=== PATIENT | female | born 1940 | race Caucasian/White ===

== ENCOUNTER 2017-10-10 09:20 | Day surgery (SDC) | payer OTHER ==
[2017-10-06 14:02] VITALS: BMI 28.0
[2017-10-10] MEDS ORDERED: ceFAZolin SODIUM 1 GM VIAL ONE (09:57)
--- NOTE | 2017-10-10 12:54 | HP ---
History & Physical Update - History History: No Change - Physical Physical: No Change - Assessment Assessment: No Change - Plan Plan: No Change
[2017-10-10] MEDS ORDERED: LIDOCAINE 1%/EPI 1:100000 (20 ML MULTI DOSE VIAL) ONE (13:12)
[2017-10-10] MEDS ORDERED: PROPOFOL 20 ML ONE (13:28)
[2017-10-10] MEDS ORDERED: DEXAMETHASONE SOD PHOSPHATE 4 MG/1 ML VIAL ONE (13:28)
[2017-10-10] MEDS ORDERED: LIDOCAINE HCL/PF 2% SDV 5ML VIAL ONE (13:28)
[2017-10-10] MEDS ORDERED: KETOROLAC TROMETHAMINE 30 MG/1 ML VIAL ONE (13:28)
[2017-10-10] MEDS ORDERED: MIDAZOLAM HCL 2 MG/2 ML SINGLE DOSE VIAL ONE ×2 (13:30→13:31)
[2017-10-10] MEDS ORDERED: ceFAZolin SODIUM 1 GM VIAL IVPB ONE (13:35)
[2017-10-10] MEDS ORDERED: LIDOCAINE 1%/EPI 1:100000 (50 ML MULTI DOSE VIAL) INF ONE (13:49)
[2017-10-10] MEDS ORDERED: PROMETHAZINE HCL 25 MG/1 ML VIAL IVPUSH PRN (14:10)
[2017-10-10] MEDS ORDERED: oxyCODONE HCL 5 MG TABLET PO PRN (14:10)
[2017-10-10] MEDS ORDERED: ONDANSETRON 4 MG/2 ML VIAL IVPUSH PRN (14:10)
[2017-10-10] MEDS ORDERED: LACTATED RINGERS SOLUTION 1,000 ML IV SCH (14:15)
[2017-10-10 14:46] VITALS: TEMP 97.9
[2017-10-10 15:55] VITALS: BP 104/67; PULSE 84
--- NOTE | 2017-10-10 17:23 | OP ---
DATE OF OPERATION: 10/10/2017 PREOPERATIVE DIAGNOSIS: Squamous cell carcinoma of the cervix. 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 SURGEON: Jyoti Maldonado MD ANESTHESIA: Moderate sedation and local. ESTIMATED BLOOD LOSS: 5 mL COMPLICATIONS: None. INDICATIONS: This is a 77-year-old with history of postmenopausal vaginal bleeding. She had a Pap smear on August 24, 2017, that showed HSIL, high-risk HPV positive. On September 07, 2017, a cervical biopsy at 6 o'clock showed squamous cell carcinoma, cannot determine invasion due to superficial nature of biopsy. ECC and cervix biopsy showed squamous cell carcinoma, cannot determine invasion. Patient was counseled regarding surgical management to define the extent of disease. Risks, benefits, indications, and alternatives were discussed with the patient. All questions were answered. Informed consent was signed. FINDINGS: On exam under anesthesia, the cervix was hard and firm and fixed to the right pelvic sidewall. The left parametria felt free. The vagina felt free. Rectovaginal septum was free of any nodularity. Uterus was approximately 6 weeks' size. On cystoscopy, there were no lesions in the mucosa, and the entire mucosa was able to be visualized. There was a bulge from the cervix between the trigone. There was approximately a 3 x 1 cm ridge. This area was biopsied. It was right between the bilateral ureteral orifices. Upon proctoscopy to 15 cm, no mucosal lesions were seen. Excellent bowel prep. DESCRIPTION OF PROCEDURE: The patient was taken to the operating room, placed in dorsal supine position. Moderate sedation was achieved. She was placed in the dorsal lithotomy position in Rudi stirrups and prepped and draped in the normal sterile fashion. A 30-degree cystoscope was advanced through the urethra, and a thorough exam of the bladder was performed with the above-noted findings. A bladder mucosal biopsy was performed in the trigone overlying the ridge. Excellent hemostasis was seen. The cystoscope was then removed, and the bladder was drained. Speculum was then placed in the vagina, and 10 mL of 1% lidocaine with epinephrine were injected into the cervix at 3, 6, 9, and 12 o'clock. Using the 1.0 x 1.0 loop electrode, a pass along the central cervix and endocervix was performed for diagnostic purposes. Hemostasis was achieved using rollerball electrocautery. The speculum was then removed. Attention was turned to proctoscopy. Using the rigid proctoscope, it was inserted to 15 degrees, and a thorough exam of the mucosa was performed. No lesions were seen. The proctoscope was removed, and sponge and instrument counts were correct x2. The patient was awakened, transferred in stable condition to the PACU. Kali De La [id number]
--- NOTE | 2017-10-12 13:49 | PATH ---
Surgical Pathology Report Patient Name: RAYMUNDO PENA [facility]. Rec. #: [id number] /Age/Gender: 1940 (Age: 77) / F Account: [id number] Location: [facility] SURGICAL Taken: 10/10/2017 Received: 10/11/2017 Reported: 10/12/2017 Physicians: Jyoti Maldonado MD Specimen(s) Received A: BLADDER TRIGONE BIOPSY B: CERVIX BIOPSY - CENTRAL LEEP Clinical History Preoperative diagnosis: Cervix cancer Final Diagnosis A. Bladder, trigone, biopsy: benign urothelial mucosa. No carcinoma identified. B. Cervix, CENTRAL, LOOP ELECTROSURGICAL EXCISION PROCEDURE (LEEP): Invasive squamous cell CARCINOMA, moderately differentiated. TUMOR MEASURES ATLEAST 7 x 4 MM in GREATEST MICROSCOPIC DIMENSION AND INVOLVES ALL QUADRANTS. HIGH GRADE SQUAMOUS INTRAEPITHELIAL LESION (HSIL) PRESENT. LYMPHOVascular INVASION identified. Carcinoma extends to INKED surgical margins. Comment: Findings discussed with Dr. Maldonado. Electronically Signed Jennifer Vanegas M.D. Gross Description A. Received in formalin, labeled "bladder trigone biopsy" is a hernández, irregular portion of soft tissue measuring 0.2 cm. in greatest dimension. The specimen is submitted in toto in one cassette. B. Received in formalin labeled "cervix biopsy central LEEP," is a 1.2 cm in diameter annular, unoriented portion of soft tissue, consistent with a cervical LEEP biopsy. There is a arnulfo in the specimen which is arbitrarily designated the 12:00 aspect. The specimen is inked blue and serially sectioned. The specimen is entirely and sequentially submitted in 4 cassettes as follows: 1-12:00 to 3:00; 2-3:00 to 6:00; 3-6:00 to 9:00; 4-9:00 to 12:00. DL/10/11/2017 saudi/10/11/2017
== END 2017-10-10 15:55 | disposition home or self-care (01) ==
LOC: JASU-SURG 09:20
PROVIDERS: ATTEND Obstetrics & Gynecology Gynecologic Oncology
PROC: 0DJD8ZZ Inspection of Lower Intestinal Tract, Via Natural or Artificial Opening Endoscopic (ICD-10-PCS; 2017-10-10)
PROC: 0UBC7ZX Excision of Cervix, Via Natural or Artificial Opening, Diagnostic (ICD-10-PCS; 2017-10-10)
PROC: 0TBB8ZX Excision of Bladder, Via Natural or Artificial Opening Endoscopic, Diagnostic (ICD-10-PCS; principal; 2017-10-10 11:00)
DX: C53.9 Malignant neoplasm of cervix uteri, unspecified (principal)
CPT/HCPCS: 88305-TC; 88307-TC; 94760

== ENCOUNTER 2017-11-15 07:43 | Day surgery (SDC) | payer OTHER ==
[2017-11-15] MEDS ORDERED: DEXAMETHASONE SOD PHOSPHATE 10 MG/1 ML VIAL IVPUSH ONE (10:00)
[2017-11-15] MEDS ORDERED: FOSAPREPITANT DIMEGLUMINE 150 MG in SODIUM CHLORIDE 150 ML IVPB ONE (10:00)
[2017-11-15] MEDS ORDERED: SODIUM CHLORIDE IVPB ONE (10:00)
[2017-11-15] MEDS ORDERED: MAGNESIUM SULFATE IVPB ONE ×2 (10:00→12:00)
[2017-11-15] MEDS ORDERED: PALONOSETRON HCL 0.25 MG/5 ML VIAL IVPUSH ONE (10:00)
[2017-11-15] MEDS ORDERED: POTASSIUM CHLORIDE IVPB ONE (10:00)
[2017-11-15] MEDS ORDERED: SODIUM CHLORIDE IV ONE (10:30)
[2017-11-15] MEDS ORDERED: CISPLATIN IV ONE (10:30)
[2017-11-15 10:45] VITALS: BP 139/94; PULSE 87; TEMP 98
[2017-11-15 11:09] LABS: BASO % 0.8 % (0-2.0); EOS % 5.6 % (0-4.5); HEMATOCRIT 36.3 % (32.4-45.2); HEMOGLOBIN 11.7 GM/dL (10.7-15.3); LYMPH % 28.4 % (8-40); MCH 28.3 pg (25.7-33.7); MCHC 32.2 g/dl (32.0-36.0); MEAN PLT VOLUME 6.6 fl (7.5-11.1); MONO % 7.3 % (3.8-10.2); NEUT % 57.9 % (42.8-82.8); PLATELET COUNT 252 K/MM3 (134-434); RBC 4.12 M/mm3 (3.60-5.2); RDW 14.5 % (11.6-15.6); WHITE BLOOD COUNT 6.2 K/mm3 (4.0-10.0)
[2017-11-15 11:41] LABS: ALBUMIN 3.6 g/dl (3.4-5.0); ALK PHOS 54 U/L (45-117); ANION GAP 6 (8-16); BILIRUBIN,DIRECT < 0.2 mg/dL (0.0-0.2); BILIRUBIN,TOTAL 0.5 mg/dL (0.2-1.0); BLOOD UREA NITROGEN 12 mg/dL (7-18); CALCIUM 8.3 mg/dL (8.5-10.1); CHLORIDE 105 mmol/L (98-107); CO2 27 mmol/L (21-32); CREATININE 0.6 mg/dL (0.55-1.02); GLUCOSE,RANDOM 92 mg/dL (74-106); MAGNESIUM 2.1 mg/dL (1.8-2.4); POTASSIUM 4.3 mmol/L (3.5-5.1); SGOT/AST 16 U/L (15-37); SGPT/ALT 22 U/L (12-78); SODIUM 138 mmol/L (136-145); TOT PROT 6.9 g/dl (6.4-8.2)
[2017-11-15] MEDS ORDERED: SODIUM CHLORIDE 0.45% IVPB ONE (12:00)
[2017-11-15] MEDS ORDERED: PORTA CATH FLUSH 10 ML IVPUSH ONE (19:43)
== END 2017-11-15 19:25 | disposition home or self-care (01) ==
LOC: JONCCHEMO 07:43 → J7W 11:59 → JONCCHEMO 19:25
PROVIDERS: ATTEND Internal Medicine Hematology & Oncology
DX: Z51.11 Encounter for antineoplastic chemotherapy (principal); C53.9 Malignant neoplasm of cervix uteri, unspecified
CPT/HCPCS: 36415; 80053; 80076; 83735; 85025; 96361; 96375; 96413; J1453; J2469

== ENCOUNTER → 2017-11-17 | Day surgery (SDC) | payer OTHER ==
[2017-11-17 11:00] LABS: ALBUMIN 3.6 g/dl (3.4-5.0); ALK PHOS 50 U/L (45-117); ANION GAP 7 (8-16); BILIRUBIN,TOTAL 0.5 mg/dL (0.2-1.0); BLOOD UREA NITROGEN 23 mg/dL (7-18); CALCIUM 8.5 mg/dL (8.5-10.1); CHLORIDE 105 mmol/L (98-107); CO2 26 mmol/L (21-32); CREATININE 0.8 mg/dL (0.55-1.02); GLUCOSE,RANDOM 90 mg/dL (74-106); MAGNESIUM 2.3 mg/dL (1.8-2.4); POTASSIUM 4.1 mmol/L (3.5-5.1); SGOT/AST 12 U/L (15-37); SGPT/ALT 20 U/L (12-78); SODIUM 138 mmol/L (136-145); TOT PROT 6.7 g/dl (6.4-8.2)
== END | disposition home or self-care (01) ==
LOC: JONCNONCHE 07:43
PROVIDERS: ATTEND Internal Medicine Hematology & Oncology
PROC: 0JPVXVZ Removal of Infusion Pump from Upper Extremity Subcutaneous Tissue and Fascia, External Approach (ICD-10-PCS; principal; 2017-11-17)
DX: Z53.8 Procedure and treatment not carried out for other reasons (principal)
CPT/HCPCS: 36415; 80053; 83735

== ENCOUNTER 2017-11-20 07:28 | Day surgery (SDC) | payer OTHER ==
[2017-11-20] MEDS ORDERED: SODIUM CHLORIDE 1,000 ML IV SCH (10:45)
[2017-11-20 10:56] LABS: BASO % 0.2 % (0-2.0); EOS % 4.1 % (0-4.5); HEMATOCRIT 38.3 % (32.4-45.2); HEMOGLOBIN 12.2 GM/dL (10.7-15.3); LYMPH % 28.5 % (8-40); MCHC 31.9 g/dl (32.0-36.0); MEAN CELL VOLUME 87.7 fl (80-96); MEAN PLT VOLUME 6.9 fl (7.5-11.1); MONO % 7.7 % (3.8-10.2); NEUT % 59.5 % (42.8-82.8); PLATELET COUNT 271 K/MM3 (134-434); RBC 4.36 M/mm3 (3.60-5.2); RDW 13.9 % (11.6-15.6); WHITE BLOOD COUNT 6.7 K/mm3 (4.0-10.0)
[2017-11-20 11:16] LABS: ALBUMIN 3.6 g/dl (3.4-5.0); ALK PHOS 55 U/L (45-117); ANION GAP 5 (8-16); BILIRUBIN,TOTAL 0.6 mg/dL (0.2-1.0); BLOOD UREA NITROGEN 22 mg/dL (7-18); CHLORIDE 101 mmol/L (98-107); CO2 30 mmol/L (21-32); CREATININE 0.9 mg/dL (0.55-1.02); GLUCOSE,RANDOM 97 mg/dL (74-106); MAGNESIUM 2.1 mg/dL (1.8-2.4); POTASSIUM 4.1 mmol/L (3.5-5.1); SGOT/AST 13 U/L (15-37); SGPT/ALT 21 U/L (12-78); SODIUM 136 mmol/L (136-145)
[2017-11-20] MEDS ORDERED: SODIUM CHLORIDE 1,000 ML IV ONE (12:00)
[2017-11-20 13:41] VITALS: TEMP 98.4
[2017-11-20 13:48] VITALS: BP 120/73; PULSE 86
[2017-11-20] MEDS ORDERED: PORTA CATH FLUSH 10 ML IVPUSH ONE (13:48)
== END 2017-11-20 12:55 | disposition home or self-care (01) ==
LOC: JONCNONCHE 07:28 → J7W 10:24 → JONCNONCHE 12:55
PROVIDERS: ATTEND Internal Medicine Hematology & Oncology
PROC: 3E0337Z Introduction of Electrolytic and Water Balance Substance into Peripheral Vein, Percutaneous Approach (ICD-10-PCS; principal; 2017-11-20)
DX: C53.9 Malignant neoplasm of cervix uteri, unspecified (principal)
CPT/HCPCS: 36415; 80053; 83735; 85025; 96360; 96361

== ENCOUNTER 2017-11-23 07:45 | Day surgery (SDC) | payer OTHER ==
[2017-11-23 13:54] LABS: HEMATOCRIT 34.2 % (32.4-45.2); HEMOGLOBIN 11.2 GM/dL (10.7-15.3); MCH 28.5 pg (25.7-33.7); MCHC 32.7 g/dl (32.0-36.0); MEAN CELL VOLUME 87.3 fl (80-96); MEAN PLT VOLUME 6.7 fl (7.5-11.1); PLATELET COUNT 250 K/MM3 (134-434); RBC 3.92 M/mm3 (3.60-5.2); RDW 13.6 % (11.6-15.6); WHITE BLOOD COUNT 5.6 K/mm3 (4.0-10.0)
[2017-11-23] MEDS ORDERED: PALONOSETRON HCL 0.25 MG/5 ML VIAL IVPUSH ONE (14:00)
[2017-11-23] MEDS ORDERED: DEXAMETHASONE SOD PHOSPHATE 10 MG/1 ML VIAL IVPUSH ONE (14:00)
[2017-11-23 14:20] LABS: ALBUMIN 3.5 g/dl (3.4-5.0); ANION GAP 8 (8-16); BLOOD UREA NITROGEN 18 mg/dL (7-18); CHLORIDE 100 mmol/L (98-107); CO2 30 mmol/L (21-32); CREATININE 0.9 mg/dL (0.55-1.02); GLUCOSE,RANDOM 111 mg/dL (74-106); POTASSIUM 3.5 mmol/L (3.5-5.1); SGOT/AST 17 U/L (15-37); SGPT/ALT 21 U/L (12-78); SODIUM 138 mmol/L (136-145)
[2017-11-23 14:23] LABS: ALK PHOS 52 U/L (45-117); BILIRUBIN,TOTAL 0.3 mg/dL (0.2-1.0); TOT PROT 6.8 g/dl (6.4-8.2)
[2017-11-23] MEDS ORDERED: SODIUM CHLORIDE IV ONE ×3 (14:30→15:30)
[2017-11-23] MEDS ORDERED: CISPLATIN IV ONE ×3 (14:30→15:30)
[2017-11-23] MEDS: POTASSIUM CHLORIDE 10 MEQ, MAGNESIUM SULFATE 1 GM in SODIUM CHLORIDE 1,000 ML IVPB ONE ×2 (15:13→16:55)
[2017-11-23 17:34] VITALS: TEMP 97.7
[2017-11-23 21:01] VITALS: BP 121/67; PULSE 89
[2017-11-24 11:52] LABS: MAGNESIUM 2.1 mg/dL (1.8-2.4)
== END 2017-11-23 21:46 | disposition home or self-care (01) ==
LOC: JONCCHEMO 07:45 → J7W 13:08 → JONCCHEMO 21:46
PROVIDERS: ATTEND Internal Medicine Hematology & Oncology
DX: Z51.11 Encounter for antineoplastic chemotherapy (principal); C53.9 Malignant neoplasm of cervix uteri, unspecified
CPT/HCPCS: 36415; 80053; 83735; 85027; 96361; 96367; 96375; 96413; J1100; J2469

== ENCOUNTER 2017-11-30 07:28 | Day surgery (SDC) | payer OTHER ==
[2017-11-30] MEDS ORDERED: POTASSIUM CHLORIDE 10 MEQ, MAGNESIUM SULFATE 1 GM in SODIUM CHLORIDE 1,000 ML IVPB ONE (08:00)
[2017-11-30 10:23] LABS: BASO % 0.4 % (0-2.0); EOS % 14.1 % (0-4.5); HEMATOCRIT 34.7 % (32.4-45.2); HEMOGLOBIN 11.4 GM/dL (10.7-15.3); LYMPH % 17.2 % (8-40); MCH 28.8 pg (25.7-33.7); MCHC 32.8 g/dl (32.0-36.0); MEAN CELL VOLUME 87.7 fl (80-96); MEAN PLT VOLUME 6.7 fl (7.5-11.1); MONO % 10.5 % (3.8-10.2); NEUT % 57.8 % (42.8-82.8); PLATELET COUNT 189 K/MM3 (134-434); RBC 3.95 M/mm3 (3.60-5.2); RDW 14.1 % (11.6-15.6); WHITE BLOOD COUNT 4.7 K/mm3 (4.0-10.0)
[2017-11-30 11:34] LABS: ALBUMIN 3.6 g/dl (3.4-5.0); ANION GAP 8 (8-16); BILIRUBIN,TOTAL 0.5 mg/dL (0.2-1.0); BLOOD UREA NITROGEN 21 mg/dL (7-18); CALCIUM 8.6 mg/dL (8.5-10.1); CHLORIDE 100 mmol/L (98-107); CO2 28 mmol/L (21-32); CREATININE 0.8 mg/dL (0.55-1.02); GLUCOSE,RANDOM 89 mg/dL (74-106); MAGNESIUM 1.7 mg/dL (1.8-2.4); SGOT/AST 15 U/L (15-37); SGPT/ALT 27 U/L (12-78); SODIUM 136 mmol/L (136-145); TOT PROT 6.7 g/dl (6.4-8.2)
[2017-11-30 11:35] LABS: ALK PHOS 65 U/L (45-117)
[2017-11-30] MEDS ORDERED: PALONOSETRON HCL 0.25 MG/5 ML VIAL IVPUSH ONE (12:00)
[2017-11-30] MEDS ORDERED: DEXAMETHASONE SOD PHOSPHATE 10 MG/1 ML VIAL IVPUSH ONE (12:00)
[2017-11-30] MEDS ORDERED: CISPLATIN IV ONE ×2 (12:30→12:52)
[2017-11-30] MEDS ORDERED: SODIUM CHLORIDE IV ONE ×2 (12:30→12:52)
[2017-11-30] MEDS ORDERED: MAGNESIUM SULFATE IN WATER 2 GM/50 ML IVPB IVPB ONE (13:00)
[2017-11-30] MEDS ORDERED: MAGNESIUM SULF 50% (8.12 MEQ/2 ML-1 GM VIAL) ONE (13:43)
[2017-11-30] MEDS ORDERED: PORTA CATH FLUSH 10 ML IVPUSH ONE (16:34)
[2017-11-30 18:37] VITALS: BP 96/63; PULSE 84
[2017-11-30 18:49] VITALS: TEMP 98.6
== END 2017-11-30 19:31 | disposition home or self-care (01) ==
LOC: JONCCHEMO 07:28 → J7W 12:02 → JONCCHEMO 19:31
PROVIDERS: ATTEND Internal Medicine Hematology & Oncology
DX: Z51.11 Encounter for antineoplastic chemotherapy (principal); C53.9 Malignant neoplasm of cervix uteri, unspecified
CPT/HCPCS: 36415; 80053; 83735; 85025; 96361; 96366; 96367; 96375; 96413; 96417; J1100; J2469

== ENCOUNTER 2017-12-01 03:59 | Emergency (ER) | payer OTHER ==
[2017-12-01 04:34] VITALS: BMI 26.4
--- NOTE | 2017-12-01 04:53 | PDOC ---
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 She denies cough, congestion, and sore throat. Denies vomiting and diarrhea. Allergies: NKA PCP: Dr. Simental <Kristofer Samuel - Last Filed: 12/01/17 05:03> - Resident Resident Name: Lauren Sutherland - ED Attending Attestation I have performed the following: I have examined & evaluated the patient, The case was reviewed & discussed with the resident, I agree w/resident's findings & plan, Exceptions are as noted - Physicial Exam PE: 12/01/17 05:55 *Physical Exam General Appearance: Yes: Appropriately Dressed. No: Apparent Distress, Intoxicated HEENT: positive: EOMI, SUE, Normal ENT Inspection, Normal Voice, TMs Normal, Pharynx Normal. negative: Pale Conjunctivae, Photophobia, Scleral Icterus (R), Scleral Icterus (L) Neck: positive: Trachea midline, Normal Thyroid, Supple. negative: Tender, Rigid, Carotid bruit, Stridor, Lymphadenopathy (R), Lymphadenopathy (L), Thyromegaly Respiratory/Chest: positive: Lungs Clear, Normal Breath Sounds. negative: Chest Tender, Respiratory Distress, Accessory Muscle Use, Labored Respiration, RES, Crackles, Rales, Rhonchi, Stridor, Wheezing, Dullness Cardiovascular: positive: Regular Rhythm, Regular Rate, S1, S2. negative: Edema , JVD, Murmur, Bradycardia, Tachycardia Vascular Pulses: Dorsalis-Pedis (R): 2+, Doralis-Pedis (L): 2+ Gastrointestinal/Abdominal: positive: Normal Bowel Sounds, Flat, Soft. negative : Tender, Organomegaly, Pulsatile Mass, Increased Bowel Sounds, Decreased BS, Distended, Guarding, Rebound, Hernia, Hepatomegaly, Spleenomegaly Lymphatic: negative: Adenopathy, Tenderness Musculoskeletal: positive: Normal Inspection. negative: CVA Tenderness, Decreased Range of Motion Extremity: positive: Normal Capillary Refill, Normal Inspection, Normal Range of Motion, Pelvis Stable. negative: Tender, Pedal Edema, Swelling, Erythema Integumentary: positive: Normal Color, Dry, Warm. negative: Cyanotic, Erythema , Jaundice, Rash Neurologic: positive: alligator trapper II-XII NML intact, Fully Oriented, Alert, Normal Mood/ Affect, Motor Strength 5/5. negative: EOM Palsy, Facial Droop, Sensory Deficit <Jesús Quijano - Last Filed: 12/01/17 05:55>
--- NOTE | 2017-12-01 04:59 | PDOC ---
History of Present Illness - General Chief Complaint: Cold Symptoms Stated Complaint: FEVER Time Seen by Provider: 12/01/17 04:33 History Source: Patient Exam Limitations: No Limitations - History of Present Illness Initial Comments: This is a 77 YOF with h/o with h/o recently diagnosed cervical cancer with D&C about 6 weeks ago and current radiation (M-F for the past 5 weeks) and chemo ( Th for the past 5 weeks including yesterday) who presents c/o about 5 hours of fever (up to 100.9 at home), headache, myalgias, lower abdominal pain, and dry mouth. The headache is a mild 2/10 but persistent and located at the front and top of the head. She denies any recent cough, chest pain, SOB, palpitations, dysuria, rash, or recent sick contacts. She did not take any medications for her symptoms this morning. Past History - Past Medical History Allergies/Adverse Reactions: Allergies Allergy/AdvReac Type Severity Reaction Status Date / Time No Known Allergies Allergy Verified 12/01/17 04:31 Home Medications: Ambulatory Orders Esomeprazole Mag Trihydrate [Nexium] 40 mg PO DAILY 05/24/13 Ezetimibe [Zetia] 10 mg PO DAILY 05/24/13 Levothyroxine [Synthroid] 25 mcg PO DAILY 05/24/13 Alendronate Na [Fosamax] 70 mg PO Q7D 10/06/17 Aspirin [Aspirin EC] 81 mg PO DAILY 10/06/17 Calcium Carbonate/Vitamin D3 [Calcium 600 + Vit D 200 Tablet] 1 each PO DAILY Diclofenac Sodium [Voltaren] 100 gm TP PRN PRN 10/06/17 Ibuprofen [Advil -] 200 mg PO PRN PRN 10/06/17 Anemia: No Asthma: Yes Cancer: Yes (CERVICAL) Cardiac Disorders: No CVA: No COPD: No CHF: No Dementia: No Diabetes: No GI Disorders: Yes (ULCERS) Disorders: Yes (KIDNEY STONES - STENT AND REMOVAL) HTN: No Hypercholesterolemia: Yes Liver Disease: No Seizures: No Thyroid Disease: Yes - Surgical History Abdominal Surgery: No Appendectomy: No Cardiac Surgery: No Cholecystectomy: No Lung Surgery: No Neurologic Surgery: No Orthopedic Surgery: No - Suicide/Smoking/Psychosocial Hx Smoking Status: No Smoking History: Never smoked Number of Cigarettes Smoked Daily: 0 Hx Alcohol Use: No Drug/Substance Use Hx: No Substance Use Type: None Hx Substance Use Treatment: No Review of Systems - Review of Systems Able to Perform ROS?: Yes Constitutional: Yes: Chills, Fever, Malaise, Weakness. No: Unexplained wgt Loss HEENTM: No: Nose Congestion, Throat Pain Respiratory: No: Cough, Shortness of Breath Cardiac (ROS): No: Chest Pain, Palpitations ABD/GI: Yes: Nausea. No: Constipated, Diarrhea, Vomiting : Yes: Frequency. No: Burning, Dysuria, Hematuria Musculoskeletal: No: Back Pain, Neck Pain Integumentary: No: Bruising, Rash Neurological: Yes: Headache. No: Numbness, Tingling, Weakness, Dizziness Endocrine: No: Unexplained Weight Gain, Unexplained Weight Loss *Physical Exam - Vital Signs Last Vital Signs Temp Pulse Resp BP Pulse Ox 100.5 F H 99 H 14 104/70 100 12/01/17 04:31 12/01/17 04:31 12/01/17 04:31 12/01/17 04:31 12/01/17 04:31 - Physical Exam General Appearance: Yes: Nourished, Appropriately Dressed, Other (very pleasant older adult female who is answering appropriately, in no distress, accompanied by her at bedside who is supportive). No: Apparent Distress HEENT: positive: EOMI, SUE, Normal Voice, Hearing Grossly Normal. negative: Scleral Icterus (R), Scleral Icterus (L), Nasal Congestion Neck: positive: Trachea midline, Supple. negative: Tender, Rigid Respiratory/Chest: positive: Lungs Clear, Normal Breath Sounds. negative: Respiratory Distress, Crackles, Rhonchi, Stridor, Wheezing Cardiovascular: positive: Regular Rhythm, S1, S2, Tachycardia. negative: Edema , JVD, Murmur Gastrointestinal/Abdominal: positive: Normal Bowel Sounds, Flat, Soft. negative : Tender, Organomegaly, Pulsatile Mass, Guarding Musculoskeletal: positive: Normal Inspection. negative: Decreased Range of Motion, Vertebral Tenderness Extremity: positive: Normal Capillary Refill, Normal Inspection, Normal Range of Motion. negative: Tender, Cyanosis Integumentary: positive: Normal Color, Dry, Warm. negative: Erythema, Rash, Bruising Neurologic: positive: head bookkeeper II-XII NML intact (grossly), Fully Oriented, Alert, Normal Mood/Affect, Normal Response, Motor Strength 5/5. 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 On exam VS notable for T 100.5 and tachycardia to about 100 on my exam, triage BP noted as 104/70. She is in no distress and otherwise exam essentially normal. DDX IBNLT neutropenic fever, influenza, PNA/bronchitis, UTI, port-a-cath infection, etc. Ordered is septic workup CBCD CMP Mg Phos coags TS cardiac panel TSH VBG EKG CXR UA Cx IVF bolus. *DC/Admit/Observation/Transfer - Referrals Referrals: Eloy Simental MD [Primary Care Provider] - - Patient Instructions - Post Discharge Activity
[2017-12-01 05:48] LABS: BASO % 0.2 % (0-2.0); EOS % 6.1 % (0-4.5); HEMATOCRIT 31.9 % (32.4-45.2); HEMOGLOBIN 10.5 GM/dL (10.7-15.3); LYMPH % 1.7 % (8-40); MEAN CELL VOLUME 87.8 fl (80-96); MONO % 6.5 % (3.8-10.2); NEUT % 85.5 % (42.8-82.8); PLATELET COUNT 169 K/MM3 (134-434); RBC 3.64 M/mm3 (3.60-5.2); RDW 13.8 % (11.6-15.6); VENOUS PH 7.44 (7.32-7.42); VENOUS PO2 24.1 mmHg (28-48); WHITE BLOOD COUNT 4.4 K/mm3 (4.0-10.0)
[2017-12-01] MEDS ORDERED: SODIUM CHLORIDE 1,000 ML IV STA (05:54)
[2017-12-01 06:16] LABS: ALBUMIN 3.3 g/dl (3.4-5.0); ANION GAP 7 (8-16); BILIRUBIN,TOTAL 0.3 mg/dL (0.2-1.0); BLOOD UREA NITROGEN 17 mg/dL (7-18); CALCIUM 8.2 mg/dL (8.5-10.1); CHLORIDE 102 mmol/L (98-107); CO2 26 mmol/L (21-32); CREATININE 0.7 mg/dL (0.55-1.02); GLUCOSE,RANDOM 94 mg/dL (74-106); POTASSIUM 4.1 mmol/L (3.5-5.1); SGOT/AST 13 U/L (15-37); SGPT/ALT 24 U/L (12-78); SODIUM 135 mmol/L (136-145); TOT PROT 6.5 g/dl (6.4-8.2)
[2017-12-01 06:19] LABS: ALK PHOS 59 U/L (45-117)
[2017-12-01 06:22] LABS: PROTHROMBIN TIME (PATIENT) 11.3 SEC (9.98-11.88)
--- NOTE | 2017-12-01 08:39 | PDOC ---
*Physical Exam - Vital Signs Last Vital Signs Temp Pulse Resp BP Pulse Ox 99.0 F 89 18 110/63 98 12/01/17 07:13 12/01/17 07:13 12/01/17 07:13 12/01/17 07:13 12/01/17 07:13 ED Treatment Course - LABORATORY CBC & Chemistry Diagram: 12/01/17 05:30 12/01/17 05:30 - ADDITIONAL ORDERS Additional order review: Laboratory Results 12/01/17 12/01/17 12/01/17 05:30 05:30 05:30 PT with INR INR VBG pH POC VBG pCO2 POC VBG pO2 Mixed VBG HCO3 Sodium Potassium Chloride Carbon Dioxide Anion Gap BUN Creatinine Creat Clearance w eGFR Random Glucose Lactic Acid 1.7 Calcium Total Bilirubin AST ALT Alkaline Phosphatase Creatine Kinase Troponin I Total Protein Albumin TSH 0.82 Blood Type O POSITIVE 12/01/17 12/01/17 12/01/17 05:30 05:30 05:30 PT with INR 11.30 INR 1.00 VBG pH 7.44 H POC VBG pCO2 37.0 L POC VBG pO2 24.1 L Mixed VBG HCO3 24.7 Sodium 135 L Potassium 4.1 Chloride 102 Carbon Dioxide 26 Anion Gap 7 L BUN 17 Creatinine 0.7 Creat Clearance w eGFR > 60 Random Glucose 94 Lactic Acid Calcium 8.2 L Total Bilirubin 0.3 D AST 13 L ALT 24 Alkaline Phosphatase 59 Creatine Kinase 48 Troponin I < 0.02 Total Protein 6.5 Albumin 3.3 L TSH Blood Type 12/01/17 05:30 Influenza Types A,B Antigen (LISA) - Final Nasopharyngeal Swab - Final 12/01/17 05:30 RBC 3.64 MCV 87.8 MCHC 33.0 RDW 13.8 MPV 7.0 L Neutrophils % 85.5 H D Lymphocytes % 1.7 L D Monocytes % 6.5 Eosinophils % 6.1 H Basophils % 0.2 - Medications Given in the ED: ED Medications Discontinued Medications Generic Name Dose Route Start Last Admin Trade Name Freq PRN Reason Stop Dose Admin Sodium Chloride 1,000 mls @ 1,000 mls/hr 12/01/17 05:54 12/01/17 06:25 Normal Saline - IV 12/01/17 06:53 1,000 mls/hr ASDIR STA Administration Progress Note - Progress Note Progress Note: Signout received from Dr. Zuleta Pt is a 77yo F with hx of cervical cancer undergoing active chemo/radiation treatments who presented with low grade fever, headache, myalgia. Recently had chemo yesterday. She was febrile, tachy. Septic workup initiated, workup is negative. CBC and CMP wnl, CXR no pathology, Flu negative, UA negative. On re- examination patient feels much improved, myalgias and headaches have dissipated. Patient anxious to be discharged home. Has appointment with Dr Sandhu this Monday. Will page Dr. Sandhu office to update her. Dispo home. Medical Decision Making - Medical Decision Making 12/01/17 09:00 Dr. Sandhu returned the page. Explained to her that the patient feels much improved. She agrees with discharge with outpatient f/u on Monday. If patient has fever >100.4 or belly pain, she should return to the ER to check for possibility of tumor necrosis. *DC/Admit/Observation/Transfer Diagnosis at time of Disposition: Fever Qualifiers: Fever type: due to other condition Qualified Code(s): R50.81 - Fever presenting with conditions classified elsewhere - Discharge Dispostion Disposition: HOME Condition at time of disposition: Improved - Referrals Referrals: Eloy Simental MD [Primary Care Provider] - - Patient Instructions Additional Instructions: You were seen in the emergency room due to a low grade fever, muscle aches and headaches. We completed a full workup and you unlikely have an infection. Since you have improved, and have an appointment with Dr. Sandhu this Monday, we are comfortable sending you home with outpatient followup. We called Dr. Sandhu to update her. She explained that if you have a fever more than 100.4 or abdominal pain, you should return to the Emergency Room to ensure you do not have any infection If you experience any new fevers (>100.4), chills, abdominal pain, chest pain, shortness of breath, please return to the Emergency Room - Post Discharge Activity
[2017-12-01 08:51] LABS: URINE APPEARANCE CLEAR; URINE BILIRUBIN NEGATIVE (NEGATIVE); URINE BLOOD 2+ (NEGATIVE); URINE COLOR STRAW; URINE GLUCOSE (UA) NEGATIVE (NEGATIVE); URINE KETONE NEGATIVE (NEGATIVE); URINE LEUK ESTERASE TRACE (NEGATIVE); URINE NITRITE NEGATIVE (NEGATIVE); URINE PROTEIN NEGATIVE (NEGATIVE); URINE UROBILINOGEN NEGATIVE mg/dL (0.2-1.0)
[2017-12-01 09:15] LABS: EPI CELLS RARE /HPF (FEW); URINE HYALINE CAST 1 /lpf; URINE MUCUS RARE
[2017-12-01 09:26] VITALS: BP 112/84; PULSE 79; TEMP 98.8
--- NOTE | 2017-12-01 13:26 | EKG ---
Test Reason : Blood Pressure : / mmHG Vent. Rate : 095 BPM Atrial Rate : 095 BPM P-R Int : 122 ms QRS Dur : 064 ms QT Int : 350 ms P-R-T Axes : 014 006 026 degrees QTc Int : 439 ms POOR DATA QUALITY, INTERPRETATION MAY BE ADVERSELY AFFECTED NORMAL SINUS RHYTHM NORMAL ECG Confirmed by MD DOMINICK, CINTHIA ([id number]) on 12/01/2017 1:25:56 PM Referred By: Confirmed By:CINTHIA TAN MD
== END 2017-12-01 09:25 | disposition home or self-care (01) ==
LOC: JER 03:59
PROC: 3E0337Z Introduction of Electrolytic and Water Balance Substance into Peripheral Vein, Percutaneous Approach (ICD-10-PCS; principal; 2017-12-01)
DX: R50.9 Fever, unspecified (principal); C53.9 Malignant neoplasm of cervix uteri, unspecified
CPT/HCPCS: 36415; 71045-TC; 80053; 81003; 81015; 82550; 82803; 83605; 84443; 84484; 85025; 85610; 86850; 86870; 86900; 86901; 86902; 87040; 87086; 87804; 93005; 93010; 96360; 99285-25

== ENCOUNTER 2017-12-07 07:35 | Day surgery (SDC) | payer OTHER ==
[2017-12-07] MEDS ORDERED: POTASSIUM CHLORIDE 10 MEQ, MAGNESIUM SULFATE 1 GM in SODIUM CHLORIDE 1,000 ML IVPB ONE (08:00)
[2017-12-07] MEDS ORDERED: PALONOSETRON HCL 0.25 MG/5 ML VIAL IVPUSH ONE (08:30)
[2017-12-07] MEDS ORDERED: FOSAPREPITANT DIMEGLUMINE 150 MG in SODIUM CHLORIDE 145 ML IVPB ONE (08:30)
[2017-12-07] MEDS ORDERED: DEXAMETHASONE SOD PHOSPHATE 10 MG/1 ML VIAL IVPUSH ONE (08:30)
[2017-12-07 10:35] LABS: HEMATOCRIT 31.7 % (32.4-45.2); HEMOGLOBIN 10.3 GM/dL (10.7-15.3); MCH 28.3 pg (25.7-33.7); MCHC 32.6 g/dl (32.0-36.0); MEAN CELL VOLUME 87.1 fl (80-96); MEAN PLT VOLUME 6.5 fl (7.5-11.1); PLATELET COUNT 187 K/MM3 (134-434); RBC 3.64 M/mm3 (3.60-5.2); WHITE BLOOD COUNT 4.2 K/mm3 (4.0-10.0)
[2017-12-07 10:56] LABS: ALBUMIN 3.3 g/dl (3.4-5.0); ALK PHOS 52 U/L (45-117); ANION GAP 10 (8-16); BILIRUBIN,DIRECT < 0.2 mg/dL (0.0-0.2); BILIRUBIN,TOTAL 0.3 mg/dL (0.2-1.0); BLOOD UREA NITROGEN 19 mg/dL (7-18); CALCIUM 7.8 mg/dL (8.5-10.1); CHLORIDE 109 mmol/L (98-107); CO2 23 mmol/L (21-32); CREATININE 0.7 mg/dL (0.55-1.02); GLUCOSE,RANDOM 92 mg/dL (74-106); MAGNESIUM 1.6 mg/dL (1.8-2.4); POTASSIUM 3.4 mmol/L (3.5-5.1); SGOT/AST 11 U/L (15-37); SGPT/ALT 22 U/L (12-78); SODIUM 142 mmol/L (136-145); TOT PROT 6.3 g/dl (6.4-8.2)
[2017-12-07 12:19] VITALS: TEMP 97.2
[2017-12-07] MEDS ORDERED: PORTA CATH FLUSH 10 ML IVPUSH ONE (12:19)
[2017-12-07] MEDS ORDERED: POTASSIUM CHLORIDE TABS 20 MEQ TABLET.ER (FP) PO ONE (13:00)
[2017-12-07] MEDS ORDERED: MAGNESIUM OXIDE 400 MG TABLET (FP) PO ONE (13:00)
[2017-12-07] MEDS ORDERED: POTASSIUM CHLORIDE ORAL LIQUID 20 MEQ/15 ML PO ONE (13:30)
[2017-12-07 15:31] LABS: ANISOCYTOSIS 0; MACROCYTOSIS 0; PLATELET ESTIMATE NORMAL
[2017-12-07 16:21] VITALS: BP 110/60; PULSE 81
== END 2017-12-07 16:21 | disposition home or self-care (01) ==
LOC: JONCCHEMO 07:35 → J7W 10:31 → JONCCHEMO 16:21
PROVIDERS: ATTEND Internal Medicine Hematology & Oncology
DX: Z51.11 Encounter for antineoplastic chemotherapy (principal); C53.9 Malignant neoplasm of cervix uteri, unspecified
CPT/HCPCS: 36415; 80053; 80076; 83735; 85025; 96361; 96367; 96375; 96413; J1100; J1453; J2469

== ENCOUNTER 2017-12-14 07:37 | Day surgery (SDC) | payer OTHER ==
[2017-12-14] MEDS ORDERED: SODIUM CHLORIDE IVPB ONE ×2 (08:00→12:00)
[2017-12-14] MEDS ORDERED: POTASSIUM CHLORIDE IVPB ONE (08:00)
[2017-12-14] MEDS ORDERED: MAGNESIUM SULFATE IVPB ONE (08:00)
[2017-12-14 10:31] LABS: BASO % 0.6 % (0-2.0); EOS % 12.7 % (0-4.5); HEMATOCRIT 32.8 % (32.4-45.2); HEMOGLOBIN 10.9 GM/dL (10.7-15.3); LYMPH % 13.1 % (8-40); MEAN CELL VOLUME 87.7 fl (80-96); MEAN PLT VOLUME 6.5 fl (7.5-11.1); MONO % 11.1 % (3.8-10.2); NEUT % 62.5 % (42.8-82.8); PLATELET COUNT 220 K/MM3 (134-434); RBC 3.74 M/mm3 (3.60-5.2); WHITE BLOOD COUNT 3.1 K/mm3 (4.0-10.0)
[2017-12-14 11:16] VITALS: TEMP 97.5
[2017-12-14 11:24] LABS: ALBUMIN 3.5 g/dl (3.4-5.0); ALK PHOS 53 U/L (45-117); ANION GAP 10 (8-16); BILIRUBIN,DIRECT < 0.2 mg/dL (0.0-0.2); BILIRUBIN,TOTAL 0.4 mg/dL (0.2-1.0); BLOOD UREA NITROGEN 18 mg/dL (7-18); CALCIUM 8.8 mg/dL (8.5-10.1); CHLORIDE 105 mmol/L (98-107); CO2 25 mmol/L (21-32); CREATININE 0.9 mg/dL (0.55-1.02); GLUCOSE,RANDOM 96 mg/dL (74-106); MAGNESIUM 1.4 mg/dL (1.8-2.4); POTASSIUM 3.6 mmol/L (3.5-5.1); SGOT/AST 14 U/L (15-37); SGPT/ALT 25 U/L (12-78); SODIUM 140 mmol/L (136-145); TOT PROT 6.7 g/dl (6.4-8.2)
[2017-12-14] MEDS ORDERED: FOSAPREPITANT DIMEGLUMINE 150 MG in SODIUM CHLORIDE 145 ML IVPB ONE (11:30)
[2017-12-14] MEDS ORDERED: PALONOSETRON HCL 0.25 MG/5 ML VIAL IVPUSH ONE (11:30)
[2017-12-14] MEDS ORDERED: DEXAMETHASONE SOD PHOSPHATE 10 MG/1 ML VIAL IVPUSH ONE (11:30)
[2017-12-14] MEDS ORDERED: MAGNESIUM SULF 50% (8.12 MEQ/2 ML-1 GM VIAL) IVPB ONE (11:42)
[2017-12-14] MEDS ORDERED: CISPLATIN IVPB ONE (12:00)
[2017-12-14] MEDS ORDERED: PORTA CATH FLUSH 10 ML IVPUSH ONE (12:15)
[2017-12-14] MEDS ORDERED: MAGNESIUM SULFATE IN WATER 2 GM/50 ML IVPB IVPB ONE (12:40)
[2017-12-14 18:29] VITALS: BP 126/69; PULSE 96
== END 2017-12-14 17:45 | disposition home or self-care (01) ==
LOC: JONCCHEMO 07:37 → J7W 10:32 → JONCCHEMO 17:45
PROVIDERS: ATTEND Internal Medicine Hematology & Oncology
DX: Z51.11 Encounter for antineoplastic chemotherapy (principal); C53.9 Malignant neoplasm of cervix uteri, unspecified
CPT/HCPCS: 36415; 80053; 80076; 83735; 85025; 87324; 87449; 96361; 96366; 96367; 96375; 96413; 96415; 96417; J1100; J1453; J2469

== ENCOUNTER 2017-12-15 10:40 | Day surgery (SDC) | payer OTHER ==
[2017-12-15] MEDS ORDERED: TBO-FILGRASTIM 300 MCG/0.5 ML DISP.SYRINGE SQ ONE (11:45)
[2017-12-15 12:51] VITALS: BP 116/78; PULSE 83; TEMP 97.5
== END 2017-12-15 12:00 | disposition home or self-care (01) ==
LOC: JONCNONCHE 10:40 → J7W 10:42 → JONCNONCHE 12:00
PROVIDERS: ATTEND Internal Medicine Hematology & Oncology
PROC: 3E013GC Introduction of Other Therapeutic Substance into Subcutaneous Tissue, Percutaneous Approach (ICD-10-PCS; principal; 2017-12-15)
DX: C53.9 Malignant neoplasm of cervix uteri, unspecified (principal); Z76.89 Persons encountering health services in other specified circumstances
CPT/HCPCS: 96372; 96401; J1447

== ENCOUNTER 2017-12-21 07:24 | Day surgery (SDC) | payer OTHER ==
[2017-12-21] MEDS ORDERED: POTASSIUM CHLORIDE 10 MEQ, MAGNESIUM SULFATE 1 GM in SODIUM CHLORIDE 1,000 ML IVPB ONE (08:00)
[2017-12-21 11:15] LABS: PLATELET COUNT 172 K/MM3 (134-434)
[2017-12-21 11:20] LABS: HEMATOCRIT 31.3 % (32.4-45.2); MCH 28.4 pg (25.7-33.7); MEAN CELL VOLUME 88.9 fl (80-96); MEAN PLT VOLUME 7.5 fl (7.5-11.1); RBC 3.52 M/mm3 (3.60-5.2); RDW 14.8 % (11.6-15.6)
[2017-12-21] MEDS ORDERED: FOSAPREPITANT DIMEGLUMINE 150 MG in SODIUM CHLORIDE 145 ML IVPB ONE (11:30)
[2017-12-21] MEDS ORDERED: PALONOSETRON HCL 0.25 MG/5 ML VIAL IVPUSH ONE (11:30)
[2017-12-21] MEDS ORDERED: DEXAMETHASONE SOD PHOSPHATE 10 MG/1 ML VIAL IVPUSH ONE (11:30)
[2017-12-21] MEDS ORDERED: DEXAMETHASONE INJECTION 10 MG, ONDANSETRON INJECTION 8 MG in SODIUM CHLORIDE 100 ML IVPB ONE (11:30)
[2017-12-21 11:43] LABS: ALBUMIN 3.4 g/dl (3.4-5.0); ALK PHOS 50 U/L (45-117); ANION GAP 8 (8-16); BILIRUBIN,TOTAL 0.5 mg/dL (0.2-1.0); BLOOD UREA NITROGEN 16 mg/dL (7-18); CHLORIDE 106 mmol/L (98-107); CO2 25 mmol/L (21-32); CREATININE 0.8 mg/dL (0.55-1.02); GLUCOSE,RANDOM 90 mg/dL (74-106); SGPT/ALT 21 U/L (12-78); SODIUM 139 mmol/L (136-145); TOT PROT 6.4 g/dl (6.4-8.2)
[2017-12-21 11:45] LABS: BILIRUBIN,DIRECT < 0.2 mg/dL (0.0-0.2); MAGNESIUM 1.2 mg/dL (1.8-2.4); POTASSIUM 3.8 mmol/L (3.5-5.1)
[2017-12-21 11:46] LABS: SGOT/AST 18 U/L (15-37)
[2017-12-21 12:10] LABS: WHITE BLOOD COUNT 3.4 K/mm3 (4.0-10.0)
[2017-12-21] MEDS ORDERED: MAGNESIUM SULFATE IN WATER 2 GM/50 ML IVPB IVPB ONE (13:00)
[2017-12-21 16:20] VITALS: TEMP 97.6
[2017-12-21] MEDS ORDERED: PORTA CATH FLUSH 10 ML IVPUSH ONE (16:20)
[2017-12-21 16:36] VITALS: BP 110/59; PULSE 81
== END 2017-12-21 16:20 | disposition home or self-care (01) ==
LOC: JONCCHEMO 07:24 → J7W 11:23 → JONCCHEMO 16:20
PROVIDERS: ATTEND Internal Medicine Hematology & Oncology
PROC: 3E043GC Introduction of Other Therapeutic Substance into Central Vein, Percutaneous Approach (ICD-10-PCS; principal; 2017-12-21)
DX: C53.9 Malignant neoplasm of cervix uteri, unspecified (principal); Z76.89 Persons encountering health services in other specified circumstances
CPT/HCPCS: 36415; 80053; 80076; 83735; 85025; 96361; 96365; 96366; 96415; 96417

== ENCOUNTER 2017-12-22 07:26 | Day surgery (SDC) | payer OTHER ==
[2017-12-22] MEDS ORDERED: POTASSIUM CHLORIDE 10 MEQ, MAGNESIUM SULFATE 1 GM in SODIUM CHLORIDE 1,000 ML IVPB ONE (08:00)
[2017-12-22] MEDS ORDERED: DEXAMETHASONE INJECTION 10 MG, ONDANSETRON INJECTION 8 MG in SODIUM CHLORIDE 100 ML IVPB ONE (11:30)
[2017-12-22] MEDS ORDERED: CISPLATIN IV ONE ×2 (12:00)
[2017-12-22] MEDS ORDERED: SODIUM CHLORIDE IV ONE ×2 (12:00)
--- NOTE | 2017-12-22 12:03 | PN ---
Progress Note (short form) - Note Progress Note: Patient seen and examined Feels much better No nausea/vomitingdiarrhea resolved with immodium No abdominal pain No cough/SOB/abdominal pain AFVSS Cor: RSR, No murmurs, No gallops Lungs: Clear to P&A Abd: Soft, Normal bowel sounds, No organomegaly Ext:No significant edema Labs/MEds reviewed A/P 77 y/o patient with locally advanced cervical cancer --getting cisplatin/RT For last dose no. 6 today For neupogen support on Monday check Mg and replete as necessary RT colitis--c.diff negative. Immodium prn RT dermatitis --silvadene prn To f/u with rad-onc
[2017-12-22 13:48] LABS: ALBUMIN 3.3 g/dl (3.4-5.0); ANION GAP 7 (8-16); BILIRUBIN,TOTAL 0.3 mg/dL (0.2-1.0); BLOOD UREA NITROGEN 11 mg/dL (7-18); CHLORIDE 109 mmol/L (98-107); CO2 26 mmol/L (21-32); CREATININE 0.5 mg/dL (0.55-1.02); GLUCOSE,RANDOM 114 mg/dL (74-106); MAGNESIUM 1.8 mg/dL (1.8-2.4); POTASSIUM 3.4 mmol/L (3.5-5.1); SGOT/AST 14 U/L (15-37); SGPT/ALT 19 U/L (12-78); SODIUM 142 mmol/L (136-145)
[2017-12-22 13:49] LABS: ALK PHOS 47 U/L (45-117)
[2017-12-22] MEDS ORDERED: POTASSIUM CHLORIDE TABS 20 MEQ TABLET.ER (FP) PO ONE ×2 (14:30→14:31)
[2017-12-22 17:21] VITALS: PULSE 89; TEMP 98.2
[2017-12-22 17:26] VITALS: BP 118/66
[2017-12-22] MEDS ORDERED: PORTA CATH FLUSH 10 ML IVPUSH ONE (17:26)
[2017-12-25] MEDS ORDERED: TBO-FILGRASTIM 300 MCG/0.5 ML DISP.SYRINGE SQ ONE (13:45)
== END 2017-12-22 16:35 | disposition home or self-care (01) ==
LOC: JONCCHEMO 07:26 → J7W 11:21 → JONCCHEMO 16:35
PROVIDERS: ATTEND Internal Medicine Hematology & Oncology
DX: Z51.11 Encounter for antineoplastic chemotherapy (principal); C53.9 Malignant neoplasm of cervix uteri, unspecified
CPT/HCPCS: 36415; 80053; 83735; 96361; 96367; 96375; 96413; J1100

== ENCOUNTER 2017-12-25 13:05 | Day surgery (SDC) | payer OTHER ==
[2017-12-25] MEDS ORDERED: TBO-FILGRASTIM 300 MCG/0.5 ML DISP.SYRINGE SQ ONE (14:00)
[2017-12-25 14:56] VITALS: BP 118/69; PULSE 104; TEMP 98.1
== END 2017-12-25 14:25 | disposition home or self-care (01) ==
LOC: JONCCHEMO 13:05 → J7W 13:06 → JONCCHEMO 14:25
PROVIDERS: ATTEND Internal Medicine Hematology & Oncology
PROC: 3E013GC Introduction of Other Therapeutic Substance into Subcutaneous Tissue, Percutaneous Approach (ICD-10-PCS; principal; 2017-12-25)
DX: C53.9 Malignant neoplasm of cervix uteri, unspecified (principal); Z76.89 Persons encountering health services in other specified circumstances
CPT/HCPCS: 96372; J1447

== ENCOUNTER 2018-02-22 10:07 | Observation (INO) | payer OTHER ==
[2018-02-22 10:20] VITALS: BMI 26.5
--- NOTE | 2018-02-22 10:45 | PDOC ---
History of Present Illness - General Chief Complaint: Loss of Appetite Stated Complaint: LOSS OF APPETITE, WEAKNESS Time Seen by Provider: 02/22/18 10:45 History Source: Patient Past History - Past Medical History Allergies/Adverse Reactions: Allergies Allergy/AdvReac Type Severity Reaction Status Date / Time No Known Allergies Allergy Verified 02/22/18 10:20 Home Medications: Ambulatory Orders Esomeprazole Mag Trihydrate [Nexium] 40 mg PO DAILY 05/24/13 Ezetimibe [Zetia] 10 mg PO DAILY 05/24/13 Levothyroxine [Synthroid] 25 mcg PO DAILY 05/24/13 Alendronate Na [Fosamax] 70 mg PO Q7D 10/06/17 Diclofenac Sodium [Voltaren] 100 gm TP PRN PRN 10/06/17 Ibuprofen [Advil -] 200 mg PO PRN PRN 10/06/17 Acetaminophen W/ Codeine #3 [Tylenol # 3 -] 1 tab PO Q4H PRN 12/01/17 Anemia: No Asthma: Yes Cancer: Yes (CERVICAL) Cardiac Disorders: No CVA: No COPD: No CHF: No Dementia: No Diabetes: No GI Disorders: Yes (ULCERS) Disorders: Yes (KIDNEY STONES - STENT AND REMOVAL) HTN: No Hypercholesterolemia: Yes Liver Disease: No Seizures: No Thyroid Disease: Yes - Surgical History Abdominal Surgery: No Appendectomy: No Cardiac Surgery: No Cholecystectomy: No Lung Surgery: No Neurologic Surgery: No Orthopedic Surgery: No - Immunization History Immunization Up to Date: Yes - Suicide/Smoking/Psychosocial Hx Smoking Status: No Smoking History: Never smoked Have you smoked in the past 12 months: No Number of Cigarettes Smoked Daily: 0 Information on smoking cessation initiated: No Hx Alcohol Use: No Drug/Substance Use Hx: No Substance Use Type: None Hx Substance Use Treatment: No *Physical Exam - Vital Signs Last Vital Signs Temp Pulse Resp BP Pulse Ox 98.1 F 119 H 18 113/69 98 02/22/18 10:16 02/22/18 10:16 02/22/18 10:16 02/22/18 10:16 02/22/18 10:16 *DC/Admit/Observation/Transfer - Referrals Referrals: Elisha Rivera MD [Primary Care Provider] - - Patient Instructions - Post Discharge Activity
[2018-02-22] MEDS ORDERED: SODIUM CHLORIDE 0.9% 1000 ML INFUS.BAG IV STA (10:55)
[2018-02-22] MEDS ORDERED: ONDANSETRON 4 MG/2 ML VIAL IVPUSH ONE (11:14)
--- NOTE | 2018-02-22 11:14 | PDOC ---
History of Present Illness - General History Source: Patient Exam Limitations: No Limitations - History of Present Illness Initial Comments: 02/22/18 11:51 The patient is a 77 year old female, with a significant PMH of cervical cancer ( off chemotherapy 1 month, last radiation one month ago), who presents to the emergency department with decrease in appetite, generalized weakness, left lower quadrant pain, subjective fever, chills, nausea, vomiting, dysuria and diarrhea. The patient states she has been having around 20 loose stools per day (denies any hematochezia or melena). The patient reports she has had the exact same symptoms in the past which she reports are side effects of the chemotherapy. However, she reports her last radiation was one month ago. The patient reports taking Immodium for the diarrhea with mild relief. She denies any sick contacts. She denies recent antibiotics use. The patient denies chest pain, shortness of breath, headache and dizziness. Denies, frequency, urgency and hematuria. Allergies: NKA <Vance Bingham - Last Filed: 02/22/18 15:23> <Wesley Chatman - Last Filed: 02/22/18 16:27> - General Chief Complaint: Loss of Appetite Stated Complaint: LOSS OF APPETITE, WEAKNESS Time Seen by Provider: 02/22/18 10:45 Past History <Vance Bingham - Last Filed: 02/22/18 15:23> - Past Medical History Anemia: No Asthma: Yes Cancer: Yes (CERVICAL) Cardiac Disorders: No CVA: No COPD: No CHF: No Dementia: No Diabetes: No GI Disorders: Yes (ULCERS) Disorders: Yes (KIDNEY STONES - STENT AND REMOVAL) HTN: No Hypercholesterolemia: Yes Liver Disease: No Seizures: No Thyroid Disease: Yes - Surgical History Abdominal Surgery: No Appendectomy: No Cardiac Surgery: No Cholecystectomy: No Lung Surgery: No Neurologic Surgery: No Orthopedic Surgery: No - Immunization History Immunization Up to Date: Yes - Suicide/Smoking/Psychosocial Hx Smoking Status: No Smoking History: Never smoked Have you smoked in the past 12 months: No Number of Cigarettes Smoked Daily: 0 Information on smoking cessation initiated: No Hx Alcohol Use: No Drug/Substance Use Hx: No Substance Use Type: None Hx Substance Use Treatment: No <Wesley Chatman - Last Filed: 02/22/18 16:27> - Past Medical History Allergies/Adverse Reactions: Allergies Allergy/AdvReac Type Severity Reaction Status Date / Time No Known Allergies Allergy Verified 02/22/18 10:20 Home Medications: Ambulatory Orders Esomeprazole Mag Trihydrate [Nexium] 40 mg PO DAILY 05/24/13 Ezetimibe [Zetia] 10 mg PO DAILY 05/24/13 Levothyroxine [Synthroid] 25 mcg PO DAILY 05/24/13 Alendronate Na [Fosamax] 70 mg PO Q7D 10/06/17 Diclofenac Sodium [Voltaren] 100 gm TP PRN PRN 10/06/17 Ibuprofen [Advil -] 200 mg PO PRN PRN 10/06/17 Acetaminophen W/ Codeine #3 [Tylenol # 3 -] 1 tab PO Q4H PRN 12/01/17 Review of Systems - Review of Systems Comments:: 02/22/18 11:53 A complete review of 10 out of 10 review of systems is taken and is negative apart from what is previously mentioned below and in the HPI. <Vance Bingham - Last Filed: 02/22/18 15:23> *Physical Exam - Vital Signs Last Vital Signs Temp Pulse Resp BP Pulse Ox 98.1 F 119 H 18 113/69 98 02/22/18 10:16 02/22/18 10:16 02/22/18 10:16 02/22/18 10:16 02/22/18 10:16 - Physical Exam Comments: 02/22/18 11:53 Vitals: Triage vital signs reviewed General Appearance: No acute distress, well nourished, well developed Head: Atraumatic Eyes: Pupils equal reactive round, extraocular movement intact Ears: TM's normal bilaterally Nose: Nares patent bilaterally; no nasal congestion Throat: Posterior oropharynx without erythema, mucous membranes moist Neck: Supple; No nuchal rigidity Chest Wall: Nontender Cardiac: Regular rate and rhythm, no murmurs, no rubs, no gallops Lungs: Clear to auscultation bilateral, good air movement bilaterally Abdomen: +Left lower quadrant tenderness. Soft, nondistended. Rectal: Exam deferred Extremities: Full range of motion to all extremities, no cyanosis, clubbing, or edema Skin: Warm and dry, no rashes or lesions, no rash, no petechiae Neuro: AOX3; Cranial Nerves 2-12 grossly intact, Strength intact to all extremities, Sensation intact to all extremities, gait normal Psych: Normal mood, normal affect <Vance Bingham - Last Filed: 02/22/18 15:23> - Vital Signs Last Vital Signs Temp Pulse Resp BP Pulse Ox 98.1 F 119 H 18 113/69 98 02/22/18 10:16 02/22/18 10:16 02/22/18 10:16 02/22/18 10:16 02/22/18 10:16 <CompaWesley - Last Filed: 02/22/18 16:27> Heart Score/ECG Review - ECG Impressions Comment:: 02/22/18 13:08 \ Sinus tachycardia at 103 EKG performed at 12:[address] elevations or T-wave inversions Interpreted by me. <Wesley Chatman - Last Filed: 02/22/18 16:27> ED Treatment Course - LABORATORY CBC & Chemistry Diagram: 02/22/18 10:55 02/22/18 12:20 - RADIOLOGY Radiograph Interpretation: 02/22/18 14:24 EXAM#: TYPE/EXAM: RESULT: [id number] RAD/CHEST X-RAY PORTABLE* Rule out sepsis Chest x-ray, PA view Since 12/01/2017, a right internal jugular central venous catheter is again seen with its tip at the junction of the right subclavian vein and superior vena cava. The heart remains within normal limits in size. No focal infiltrates, pneumothorax or pleural effusion identified. Mediastinum is osseous structures appear intact. Degenerative changes in the lower thoracic spine and mild levoscoliosis of the thoracolumbar junction again seen. Moderate degenerative changes in the right shoulder joint. IMPRESSION: No significant interval change or acute lung disease is present. Reported By: Malou Braun MD 02/22/18 15:23 EXAM#: TYPE/EXAM: RESULT: [id number] CT/ABDOMEN PELVIS CT W/O CONTR INDICATION: Left lower quadrant pain. TECHNIQUE: CT scan of the abdomen and pelvis without oral contrast and without intravenous contrast. COMPARISON: 09/15/2017 CT abdomen and pelvis. FINDINGS: Evaluation of the solid viscera, bowel and vessels is limited without contrast. The heart is not enlarged. There is mild reticulation and scarring in the periphery of the right lung base. The visualized lung bases are otherwise clear. Normal liver size and contour. There are multiple gallstones. There is no CT evidence of acute cholecystitis. The common bile duct is not dilated. The unenhanced pancreas is unremarkable. Normal size spleen. There is no adrenal gland mass or nodule. There are three large calculi within the mid to lower poles of the right kidney, the largest measures 1.3 x 1.1 cm unchanged. There is a peripherally calcified lesion along the wall of the right renal pelvis measuring at least 0.7 x 0.3 cm, unchanged. There is also a punctate 2 mm nonobstructing calculus in the upper pole of the left kidney. There is no hydronephrosis. There are no ureteral calculi. There is a small hiatal hernia. The stomach, sigmoid colon and rectum are underdistended limiting evaluation. No dilated loops of large or small bowel to suggest obstruction. There is sigmoid diverticulosis. Circumferentially prominent wall in the rectum and sigmoid colon may be secondary to underdistention and/or proctocolitis. Tubular hypodensity inseparable from the right lateral wall of the sigmoid colon extending towards the right lateral wall of the uterus may be a dilated fallopian tube. This appears similar to the prior CT. A normal-appearing retrocecal appendix is identified. There is no free intraperitoneal air. No ascites. There is marked thickening of the endometrium, measuring up to 17 mm, similar to the prior CT. There are multiple calcified uterine leiomyomas. There is osseous demineralization with no definite acute fracture. There is thoracolumbar spondylosis. Nodular calcifications in the right gluteal subcutaneous fat are unchanged, possibly calcified injection granulomas. IMPRESSION: 1. Nonobstructing bilateral nephrolithiasis as described above. No hydronephrosis. 2. Sigmoid diverticulosis with pericolonic fat stranding suggesting uncomplicated acute diverticulitis in the appropriate clinical setting. Please correlate clinically. 3. Circumferentially prominent rectosigmoid wall may be secondary to underdistention and/or proctocolitis. To be correlated clinically. 4. Unchanged tubular hyperdensity inseparable from the sigmoid colon and right lateral wall of the uterus, which may be attributed to hydrosalpinx. This appears similar to 2016 CT. Please correlate with pelvic sonogram, which could be performed nonemergently. 5. Marked thickening of the endometrium is similar to the prior CT, which may be attributed to endometrial hyperplasia and/or carcinoma. Please correlate for postmenopausal bleeding. 6. Cholelithiasis. No CT evidence of acute cholecystitis. Reported By: Mikayla Desai DO <Vance Bingham - Last Filed: 02/22/18 15:23> - LABORATORY CBC & Chemistry Diagram: 02/22/18 10:55 02/22/18 12:20 - RADIOLOGY Radiology Studies Ordered: Category Date Time Status CHEST X-RAY PORTABLE* [RAD] Stat Radiology 02/22/18 10:55 Ordered <Wesley Chatman - Last Filed: 02/22/18 16:27> Medical Decision Making - Medical Decision Making 77 years old past medical history significant for cervical cancer last chemotherapy 1 month ago last radiation 1 months ago presents to the ED with nausea vomiting diarrhea unable to tolerate fluids greater than 20 episodes of loose stool per day Left lower quadrant tenderness on examination Differential diagnosis includes diverticulitis colitis radiation colitis or viral gastroenteritis We'll obtain labs cultures lactic stool studies CT abdomen and pelvis IV contrast and reassess. Reevaluation: Diverticulitis on CAT scan. Given age tachycardia and symptomatology of profuse watery diarrhea with vomiting we will treat with Cipro Flagyl hydrate observe overnight We'll transfer care to medicine team for further management. <Wesley Chatman - Last Filed: 02/22/18 16:27> *DC/Admit/Observation/Transfer - Attestations Scribe Attestion: 02/22/18 11:54 Documentation prepared by Vance Bingham, acting as medical office supervisor for Wesley Chatman MD. <Vance Bingham - Last Filed: 02/22/18 15:23> - Discharge Dispostion Admit: Yes <Wesley Chatman - Last Filed: 02/22/18 16:27> Diagnosis at time of Disposition: Diverticulitis - Referrals Referrals: Elisha Rivera MD [Primary Care Provider] - - Patient Instructions - Post Discharge Activity
[2018-02-22] MEDS ORDERED: ONDANSETRON 4 MG/2 ML VIAL ONE (12:27)
[2018-02-22 12:36] LABS: BASO % 0.4 % (0-2.0); EOS % 0.9 % (0-4.5); HEMATOCRIT 30.7 % (32.4-45.2); HEMOGLOBIN 10.3 GM/dL (10.7-15.3); LYMPH % 7.1 % (8-40); MCH 30.4 pg (25.7-33.7); MCHC 33.5 g/dl (32.0-36.0); MEAN PLT VOLUME 6.8 fl (7.5-11.1); MONO % 12.5 % (3.8-10.2); NEUT % 79.1 % (42.8-82.8); PLATELET COUNT 231 K/MM3 (134-434); RBC 3.37 M/mm3 (3.60-5.2); RDW 14.9 % (11.6-15.6); WHITE BLOOD COUNT 7.8 K/mm3 (4.0-10.0)
[2018-02-22 12:52] LABS: INR 1.17 (0.82-1.09); PROTHROMBIN TIME (PATIENT) 13.2 SEC (9.98-11.88)
[2018-02-22 12:53] LABS: ALBUMIN 3.4 g/dl (3.4-5.0); ANION GAP 14 (8-16); BILIRUBIN,TOTAL 0.7 mg/dL (0.2-1.0); BLOOD UREA NITROGEN 20 mg/dL (7-18); CALCIUM 8.2 mg/dL (8.5-10.1); CHLORIDE 99 mmol/L (98-107); CO2 19 mmol/L (21-32); CREATININE 1.1 mg/dL (0.55-1.02); GLUCOSE,RANDOM 90 mg/dL (74-106); SGPT/ALT 17 U/L (12-78); SODIUM 132 mmol/L (136-145); TOT PROT 6.8 g/dl (6.4-8.2)
[2018-02-22 12:55] LABS: ALK PHOS 49 U/L (45-117)
[2018-02-22 12:55] LABS: ACTIVATED PTT 26.1 SECONDS (26.9-34.4)
[2018-02-22 12:56] LABS: POTASSIUM 3.7 mmol/L (3.5-5.1); SGOT/AST 22 U/L (15-37)
--- NOTE | 2018-02-22 13:28 | EKG ---
Test Reason : Blood Pressure : / mmHG Vent. Rate : 103 BPM Atrial Rate : 103 BPM P-R Int : 130 ms QRS Dur : 082 ms QT Int : 364 ms P-R-T Axes : 067 005 088 degrees QTc Int : 476 ms POOR DATA QUALITY, INTERPRETATION MAY BE ADVERSELY AFFECTED SINUS TACHYCARDIA NONSPECIFIC ST AND T WAVE ABNORMALITY ABNORMAL ECG WHEN COMPARED WITH ECG OF 01-DEC-2017 06:36, NO SIGNIFICANT CHANGE WAS FOUND Confirmed by GIACOMO CHONG, LUCIO ([id number]) on 02/22/2018 1:27:58 PM Referred By: Confirmed By:LUCIO GOODEN MD
[2018-02-22] MEDS ORDERED: CIPROFLOXACIN 400 MG/D5W 400 MG/200 ML IVPB IVPB ONE (15:22)
[2018-02-22] MEDS ORDERED: ACETAMINOPHEN 1000 MG/100 ML VIAL (NON FORMULARY) IVPB ONE (15:22)
[2018-02-22] MEDS ORDERED: ACETAMINOPHEN INJECTION 100 ML IVPB ONE (15:28)
--- NOTE | 2018-02-22 16:49 | HP ---
Admitting History and Physical - Admission Chief Complaint: abdominal pain, diarrhea History of Present Illness: HPI This is a 77 year old female, with a significant PMH of cervical cancer (off chemotherapy 1 month, last radiation one month ago), presented to the ED with 3 days of LLQ pain and diarrhea. Per ED report pt reported 20 stools per day. She dose endorse decreased appetite, took immodium with mild relief. Since her last chemo one month ago she has pain with urination but, today when she used the facilities burning had gone. She denies fever, chills, hematochezia, melena. History Source: Patient, Family Member Limitations to Obtaining History: No Limitations - Past Medical History Cardiovascular: Yes: HTN Heme/Onc: Yes: Cancer (cervical cancer) - Smoking History Smoking history: Never smoked Have you smoked in the past 12 months: No Aproximately how many cigarettes per day: 0 - Alcohol/Substance Use Hx Alcohol Use: No - Social History Usual Living Arrangement: Yes: Alone ADL: Independent Home Medications - Allergies Allergies/Adverse Reactions: Allergies Allergy/AdvReac Type Severity Reaction Status Date / Time No Known Allergies Allergy Verified 02/22/18 10:20 - Home Medications Home Medications: Ambulatory Orders Esomeprazole Mag Trihydrate [Nexium] 40 mg PO DAILY 05/24/13 Ezetimibe [Zetia] 10 mg PO DAILY 05/24/13 Levothyroxine [Synthroid] 25 mcg PO DAILY 05/24/13 Alendronate Na [Fosamax] 70 mg PO Q7D 10/06/17 Diclofenac Sodium [Voltaren] 100 gm TP PRN PRN 10/06/17 Ibuprofen [Advil -] 200 mg PO PRN PRN 10/06/17 Acetaminophen W/ Codeine #3 [Tylenol # 3 -] 1 tab PO Q4H PRN 12/01/17 Review of Systems - Review of Systems Constitutional: reports: Loss of Appetite Eyes: reports: No Symptoms HENT: reports: No Symptoms Neck: reports: No Symptoms Cardiovascular: reports: No Symptoms Respiratory: reports: No Symptoms Gastrointestinal: reports: Abdominal Pain, Diarrhea Genitourinary: reports: No Symptoms Musculoskeletal: reports: No Symptoms Integumentary: reports: No Symptoms Neurological: reports: No Symptoms Endocrine: reports: No Symptoms Hematology/Lymphatic: reports: No Symptoms Psychiatric: reports: No Symptoms Physical Examination Vital Signs: Vital Signs Temperature 98.1 F 02/22/18 10:16 Pulse Rate 119 H 02/22/18 10:16 Respiratory Rate 18 02/22/18 10:16 Blood Pressure 113/69 02/22/18 10:16 O2 Sat by Pulse Oximetry (%) 98 02/22/18 10:16 Constitutional: Yes: Calm Eyes: Yes: Conjunctiva Clear Neck: Yes: Supple Cardiovascular: Yes: Regular Rate and Rhythm, S1, S2 Respiratory: Yes: CTA Bilaterally Gastrointestinal: Yes: Normal Bowel Sounds, Soft ...Rectal Exam: Yes: WNL Renal/: Yes: WNL Musculoskeletal: Yes: WNL Extremities: Yes: WNL Edema: No Neurological: Yes: Alert, Oriented, Cran Nerves II-XII Intact ...Motor Strength: WNL Labs: CBC, BMP 02/22/18 10:55 02/22/18 12:20 Imaging - Results Cat Scan: Report Reviewed (sigmoid diverticulosis, uncomplicated acute diverticulitis) Problem List - Problems (1) Diverticulitis Code(s): K57.92 - DVTRCLI OF INTEST, PART UNSP, W/O PERF OR ABSCESS W/O BLEED Assessment/Plan Assessment: 77 year old female admitted with acute diverticulitis Plan: 1. Acute diverticulitis - Continue ceftriaxone, flagyl - Received cipro in ED, hold quinoloes for cr cl 30's - NS 60cc/hr - NPO - Consider GI consult if pain persists 2. Cervical ca - Defer to oncology Visit type - Emergency Visit Emergency Visit: Yes ED Registration Date: 02/22/18 Care time: The patient presented to the Emergency Department on the above date and was hospitalized for further evaluation of their emergent condition. - New Patient This patient is new to me today: Yes Date on this admission: 02/22/18 - Critical Care Critical Care patient: No Hospitalist Screening - Colonoscopy Questionnaire Colonoscopy Questionnaire: Colonoscopy Questionnaire - Patient: 50 - 75 years old and never had a screening colonoscopy: Unknown History of colon or rectal polyps, or CA: Unknown History of IBD, Crohn's disease or UC: Unknown History of abdominal radiation therapy as a child: Unknown - Relative: 1 with colon or rectal CA, or polyps at age 60 or younger: Unknown Colon or rectal CA diagnosed at age 45 or younger: Unknown Multiple relatives with colon or rectal CA: Unknown - Outcome: Screening Result: Negative Screen
[2018-02-22] MEDS ORDERED: SODIUM CHLORIDE 1,000 ML IV SCH (17:15)
[2018-02-22] MEDS ORDERED: AMPICILLIN NA/SULBACTAM NA 3 GM in SODIUM CHLORIDE 100 ML IVPB SCH (18:00)
--- NOTE | 2018-02-22 20:42 | PN ---
Progress Note (short form) - Note Progress Note: 77 y/o patient with locally advanced cervical cancer --s/p cisplatin/RT , completed in 12/2017. Is here with abd pain, nausea, vomiting, poor PO intake Pt seen and examined in the ER. continues to complain of abd pain. No PO intake as per her +nausea from the past 3-4d Chart/labs/imaging reviewed O/E: General: IN pain HEENT: NCAT Cor: RRR Lungs: CTA b/l Abd: LLQ tenderness Extremities: NO CCE Last Vital Signs Temp Pulse Resp BP Pulse Ox 98.2 F 89 16 100/52 100 02/22/18 17:12 02/22/18 17:12 02/22/18 17:12 02/22/18 17:12 02/22/18 17:12 CBC, BMP 02/22/18 10:55 02/22/18 12:20 Current Medications Generic Name Dose Route Start Last Admin Trade Name Freq PRN Reason Stop Dose Admin Metronidazole 500 mg in 100 mls @ 100 mls/hr 02/22/18 18:00 02/22/18 20:21 Flagyl 500mg Premixed Ivpb - IVPB Not Given Q8H-IV JETHRO Sodium Chloride 1,000 mls @ 75 mls/hr 02/22/18 17:15 02/22/18 17:35 Normal Saline - IV 75 mls/hr ASDIR JETHRO Administration Ceftriaxone Sodium 1 gm/ 50 mls @ 100 mls/hr 02/23/18 10:00 Dextrose IVPB DAILY JETHRO Levothyroxine Sodium 25 mcg 02/23/18 07:00 Synthroid - PO DAILY@0700 JETHRO Diverticulitis sp chemo rt for Locally advanced cervical Ca. Poor PO intake/nausea/vomiting IVF pain control Blood cx Stool for Cdiff anti-emetics GI consult
[2018-02-23] MEDS: SODIUM CHLORIDE 1,000 ML IV SCH ×2 (01:06→17:27)
[2018-02-23 02:50] LABS: URINE APPEARANCE CLEAR; URINE BILIRUBIN NEGATIVE (<2.0 mg/dL); URINE BLOOD 2+ (NEGATIVE); URINE COLOR YELLOW; URINE GLUCOSE (UA) NEGATIVE (NEGATIVE); URINE KETONE 1+ (NEGATIVE); URINE NITRITE NEGATIVE (NEGATIVE); URINE PROTEIN NEGATIVE (NEGATIVE); URINE UROBILINOGEN NEGATIVE mg/dL (0.2-1.0)
[2018-02-23 03:10] LABS: URINE LEUK ESTERASE 3+ (NEGATIVE)
[2018-02-23 03:15] LABS: URINE BACTERIA RARE /hpf (NONE SEEN); URINE HYALINE CAST 1 /lpf; URINE MUCUS RARE
[2018-02-23] MEDS: LEVOTHYROXINE NA 25 MCG TABLET (FP) PO SCH (06:31)
[2018-02-23 07:04] LABS: BASO % 0.1 % (0-2.0); EOS % 4.4 % (0-4.5); HEMATOCRIT 24.7 % (32.4-45.2); HEMOGLOBIN 8.3 GM/dL (10.7-15.3); MCH 30.4 pg (25.7-33.7); MCHC 33.5 g/dl (32.0-36.0); MEAN CELL VOLUME 90.7 fl (80-96); MEAN PLT VOLUME 6.6 fl (7.5-11.1); MONO % 11.6 % (3.8-10.2); NEUT % 76.9 % (42.8-82.8); PLATELET COUNT 185 K/MM3 (134-434); RBC 2.72 M/mm3 (3.60-5.2); RDW 14.9 % (11.6-15.6); WHITE BLOOD COUNT 7.1 K/mm3 (4.0-10.0)
--- NOTE | 2018-02-23 09:10 | CON.GI ---
Consult Consult Specialty:: GI Reason for Consultation:: diarrhea - History of Present Illness History of Present Illness: Chart reviewed. per initial intake: This is a 77 year old female, with a significant PMH of cervical cancer (off chemotherapy 1 month, last radiation one month ago), presented to the ED with 3 days of LLQ pain and diarrhea. Per ED report pt reported 20 stools per day. She dose endorse decreased appetite, took immodium with mild relief. Since her last chemo one month ago she has pain with urination but, today when she used the facilities burning had gone. She denies fever, chills, hematochezia, melena. CT A/P w/o - distal colon diverticulitis/colitis At the time of this encounter, NAD, AAOx2, comfortable. Had one, formed BM this am. No disurea reported. Denies fever, chills, nausea, vomiting, hematemesis, dysphagia, odynophagia, jaundice, abdominal pain, pencil-thin, or ribbon-like stools. Denies melena, hematochezia, weight loss. - History Source History Provided By: Patient, Medical Record - Past Medical History Cardio/Vascular: Yes: HTN - Alcohol/Substance Use Hx Alcohol Use: No - Smoking History Smoking history: Never smoked Have you smoked in the past 12 months: No Aproximately how many cigarettes per day: 0 - Social History ADL: Independent Home Medications - Allergies Allergies/Adverse Reactions: Allergies Allergy/AdvReac Type Severity Reaction Status Date / Time No Known Allergies Allergy Verified 02/22/18 10:20 - Home Medications Home Medications: Ambulatory Orders Esomeprazole Mag Trihydrate [Nexium] 40 mg PO DAILY 05/24/13 Ezetimibe [Zetia] 10 mg PO DAILY 05/24/13 Levothyroxine [Synthroid] 25 mcg PO DAILY 05/24/13 Alendronate Na [Fosamax] 70 mg PO Q7D 10/06/17 Diclofenac Sodium [Voltaren] 100 gm TP PRN PRN 10/06/17 Ibuprofen [Advil -] 200 mg PO PRN PRN 10/06/17 Acetaminophen W/ Codeine #3 [Tylenol # 3 -] 1 tab PO Q4H PRN 12/01/17 Family Disease History - Family Disease History Family History: Unremarkable Review of Systems Findings/Remarks: as per HPI, H&P Physical Exam-GI Vital Signs: Vital Signs Temperature 98.1 F 02/23/18 07:06 Pulse Rate 94 H 02/23/18 07:06 Respiratory Rate 16 02/23/18 07:06 Blood Pressure 119/43 02/23/18 07:06 O2 Sat by Pulse Oximetry (%) 98 02/23/18 04:00 Constitutional: Yes: No Distress, Calm Eyes: Yes: Conjunctiva Clear HENT: Yes: Atraumatic Neck: Yes: Supple Cardiovascular: Yes: Regular Rate and Rhythm Respiratory: Yes: Regular Gastrointestinal Inspection: No: Ascites, Distention ...Auscultate: Yes: Normoactive Bowel Sounds ...Palpate: Yes: Soft. No: Firm/Rigid, Guarding, Tenderness Neurological: Yes: Alert Labs: CBC, BMP 02/23/18 06:50 INR, PTT INR 1.17 (0.82-1.09) H 02/22/18 10:55 Laboratory Last Values WBC 7.1 K/mm3 (4.0-10.0) 02/23/18 06:50 RBC 2.72 M/mm3 (3.60-5.2) L 02/23/18 06:50 Hgb 8.3 GM/dL (10.7-15.3) L D 02/23/18 06:50 Hct 24.7 % (32.4-45.2) L D 02/23/18 06:50 MCV 90.7 fl (80-96) 02/23/18 06:50 MCH 30.4 pg (25.7-33.7) 02/23/18 06:50 MCHC 33.5 g/dl (32.0-36.0) 02/23/18 06:50 RDW 14.9 % (11.6-15.6) 02/23/18 06:50 Plt Count 185 K/MM3 (134-434) 02/23/18 06:50 MPV 6.6 fl (7.5-11.1) L 02/23/18 06:50 Neutrophils % 76.9 % (42.8-82.8) 02/23/18 06:50 Lymphocytes % 7.0 % (8-40) L 02/23/18 06:50 Monocytes % 11.6 % (3.8-10.2) H 02/23/18 06:50 Eosinophils % 4.4 % (0-4.5) D 02/23/18 06:50 Basophils % 0.1 % (0-2.0) 02/23/18 06:50 PT with INR 13.20 SEC (9.98-11.88) H 02/22/18 10:55 INR 1.17 (0.82-1.09) H 02/22/18 10:55 PTT (Actin FS) 26.1 SECONDS (26.9-34.4) L 02/22/18 10:55 Sodium 132 mmol/L (136-145) L 02/22/18 12:20 Potassium 3.7 mmol/L (3.5-5.1) 02/22/18 12:20 Chloride 99 mmol/L (98-107) 02/22/18 12:20 Carbon Dioxide 19 mmol/L (21-32) L 02/22/18 12:20 Anion Gap 14 (8-16) 02/22/18 12:20 BUN 20 mg/dL (7-18) H 02/22/18 12:20 Creatinine 1.1 mg/dL (0.55-1.02) H 02/22/18 12:20 Creat Clearance w eGFR 48.42 (>60) 02/22/18 12:20 Random Glucose 90 mg/dL (74-106) 02/22/18 12:20 Lactic Acid 1.9 mmol/L (0.0-2.0) 02/22/18 10:55 Calcium 8.2 mg/dL (8.5-10.1) L 02/22/18 12:20 Total Bilirubin 0.7 mg/dL (0.2-1.0) 02/22/18 12:20 AST 22 U/L (15-37) 02/22/18 12:20 ALT 17 U/L (12-78) 02/22/18 12:20 Alkaline Phosphatase 49 U/L (45-117) 02/22/18 12:20 Troponin I < 0.02 ng/ml (0.00-0.05) 02/22/18 12:20 Total Protein 6.8 g/dl (6.4-8.2) 02/22/18 12:20 Albumin 3.4 g/dl (3.4-5.0) 02/22/18 12:20 Urine Color Yellow 02/23/18 02:00 Urine Appearance Clear 02/23/18 02:00 Urine pH 5.0 (5.0-8.0) D 02/23/18 02:00 Ur Specific [place] 1.009 (1.001-1.035) 02/23/18 02:00 Urine Protein Negative (NEGATIVE) 02/23/18 02:00 Urine Glucose (UA) Negative (NEGATIVE) 02/23/18 02:00 Urine Ketones 1+ (NEGATIVE) H 02/23/18 02:00 Urine Blood 2+ (NEGATIVE) H 02/23/18 02:00 Urine Nitrite Negative (NEGATIVE) 02/23/18 02:00 Urine Bilirubin Negative (<2.0 mg/dL) 02/23/18 02:00 Urine Urobilinogen Negative mg/dL (0.2-1.0) 02/23/18 02:00 Ur Leukocyte Esterase 3+ (NEGATIVE) H 02/23/18 02:00 Urine WBC (Auto) 7 /hpf (3-5) 02/23/18 02:00 Urine RBC (Auto) 2 /hpf (0-3) 02/23/18 02:00 Urine Bacteria Rare /hpf (NONE SEEN) 02/23/18 02:00 Hyaline Casts 1 /lpf 02/23/18 02:00 Urine Mucus Rare 02/23/18 02:00 Imaging - Results Cat Scan: Report Reviewed Problem List - Problems (1) Colitis Code(s): K52.9 - NONINFECTIVE GASTROENTERITIS AND COLITIS, UNSPECIFIED (2) 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 ?radiation colopathy w/o bleeding ?diverticulitis ?colitis IVF/PO hydration Stool for infectious etiologies abx as ordered Low residual diet Colonoscopy in 4-6 weeks
[2018-02-23] MEDS ORDERED: cefTRIAXone SODIUM 1 GM VIAL ONE (09:40)
[2018-02-23] MEDS ORDERED: DEXTROSE 5%-WATER - 50 ML IVPB ONE (09:40)
[2018-02-23] MEDS: CEFTRIAXONE 1 GM in DEXTROSE 5%-WATER - 50 ML IVPB SCH (11:00)
[2018-02-23] MEDS: ACETAMINOPHEN 325 MG TABLET (FP) PO PRN ×2 (12:55→20:20)
[2018-02-23 13:14] LABS: ALK PHOS 46 U/L (45-117); ANION GAP 13 (8-16); BILIRUBIN,TOTAL 0.4 mg/dL (0.2-1.0); BLOOD UREA NITROGEN 14 mg/dL (7-18); CALCIUM 7.8 mg/dL (8.5-10.1); CHLORIDE 105 mmol/L (98-107); CO2 20 mmol/L (21-32); CREATININE 0.8 mg/dL (0.55-1.02); GLUCOSE,RANDOM 108 mg/dL (74-106); SGOT/AST 12 U/L (15-37); SGPT/ALT 10 U/L (12-78); SODIUM 138 mmol/L (136-145); TOT PROT 6.2 g/dl (6.4-8.2)
[2018-02-23 13:23] LABS: POTASSIUM 2.9 mmol/L (3.5-5.1)
[2018-02-23] MEDS: POTASSIUM CHLORIDE TABS 20 MEQ TABLET.ER (FP) PO SCH ×2 (14:32→20:21)
--- NOTE | 2018-02-23 16:37 | PN ---
Progress Note (short form) - Note Progress Note: Patient seen and examined Last Vital Signs Temp Pulse Resp BP Pulse Ox 97.9 F 84 18 108/42 98 02/23/18 15:30 02/23/18 15:30 02/23/18 15:30 02/23/18 15:30 02/23/18 04:00 Cor: RSR, No murmurs, No gallops Lungs: Clear to P&A Abd: Soft, Normal bowel sounds, No organomegaly Ext:No significant edema Abnormal Lab Results 02/23/18 02/23/18 02/23/18 02:00 06:50 12:47 RBC 2.72 L Hgb 8.3 L D Hct 24.7 L D MPV 6.6 L Lymphocytes % 7.0 L Monocytes % 11.6 H Potassium 2.9 L* Carbon Dioxide 20 L Random Glucose 108 H Calcium 7.8 L AST 12 L ALT 10 L Total Protein 6.2 L Albumin 3.0 L Urine Ketones 1+ H Urine Blood 2+ H Ur Leukocyte Esterase 3+ H Active Medications Generic Name Dose Route Start Last Admin Trade Name Freq PRN Reason Stop Dose Admin Acetaminophen 650 mg 02/23/18 12:35 02/23/18 12:55 Tylenol - PO 650 mg Q6H PRN Administration PAIN LEVEL 1-5 Metronidazole 500 mg in 100 mls @ 100 mls/hr 02/22/18 18:00 02/23/18 09:44 Flagyl 500mg Premixed Ivpb - IVPB 100 mls/hr Q8H-IV JETHRO Administration Ceftriaxone Sodium 1 gm/ 50 mls @ 100 mls/hr 02/23/18 10:00 02/23/18 11:00 Dextrose IVPB 100 mls/hr DAILY JETHRO Administration Sodium Chloride 1,000 mls @ 60 mls/hr 02/22/18 22:39 02/23/18 01:06 Normal Saline - IV 60 mls/hr ASDIR JETHRO Administration Levothyroxine Sodium 25 mcg 02/23/18 07:00 02/23/18 06:31 Synthroid - PO Not Given DAILY@0700 JETHRO Potassium Chloride 40 meq 02/23/18 14:15 02/23/18 14:32 K-Dur - PO 02/24/18 02:16 40 meq Q6H JETHRO Administration A/P 77 y/o patient with cervical cancer, Diverticulitis sp chemo rt for Locally advanced cervical Ca. Poor PO intake/nausea/vomiting IVF antibiotics Stool for Cdiff is negative
--- NOTE | 2018-02-23 19:59 | PN ---
Physical Exam: SUBJECTIVE: Patient seen and examined OBJECTIVE: Vital Signs Period Temp Pulse Resp BP Sys/Rankin Pulse Ox Last 24 Hr 97.4 F-98.2 F 84-94 16-18 93-124/42-58 98-98 GENERAL: The patient is awake, alert, and fully oriented, in no acute distress. HEAD: Normal with no signs of trauma. EYES: PERRL, extraocular movements intact, sclera anicteric, conjunctiva clear. No ptosis. ENT: Ears normal, nares patent, oropharynx clear without exudates, moist mucous membranes. NECK: Trachea midline, full range of motion, supple. LUNGS: Breath sounds equal, clear to auscultation bilaterally, no wheezes, no crackles, no accessory muscle use. HEART: Regular rate and rhythm, S1, S2 without murmur, rub or gallop. ABDOMEN: Soft, nontender, nondistended, normoactive bowel sounds, no guarding, no rebound, no hepatosplenomegaly, no masses. EXTREMITIES: 2+ pulses, warm, well-perfused, no edema. NEUROLOGICAL: Cranial nerves II through XII grossly intact. Normal speech, gait not observed. PSYCH: Normal mood, normal affect. SKIN: Warm, dry, normal turgor, no rashes or lesions noted Laboratory Results - last 24 hr 02/22/18 02/22/18 02/23/18 10:55 13:03 02:00 WBC RBC Hgb Hct MCV MCH MCHC RDW Plt Count MPV Neutrophils % Lymphocytes % Monocytes % Eosinophils % Basophils % Sodium Potassium Chloride Carbon Dioxide Anion Gap BUN Creatinine Creat Clearance w eGFR Random Glucose Lactic Acid 1.9 1.6 Calcium Total Bilirubin AST ALT Alkaline Phosphatase Total Protein Albumin Urine Color Yellow Urine Appearance Clear Urine pH 5.0 D Ur Specific [place] 1.009 Urine Protein Negative Urine Glucose (UA) Negative Urine Ketones 1+ H Urine Blood 2+ H Urine Nitrite Negative Urine Bilirubin Negative Urine Urobilinogen Negative Ur Leukocyte Esterase 3+ H Urine WBC (Auto) 7 Urine RBC (Auto) 2 Urine Bacteria Rare Hyaline Casts 1 Urine Mucus Rare 02/23/18 02/23/18 06:50 12:47 WBC 7.1 RBC 2.72 L Hgb 8.3 L D Hct 24.7 L D MCV 90.7 MCH 30.4 MCHC 33.5 RDW 14.9 Plt Count 185 MPV 6.6 L Neutrophils % 76.9 Lymphocytes % 7.0 L Monocytes % 11.6 H Eosinophils % 4.4 D Basophils % 0.1 Sodium 138 Potassium 2.9 L* Chloride 105 Carbon Dioxide 20 L Anion Gap 13 BUN 14 Creatinine 0.8 Creat Clearance w eGFR > 60 Random Glucose 108 H Lactic Acid Calcium 7.8 L Total Bilirubin 0.4 D AST 12 L ALT 10 L Alkaline Phosphatase 46 Total Protein 6.2 L Albumin 3.0 L Urine Color Urine Appearance Urine pH Ur Specific [place] Urine Protein Urine Glucose (UA) Urine Ketones Urine Blood Urine Nitrite Urine Bilirubin Urine Urobilinogen Ur Leukocyte Esterase Urine WBC (Auto) Urine RBC (Auto) Urine Bacteria Hyaline Casts Urine Mucus Active Medications Generic Name Dose Route Start Last Admin Trade Name Galindo PRN Reason Stop Dose Admin Acetaminophen 650 mg 02/23/18 12:35 02/23/18 12:55 Tylenol - PO 650 mg Q6H PRN Administration PAIN LEVEL 1-5 Metronidazole 500 mg in 100 mls @ 100 mls/hr 02/22/18 18:00 02/23/18 17:26 Flagyl 500mg Premixed Ivpb - IVPB 100 mls/hr Q8H-IV JETHRO Administration Ceftriaxone Sodium 1 gm/ 50 mls @ 100 mls/hr 02/23/18 10:00 02/23/18 11:00 Dextrose IVPB 100 mls/hr DAILY JETHRO Administration Sodium Chloride 1,000 mls @ 60 mls/hr 02/22/18 22:39 02/23/18 17:27 Normal Saline - IV 60 mls/hr ASDIR JETHRO Administration Levothyroxine Sodium 25 mcg 02/23/18 07:00 02/23/18 06:31 Synthroid - PO Not Given DAILY@0700 JETHRO Potassium Chloride 40 meq 02/23/18 14:15 02/23/18 14:32 K-Dur - PO 02/24/18 02:16 40 meq Q6H JETHRO Administration ASSESSMENT/PLAN:
[2018-02-24] MEDS: POTASSIUM CHLORIDE TABS 20 MEQ TABLET.ER (FP) PO SCH (01:46)
[2018-02-24] MEDS: LEVOTHYROXINE NA 25 MCG TABLET (FP) PO SCH (06:08)
[2018-02-24 08:07] LABS: BASO % 0.2 % (0-2.0); EOS % 6.5 % (0-4.5); HEMATOCRIT 25.3 % (32.4-45.2); HEMOGLOBIN 8.5 GM/dL (10.7-15.3); LYMPH % 8.8 % (8-40); MCH 30.7 pg (25.7-33.7); MCHC 33.6 g/dl (32.0-36.0); MEAN CELL VOLUME 91.4 fl (80-96); MEAN PLT VOLUME 6.7 fl (7.5-11.1); MONO % 10.6 % (3.8-10.2); NEUT % 73.9 % (42.8-82.8); PLATELET COUNT 218 K/MM3 (134-434); RBC 2.77 M/mm3 (3.60-5.2); RDW 15.3 % (11.6-15.6); WHITE BLOOD COUNT 5.7 K/mm3 (4.0-10.0)
[2018-02-24 08:38] LABS: ANION GAP 10 (8-16); BLOOD UREA NITROGEN 10 mg/dL (7-18); CALCIUM 8.2 mg/dL (8.5-10.1); CHLORIDE 114 mmol/L (98-107); CO2 18 mmol/L (21-32); GLUCOSE,RANDOM 91 mg/dL (74-106); MAGNESIUM 1.6 mg/dL (1.8-2.4); SODIUM 142 mmol/L (136-145)
[2018-02-24 08:47] LABS: ALK PHOS 40 U/L (45-117); BILIRUBIN,TOTAL 0.4 mg/dL (0.2-1.0); CREATININE 0.6 mg/dL (0.55-1.02); SGOT/AST 14 U/L (15-37); SGPT/ALT 9 U/L (12-78); TOT PROT 5.8 g/dl (6.4-8.2)
[2018-02-24] MEDS ORDERED: DEXTROSE 5%-WATER - 50 ML IVPB ONE (10:16)
[2018-02-24] MEDS ORDERED: cefTRIAXone SODIUM 1 GM VIAL ONE (10:16)
--- NOTE | 2018-02-24 10:26 | DS ---
Physical Exam: SUBJECTIVE: Patient seen and examined OBJECTIVE: Vital Signs Period Temp Pulse Resp BP Sys/Rankin Pulse Ox Last 24 Hr 97.3 F-97.9 F 83-94 17-18 93-134/42-71 98-98 PHYSICAL EXAM GENERAL: The patient is awake, alert, and fully oriented, in no acute distress. HEAD: Normal with no signs of trauma. EYES: PERRL, extraocular movements intact, sclera anicteric, conjunctiva clear. ENT: Ears normal, nares patent, oropharynx clear without exudates, moist mucous membranes. NECK: Trachea midline, full range of motion, supple. LUNGS: Breath sounds equal, clear to auscultation bilaterally, no wheezes, no crackles, no accessory muscle use. HEART: Regular rate and rhythm, S1, S2 without murmur, rub or gallop. ABDOMEN: Soft, nontender, nondistended, normoactive bowel sounds, no guarding, no rebound, no hepatosplenomegaly, no masses. EXTREMITIES: 2+ pulses, warm, well-perfused, no edema. NEUROLOGICAL: Cranial nerves II through XII grossly intact. Normal speech, gait not observed. PSYCH: Normal mood, normal affect. SKIN: Warm, dry, normal turgor, no rashes or lesions noted. LABS Laboratory Results - last 24 hr 02/22/18 02/23/18 02/24/18 13:03 12:47 07:00 WBC 5.7 RBC 2.77 L Hgb 8.5 L Hct 25.3 L MCV 91.4 MCH 30.7 MCHC 33.6 RDW 15.3 Plt Count 218 MPV 6.7 L Neutrophils % 73.9 Lymphocytes % 8.8 D Monocytes % 10.6 H Eosinophils % 6.5 H Basophils % 0.2 Sodium 138 Potassium 2.9 L* Chloride 105 Carbon Dioxide 20 L Anion Gap 13 BUN 14 Creatinine 0.8 Creat Clearance w eGFR > 60 Random Glucose 108 H Lactic Acid 1.6 Calcium 7.8 L Phosphorus Magnesium Total Bilirubin 0.4 D AST 12 L ALT 10 L Alkaline Phosphatase 46 Total Protein 6.2 L Albumin 3.0 L 02/24/18 07:00 WBC RBC Hgb Hct MCV MCH MCHC RDW Plt Count MPV Neutrophils % Lymphocytes % Monocytes % Eosinophils % Basophils % Sodium 142 Potassium 4.0 Chloride 114 H Carbon Dioxide 18 L Anion Gap 10 BUN 10 Creatinine 0.6 Creat Clearance w eGFR > 60 Random Glucose 91 Lactic Acid Calcium 8.2 L Phosphorus 1.0 L* Magnesium 1.6 L Total Bilirubin 0.4 AST 14 L ALT 9 L Alkaline Phosphatase 40 L Total Protein 5.8 L Albumin 3.0 L HOSPITAL COURSE: Date of Admission:02/22/18 Date of Discharge: 02/24/18 Minutes to complete discharge: 35 Discharge Summary Reason For Visit: DIVERTICULITIS Current Active Problems Colitis (Acute) 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 Take this medication as directed and e sure to finish all the medication. Return to the emergency department for any new or worsening symptoms. Referrals: Elisha Rivera MD [Primary Care Provider] - Disposition: HOME - Home Medications Comprehensive Discharge Medication List: Ambulatory Orders Esomeprazole Mag Trihydrate [Nexium] 40 mg PO DAILY 05/24/13 Ezetimibe [Zetia] 10 mg PO DAILY 05/24/13 Levothyroxine [Synthroid -] 25 mcg PO DAILY 05/24/13 Alendronate Na [Fosamax (Weekly)] 70 mg PO Q7D 10/06/17 Diclofenac Sodium [Voltaren] 100 gm TP PRN PRN 10/06/17 Amox-Tr/K Cl [Augmentin - 875Mg Tablet] 1 tab PO BID #10 tablet 02/24/18 This patient is new to me today: No Emergency Visit: Yes ED Registration Date: 02/22/18 Care time: The patient presented to the Emergency Department on the above date and was hospitalized for further evaluation of their emergent condition. Critical Care patient: No - Discharge Referral Referred to [facility] No
[2018-02-24] MEDS ORDERED: AMOX TR/POT CLAV 875MG/125MG TABLETS (FP) PO ONE (10:45)
[2018-02-24] MEDS ORDERED: NAPH,MB-DB/K PH,MBDB POWDER PACKET PO ONE (10:45)
[2018-02-24] MEDS ORDERED: MAGNESIUM OXIDE 400 MG TABLET (FP) PO ONE (11:00)
[2018-02-24] MEDS: CEFTRIAXONE 1 GM in DEXTROSE 5%-WATER - 50 ML IVPB SCH (11:52)
[2018-02-24 12:55] VITALS: BP 122/64; PULSE 92; TEMP 97.6
== END 2018-02-24 12:27 | disposition home or self-care (01) ==
LOC: JER 10:07 → JERBED 16:20 → J5S 21:37
PROVIDERS: ADMIT Hospitalist; ATTEND Nurse Practitioner Acute Care
PROC: 3E03329 Introduction of Other Anti-infective into Peripheral Vein, Percutaneous Approach (ICD-10-PCS; principal; 2018-02-22)
PROC: 3E0337Z Introduction of Electrolytic and Water Balance Substance into Peripheral Vein, Percutaneous Approach (ICD-10-PCS; 2018-02-22)
PROC: 3E033GC Introduction of Other Therapeutic Substance into Peripheral Vein, Percutaneous Approach (ICD-10-PCS; 2018-02-22)
DX: K57.92 Diverticulitis of intestine, part unspecified, without perforation or abscess without bleeding (principal); C53.9 Malignant neoplasm of cervix uteri, unspecified; J45.909 Unspecified asthma, uncomplicated; E78.5 Hyperlipidemia, unspecified; Z92.21 Personal history of antineoplastic chemotherapy; Z87.442 Personal history of urinary calculi; K52.9 Noninfective gastroenteritis and colitis, unspecified; K52.0 Gastroenteritis and colitis due to radiation
CPT/HCPCS: 36415; 71045-TC-FY; 74176-TC; 80053; 81003; 81015; 83605; 83735; 84100; 84484; 85025; 85610; 85730; 87040; 87045; 87046; 87086; 87186; 87324; 87449; 93005; 93010; 99284-25; G0378; J0131; J7030

== ENCOUNTER 2018-03-12 16:36 | Inpatient (IN) | payer OTHER ==
--- NOTE | 2018-03-12 16:42 | PDOC ---
Rapid Medical Evaluation Time Seen by Provider: 03/12/18 16:37 Medical Evaluation: Allergies Allergy/AdvReac Type Severity Reaction Status Date / Time No Known Allergies Allergy Verified 03/12/18 16:37 I have performed a brief in-person evaluation of this patient. The patient presents with a chief complaint of: abdominal pain, nausea and decreased appetite x 4-5 days. Patient is 3 months post chemo/radiation for cervical cancer. The patient had a CT of abd/pelvis on 02/22/18 with stable uterine wall/rectosigmoid mass; also showed diverticulitis. Pertinent physical exam findings: tachycardic, weak appearing. soft abdomen without TTP, dry mucous membranes I have ordered the following: labs, UA/culture, ekg The patient will proceed to the ED for further evaluation.
[2018-03-12 17:26] LABS: HEMATOCRIT 28.9 % (32.4-45.2); HEMOGLOBIN 10.2 GM/dL (10.7-15.3); MCH 31.5 pg (25.7-33.7); MCHC 35.1 g/dl (32.0-36.0); MEAN CELL VOLUME 89.7 fl (80-96); MEAN PLT VOLUME 6.9 fl (7.5-11.1); PLATELET COUNT 312 K/MM3 (134-434); RBC 3.22 M/mm3 (3.60-5.2); WHITE BLOOD COUNT 10.2 K/mm3 (4.0-10.0)
[2018-03-12 17:56] LABS: ANION GAP 11 (8-16); BLOOD UREA NITROGEN 13 mg/dL (7-18); CALCIUM 8.3 mg/dL (8.5-10.1); CHLORIDE 100 mmol/L (98-107); CO2 24 mmol/L (21-32); GLUCOSE,RANDOM 92 mg/dL (74-106); SGOT/AST 11 U/L (15-37); SGPT/ALT 8 U/L (12-78); SODIUM 135 mmol/L (136-145)
[2018-03-12 18:00] LABS: ALK PHOS 51 U/L (45-117); BILIRUBIN,TOTAL 0.6 mg/dL (0.2-1.0); TOT PROT 6.5 g/dl (6.4-8.2)
[2018-03-12 18:05] LABS: POTASSIUM 2.9 mmol/L (3.5-5.1)
[2018-03-12] MEDS ORDERED: POTASSIUM CHLORIDE TABS 20 MEQ TABLET.ER (FP) PO ONE ×4 (18:08→23:33)
--- NOTE | 2018-03-12 18:08 | PDOC ---
History of Present Illness - General History Source: Patient Exam Limitations: No Limitations - History of Present Illness Initial Comments: 03/12/18 18:33 The patient is a 77 year old female with a significant past medical history of cervical cancer (recently off chemotherapy), HLD, thyroid disease, ulcers, and kidney stones who presents to the emergency department complaining of persistent nausea for one week. The patient reports persistent nausea and decreased PO intake for 1 week. The patient was recently admitted for diverticulitis. The patient has associated symptoms of decrease in appetite secondary to nausea, generalized weakness, constipation secondary to lack of appetite, and fever. She reports the urge to vomit with PO intake as well as LLQ discomfort. She states the pain she had earlier in the month has resolved. Of note, the patient has not taken her medication for nausea. The patient denies chest pain, shortness of breath, headache, and dizziness. Denies vomiting, diarrhea, dysuria, frequency, urgency, and hematuria. Allergies: NKDA Past surgical history: STENT AND REMOVAL Social history: Former smoker. No reported alcohol or drug use. PCP: Dr. Rivera <Marilia Vela - Last Filed: 03/12/18 19:19> <Rebecca Gruber - Last Filed: 03/12/18 23:11> - General Chief Complaint: Pain Stated Complaint: FATIGUE Time Seen by Provider: 03/12/18 16:37 Past History <Marilia Vela - Last Filed: 03/12/18 19:19> - Past Medical History Anemia: No Asthma: Yes Cancer: Yes (CERVICAL) Cardiac Disorders: No CVA: No COPD: No CHF: No DVT: No Dementia: No Diabetes: No GI Disorders: Yes (ULCERS) Disorders: Yes (KIDNEY STONES - STENT AND REMOVAL) HTN: No Hypercholesterolemia: Yes Liver Disease: No Seizures: No Thyroid Disease: Yes - Surgical History Abdominal Surgery: No Appendectomy: No Cardiac Surgery: No Cholecystectomy: No Lung Surgery: No Neurologic Surgery: No Orthopedic Surgery: No - Immunization History Immunization Up to Date: Yes - Suicide/Smoking/Psychosocial Hx Smoking Status: No Smoking History: Former smoker Have you smoked in the past 12 months: No Number of Cigarettes Smoked Daily: 0 Information on smoking cessation initiated: No Hx Alcohol Use: No Drug/Substance Use Hx: No Substance Use Type: None Hx Substance Use Treatment: No <Rebecca Gruber - Last Filed: 03/12/18 23:11> - Past Medical History Allergies/Adverse Reactions: Allergies Allergy/AdvReac Type Severity Reaction Status Date / Time No Known Allergies Allergy Verified 03/12/18 16:37 Home Medications: Ambulatory Orders Ezetimibe [Zetia] 10 mg PO DAILY 05/24/13 Levothyroxine [Synthroid -] 25 mcg PO DAILY 05/24/13 Omeprazole Magnesium [Prilosec Otc] 20 mg PO DAILY #30 tablet. 02/24/18 Phenazopyridine HCl [Pyridium -] 100 mg PO TID 03/12/18 Prochlorperazine Maleate [Compazine] 10 mg PO Q8H PRN 03/12/18 Review of Systems - Review of Systems Able to Perform ROS?: Yes Comments:: 03/12/18 18:34 CONSTITUTIONAL: (+)Fever. (+)Generalized weakness. (+)Loss of appetite. Absent: chills, diaphoresis, malaise. HEENT: Absent: rhinorrhea, nasal congestion, throat pain, throat swelling, difficulty swallowing, mouth swelling, ear pain, eye pain, visual Changes CARDIOVASCULAR: Absent: chest pain, syncope, palpitations, irregular heart rate, lightheadedness , peripheral edema RESPIRATORY: Absent: cough, shortness of breath, dyspnea with exertion, orthopnea, wheezing, stridor, hemoptysis GASTROINTESTINAL: (+)LLQ discomfort. (+)Nausea. (+)Constipation. Absent: abdominal distension, vomiting, diarrhea, melena, hematochezia GENITOURINARY: Absent: dysuria, frequency, urgency, hesitancy, hematuria, flank pain, genital pain MUSCULOSKELETAL: Absent: myalgia, arthralgia, joint swelling SKIN: Absent: rash, itching, pallor HEMATOLOGIC/IMMUNOLOGIC: Absent: easy bleeding, easy bruising, lymphadenopathy, frequent infections ENDOCRINE: Absent: unexplained weight gain, unexplained weight loss, heat intolerance, cold intolerance NEUROLOGIC: Absent: headache, focal weakness or paresthesias, dizziness, unsteady gait, seizure, mental status changes, bladder or bowel incontinence PSYCHIATRIC: Absent: anxiety, depression, suicidal or homicidal ideation, hallucinations. <Marilia Vela - Last Filed: 03/12/18 19:19> *Physical Exam - Vital Signs Last Vital Signs Temp Pulse Resp BP Pulse Ox 98.2 F 127 H 18 100/70 100 03/12/18 16:39 03/12/18 16:39 03/12/18 16:39 03/12/18 16:39 03/12/18 16:39 - Physical Exam Comments: GENERAL: Well developed, well nourished. Awake and alert. No acute distress. HEENT: (+)Dry mucous membranes. Normocephalic, atraumatic. PERRLA, EOMI. No conjunctival pallor. Sclera are non-icteric. NECK: Supple. Full ROM. No JVD. Carotid pulses 2+ and symmetric, without bruits. No thyromegaly. No lymphadenopathy. CARDIOVASCULAR: Regular rate and rhythm. No murmurs, rubs, or gallops. Distal pulses are 2+ and symmetric. PULMONARY: No evidence of respiratory distress. Lungs clear to auscultation bilaterally. No wheezing, rales or rhonchi. ABDOMINAL: Soft. Non-tender. Non-distended. No rebound or guarding. No organomegaly. Normoactive bowel sounds. MUSCULOSKELETAL Normal range of motion at all joints. No bony deformities or tenderness. No CVA tenderness. EXTREMITIES: No cyanosis. No clubbing. No edema. No calf tenderness. SKIN: Warm and dry. Normal capillary refill. No rashes. No jaundice. NEUROLOGICAL: Alert, awake, appropriate. Cranial nerves 2-12 intact. No deficits to light touch and temperature in face, upper extremities and lower extremities. No motor deficits in the in face, upper extremities and lower extremities. Normoreflexic in the upper and lower extremities. Normal speech. PSYCHIATRIC: Cooperative. Good eye contact. Appropriate mood and affect. <Marilia Vela - Last Filed: 03/12/18 19:19> - Vital Signs Last Vital Signs Temp Pulse Resp BP Pulse Ox 98.2 F 127 H 18 100/70 100 03/12/18 16:39 03/12/18 16:39 03/12/18 16:39 03/12/18 16:39 03/12/18 16:39 <Rebecca Gruber - Last Filed: 03/12/18 23:11> ED Treatment Course - LABORATORY CBC & Chemistry Diagram: 03/12/18 17:11 03/12/18 17:11 - ADDITIONAL ORDERS Additional order review: Laboratory Results 03/12/18 17:11 Sodium 135 L Potassium 2.9 L* Chloride 100 Carbon Dioxide 24 Anion Gap 11 BUN 13 Creatinine 1.0 Creat Clearance w eGFR 54.05 Random Glucose 92 Calcium 8.3 L Total Bilirubin 0.6 D AST 11 L ALT 8 L Alkaline Phosphatase 51 Creatine Kinase 32 Troponin I < 0.02 Total Protein 6.5 Albumin 3.0 L 03/12/18 17:11 RBC 3.22 L MCV 89.7 MCHC 35.1 RDW 14.0 MPV 6.9 L Neutrophils % No Result Required. Lymphocytes % No Result Required. - Medications Given in the ED: ED Medications Discontinued Medications Generic Name Dose Route Start Last Admin Trade Name Freq PRN Reason Stop Dose Admin Ondansetron HCl 4 mg 03/12/18 18:10 03/12/18 18:29 Zofran Injection IVPUSH 03/12/18 18:11 4 mg ONCE ONE Administration Potassium Chloride 40 meq 03/12/18 18:08 03/12/18 18:29 K-Dur - PO 03/12/18 18:09 40 meq ONCE ONE Administration <Marilia Vela - Last Filed: 03/12/18 19:19> - LABORATORY CBC & Chemistry Diagram: 03/12/18 17:11 03/12/18 22:30 - ADDITIONAL ORDERS Additional order review: Laboratory Results 03/12/18 17:11 Sodium 135 L Potassium 2.9 L* Chloride 100 Carbon Dioxide 24 Anion Gap 11 BUN 13 Creatinine 1.0 Creat Clearance w eGFR 54.05 Random Glucose 92 Calcium 8.3 L Total Bilirubin 0.6 D AST 11 L ALT 8 L Alkaline Phosphatase 51 Creatine Kinase 32 Troponin I < 0.02 Total Protein 6.5 Albumin 3.0 L 03/12/18 17:11 RBC 3.22 L MCV 89.7 MCHC 35.1 RDW 14.0 MPV 6.9 L Neutrophils % No Result Required. Lymphocytes % No Result Required. <Rebecca Gruber - Last Filed: 03/12/18 23:11> Medical Decision Making - Medical Decision Making Consulted with Dr. Phoebe Toribio at 19:19. <Marilia Vela - Last Filed: 03/12/18 19:19> - Medical Decision Making 03/12/18 23:07 77-year-old female presents with persistent nausea and vomiting, dry mucous membranes Patient has a past medical history of stage III cervical cancer with local pelvic invasion. She received chemotherapy and radiation treatment I spoke to the oncologist, Dr. Stephens who requested a GI consult with Dr. Mcgovern. 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 Reviewing the patient's labs. She does have hypokalemia, supplemented with potassium. CAT scan shows that there maybe 2 processes going on 1) radiation colitis. 2) infectious diverticulitis. Spoke to the radiologist and her entire colon is significantly abnormal. We will start antibiotics to cover an infectious diverticulitis. 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 <Marilia Vela - Last Filed: 03/12/18 19:19>
[2018-03-12] MEDS ORDERED: ONDANSETRON 4 MG/2 ML VIAL IVPUSH ONE ×2 (18:10→19:51)
[2018-03-12] MEDS ORDERED: ONDANSETRON 4 MG/2 ML VIAL ONE ×2 (18:31→20:02)
[2018-03-12 18:36] LABS: PLATELET ESTIMATE ADEQUATE
[2018-03-12] MEDS ORDERED: SODIUM CHLORIDE 500 ML IV STA (20:11)
--- NOTE | 2018-03-12 22:00 | PN ---
Teaching Attending Note Name of Resident: Quentin Kent ATTENDING PHYSICIAN STATEMENT I saw and evaluated the patient. I reviewed the resident's note and discussed the case with the resident. I agree with the resident's findings and plan as documented. SUBJECTIVE: 77 yo F with hx. of cervical cancer (recently off chemotherapy/ Sp/RT), HLD, thyroid disease, ulcers, and kidney stones who presents to ED with left lower quadrant abdominal pain and nausea. States nausea has now resolved. Denies any current abominal pain, nause, vomiting or diarrhea. No fevers or chills, but did notice subjective fevers at home. No chest pain or pressure. Does note heart beating "out.". OBJECTIVE: Physical: VS: Vital Signs Period Temp Pulse Resp BP Sys/Rankin Pulse Ox Last 24 Hr 98.2 F 127 18 100/70 100 GEN: NAD, Resting in bed, AA0X3 HEENT: NCAT, PERRL, throat without erythema or exudates CARD: RRR S1, S2 RESP: CTAB ABD: BSx4, NTD to palpation EXT: - C/C/E CBCD WBC 10.2 K/mm3 (4.0-10.0) H D 03/12/18 17:11 RBC 3.22 M/mm3 (3.60-5.2) L 03/12/18 17:11 Hgb 10.2 GM/dL (10.7-15.3) L D 03/12/18 17:11 Hct 28.9 % (32.4-45.2) L 03/12/18 17:11 MCV 89.7 fl (80-96) 03/12/18 17:11 MCHC 35.1 g/dl (32.0-36.0) 03/12/18 17:11 RDW 14.0 % (11.6-15.6) 03/12/18 17:11 Plt Count 312 K/MM3 (134-434) D 03/12/18 17:11 MPV 6.9 fl (7.5-11.1) L 03/12/18 17:11 CMP Sodium 135 mmol/L (136-145) L 03/12/18 17:11 Potassium 2.9 mmol/L (3.5-5.1) L* 03/12/18 17:11 Chloride 100 mmol/L (98-107) 03/12/18 17:11 Carbon Dioxide 24 mmol/L (21-32) 03/12/18 17:11 Anion Gap 11 (8-16) 03/12/18 17:11 BUN 13 mg/dL (7-18) 03/12/18 17:11 Creatinine 1.0 mg/dL (0.55-1.02) 03/12/18 17:11 Creat Clearance w eGFR 54.05 (>60) 03/12/18 17:11 Random Glucose 92 mg/dL (74-106) 03/12/18 17:11 Calcium 8.3 mg/dL (8.5-10.1) L 03/12/18 17:11 Total Bilirubin 0.6 mg/dL (0.2-1.0) D 03/12/18 17:11 AST 11 U/L (15-37) L 03/12/18 17:11 ALT 8 U/L (12-78) L 03/12/18 17:11 Alkaline Phosphatase 51 U/L (45-117) 03/12/18 17:11 Total Protein 6.5 g/dl (6.4-8.2) 03/12/18 17:11 Albumin 3.0 g/dl (3.4-5.0) L 03/12/18 17:11 CARDIAC ENZYMES Creatine Kinase 32 IU/L (26-192) 03/12/18 17:11 Troponin I < 0.02 ng/ml (0.00-0.05) 03/12/18 17:11 CT ABD/PELVIS: No bowel Obstruction, radiation protcolitis, diverticulitis EKG:NSR Home Medications Medication Instructions Recorded Ezetimibe [Zetia] 10 mg PO DAILY 05/24/13 Levothyroxine [Synthroid -] 25 mcg PO DAILY 05/24/13 Omeprazole Magnesium [Prilosec Otc] 20 mg PO DAILY #30 tablet. 02/24/18 Phenazopyridine HCl [Pyridium -] 100 mg PO TID 03/12/18 Prochlorperazine Maleate 10 mg PO Q8H PRN 03/12/18 [Compazine] ASSESSMENT AND PLAN: 77 F with Pmhx. of Cervical Ca s/p Chemo/RT, HLD, Thyriod dz, and nephrolithiasis who presents with left lower quadrant abdominal pain and vomiting 1.) Radiation ProctoColitis, Diverticulitis - Encarnacion Cx - IVF - Repeat LA - Levaquin/Flagyl - GI - Onco on board - Zofran/Compazine prn nausea 2.) Hypokalemia - Check. Mg2+ - Replete K 3.) Hypothyriodism - Check. TSH - C/W Synthriod 4.) Hx. of Cervical Ca - Care as per Oncology 5.) HLD - C/W Zetia 6.) DVT Ppx - Heparin [address] in Med-Sx
[2018-03-12] MEDS ORDERED: SODIUM CHLORIDE 1,000 ML IV SCH (22:15)
--- NOTE | 2018-03-12 22:46 | MSN ---
Admitting History and Physical - Primary Care Physician PCP: Dr. Rivera - Admission Chief Complaint: Decreased appetite History of Present Illness: Patient is a 77 year old female with a past medhx of cervical cancer, GERD, asthma, hypothyroidism, diverticulitis, and HLD complaining of 5 days of decreased appetite and oral intake. The patient states that she does not have nausea unless she is taking pills and only admits to one bought of vomiting that happened today while in the ER. The patient states that she does not have any pain in abdomen, but has had persistent constipation with minimal passage of stool over the last five days. The patient states that her most recent bowel movement was 20 minutes prior with no constipation. Patient has hx of cervical cancer and recently finished treatment one month prior. The patient was treated inpatient for diverticulitis recently but her current symptoms are not congruent. Patient is also complaining of painful urination that has been continued for one month. She was treated with antibiotics two weeks prior without resolution of symptoms. Patient is complaining of fevers at home but is not having any chest pain, SOB, dysphasia, or blood in stool. History Source: Patient Limitations to Obtaining History: No Limitations - Past Medical History Cardiovascular: Yes: HTN, Other (tachycardia and feelings of pounding heart beat were decribed) Pulmonary: Yes: Asthma, Other (non productive cough) Gastrointestinal: Yes: Constipation, Diverticulitis, Diverticulosis, GERD Renal/: Yes: Renal Calculi Reproductive: Yes: Postmenopausal Heme/Onc: Yes: Cancer (cervical cancer) ENT: No: Allergic Rhinitis, Sinusitis, Other Endocrine: Yes: Hypothyroidism Dermatology: Yes: Other (cervical cancer) - Past Surgical History Additional Past Surgical History: ureteral stent placed and removed - Advance Directives Advance Directives: No: Living Will, Health Care Proxy, DNR, Organ Donor, Tissue Donor, MOLST - Smoking History Smoking history: Former smoker Have you smoked in the past 12 months: No Aproximately how many cigarettes per day: 0 - Alcohol/Substance Use Hx Alcohol Use: No - Social History ADL: Independent History of Recent Travel: No Home Medications - Allergies Allergies/Adverse Reactions: Allergies Allergy/AdvReac Type Severity Reaction Status Date / Time No Known Allergies Allergy Verified 03/12/18 16:37 - Home Medications Home Medications: Ambulatory Orders Ezetimibe [Zetia] 10 mg PO DAILY 05/24/13 Levothyroxine [Synthroid -] 25 mcg PO DAILY 05/24/13 Omeprazole Magnesium [Prilosec Otc] 20 mg PO DAILY #30 tablet. 02/24/18 Phenazopyridine HCl [Pyridium -] 100 mg PO TID 03/12/18 Prochlorperazine Maleate [Compazine] 10 mg PO Q8H PRN 03/12/18 Review of Systems - Review of Systems Constitutional: reports: Fever, Loss of Appetite Eyes: reports: No Symptoms HENT: reports: Other (complaining of dry mouth) Neck: denies: Swollen Glands, Tenderness Cardiovascular: reports: Palpitations. denies: Chest Pain, Shortness of Breath Respiratory: reports: Cough. denies: SOB Gastrointestinal: reports: Abdominal Pain (abdomenal pain noted today before coming to hospital but has resolved), Constipation, Vomiting (one bought of vomiting noted in the ER today) Genitourinary: reports: Burning (buring noted for one month) Endocrine: denies: Increased Hunger, Increased Thirst Hematology/Lymphatic: denies: Swollen Glands Psychiatric: reports: Altered Sleep Pattern Physical Examination Vital Signs: Vital Signs Temperature 98.2 F 03/12/18 16:39 Pulse Rate 127 H 03/12/18 16:39 Respiratory Rate 18 03/12/18 16:39 Blood Pressure 100/70 03/12/18 16:39 O2 Sat by Pulse Oximetry (%) 100 03/12/18 16:39 Constitutional: Yes: Well Nourished, No Distress, Calm Eyes: Yes: Conjunctiva Clear, PERRL HENT: Yes: Atraumatic, Normocephalic. No: Pharyngeal Erythema, Thrush, Tonsillar Exudate Neck: Yes: Trachea Midline. No: Lymphadenopathy Cardiovascular: Yes: Regular Rate and Rhythm, Tachycardia Respiratory: Yes: Regular, CTA Bilaterally Gastrointestinal: Yes: Normal Bowel Sounds, Soft. No: Abdomen, Obese, Distention, Hernia, Hyperactive Bowel Sounds, Pulsatile Mass, Tenderness, Tenderness, Epigastrium, Tenderness, Rebound, Vomiting Renal/: Yes: Other (complaining of dysuria). No: Bladder Distention Extremities: Yes: WNL Edema: No Peripheral Pulses: Left Radial: 2+, Right Radial: 2+, Left Doralis Pedis: 2+, Right Dorsalis Pedis: 2+ Neurological: Yes: Alert, Oriented. 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 Problem list: 1) Divertiulitis vs Radiation colitis -NPO -D5 .5 N/S -start levoquin and flagyl -GI consult placed -Infectious disease consult placed -monitor bowel movements -Start IV protonix -Monitor Lactic acid and WBC 2) Hypokalemia - likely secondary to poor oral intake - received 80 meq of potassium, continue with additional IV potassium - Magnesium sulfate 2gm ordered - will continue to monitor potassium and magnesium 3) Decreased appetite with nausea - start zofran 4mg IV 4) Hypothyriodism - Check TSH - continue with levothyroxine 5) Dysuria - obtain U/A - r/o UTI 6) HLD -continue zetia 7) cervical cancer - continue with oncology treatment 8) DVT prophylaxis - heparin subq
[2018-03-12] MEDS ORDERED: MAGNESIUM SULF 50% (8.12 MEQ/2 ML-1 GM VIAL) IVPB ONE (23:03)
[2018-03-12] MEDS ORDERED: PROCHLORPERAZINE MALEATE 10 MG PO PRN (23:19)
--- NOTE | 2018-03-12 23:28 | HP ---
CHIEF COMPLAINT: poor oral intake PCP: Dr. Rivera HISTORY OF PRESENT ILLNESS: Patient is a 77 yo F with a PMhx of Cervical Ca ( recently off chemo), Asthma, thryoid disease, HLD, presented to the ED because of poor oral intake and decreased appetite over the last 5 days. Patient denies nausea but said she had 1 episode of vomiting when trying to swallow a pill. She denies abdominal pain and diarrhea. She reports having a BM daily but with minimal passage. She was recently admitted for diverticulitis and says she is not experiencing the same symptoms as her last admission. She said she felt warm at home but did not record her temperature. Patient also says she feels really dry and dehydrated. Patient reports being treated for UTI 2 weeks ago and says she still has burning while urinating. She says she is concerned because of her loss of appetite. She denies dysphagia, odynophagia, abdominal pain, melena, hematochezia, dizziness, lightheadedness. ER course was notable for: (1) CT ABD/PELVIS: No bowel Obstruction, radiation protcolitis, diverticulitis (2) Hypokalemia 2.9, repleted with K 40meq (3) Flagyl/Levaquin Recent Travel: n/a PAST MEDICAL HISTORY: per HPI PAST SURGICAL HISTORY: n/a Social History: Smoking: denies Alcohol:denies Drugs: denies Family History: Allergies No Known Allergies Allergy (Verified 03/12/18 16:37) HOME MEDICATIONS: Home Medications Medication Instructions Recorded Ezetimibe [Zetia] 10 mg PO DAILY 05/24/13 Levothyroxine [Synthroid -] 25 mcg PO DAILY 05/24/13 Omeprazole Magnesium [Prilosec Otc] 20 mg PO DAILY #30 tablet. 02/24/18 Phenazopyridine HCl [Pyridium -] 100 mg PO TID 03/12/18 Prochlorperazine Maleate 10 mg PO Q8H PRN 03/12/18 [Compazine] REVIEW OF SYSTEMS CONSTITUTIONAL: fever, generalized weakness, loss of appetite Absent: chills, diaphoresis, malaise, weight change HEENT: Absent: rhinorrhea, nasal congestion, throat pain, throat swelling, difficulty swallowing, mouth swelling, ear pain, eye pain, visual changes CARDIOVASCULAR: Absent: chest pain, syncope, palpitations, irregular heart rate, lightheadedness , peripheral edema RESPIRATORY: Absent: cough, shortness of breath, dyspnea with exertion, orthopnea, wheezing, stridor, hemoptysis GASTROINTESTINAL: 1x vomiting, constipation Absent: abdominal pain, abdominal distension, nausea, diarrhea, melena, hematochezia GENITOURINARY: Absent: dysuria, frequency, urgency, hesitancy, hematuria, flank pain, genital pain MUSCULOSKELETAL: Absent: myalgia, arthralgia, joint swelling, back pain, neck pain SKIN: Absent: rash, itching, pallor NEUROLOGIC: Absent: headache, focal weakness or paresthesias, dizziness, unsteady gait, seizure, mental status changes, bladder or bowel incontinence PSYCHIATRIC: Absent: anxiety, depression, suicidal or homicidal ideation, hallucinations. PHYSICAL EXAMINATION Vital Signs - 24 hr 03/12/18 16:39 Temperature 98.2 F Pulse Rate 127 H Respiratory 18 Rate Blood Pressure 100/70 O2 Sat by Pulse 100 Oximetry (%) GENERAL: Awake, alert, and fully oriented, in no acute distress. HEAD: Normal with no signs of trauma. EYES: extraocular movements intact, sclera anicteric, conjunctiva clear. No lid lag. EARS, NOSE, THROAT: oropharynx clear without exudates. dry mucous membrane NECK: supple without lymphadenopathy, JVD, or masses. LUNGS: Breath sounds equal, clear to auscultation bilaterally. No wheezes, and no crackles. HEART: tachy, normal S1 and S2 without murmur, rub or gallop. ABDOMEN: Soft, nontender, not distended, normoactive bowel sounds, no guarding, no rebound, no masses. LOWER EXTREMITIES: 2+ pulses, warm, well-perfused. No calf tenderness. No peripheral edema. NEUROLOGICAL: Cranial nerves II-XII intact. Normal speech. PSYCHIATRIC: Cooperative. Good eye contact. Appropriate mood and affect. SKIN: Warm, dry, normal turgor, no rashes or lesions noted, normal capillary refill. Laboratory Results - last 24 hr 03/12/18 03/12/18 17:11 17:11 WBC 10.2 H D RBC 3.22 L Hgb 10.2 L D Hct 28.9 L MCV 89.7 MCH 31.5 MCHC 35.1 RDW 14.0 Plt Count 312 D MPV 6.9 L Neutrophils % No Result Required. Neutrophils % (Manual) 54.0 D Band Neutrophils % 30.0 Lymphocytes % No Result Required. Lymphocytes % (Manual) 3.0 L D Monocytes % (Manual) 9 Eosinophils % (Manual) 4.0 Basophils % (Manual) 0.0 Platelet Estimate Adequate Sodium 135 L Potassium 2.9 L* Chloride 100 Carbon Dioxide 24 Anion Gap 11 BUN 13 Creatinine 1.0 Creat Clearance w eGFR 54.05 Random Glucose 92 Calcium 8.3 L Total Bilirubin 0.6 D AST 11 L ALT 8 L Alkaline Phosphatase 51 Creatine Kinase 32 Troponin I < 0.02 Total Protein 6.5 Albumin 3.0 L ASSESSMENT/PLAN: 77 yo F with a PMhx of Cervical Ca (recently off chemo), Asthma, thryoid disease , HLD, presented to the ED because of poor oral intake and decreased appetite and is admitted for colitis/diverticulitis. #Radiation Proctocolitis, Diverticulitis -CT ABD/PELVIS: No bowel Obstruction, radiation protcolitis, diverticulitis -Start Levaquin/Flagyl -GI consulted: Dr. Mcgovern -Mendy PRN for nausea -Oncology consulted -IVF Fluids D5 1/2 NS @125ml/hour -NPO #Hypokalemia -40meq PO x 2 -Magnesium 1.2, repleted -Follow up BMP -replete as needed #Hypothyroidism -TSH -Cont. Home synthroid 25 #Dysuria -U/a -urine cultures #Hx of Cervical Cancer -oncology consulted #HLD -cont Ezetimibe #FEN -IV fluids D5 1/2 NS @125 -Repleted K and Mg -NPO #Ppx -Heparin SQ TID -protonix iv Med-surge Visit type - Emergency Visit Emergency Visit: Yes ED Registration Date: 03/12/18 Care time: The patient presented to the Emergency Department on the above date and was hospitalized for further evaluation of their emergent condition. - New Patient This patient is new to me today: Yes Date on this admission: 03/13/18 - Critical Care Critical Care patient: No Hospitalist Screening - Colonoscopy Questionnaire Colonoscopy Questionnaire: Colonoscopy Questionnaire - Patient: 50 - 75 years old and never had a screening colonoscopy: Unknown History of colon or rectal polyps, or CA: Unknown History of IBD, Crohn's disease or UC: Unknown History of abdominal radiation therapy as a child: Unknown - Relative: 1 with colon or rectal CA, or polyps at age 60 or younger: Unknown Colon or rectal CA diagnosed at age 45 or younger: Unknown Multiple relatives with colon or rectal CA: Unknown - Outcome: Screening Result: Negative Screen
[2018-03-12] MEDS ORDERED: PROCHLORPERAZINE INJECTION 10 MG/2 ML VIAL IVPB PRN ×2 (23:29→23:53)
[2018-03-12] MEDS ORDERED: DEXTROSE 5%-0.45% SALINE 980 ML with POTASSIUM CHLORIDE 40 MEQ IVPB SCH (23:30)
[2018-03-12] MEDS ORDERED: PROCHLORPERAZINE MALEATE 5 MG TABLET PO PRN (23:31)
[2018-03-12] MEDS ORDERED: MAGNESIUM SULF 50% (8.12 MEQ/2 ML-1 GM VIAL) ONE (23:34)
--- NOTE | 2018-03-12 23:37 | CONSULT ---
Consult - text type - Consultation Consultation Note: The patient is a 77 year old female with a significant past medical history of cervical cancer , locally advanced, s/p Cis/RT and brachytherapy, HLD, thyroid disease, ulcers, and kidney stones who presents to the emergency department complaining of persistent nausea for one week. The patient reports persistent nausea and decreased PO intake for 1 week . The patient has associated symptoms of decrease in appetite secondary to nausea, generalized weakness, constipation secondary to lack of appetite, and fever. She reports the urge to vomit with PO intake as well as LLQ discomfort. She states the pain she had earlier in the month has resolved. she also attributes her lack of appetite to recent course of antibiotics for diverticulitis when admitted on 02/24/18 The patient denies chest pain, shortness of breath, headache, and dizziness. Denies vomiting, diarrhea, dysuria, frequency, urgency, and hematuria. Allergies: NKDA Past surgical history: STENT AND REMOVAL Social history: Former smoker. No reported alcohol or drug use. - Past Medical History Asthma: Yes Cancer: Yes (CERVICAL) GI Disorders: Yes (ULCERS) Disorders: Yes (KIDNEY STONES - STENT AND REMOVAL) Hypercholesterolemia: Yes Thyroid Disease: Yes - Suicide/Smoking/Psychosocial Hx Smoking History: Former smoker Allergies/Adverse Reactions: Allergies Allergy/AdvReac Type Severity Reaction Status Date / Time No Known Allergies Allergy Verified 03/12/18 16:37 Home Medications: Ambulatory Orders Ezetimibe [Zetia] 10 mg PO DAILY 05/24/13 Levothyroxine [Synthroid -] 25 mcg PO DAILY 05/24/13 Omeprazole Magnesium [Prilosec Otc] 20 mg PO DAILY #30 tablet. 02/24/18 Phenazopyridine HCl [Pyridium -] 100 mg PO TID 03/12/18 Prochlorperazine Maleate [Compazine] 10 mg PO Q8H PRN 03/12/18 *Physical Exam - Vital Signs Last Vital Signs Temp Pulse Resp BP Pulse Ox 98.2 F 127 H 18 100/70 100 03/12/18 16:39 03/12/18 16:39 03/12/18 16:39 03/12/18 16:39 03/12/18 16:39 Cor: RSR, No murmurs, No gallops Lungs: Clear to P&A Abd: Soft, Normal bowel sounds, No organomegaly Ext:No significant edema Laboratory Results 03/12/18 17:11 Sodium 135 L Potassium 2.9 L* Chloride 100 Carbon Dioxide 24 Anion Gap 11 BUN 13 Creatinine 1.0 Creat Clearance w eGFR 54.05 Random Glucose 92 Calcium 8.3 L Total Bilirubin 0.6 D AST 11 L ALT 8 L Alkaline Phosphatase 51 Creatine Kinase 32 Troponin I < 0.02 Total Protein 6.5 Albumin 3.0 L 03/12/18 17:11 RBC 3.22 L MCV 89.7 MCHC 35.1 RDW 14.0 MPV 6.9 L Neutrophils % No Result Required. Lymphocytes % No Result Required. A/P 77-year-old female with past medical history of stage III cervical cancer -- locally advanced, s/p cis/RT and brachytherapy --completed mid January Recent admission 02/24 for RT colitis vs diverticultiis Just completed a course of antibiotics 1 wek ago Comes in with poor appetitie, nausea, vomiting, constipation. No abdominal pain and benign exam CT scan--RT vs inflammatory vs infectious proctocolitis+/- sigmoid diverticulitis. nephrolithiasis will check cultures check stool for c.diff GI/ID consults protonix IV fluids Replete lytes
[2018-03-13] MEDS ORDERED: DEXTROSE 5%-0.45% SALINE 980 ML with POTASSIUM CHLORIDE 40 MEQ IVPB SCH
[2018-03-13 01:01] VITALS: BMI 27.6
[2018-03-13] MEDS: KCL 10 MEQ IVPB 10 MEQ/100 ML INFUS.BAG IVPB SCH ×2 (03:00→04:20)
[2018-03-13] MEDS ORDERED: PT OWN MED DRAWER 7, Y5N ONE ×2 (03:13→04:01)
[2018-03-13] MEDS: HEPARIN NA (PORCINE) 5,000 UNITS/ML 1ML VIAL SQ SCH ×3 (05:42→22:10)
[2018-03-13] MEDS ORDERED: PHENAZOPYRIDINE HCL 100 MG TABLET (FP) PO SCH (06:00)
[2018-03-13] MEDS: LEVOTHYROXINE NA 25 MCG TABLET (FP) PO SCH (06:12)
[2018-03-13] MEDS ORDERED: INSULIN SLIDING SCALE (NOVOLOG) 1 VIAL SQ SCH (07:00)
[2018-03-13 08:40] LABS: HEMATOCRIT 21.9 % (32.4-45.2); HEMOGLOBIN 7.6 GM/dL (10.7-15.3); MCHC 34.7 g/dl (32.0-36.0); MEAN CELL VOLUME 89.4 fl (80-96); MEAN PLT VOLUME 6.5 fl (7.5-11.1); PLATELET COUNT 243 K/MM3 (134-434); RBC 2.45 M/mm3 (3.60-5.2); RDW 13.7 % (11.6-15.6)
--- NOTE | 2018-03-13 09:19 | PN ---
Physical Exam: SUBJECTIVE: Patient seen and examined - Pt endorses new diarrhea since admission to hospital; endorses multiple days of constipation, poor PO intake due to decreased appetite; pt also endorses mild , chronic dysuria; denies f/c/n/v, MERCHANT, CP, sob, back pain, LE edema; pt states she received radiation tx for cervical Ca one month ago and experienced decreased PO intake for one week after, however returned to baseline after this time period OBJECTIVE: Vital Signs Intake & Output 03/10/18 03/11/18 03/12/18 03/13/18 23:59 23:59 23:59 23:59 Intake Total 600 Balance 600 Weight 46.72 kg 48.223 kg Period Temp Pulse Resp BP Sys/Rankin Pulse Ox Last 24 Hr 97.9 F-98.5 F 86-127 18-20 100-109/58-75 100 GENERAL: Elderly woman, NAD HEAD: NCAT EYES: PERRL, extraocular movements intact, sclera anicteric, conjunctiva clear. No ptosis. ENT: Ears normal, nares patent, oropharynx clear without exudates, moist mucous membranes. NECK: Trachea midline, full range of motion, supple. LUNGS: Breath sounds equal, clear to auscultation bilaterally, no wheezes, no crackles, no accessory muscle use. HEART: Tachy, S1, S2 without murmur, rub or gallop. ABDOMEN: Slightly distended. Soft, nontender, normoactive bowel sounds, no guarding, no rebound, no hepatosplenomegaly, no masses. EXTREMITIES: 2+ PT/DP pulses, warm, well-perfused, no edema. NEUROLOGICAL: Cranial nerves II through XII grossly intact. Normal speech, gait not observed. PSYCH: Normal mood, normal affect. Interactive, pleasant Laboratory Results - last 24 hr CBC, BMP 03/13/18 08:00 03/13/18 08:00 03/12/18 03/12/18 03/12/18 17:11 17:11 22:30 WBC 10.2 H D RBC 3.22 L Hgb 10.2 L D Hct 28.9 L MCV 89.7 MCH 31.5 MCHC 35.1 RDW 14.0 Plt Count 312 D MPV 6.9 L Neutrophils % No Result Required. Neutrophils % (Manual) 54.0 D Band Neutrophils % 30.0 Lymphocytes % No Result Required. Lymphocytes % (Manual) 3.0 L D Monocytes % (Manual) 9 Eosinophils % (Manual) 4.0 Basophils % (Manual) 0.0 Platelet Estimate Adequate Sodium 135 L Potassium 2.9 L* Chloride 100 Carbon Dioxide 24 Anion Gap 11 BUN 13 Creatinine 1.0 Creat Clearance w eGFR 54.05 POC Glucometer Random Glucose 92 Lactic Acid Calcium 8.3 L Magnesium 1.2 L Total Bilirubin 0.6 D AST 11 L ALT 8 L Alkaline Phosphatase 51 Creatine Kinase 32 Troponin I < 0.02 Total Protein 6.5 Albumin 3.0 L 03/12/18 03/12/18 03/12/18 22:30 22:37 23:17 WBC RBC Hgb Hct MCV MCH MCHC RDW Plt Count MPV Neutrophils % Neutrophils % (Manual) Band Neutrophils % Lymphocytes % Lymphocytes % (Manual) Monocytes % (Manual) Eosinophils % (Manual) Basophils % (Manual) Platelet Estimate Sodium Potassium 3.2 L Chloride Carbon Dioxide Anion Gap BUN Creatinine Creat Clearance w eGFR POC Glucometer [id number] Random Glucose Lactic Acid 1.1 Calcium Magnesium Total Bilirubin AST ALT Alkaline Phosphatase Creatine Kinase Troponin I Total Protein Albumin 03/13/18 08:00 WBC 9.0 RBC 2.45 L D Hgb 7.6 L D Hct 21.9 L D MCV 89.4 MCH 31.0 MCHC 34.7 RDW 13.7 Plt Count 243 D MPV 6.5 L Neutrophils % Neutrophils % (Manual) Band Neutrophils % Lymphocytes % Lymphocytes % (Manual) Monocytes % (Manual) Eosinophils % (Manual) Basophils % (Manual) Platelet Estimate Sodium Potassium Chloride Carbon Dioxide Anion Gap BUN Creatinine Creat Clearance w eGFR POC Glucometer Random Glucose Lactic Acid Calcium Magnesium Total Bilirubin AST ALT Alkaline Phosphatase Creatine Kinase Troponin I Total Protein Albumin Active Medications Generic Name Dose Route Start Last Admin Trade Name Freq PRN Reason Stop Dose Admin Ezetimibe 10 mg 03/13/18 10:00 Zetia - PO DAILY JETHRO Heparin Sodium (Porcine) 5,000 unit 03/13/18 06:00 03/13/18 05:42 Heparin - SQ 5,000 unit TID JETHRO Administration Metronidazole 500 mg in 100 mls @ 100 mls/hr 03/13/18 05:00 03/13/18 05:38 Flagyl 500mg Premixed Ivpb - IVPB 100 mls/hr Q6H-IV JETHRO Administration Levofloxacin 250 mg in 50 mls @ 50 mls/hr 03/13/18 10:00 Levaquin 250 Mg Premixed Ivpb - IVPB DAILY JETHRO Protocol Potassium Chloride 40 meq/ 1,000 mls @ 100 mls/hr 03/13/18 00:00 03/13/18 00: 08 Dextrose/Sodium Chloride IVPB 03/13/18 09:29 100 mls/hr ASDIR JETHRO Administration Levothyroxine Sodium 25 mcg 03/13/18 07:00 03/13/18 06:12 Synthroid - PO 25 mcg ACBK JETHRO Administration Pantoprazole Sodium 40 mg 03/13/18 10:00 Protonix Iv IVPUSH DAILY JETHRO Prochlorperazine Edisylate 10 mg 03/12/18 23:53 Compazine Injection - IVPB Q8H PRN NAUSEA AND/OR VOMITING No micro CXR 03/12 - Impression : No acute pathology. Weak inspiratory effort. Right port removed. Ab XR 03/12 - Imaging reveals scoliosis with degenerative changes, clear lung bases, normal heart and no sign of free air. There are 3 right renal calcifications well demonstrated on CT from 02/22/2018. There are pelvic phleboliths and fibroid calcifications. There is calcification by the right hip. There is retained stool. There is no sign of a gross obstruction. Correlation recommended. Ab/pelvis CT 03/12 - No bowel obstruction is identified. As on a previous CT study of 02/22/2018 concentric wall edema is noted involving the rectum, sigmoid and descending colon with associated mild pericolonic/perirectal soft tissue stranding consistent with edema or hyperemia - ? radiation proctocolitis and/or inflammatory/infectious proctocolitis. There is possible mild concentric wall thickening involving the remainder of the colon and terminal ileum - ? inflammatory/infectious colitis. This appearance is better appreciated on the current study performed with intravenous contrast. Sigmoid diverticulosis is seen. As noted in the previous CT report the described findings could be on the basis of superimposed acute diverticulitis. Fluid accumulation is again noted within the uterine canal possibly secondary to known cervical neoplastic disease. Bilateral nonobstructing renal calculi. Cholelithiasis. Small stable left adrenal adenoma. Small stable tubular density adjacent to the right lateral border of the uterus possibly representing a mildly dilated fallopian tube ASSESSMENT/PLAN: 77 yo F with a PMhx of Cervical Ca (recently off chemo), Asthma, thryoid disease , HLD, presented to the ED because of poor oral intake and decreased appetite and is admitted for colitis/diverticulitis. #Radiation Proctocolitis, Diverticulitis - Ct confirmed, pt endorses 5 days of intermittent constipation/diarrhea -Day 2 Levaquin/Flagyl -GI consulted: Dr. Mcgovern; plan for possible flex sig tomorrow with bx's; however high risk of perf given hx of RT and proctocolitis -Compazine PRN for nausea -Heme/onc following -IVF Fluids -NPO - Heme/onc following - nutrition consult - c diff +; defer to ID recs; consider PO vancomycin #Hypokalemia - 3.8 this AM ;Magnesium 1.2, repleted - trend -replete as needed #Anemia - 10.2 -> 7.6 today - transfuse at <7 - f/u FOBT - no evidence of active bleeds - unlikely to be dilutional #Hypothyroidism -TSH 2.45 -c/w home synthroid #Dysuria - U/A 1+ leuk esterase -f/u urine cultures - trend fever, wbc curve - IVFs - monitor for symptoms of dysuria #Hx of Cervical Cancer -Heme/onc following - outpt f/u for further management #HLD -cont Ezetimibe #FEN -IV fluids D5 1/2 NS @75 -Daily lytes -NPO for now per GI #ppx -Heparin SQ TID -protonix iv Med-surg Plan discussed with Dr. Anthony Hull, PGY1 Visit type - Emergency Visit Emergency Visit: Yes ED Registration Date: 03/12/18 Care time: The patient presented to the Emergency Department on the above date and was hospitalized for further evaluation of their emergent condition. - New Patient This patient is new to me today: Yes Date on this admission: 03/13/18 - Critical Care Critical Care patient: No - Discharge Referral Referred to [facility] Med P.C.: No
[2018-03-13 09:24] LABS: ALBUMIN 2.4 g/dl (3.4-5.0); ANION GAP 9 (8-16); BILIRUBIN,TOTAL 0.3 mg/dL (0.2-1.0); BLOOD UREA NITROGEN 9 mg/dL (7-18); CALCIUM 7.7 mg/dL (8.5-10.1); CHLORIDE 107 mmol/L (98-107); CO2 23 mmol/L (21-32); CREATININE 0.7 mg/dL (0.55-1.02); GLUCOSE,RANDOM 108 mg/dL (74-106); MAGNESIUM 1.9 mg/dL (1.8-2.4); PHOSPHOROUS 1.2 mg/dL (2.5-4.9); POTASSIUM 3.8 mmol/L (3.5-5.1); SGOT/AST 9 U/L (15-37); SGPT/ALT 7 U/L (12-78); SODIUM 139 mmol/L (136-145); TOT PROT 5.2 g/dl (6.4-8.2)
[2018-03-13 09:25] LABS: ALK PHOS 40 U/L (45-117)
[2018-03-13] MEDS ORDERED: PANTOPRAZOLE 20 MG TABLET (FP) PO SCH (10:00)
[2018-03-13] MEDS ORDERED: PATIENT'S OWN MEDICATION (NON-FORMULARY) (Omeprazole Magnesium [Prilosec Otc] 20 MG) PO SCH (10:00)
[2018-03-13] MEDS ORDERED: EZETIMIBE 10 MG TABLET (FP) PO SCH (10:00)
[2018-03-13] MEDS: PANTOPRAZOLE SODIUM 40 MG VIAL IVPUSH SCH (10:19)
--- NOTE | 2018-03-13 10:21 | CONSULT ---
Consult Consult Specialty:: general surgery Reason for Consultation:: souza colitis/ diverticulitis - History of Present Illness Chief Complaint: abdominal pain History of Present Illness: 77 yo female PMH Cervical Ca (recently off chemo), Asthma, thryoid disease, HLD , diverticulitis, chronic constipation presented to the ED because of poor oral intake and decreased appetite over the last 5 days. Patient denies nausea but said she had 1 episode of vomiting when trying to swallow a pill. She denies abdominal pain and diarrhea. She reports having a BM daily but with minimal passage. She was recently admitted for diverticulitis and says she is not experiencing the same symptoms as her last admission. She said she felt warm at home but did not record her temperature. Patient also says she feels really dry and dehydrated. Patient reports being treated for UTI 2 weeks ago and says she still has burning while urinating. She says she is concerned because of her loss of appetite. no witnessed rectal bleeding. She has never had a colonoscopy. no history of colon cancer. We were asked to assess - History Source History Provided By: Patient, Medical Record Limitations to Obtaining History: No Limitations - Past Medical History SOFTWARE SPECIALIST: No: Alzheimer's, CVA, Dementia, Migraine, Multiple Sclerosis, Peripheral Neuropathy, Parkinson's, Seizure, Syncope, TIA, Vertigo, Other Cardio/Vascular: Yes: HTN, Other (tachycardia and feelings of pounding heart beat were decribed) Pulmonary: Yes: Asthma, Other (non productive cough) Gastrointestinal: Yes: Constipation, Diverticulitis, Diverticulosis, GERD Hepatobiliary: No: Cirrhosis, Cholelithiasis, Cholecystitis, Choledocholithiasis , Hepatitis A, Hepatitis B, Hepatitis C, Other Renal/: Yes: Renal Calculi Infectious Disease: No: AIDS, C-Diff, Herpes Zoster, HIV, MRSA, STD's, Tuberculosis, VREF, Other Psych: No: Addictions, Anxiety, Bipolar, Depression, Panic, Psychosis, Schizophrenia, Other Musculoskeletal: No: Bursitis, Chronic low back pain, Hemiparesis, Hemiplegia, Osteoarthritis, Paraplegia, Other Rheumatology: No: Fibromyalgia, Gout, Lupus, Rheumatoid Arthritis, Sarcoidosis, Vasculitis, Other ENT: No: Allergic Rhinitis, Sinusitis, Other Endocrine: Yes: Hypothyroidism Dermatology: Yes: Other (cervical cancer) - Alcohol/Substance Use Hx Alcohol Use: No - Smoking History Smoking history: Former smoker Have you smoked in the past 12 months: No Aproximately how many cigarettes per day: 0 - Social History ADL: Independent History of Recent Travel: No Home Medications - Allergies Allergies/Adverse Reactions: Allergies Allergy/AdvReac Type Severity Reaction Status Date / Time No Known Allergies Allergy Verified 03/12/18 16:37 - Home Medications Home Medications: Ambulatory Orders Ezetimibe [Zetia] 10 mg PO DAILY 05/24/13 Levothyroxine [Synthroid -] 25 mcg PO DAILY 05/24/13 Omeprazole Magnesium [Prilosec Otc] 20 mg PO DAILY #30 tablet. 02/24/18 Phenazopyridine HCl [Pyridium -] 100 mg PO TID 03/12/18 Prochlorperazine Maleate [Compazine] 10 mg PO Q8H PRN 03/12/18 Review of Systems - Review of Systems Constitutional: denies: Chills, Fever Eyes: denies: Blurred Vision, Recent Change in Vision HENT: denies: Difficult Swallowing, Throat Pain Neck: denies: Decreased ROM, Tenderness Cardiovascular: denies: Chest Pain, Palpitations Respiratory: denies: Cough, SOB Gastrointestinal: reports: Abdominal Pain. denies: Rectal Bleeding Genitourinary: denies: Burning, Discharge, Dysuria Breasts: reports: No Symptoms Reported. denies: Pain Musculoskeletal: denies: Muscle Pain, Muscle Cramps, Muscle Weakness Integumentary: denies: Lesions, Lump, Rash Neurological: denies: Syncope, Tremors Endocrine: denies: Unexplained Weight Gain, Unexplained Weight Loss Hematology/Lymphatic: denies: Easily Bruised, Excessive Bleeding Psychiatric: denies: Anxiety, Depression Physical Exam Vital Signs: Vital Signs Temperature 97.9 F 03/13/18 06:00 Pulse Rate 86 03/13/18 06:00 Respiratory Rate 20 03/13/18 06:00 Blood Pressure 109/58 03/13/18 06:00 O2 Sat by Pulse Oximetry (%) 100 03/12/18 16:39 Vital Signs Period Temp Pulse Resp BP Sys/Rankin Pulse Ox Last 24 Hr 97.9 F-98.5 F 86-127 18-20 100-109/58-75 100 Constitutional: Yes: No Distress, Calm, Thin Eyes: Yes: Conjunctiva Clear, EOM Intact HENT: Yes: Atraumatic, Normocephalic Neck: Yes: Supple, Trachea Midline Cardiovascular: Yes: Regular Rate and Rhythm, S1, S2 Respiratory: Yes: Regular, CTA Bilaterally Gastrointestinal: Yes: Normal Bowel Sounds, Soft ...Rectal Exam: Yes: Sphincter Tone Normal. No: Hemorrhoids/External, Mass Renal/: No: CVA Tenderness - Left, CVA Tenderness - Right Musculoskeletal: No: Muscle Pain, Muscle Weakness Extremities: No: Cool, Cyanosis Edema: No Peripheral Pulses WNL: Yes Integumentary: No: Jaundice, Rash Neurological: Yes: Alert, Oriented Psychiatric: Yes: Alert, Oriented Labs: CBC, BMP 03/13/18 08:00 03/13/18 08:00 Imaging - Results Cat Scan: Report Reviewed, Image Reviewed (souza colitis and diffuse sigmoid diverticulitis) Problem List - Problems (1) Diverticulitis Assessment/Plan: 77 yo Female MMP and cervical cancer s/p radiation, +Cdiff, no reports of BPR, with infectious pancolitis and diverticulitis, no peritoinitis, no acute surgical intervention at this time. 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
[2018-03-13 10:40] LABS: URINE APPEARANCE CLEAR; URINE BILIRUBIN NEGATIVE (<2.0 mg/dL); URINE BLOOD 2+ (NEGATIVE); URINE COLOR STRAW; URINE GLUCOSE (UA) NEGATIVE (NEGATIVE); URINE KETONE TRACE (NEGATIVE); URINE NITRITE NEGATIVE (NEGATIVE); URINE PROTEIN NEGATIVE (NEGATIVE); URINE UROBILINOGEN NEGATIVE mg/dL (0.2-1.0)
[2018-03-13 10:41] LABS: URINE LEUK ESTERASE 1+ (NEGATIVE)
[2018-03-13 10:44] LABS: EPI CELLS RARE /HPF (FEW); URINE HYALINE CAST 3 /lpf; URINE MUCUS RARE
[2018-03-13] MEDS: EZETIMIBE 10 MG TABLET (FP) PO SCH (11:35)
--- NOTE | 2018-03-13 13:55 | CON.GI ---
Consult - History of Present Illness History of Present Illness: chart reviewed. Events noted. the patient is known to GI service from recent admission for sigmoid colitis ( colitis versus diverticulosis versus radiation colopathy. As per initial intake: Patient is a 77 yo F with a PMhx of Cervical Ca ( recently off chemo), Asthma, thryoid disease, HLD, presented to the ED because of poor oral intake and decreased appetite over the last 5 days. Patient denies nausea but said she had 1 episode of vomiting when trying to swallow a pill. She denies abdominal pain and diarrhea. She reports having a BM daily but with minimal passage. She was recently admitted for diverticulitis and says she is not experiencing the same symptoms as her last admission. She said she felt warm at home but did not record her temperature. Patient also says she feels really dry and dehydrated. Patient reports being treated for UTI 2 weeks ago and says she still has burning while urinating. She says she is concerned because of her loss of appetite. She denies dysphagia, odynophagia, abdominal pain, melena, hematochezia, dizziness, lightheadedness. At the time of this encounter, the patient reports similar left lower quadrant abdominal discomfort and lack of appetite for the last 5 days. intermittent nausea and one episode of of nonbloody emesis. Denies diarrhea, melena, hematochezia. Reports subjective fevers. a CAT scan on this admission showed distal colonic thickening. Blood work revealed minimal leukocytosis, normal BUN, creatinine, low liver enzymes and alk phos. 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 CARE NURSE: No: Alzheimer's, CVA, Dementia, Migraine, Multiple Sclerosis, Peripheral Neuropathy, Parkinson's, Seizure, Syncope, TIA, Vertigo, Other Cardio/Vascular: Yes: HTN, Other (tachycardia and feelings of pounding heart beat were decribed) Pulmonary: Yes: Asthma, Other (non productive cough) Gastrointestinal: Yes: Constipation, Diverticulitis, Diverticulosis, GERD Hepatobiliary: No: Cirrhosis, Cholelithiasis, Cholecystitis, Choledocholithiasis , Hepatitis A, Hepatitis B, Hepatitis C, Other Renal/: Yes: Renal Calculi Infectious Disease: No: AIDS, C-Diff, Herpes Zoster, HIV, MRSA, STD's, Tuberculosis, VREF, Other Psych: No: Addictions, Anxiety, Bipolar, Depression, Panic, Psychosis, Schizophrenia, Other Musculoskeletal: No: Bursitis, Chronic low back pain, Hemiparesis, Hemiplegia, Osteoarthritis, Paraplegia, Other Rheumatology: No: Fibromyalgia, Gout, Lupus, Rheumatoid Arthritis, Sarcoidosis, Vasculitis, Other ENT: No: Allergic Rhinitis, Sinusitis, Other Endocrine: Yes: Hypothyroidism Dermatology: Yes: Other (cervical cancer) - Alcohol/Substance Use Hx Alcohol Use: No - Smoking History Smoking history: Former smoker Have you smoked in the past 12 months: No Aproximately how many cigarettes per day: 0 - Social History ADL: Independent History of Recent Travel: No Home Medications - Allergies Allergies/Adverse Reactions: Allergies Allergy/AdvReac Type Severity Reaction Status Date / Time No Known Allergies Allergy Verified 03/12/18 16:37 - Home Medications Home Medications: Ambulatory Orders Ezetimibe [Zetia] 10 mg PO DAILY 05/24/13 Levothyroxine [Synthroid -] 25 mcg PO DAILY 05/24/13 Omeprazole Magnesium [Prilosec Otc] 20 mg PO DAILY #30 tablet. 02/24/18 Phenazopyridine HCl [Pyridium -] 100 mg PO TID 03/12/18 Prochlorperazine Maleate [Compazine] 10 mg PO Q8H PRN 03/12/18 Family Disease History - Family Disease History Family History: Unremarkable (Noncontributory) Review of Systems Findings/Remarks: as per H&P and HPI Physical Exam-GI Vital Signs: Vital Signs Temperature 98.5 F 03/13/18 08:00 Pulse Rate 95 H 03/13/18 08:00 Respiratory Rate 20 03/13/18 08:00 Blood Pressure 106/55 03/13/18 08:00 O2 Sat by Pulse Oximetry (%) 97 03/13/18 08:00 Constitutional: Yes: No Distress, Calm, Cachectic, Pallor, Thin Eyes: Yes: Conjunctiva Clear HENT: Yes: Atraumatic Neck: Yes: Supple Cardiovascular: Yes: Regular Rate and Rhythm Respiratory: Yes: Regular Gastrointestinal Inspection: No: Distention ...Auscultate: Yes: Normoactive Bowel Sounds ...Palpate: Yes: Tenderness ( suprapubic area). No: Firm/Rigid, Guarding, Tenderness, Epigastium, Tenderness, Rebound Neurological: Yes: Alert, Oriented Labs: CBC, BMP 03/13/18 08:00 03/13/18 08:00 Laboratory Last Values WBC 9.0 K/mm3 (4.0-10.0) 03/13/18 08:00 RBC 2.45 M/mm3 (3.60-5.2) L D 03/13/18 08:00 Hgb 7.6 GM/dL (10.7-15.3) L D 03/13/18 08:00 Hct 21.9 % (32.4-45.2) L D 03/13/18 08:00 MCV 89.4 fl (80-96) 03/13/18 08:00 MCH 31.0 pg (25.7-33.7) 03/13/18 08:00 MCHC 34.7 g/dl (32.0-36.0) 03/13/18 08:00 RDW 13.7 % (11.6-15.6) 03/13/18 08:00 Plt Count 243 K/MM3 (134-434) D 03/13/18 08:00 MPV 6.5 fl (7.5-11.1) L 03/13/18 08:00 Neutrophils % No Result Required. 03/12/18 17:11 Neutrophils % (Manual) 54.0 % (42.8-82.8) D 03/12/18 17:11 Band Neutrophils % 30.0 % 03/12/18 17:11 Lymphocytes % No Result Required. 03/12/18 17:11 Lymphocytes % (Manual) 3.0 % (8-40) L D 03/12/18 17:11 Monocytes % (Manual) 9 % (3.8-10.2) 03/12/18 17:11 Eosinophils % (Manual) 4.0 % (0-4.5) 03/12/18 17:11 Basophils % (Manual) 0.0 % (0-2.0) 03/12/18 17:11 Platelet Estimate Adequate 03/12/18 17:11 Sodium 139 mmol/L (136-145) 03/13/18 08:00 Potassium 3.8 mmol/L (3.5-5.1) 03/13/18 08:00 Chloride 107 mmol/L (98-107) 03/13/18 08:00 Carbon Dioxide 23 mmol/L (21-32) 03/13/18 08:00 Anion Gap 9 (8-16) 03/13/18 08:00 BUN 9 mg/dL (7-18) 03/13/18 08:00 Creatinine 0.7 mg/dL (0.55-1.02) 03/13/18 08:00 Creat Clearance w eGFR > 60 (>60) 03/13/18 08:00 POC Glucometer 138.08479 UNITS (80-120) 03/12/18 23:17 Random Glucose 108 mg/dL (74-106) H 03/13/18 08:00 Lactic Acid 1.1 mmol/L (0.0-2.0) 03/12/18 22:37 Calcium 7.7 mg/dL (8.5-10.1) L 03/13/18 08:00 Phosphorus 1.2 mg/dL (2.5-4.9) L 03/13/18 08:00 Magnesium 1.9 mg/dL (1.8-2.4) 03/13/18 08:00 Total Bilirubin 0.3 mg/dL (0.2-1.0) D 03/13/18 08:00 AST 9 U/L (15-37) L 03/13/18 08:00 ALT 7 U/L (12-78) L 03/13/18 08:00 Alkaline Phosphatase 40 U/L (45-117) L 03/13/18 08:00 Creatine Kinase 32 IU/L (26-192) 03/12/18 17:11 Troponin I < 0.02 ng/ml (0.00-0.05) 03/12/18 17:11 Total Protein 5.2 g/dl (6.4-8.2) L 03/13/18 08:00 Albumin 2.4 g/dl (3.4-5.0) L 03/13/18 08:00 TSH 2.45 uIU/ml (0.358-3.74) 03/13/18 08:00 Urine Color Straw 03/12/18 17:38 Urine Appearance Clear 03/12/18 17:38 Urine pH 5.0 (5.0-8.0) 03/12/18 17:38 Ur Specific [place] 1.029 (1.001-1.035) 03/12/18 17:38 Urine Protein Negative (NEGATIVE) 03/12/18 17:38 Urine Glucose (UA) Negative (NEGATIVE) 03/12/18 17:38 Urine Ketones Trace (NEGATIVE) H 03/12/18 17:38 Urine Blood 2+ (NEGATIVE) H 03/12/18 17:38 Urine Nitrite Negative (NEGATIVE) 03/12/18 17:38 Urine Bilirubin Negative (<2.0 mg/dL) 03/12/18 17:38 Urine Urobilinogen Negative mg/dL (0.2-1.0) 03/12/18 17:38 Ur Leukocyte Esterase 1+ (NEGATIVE) H D 03/12/18 17:38 Urine WBC (Auto) 9 /hpf (3-5) 03/12/18 17:38 Urine RBC (Auto) 1 /hpf (0-3) 03/12/18 17:38 Ur Epithelial Cells Rare /HPF (FEW) 03/12/18 17:38 Hyaline Casts 3 /lpf 03/12/18 17:38 Urine Mucus Rare 03/12/18 17:38 Imaging - Results Cat Scan: Report Reviewed Problem List - Problems (1) Cervical cancer Code(s): C53.9 - MALIGNANT NEOPLASM OF CERVIX UTERI, UNSPECIFIED (2) 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 Agree with current management. Will plan flex sig/colonoscopy tomorrow with biopsies. Follow stool test results for C. difficile, other, infectious pathogens.
[2018-03-13] MEDS ORDERED: PEG 3350/NA SULF BICARB CL/KCL 4000 ML SOLN.RECON PO ONE (14:01)
--- NOTE | 2018-03-13 14:48 | PN ---
Progress Note (short form) - Note Progress Note: pt seen and examined. chart/labs/imaging/micro reviewed. Pt says she did not eat anything yet. But had a BM earlier which is formed. has mild abd pain. O/E: Cor: RSR, No murmurs, No gallops Lungs: Clear to P&A Abd: Soft, Normal bowel sounds, No organomegaly Ext:No significant edema Last Vital Signs Temp Pulse Resp BP Pulse Ox 98.5 F 95 H 20 106/55 97 03/13/18 08:00 03/13/18 08:00 03/13/18 08:00 03/13/18 08:00 03/13/18 08:00 CBC, BMP 03/13/18 08:00 03/13/18 08:00 Current Medications Generic Name Dose Route Start Last Admin Trade Name Freq PRN Reason Stop Dose Admin Ezetimibe 10 mg 03/13/18 10:00 03/13/18 11:35 Zetia - PO 10 mg DAILY JETHRO Administration Heparin Sodium (Porcine) 5,000 unit 03/13/18 06:00 03/13/18 05:42 Heparin - SQ 5,000 unit TID JETHRO Administration Metronidazole 500 mg in 100 mls @ 100 mls/hr 03/13/18 05:00 03/13/18 10:19 Flagyl 500mg Premixed Ivpb - IVPB 100 mls/hr Q6H-IV JETHRO Administration Levofloxacin 250 mg in 50 mls @ 50 mls/hr 03/13/18 10:00 03/13/18 11:35 Levaquin 250 Mg Premixed Ivpb - IVPB 50 mls/hr DAILY JETHRO Administration Protocol Levothyroxine Sodium 25 mcg 03/13/18 07:00 03/13/18 06:12 Synthroid - PO 25 mcg ACBK JETHRO Administration Pantoprazole Sodium 40 mg 03/13/18 10:00 03/13/18 10:19 Protonix Iv IVPUSH 40 mg DAILY JETHRO Administration Prochlorperazine Edisylate 10 mg 03/12/18 23:53 Compazine Injection - IVPB Q8H PRN NAUSEA AND/OR VOMITING Hgb slowly drifting down for anemia w.u repeat CBC type and screen. if Hgb <7, will need to give one unit PRBCs for prbcs C diff Ag +, pt with diarrhea: Flagyl to be continued . ?Role of levaquin, ID c/ s pending GI note reviewed, will d/w GI, to consider for deferring procedures for now. HypoMg: replete lytes nutrition consult. d/w primary team
[2018-03-13] MEDS: BISACODYL 5 MG TABLET.DR (FP) PO ONE ×2 (15:08→15:14)
--- NOTE | 2018-03-13 15:26 | PN ---
Progress Note (short form) - Note Progress Note: ID Consult dictated 77 y/o female with PMH locally advanced cervical cancer admitted with aorexia/ nausea/ abdominal pain CT c/w radiation proctocolitis v. sigmoid diverticulitis. C. diff Ag + Recent (02/22-03/04) antibiotic course for diverticulitis Await stool studies Continue empiric levaquin/ flagyl
--- NOTE | 2018-03-13 16:00 | CONS ---
INFECTIOUS DISEASE CONSULTATION DATE OF CONSULTATION: DATE OF DICTATION: 03/13/2018 HISTORY OF PRESENT ILLNESS: The patient is a 77-year-old female with a history of locally advanced uterine and cervix carcinoma evaluated for abdominal pain and colitis. The patient has a known history of locally-advanced cervical cancer. CAT scan earlier this month showed uterine-cervical mass with involvement of the abdominal wall and sigmoid diverticulitis. She received a 5-day course of IV antibiotics therapy followed by an outpatient course of oral antibiotics therapy. She now returns with complaints of abdominal pain, nausea and anorexia. A followup CAT scan was performed and was negative for bowel obstruction. It did, however, show stranding and edema of the sigmoid colon consistent with radiation-induced proctocolitis versus sigmoid diverticulitis. She was empirically treated with Levaquin and Flagyl. When questioned she does not give a reliable history. She thinks she may have had a loose bowel movement earlier today. Denied profuse watery diarrhea. A C difficile antigen was performed and is positive. She denies any blood in diarrhea. She is hungry at the present time. She denies any associated fever or chills. PAST MEDICAL HISTORY: Positive for locally-advanced cervical cancer with history of chemotherapy and radiation, hypertension, thyroid disease, nephrolithiasis. ALLERGIES: No known allergies. MEDICATIONS: Include Zetia, Synthroid, Prilosec, Pyridium, Compazine. SOCIAL HISTORY: She is a former smoker. Lives at home. SYSTEMS REVIEW: Neurologic: No loss of consciousness, seizure activity or focal weakness. Cardiac: Negative chest pain or palpitations. Respiratory: Negative cough or sputum production. Gastrointestinal : As per HPI. Genitourinary: Negative for urinary tract infection. LABORATORY DATA: White count 9.0, 54 neutrophils, 30 bands, 3 lymphocytes, 9 monocytes, 4 eosinophils. Hematocrit 21.9. Platelet count 243. Creatinine 0.7. Lactic acid 1.1. Cultures are pending. PHYSICAL EXAMINATION:General: She is awake. She is chronically ill-appearing. Vital Signs: Temperature 98.2, blood pressure 114/55, pulse 109 and regular. Respirations 18 per minute. HEENT: Sclerae are anicteric. Dry mucous membranes. Heart Sounds: S1, S2. Lungs: Clear. Abdomen: Soft. No tenderness elicited. No masses, rebound, rigidity. Extremities: Negative for edema. IMPRESSION: A 77-year-old female with past medical history of locally-advanced uterine/cervix cancer with recent history of acute sigmoid diverticulitis now readmitted with abdominal pain, nausea, and anorexia, CAT scan consistent with radiation proctocolitis versus sigmoid diverticulitis. Clostridium difficile antigen positive. Await stool studies. Obtain ova and parasite, stool for enteric pathogens. Continue empiric coverage for enteric pathogens with Levaquin and Flagyl. GI and surgical evaluations. Followup CBC. Transfuse packed cells as needed. Will follow. Thank you for your kind referral. AUGUSTINE FLEMING M.D. [id number]
--- NOTE | 2018-03-13 16:13 | PN ---
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
--- NOTE | 2018-03-13 16:45 | PN ---
Teaching Attending Note Name of Resident: Jeyson Hull ATTENDING PHYSICIAN STATEMENT I saw and evaluated the patient. I reviewed the resident's note and discussed the case with the resident. I agree with the resident's findings and plan as documented. SUBJECTIVE: Patient has no complaints and wants to go home. OBJECTIVE: Vital Signs Period Temp Pulse Resp BP Sys/Rankin Pulse Ox Last 24 Hr 97.9 F-98.5 F 86-127 18-20 100-114/55-75 97-100 HEART: S1S2, RRR LUNGS: Clear ABDOMEN: Soft, non-tender, non-distended, normal BS EXTREMITIES: No edema Laboratory Results - last 24 hr 03/12/18 03/12/18 03/12/18 17:11 17:11 17:38 WBC 10.2 H D RBC 3.22 L Hgb 10.2 L D Hct 28.9 L MCV 89.7 MCH 31.5 MCHC 35.1 RDW 14.0 Plt Count 312 D MPV 6.9 L Neutrophils % No Result Required. Neutrophils % (Manual) 54.0 D Band Neutrophils % 30.0 Lymphocytes % No Result Required. Lymphocytes % (Manual) 3.0 L D Monocytes % (Manual) 9 Eosinophils % (Manual) 4.0 Basophils % (Manual) 0.0 Platelet Estimate Adequate Sodium 135 L Potassium 2.9 L* Chloride 100 Carbon Dioxide 24 Anion Gap 11 BUN 13 Creatinine 1.0 Creat Clearance w eGFR 54.05 POC Glucometer Random Glucose 92 Lactic Acid Calcium 8.3 L Phosphorus Magnesium Total Bilirubin 0.6 D AST 11 L ALT 8 L Alkaline Phosphatase 51 Creatine Kinase 32 Troponin I < 0.02 Total Protein 6.5 Albumin 3.0 L TSH Urine Color Straw Urine Appearance Clear Urine pH 5.0 Ur Specific [place] 1.029 Urine Protein Negative Urine Glucose (UA) Negative Urine Ketones Trace H Urine Blood 2+ H Urine Nitrite Negative Urine Bilirubin Negative Urine Urobilinogen Negative Ur Leukocyte Esterase 1+ H D Urine WBC (Auto) 9 Urine RBC (Auto) 1 Ur Epithelial Cells Rare Hyaline Casts 3 Urine Mucus Rare 03/12/18 03/12/18 03/12/18 22:30 22:30 22:37 WBC RBC Hgb Hct MCV MCH MCHC RDW Plt Count MPV Neutrophils % Neutrophils % (Manual) Band Neutrophils % Lymphocytes % Lymphocytes % (Manual) Monocytes % (Manual) Eosinophils % (Manual) Basophils % (Manual) Platelet Estimate Sodium Potassium 3.2 L Chloride Carbon Dioxide Anion Gap BUN Creatinine Creat Clearance w eGFR POC Glucometer Random Glucose Lactic Acid 1.1 Calcium Phosphorus Magnesium 1.2 L Total Bilirubin AST ALT Alkaline Phosphatase Creatine Kinase Troponin I Total Protein Albumin TSH Urine Color Urine Appearance Urine pH Ur Specific [place] Urine Protein Urine Glucose (UA) Urine Ketones Urine Blood Urine Nitrite Urine Bilirubin Urine Urobilinogen Ur Leukocyte Esterase Urine WBC (Auto) Urine RBC (Auto) Ur Epithelial Cells Hyaline Casts Urine Mucus 03/12/18 03/13/18 03/13/18 23:17 08:00 08:00 WBC 9.0 RBC 2.45 L D Hgb 7.6 L D Hct 21.9 L D MCV 89.4 MCH 31.0 MCHC 34.7 RDW 13.7 Plt Count 243 D MPV 6.5 L Neutrophils % Neutrophils % (Manual) Band Neutrophils % Lymphocytes % Lymphocytes % (Manual) Monocytes % (Manual) Eosinophils % (Manual) Basophils % (Manual) Platelet Estimate Sodium 139 Potassium 3.8 Chloride 107 Carbon Dioxide 23 Anion Gap 9 BUN 9 Creatinine 0.7 Creat Clearance w eGFR > 60 POC Glucometer [id number] Random Glucose 108 H Lactic Acid Calcium 7.7 L Phosphorus 1.2 L Magnesium 1.9 Total Bilirubin 0.3 D AST 9 L ALT 7 L Alkaline Phosphatase 40 L Creatine Kinase Troponin I Total Protein 5.2 L Albumin 2.4 L TSH Urine Color Urine Appearance Urine pH Ur Specific [place] Urine Protein Urine Glucose (UA) Urine Ketones Urine Blood Urine Nitrite Urine Bilirubin Urine Urobilinogen Ur Leukocyte Esterase Urine WBC (Auto) Urine RBC (Auto) Ur Epithelial Cells Hyaline Casts Urine Mucus 03/13/18 08:00 WBC RBC Hgb Hct MCV MCH MCHC RDW Plt Count MPV Neutrophils % Neutrophils % (Manual) Band Neutrophils % Lymphocytes % Lymphocytes % (Manual) Monocytes % (Manual) Eosinophils % (Manual) Basophils % (Manual) Platelet Estimate Sodium Potassium Chloride Carbon Dioxide Anion Gap BUN Creatinine Creat Clearance w eGFR POC Glucometer Random Glucose Lactic Acid Calcium Phosphorus Magnesium Total Bilirubin AST ALT Alkaline Phosphatase Creatine Kinase Troponin I Total Protein Albumin TSH 2.45 Urine Color Urine Appearance Urine pH Ur Specific [place] Urine Protein Urine Glucose (UA) Urine Ketones Urine Blood Urine Nitrite Urine Bilirubin Urine Urobilinogen Ur Leukocyte Esterase Urine WBC (Auto) Urine RBC (Auto) Ur Epithelial Cells Hyaline Casts Urine Mucus Current Medications Generic Name Dose Route Start Last Admin Trade Name Galindo PRN Reason Stop Dose Admin Ezetimibe 10 mg 03/13/18 10:00 03/13/18 11:35 Zetia - PO 10 mg DAILY JETHRO Administration Heparin Sodium (Porcine) 5,000 unit 03/13/18 06:00 03/13/18 15:08 Heparin - SQ 5,000 unit TID JETHRO Administration Metronidazole 500 mg in 100 mls @ 100 mls/hr 03/13/18 05:00 03/13/18 15:08 Flagyl 500mg Premixed Ivpb - IVPB 100 mls/hr Q6H-IV JETHRO Administration Levofloxacin 250 mg in 50 mls @ 50 mls/hr 03/13/18 10:00 03/13/18 11:35 Levaquin 250 Mg Premixed Ivpb - IVPB 50 mls/hr DAILY JETHRO Administration Protocol Levothyroxine Sodium 25 mcg 03/13/18 07:00 03/13/18 06:12 Synthroid - PO 25 mcg ACBK JETHRO Administration Pantoprazole Sodium 40 mg 03/13/18 10:00 03/13/18 10:19 Protonix Iv IVPUSH 40 mg DAILY [facility] Administration Prochlorperazine Edisylate 10 mg 03/12/18 23:53 Compazine Injection - IVPB Q8H PRN NAUSEA AND/OR VOMITING ASSESSMENT AND PLAN: This is a 77 year old woman with a history of cervical cancer, asthma, hypothyroidism, hyperlipidemia who presented to the ED with loss of appetite. 1. 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 difficile Ag, negative for toxin - Will get ID evaluation - GI input appreciated - possible flex sig or colonoscopy tomorrow 2. Hypokalemia - Improved 3. Hypomagnesemia - Improved 4. Anemia - Likely secondary to chronic illness, chemo 5. Hypothyroidism - Continue Synthroid 6. Cervical cancer 7. Hyperlipidemia - Continue Zetia
[2018-03-13 17:28] LABS: HEMATOCRIT 22.2 % (32.4-45.2); HEMOGLOBIN 7.6 GM/dL (10.7-15.3); MCH 30.7 pg (25.7-33.7); MCHC 34.2 g/dl (32.0-36.0); MEAN CELL VOLUME 89.8 fl (80-96); MEAN PLT VOLUME 6.9 fl (7.5-11.1); PLATELET COUNT 257 K/MM3 (134-434); RBC 2.47 M/mm3 (3.60-5.2); RDW 14.4 % (11.6-15.6)
[2018-03-13 17:44] LABS: LDH 117 U/L (84-246)
[2018-03-13] MEDS ORDERED: DEXTROSE 5%-0.45% SALINE 1,000 ML IV SCH (21:15)
--- NOTE | 2018-03-14 05:41 | PN ---
Physical Exam: SUBJECTIVE: Patient seen and examined - no overnight events; afebrile, VSS; no pain or complaints, no further episodes of diarrhea overnight; 2 BMs yesterday, normal appearance. Very hungry. urinating normally with no dysuria, hematuria or pyuria. Denies f/c/n/v/ d, MERCHANT, cough, cp, ab pain, back pain, dysuria, melena, LE edema OBJECTIVE: Vital Signs Intake & Output 03/11/18 03/12/18 03/13/18 03/14/18 23:59 23:59 23:59 23:59 Intake Total 2300 Output Total 600 Balance 1700 Weight 46.72 kg 48.223 kg Period Temp Pulse Resp BP Sys/Rankin Pulse Ox Last 24 Hr 97.9 F-99 F 86-109 18-20 98-114/55-61 97-97 GENERAL: Elderly woman, NAD, A&Ox3 HEAD: NCAT EYES: PERRL, extraocular movements intact, sclera anicteric, conjunctiva clear. No ptosis. ENT: Ears normal, nares patent, oropharynx clear without exudates, moist mucous membranes. NECK: Trachea midline, full range of motion, supple. LUNGS: Breath sounds equal, clear to auscultation bilaterally, no wheezes, no crackles, no accessory muscle use. HEART: RRR, S1, S2 without murmur, rub or gallop. ABDOMEN: Soft, nontender, normoactive bowel sounds, no guarding, no rebound, no hepatosplenomegaly, no masses. EXTREMITIES: 2+ PT/DP pulses, warm, well-perfused, no edema. NEUROLOGICAL: Cranial nerves II through XII grossly intact. Normal speech, gait not observed. PSYCH: Normal mood, normal affect. Interactive, pleasant Laboratory Results - last 24 hr CBC, BMP 03/14/18 07:59 03/13/18 16:15 03/13/18 08:00 03/12/18 03/13/18 03/13/18 17:38 08:00 08:00 WBC 9.0 RBC 2.45 L D Hgb 7.6 L D Hct 21.9 L D MCV 89.4 MCH 31.0 MCHC 34.7 RDW 13.7 Plt Count 243 D MPV 6.5 L Retic Count Sodium 139 Potassium 3.8 Chloride 107 Carbon Dioxide 23 Anion Gap 9 BUN 9 Creatinine 0.7 Creat Clearance w eGFR > 60 Random Glucose 108 H Calcium 7.7 L Phosphorus 1.2 L Magnesium 1.9 Ferritin Total Bilirubin 0.3 D AST 9 L ALT 7 L Alkaline Phosphatase 40 L LD Total Total Protein 5.2 L Albumin 2.4 L Vitamin B12 Serum Folate TSH Urine Color Straw Urine Appearance Clear Urine pH 5.0 Ur Specific [place] 1.029 Urine Protein Negative Urine Glucose (UA) Negative Urine Ketones Trace H Urine Blood 2+ H Urine Nitrite Negative Urine Bilirubin Negative Urine Urobilinogen Negative Ur Leukocyte Esterase 1+ H D Urine WBC (Auto) 9 Urine RBC (Auto) 1 Ur Epithelial Cells Rare Hyaline Casts 3 Urine Mucus Rare Blood Type Antibody Screen Antibody Identification Antigen Identification 03/13/18 03/13/18 03/13/18 08:00 16:15 16:15 WBC 7.0 RBC 2.47 L Hgb 7.6 L Hct 22.2 L MCV 89.8 MCH 30.7 MCHC 34.2 RDW 14.4 Plt Count 257 MPV 6.9 L Retic Count Sodium Potassium Chloride Carbon Dioxide Anion Gap BUN Creatinine Creat Clearance w eGFR Random Glucose Calcium Phosphorus Magnesium Ferritin Total Bilirubin AST ALT Alkaline Phosphatase LD Total Total Protein Albumin Vitamin B12 Serum Folate TSH 2.45 Urine Color Urine Appearance Urine pH Ur Specific [place] Urine Protein Urine Glucose (UA) Urine Ketones Urine Blood Urine Nitrite Urine Bilirubin Urine Urobilinogen Ur Leukocyte Esterase Urine WBC (Auto) Urine RBC (Auto) Ur Epithelial Cells Hyaline Casts Urine Mucus Blood Type O POSITIVE Antibody Screen Positive H Antibody Identification Anti k Antigen Identification No Result Required. 03/13/18 03/13/18 03/13/18 16:15 16:15 16:15 WBC RBC Hgb Hct MCV MCH MCHC RDW Plt Count MPV Retic Count 1.00 Sodium Potassium Chloride Carbon Dioxide Anion Gap BUN Creatinine Creat Clearance w eGFR Random Glucose Calcium Phosphorus Magnesium Ferritin 1010.594 H Total Bilirubin AST ALT Alkaline Phosphatase LD Total 117 Total Protein Albumin Vitamin B12 1980 H Serum Folate 8 TSH Urine Color Urine Appearance Urine pH Ur Specific [place] Urine Protein Urine Glucose (UA) Urine Ketones Urine Blood Urine Nitrite Urine Bilirubin Urine Urobilinogen Ur Leukocyte Esterase Urine WBC (Auto) Urine RBC (Auto) Ur Epithelial Cells Hyaline Casts Urine Mucus Blood Type Antibody Screen Antibody Identification Antigen Identification Active Medications Generic Name Dose Route Start Last Admin Trade Name Freq PRN Reason Stop Dose Admin Ezetimibe 10 mg 03/13/18 10:00 03/13/18 11:35 Zetia - PO 10 mg DAILY JETHRO Administration Heparin Sodium (Porcine) 5,000 unit 03/13/18 06:00 03/13/18 22:10 Heparin - SQ 5,000 unit TID JETHRO Administration Metronidazole 500 mg in 100 mls @ 100 mls/hr 03/13/18 05:00 03/14/18 03:50 Flagyl 500mg Premixed Ivpb - IVPB 100 mls/hr Q6H-IV JETHRO Administration Levofloxacin 250 mg in 50 mls @ 50 mls/hr 03/13/18 10:00 03/13/18 11:35 Levaquin 250 Mg Premixed Ivpb - IVPB 50 mls/hr DAILY JETHRO Administration Protocol Dextrose/Sodium Chloride 1,000 mls @ 42 mls/hr 03/13/18 21:15 03/13/18 22:10 D5-1/2ns - IV 42 mls/hr ASDIR JETHRO Administration Levothyroxine Sodium 25 mcg 03/13/18 07:00 03/13/18 06:12 Synthroid - PO 25 mcg ACBK JETHRO Administration Pantoprazole Sodium 40 mg 03/13/18 10:00 03/13/18 10:19 Protonix Iv IVPUSH 40 mg DAILY JETHRO Administration Prochlorperazine Edisylate 10 mg 03/12/18 23:53 Compazine Injection - IVPB Q8H PRN NAUSEA AND/OR VOMITING Microbiology 03/12/18 22:37 Blood - Peripheral Venous Blood Culture - Preliminary NO GROWTH OBTAINED AFTER 24 HOURS, INCUBATION TO CONTINUE FOR 4 DAYS. 03/12/18 22:37 Blood - Peripheral Venous Blood Culture - Preliminary NO GROWTH OBTAINED AFTER 24 HOURS, INCUBATION TO CONTINUE FOR 4 DAYS. 03/13/18 09:00 Stool Clostridium difficile Antigen (LISA) - Final 03/13/18 09:00 Stool Clostridium difficile Toxin Assay - Final CXR 03/12 - Impression : No acute pathology. Weak inspiratory effort. Right port removed. Ab XR 03/12 - Imaging reveals scoliosis with degenerative changes, clear lung bases, normal heart and no sign of free air. There are 3 right renal calcifications well demonstrated on CT from 02/22/2018. There are pelvic phleboliths and fibroid calcifications. There is calcification by the right hip. There is retained stool. There is no sign of a gross obstruction. Correlation recommended. Ab/pelvis CT 03/12 - No bowel obstruction is identified. As on a previous CT study of 02/22/2018 concentric wall edema is noted involving the rectum, sigmoid and descending colon with associated mild pericolonic/perirectal soft tissue stranding consistent with edema or hyperemia - ? radiation proctocolitis and/or inflammatory/infectious proctocolitis. There is possible mild concentric wall thickening involving the remainder of the colon and terminal ileum - ? inflammatory/infectious colitis. This appearance is better appreciated on the current study performed with intravenous contrast. Sigmoid diverticulosis is seen. As noted in the previous CT report the described findings could be on the basis of superimposed acute diverticulitis. Fluid accumulation is again noted within the uterine canal possibly secondary to known cervical neoplastic disease. Bilateral nonobstructing renal calculi. Cholelithiasis. Small stable left adrenal adenoma. Small stable tubular density adjacent to the right lateral border of the uterus possibly representing a mildly dilated fallopian tube ASSESSMENT/PLAN: 77 yo F with a PMhx of Cervical Ca (recently off chemo), Asthma, thryoid disease , HLD, presented to the ED because of poor oral intake and decreased appetite and is admitted for colitis/diverticulitis. #Radiation Proctocolitis, Diverticulitis - Ct confirmed, pt endorses 5 days of intermittent constipation/diarrhea -Day 2 Levaquin/Flagyl -GI consulted: Dr. Mcgovern; plan for possible flex sig tomorrow with bx's; however high risk of perf given hx of RT and proctocolitis -Compazine PRN for nausea -Heme/onc following -IVF Fluids -NPO - Heme/onc following - nutrition consult - c diff +; defer to ID recs; consider PO vancomycin #Hypokalemia - 3.8 this AM ;Magnesium 1.2, repleted - trend -replete as needed #Anemia - 10.2 -> 7.6 today - transfuse at <7 - f/u FOBT - no evidence of active bleeds - unlikely to be dilutional #Hypothyroidism -TSH 2.45 -c/w home synthroid #Dysuria - U/A 1+ leuk esterase -f/u urine cultures - trend fever, wbc curve - IVFs - monitor for symptoms of dysuria #Hx of Cervical Cancer -Heme/onc following - outpt f/u for further management #HLD -cont Ezetimibe #FEN -IV fluids D5 1/2 NS @75 -Daily lytes -NPO for now per GI #ppx -Heparin SQ TID -protonix iv Med-surg Plan discussed with Dr. Anthony Hull, PGY1
[2018-03-14] MEDS: HEPARIN NA (PORCINE) 5,000 UNITS/ML 1ML VIAL SQ SCH ×2 (06:04→14:46)
[2018-03-14] MEDS: LEVOTHYROXINE NA 25 MCG TABLET (FP) PO SCH (06:04)
[2018-03-14 08:13] LABS: HEMOGLOBIN 7.5 GM/dL (10.7-15.3); MCH 30.9 pg (25.7-33.7); MCHC 34.1 g/dl (32.0-36.0); MEAN CELL VOLUME 90.6 fl (80-96); MEAN PLT VOLUME 6.8 fl (7.5-11.1); PLATELET COUNT 257 K/MM3 (134-434); RBC 2.43 M/mm3 (3.60-5.2); RDW 14.2 % (11.6-15.6); WHITE BLOOD COUNT 4.8 K/mm3 (4.0-10.0)
[2018-03-14 08:47] LABS: ALBUMIN 2.4 g/dl (3.4-5.0); ANION GAP 7 (8-16); BILIRUBIN,TOTAL 0.3 mg/dL (0.2-1.0); BLOOD UREA NITROGEN 4 mg/dL (7-18); CALCIUM 7.5 mg/dL (8.5-10.1); CHLORIDE 109 mmol/L (98-107); CO2 24 mmol/L (21-32); CREATININE 0.6 mg/dL (0.55-1.02); GLUCOSE,RANDOM 102 mg/dL (74-106); MAGNESIUM 1.5 mg/dL (1.8-2.4); PHOSPHOROUS 1.7 mg/dL (2.5-4.9); POTASSIUM 3.6 mmol/L (3.5-5.1); SGOT/AST 9 U/L (15-37); SGPT/ALT < 6 U/L (12-78); SODIUM 140 mmol/L (136-145)
[2018-03-14 08:49] LABS: ALK PHOS 36 U/L (45-117); TOT PROT 5.1 g/dl (6.4-8.2)
[2018-03-14] MEDS ORDERED: NAPH,MB-DB/K PH,MBDB POWDER PACKET PO ONE (10:15)
--- NOTE | 2018-03-14 10:37 | EKG ---
Test Reason : Blood Pressure : / mmHG Vent. Rate : 100 BPM Atrial Rate : 100 BPM P-R Int : 122 ms QRS Dur : 078 ms QT Int : 354 ms P-R-T Axes : 065 020 048 degrees QTc Int : 456 ms NORMAL SINUS RHYTHM NORMAL ECG WHEN COMPARED WITH ECG OF 22-FEB-2018 12:45, NO SIGNIFICANT CHANGE WAS FOUND Confirmed by GARRETT GARCIA MD ([id number]) on 03/14/2018 10:36:58 AM Referred By: Confirmed By:GARRETT GARCIA MD
[2018-03-14] MEDS ORDERED: PT OWN MED DRAWER 7, Y5N ONE (10:43)
--- NOTE | 2018-03-14 10:49 | PN ---
Progress Note, Physician Chief Complaint: colitis History of Present Illness: 77 yo female PMH Cervical Ca (recently off chemo), Asthma, thryoid disease, HLD , diverticulitis, chronic constipation presented to the ED because of poor oral intake and decreased appetite over the last 5 days. NO significant abdominal pain, no bloody BM reported. Having formed BM. No complaints. - Current Medication List Current Medications: Active Medications Ezetimibe (Zetia -) 10 mg PO DAILY [facility] Last Admin: 03/13/18 11:35 Dose: 10 mg Heparin Sodium (Porcine) (Heparin -) 5,000 unit SQ TID [facility] Last Admin: 03/14/18 06:04 Dose: 5,000 unit Metronidazole (Flagyl 500mg Premixed Ivpb -) 500 mg in 100 mls @ 100 mls/hr IVPB Q6H-IV [facility] Last Admin: 03/14/18 09:56 Dose: 100 mls/hr Levofloxacin (Levaquin 250 Mg Premixed Ivpb -) 250 mg in 50 mls @ 50 mls/hr IVPB DAILY [facility] PRN Reason: Protocol Last Admin: 03/13/18 11:35 Dose: 50 mls/hr Dextrose/Sodium Chloride (D5-1/2ns -) 1,000 mls @ 42 mls/hr IV ASDIR [facility] Last Admin: 03/13/18 22:10 Dose: 42 mls/hr Levothyroxine Sodium (Synthroid -) 25 mcg PO ACBK [facility] Last Admin: 03/14/18 06:04 Dose: 25 mcg Magnesium Sulfate/Dextrose (Magnesium 1gm/D5w -) 1 gm IVPB Q1H [facility] Stop: 03/14/18 11:16 Pantoprazole Sodium (Protonix Iv) 40 mg IVPUSH DAILY [facility] Last Admin: 03/13/18 10:19 Dose: 40 mg Prochlorperazine Edisylate (Compazine Injection -) 10 mg IVPB Q8H PRN PRN Reason: NAUSEA AND/OR VOMITING - Objective Vital Signs: Vital Signs Temperature 98.8 F 03/14/18 06:00 Pulse Rate 81 03/14/18 06:00 Respiratory Rate 20 03/14/18 06:00 Blood Pressure 109/59 03/14/18 06:00 O2 Sat by Pulse Oximetry (%) 97 03/13/18 22:00 Vital Signs Period Temp Pulse Resp BP Sys/Rankin Pulse Ox Last 24 Hr 98.2 F-99 F 81-109 18-20 98-114/55-61 97 Intake & Output 03/13/18 03/14/18 03/14/18 23:59 07:59 15:59 Intake Total 1700 378 Output Total 400 Balance 1300 378 Weight 105 lb 9 oz Intake: IV 950 278 D5-1/2Ns - 1,000 ml @ 42 278 mls/hr IV ASDIR JETHRO Rx#: [id number] D5-1/2Ns - 980 ml @ 100 950 mls/hr IVPB ASDIR JETHRO with KCl - 40 Meq Rx#: [id number] IVPB 250 100 Oral 500 Output: Urine 400 Void 400 Other: Voiding Method Toilet Bowel Movement Yes # Bowel Movements 3 Weight Measurement Method [facility] Constitutional: Yes: No Distress, Calm Eyes: Yes: Conjunctiva Clear, EOM Intact HENT: Yes: Atraumatic, Normocephalic Neck: Yes: Supple, Trachea Midline Cardiovascular: Yes: Regular Rate and Rhythm, S1, S2 Respiratory: Yes: Regular, CTA Bilaterally Gastrointestinal: Yes: Normal Bowel Sounds, Soft Genitourinary: No: CVA Tenderness - Left, CVA Tenderness - Right Extremities: No: Cool, Cyanosis Edema: No Peripheral Pulses WNL: Yes Peripheral Pulses: Left Doralis Pedis: 2+, Right Dorsalis Pedis: 2+ Neurological: Yes: Alert, Oriented Psychiatric: Yes: Alert, Oriented Labs: CBC, BMP 03/14/18 07:59 03/14/18 07:59 Problem List - Problems (1) Diverticulitis Assessment/Plan: 77 yo Female MMP and cervical cancer s/p radiation, +Cdiff, no reports of BPR, with infectious pancolitis and diverticulitis, no peritoinitis, no acute surgical intervention at this time. NPO and IVF hydration IV anatibiotics ID consult GI evaluation for coloncoscopy - no previous colonoscopy She may ultimatly be a candidate for elective coletomy Code(s): K57.92 - DVTRCLI OF INTEST, PART UNSP, W/O PERF OR ABSCESS W/O BLEED (2) Constipation Code(s): K59.00 - CONSTIPATION, UNSPECIFIED Qualifiers: Constipation type: slow transit constipation Qualified Code(s): K59.01 - Slow transit constipation (3) Cervical cancer Code(s): C53.9 - MALIGNANT NEOPLASM OF CERVIX UTERI, UNSPECIFIED (4) 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 (5) Fever Code(s): R50.9 - FEVER, UNSPECIFIED Qualifiers: Fever type: due to other condition Qualified Code(s): R50.81 - Fever presenting with conditions classified elsewhere
[2018-03-14] MEDS: PANTOPRAZOLE SODIUM 40 MG VIAL IVPUSH SCH (10:54)
[2018-03-14] MEDS: EZETIMIBE 10 MG TABLET (FP) PO SCH (10:55)
[2018-03-14 11:17] VITALS: TEMP 98.2
--- NOTE | 2018-03-14 11:43 | PN ---
Progress Note, Physician History of Present Illness: Awake, alert No c/o abdominal pain Reports normal BM earlier today No N/V Tolerating liquid diet Stool studies pending - Current Medication List Current Medications: Active Medications Ezetimibe (Zetia -) 10 mg PO DAILY [facility] Last Admin: 03/14/18 10:55 Dose: 10 mg Heparin Sodium (Porcine) (Heparin -) 5,000 unit SQ TID [facility] Last Admin: 03/14/18 06:04 Dose: 5,000 unit Metronidazole (Flagyl 500mg Premixed Ivpb -) 500 mg in 100 mls @ 100 mls/hr IVPB Q6H-IV [facility] Last Admin: 03/14/18 09:56 Dose: 100 mls/hr Levofloxacin (Levaquin 250 Mg Premixed Ivpb -) 250 mg in 50 mls @ 50 mls/hr IVPB DAILY [facility] PRN Reason: Protocol Last Admin: 03/14/18 11:26 Dose: 50 mls/hr Dextrose/Sodium Chloride (D5-1/2ns -) 1,000 mls @ 42 mls/hr IV ASDIR [facility] Last Admin: 03/13/18 22:10 Dose: 42 mls/hr Levothyroxine Sodium (Synthroid -) 25 mcg PO ACBK [facility] Last Admin: 03/14/18 06:04 Dose: 25 mcg Pantoprazole Sodium (Protonix Iv) 40 mg IVPUSH DAILY [facility] Last Admin: 03/14/18 10:54 Dose: 40 mg Prochlorperazine Edisylate (Compazine Injection -) 10 mg IVPB Q8H PRN PRN Reason: NAUSEA AND/OR VOMITING - Objective Vital Signs: Vital Signs Temperature 98.2 F 03/14/18 10:00 Pulse Rate 87 03/14/18 10:00 Respiratory Rate 20 03/14/18 10:00 Blood Pressure 90/55 03/14/18 10:00 O2 Sat by Pulse Oximetry (%) 97 03/13/18 22:00 Constitutional: Yes: No Distress Eyes: Yes: Conjunctiva Clear Cardiovascular: Yes: Regular Rate and Rhythm, S1, S2 Respiratory: Yes: CTA Bilaterally Gastrointestinal: Yes: Normal Bowel Sounds, Soft. No: Tenderness Edema: No Labs: CBC, BMP 03/14/18 07:59 03/14/18 07:59 Assessment/Plan Diverticulitis v. radiation colitis v. C difficile Await stool studies Continue levaquin/ flagyl
--- NOTE | 2018-03-14 11:46 | PN ---
Progress Note, Physician History of Present Illness: Clinically better. No acute events overnight. C. difficile antigen positive. No diarrheal symptoms. CAT scan shows pancolitis with more pronounced findings and sigmoid colon. Colonoscopy was discussed with the patient. She agrees to it, which wants to have it done on outpatient basis. - Current Medication List Current Medications: Active Medications Ezetimibe (Zetia -) 10 mg PO DAILY [facility] Last Admin: 03/14/18 10:55 Dose: 10 mg Heparin Sodium (Porcine) (Heparin -) 5,000 unit SQ TID [facility] Last Admin: 03/14/18 06:04 Dose: 5,000 unit Metronidazole (Flagyl 500mg Premixed Ivpb -) 500 mg in 100 mls @ 100 mls/hr IVPB Q6H-IV [facility] Last Admin: 03/14/18 09:56 Dose: 100 mls/hr Levofloxacin (Levaquin 250 Mg Premixed Ivpb -) 250 mg in 50 mls @ 50 mls/hr IVPB DAILY [facility] PRN Reason: Protocol Last Admin: 03/14/18 11:26 Dose: 50 mls/hr Dextrose/Sodium Chloride (D5-1/2ns -) 1,000 mls @ 42 mls/hr IV ASDIR [facility] Last Admin: 03/13/18 22:10 Dose: 42 mls/hr Levothyroxine Sodium (Synthroid -) 25 mcg PO ACBK [facility] Last Admin: 03/14/18 06:04 Dose: 25 mcg Pantoprazole Sodium (Protonix Iv) 40 mg IVPUSH DAILY [facility] Last Admin: 03/14/18 10:54 Dose: 40 mg Prochlorperazine Edisylate (Compazine Injection -) 10 mg IVPB Q8H PRN PRN Reason: NAUSEA AND/OR VOMITING - Objective Vital Signs: Vital Signs Temperature 98.2 F 03/14/18 10:00 Pulse Rate 87 03/14/18 10:00 Respiratory Rate 20 03/14/18 10:00 Blood Pressure 90/55 03/14/18 10:00 O2 Sat by Pulse Oximetry (%) 97 03/13/18 22:00 Constitutional: Yes: Well Nourished, No Distress, Calm Eyes: Yes: Conjunctiva Clear HENT: Yes: Atraumatic Neck: Yes: Supple Cardiovascular: Yes: Regular Rate and Rhythm Respiratory: Yes: Regular Gastrointestinal: Yes: Normal Bowel Sounds, Soft. No: Ascites, Distention Neurological: Yes: Alert, Oriented Labs: CBC, BMP 03/14/18 07:59 03/14/18 07:59 Laboratory Last Values WBC 4.8 K/mm3 (4.0-10.0) D 03/14/18 07:59 RBC 2.43 M/mm3 (3.60-5.2) L 03/14/18 07:59 Hgb 7.5 GM/dL (10.7-15.3) L 03/14/18 07:59 Hct 22.0 % (32.4-45.2) L 03/14/18 07:59 MCV 90.6 fl (80-96) 03/14/18 07:59 MCH 30.9 pg (25.7-33.7) 03/14/18 07:59 MCHC 34.1 g/dl (32.0-36.0) 03/14/18 07:59 RDW 14.2 % (11.6-15.6) 03/14/18 07:59 Plt Count 257 K/MM3 (134-434) 03/14/18 07:59 MPV 6.8 fl (7.5-11.1) L 03/14/18 07:59 Total Counted 100 03/14/18 07:59 Neutrophils % No Result Required. 03/14/18 07:59 Neutrophils % (Manual) 47.0 % (42.8-82.8) 03/14/18 07:59 Band Neutrophils % 9.0 % 03/14/18 07:59 Lymphocytes % No Result Required. 03/14/18 07:59 Lymphocytes % (Manual) 17.0 % (8-40) D 03/14/18 07:59 Monocytes % (Manual) 11 % (3.8-10.2) H 03/14/18 07:59 Eosinophils % (Manual) 11.0 % (0-4.5) H D 03/14/18 07:59 Basophils % (Manual) 0.0 % (0-2.0) 03/12/18 17:11 Myelocytes % (Man) 1 % (0-2) 03/14/18 07:59 Metamyelocytes 4 % (0-2) H D 03/14/18 07:59 Platelet Estimate Adequate 03/12/18 17:11 Retic Count 1.00 % (0.5-1.5) 03/13/18 16:15 Sodium 140 mmol/L (136-145) 03/14/18 07:59 Potassium 3.6 mmol/L (3.5-5.1) 03/14/18 07:59 Chloride 109 mmol/L (98-107) H 03/14/18 07:59 Carbon Dioxide 24 mmol/L (21-32) 03/14/18 07:59 Anion Gap 7 (8-16) L 03/14/18 07:59 BUN 4 mg/dL (7-18) L 03/14/18 07:59 Creatinine 0.6 mg/dL (0.55-1.02) 03/14/18 07:59 Creat Clearance w eGFR > 60 (>60) 03/14/18 07:59 POC Glucometer 138.15116 UNITS (80-120) 03/12/18 23:17 Random Glucose 102 mg/dL (74-106) 03/14/18 07:59 Lactic Acid 1.1 mmol/L (0.0-2.0) 03/12/18 22:37 Calcium 7.5 mg/dL (8.5-10.1) L 03/14/18 07:59 Phosphorus 1.7 mg/dL (2.5-4.9) L 03/14/18 07:59 Magnesium 1.5 mg/dL (1.8-2.4) L 03/14/18 07:59 Ferritin 1010.594 ng/ml (6.9-282.5) H 03/13/18 16:15 Total Bilirubin 0.3 mg/dL (0.2-1.0) 03/14/18 07:59 AST 9 U/L (15-37) L 03/14/18 07:59 ALT < 6 U/L (12-78) L 03/14/18 07:59 Alkaline Phosphatase 36 U/L (45-117) L 03/14/18 07:59 LD Total 117 U/L (84-246) 03/13/18 16:15 Creatine Kinase 32 IU/L (26-192) 03/12/18 17:11 Troponin I < 0.02 ng/ml (0.00-0.05) 03/12/18 17:11 Total Protein 5.1 g/dl (6.4-8.2) L 03/14/18 07:59 Albumin 2.4 g/dl (3.4-5.0) L 03/14/18 07:59 Vitamin B12 1980 pg/ml (180-914) H 03/13/18 16:15 Serum Folate 8 ng/ml (3.1-17.5) 03/13/18 16:15 TSH 2.45 uIU/ml (0.358-3.74) 03/13/18 08:00 Urine Color Straw 03/12/18 17:38 Urine Appearance Clear 03/12/18 17:38 Urine pH 5.0 (5.0-8.0) 03/12/18 17:38 Ur Specific [place] 1.029 (1.001-1.035) 03/12/18 17:38 Urine Protein Negative (NEGATIVE) 03/12/18 17:38 Urine Glucose (UA) Negative (NEGATIVE) 03/12/18 17:38 Urine Ketones Trace (NEGATIVE) H 03/12/18 17:38 Urine Blood 2+ (NEGATIVE) H 03/12/18 17:38 Urine Nitrite Negative (NEGATIVE) 03/12/18 17:38 Urine Bilirubin Negative (<2.0 mg/dL) 03/12/18 17:38 Urine Urobilinogen Negative mg/dL (0.2-1.0) 03/12/18 17:38 Ur Leukocyte Esterase 1+ (NEGATIVE) H D 03/12/18 17:38 Urine WBC (Auto) 9 /hpf (3-5) 03/12/18 17:38 Urine RBC (Auto) 1 /hpf (0-3) 03/12/18 17:38 Ur Epithelial Cells Rare /HPF (FEW) 03/12/18 17:38 Hyaline Casts 3 /lpf 03/12/18 17:38 Urine Mucus Rare 03/12/18 17:38 Blood Type O POSITIVE 03/13/18 16:15 Antibody Screen Positive H 03/13/18 16:15 Antibody Identification Anti k 03/13/18 16:15 Antigen Identification No Result Required. 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 C. difficile toxin negative. No diarrheal symptoms. Clinically improved. Follow-up as an outpatient for a colonoscopy is an option. Rule out chronic inflammatory states vs radiation colopathy,
[2018-03-14] MEDS: MAGNESIUM 1GM/D5W 100ML - 100 ML IVPB IVPB SCH ×2 (11:58→12:59)
--- NOTE | 2018-03-14 12:04 | PN ---
Teaching Attending Note Name of Resident: Jeyson Hull ATTENDING PHYSICIAN STATEMENT I saw and evaluated the patient. I reviewed the resident's note and discussed the case with the resident. I agree with the resident's findings and plan as documented. SUBJECTIVE: No complaints. OBJECTIVE: Vital Signs Period Temp Pulse Resp BP Sys/Rankin Pulse Ox Last 24 Hr 98.2 F-99 F 81-109 18-20 90-114/55-61 97 HEART: S1S2, RRR LUNGS: Clear ABDOMEN: Soft, non-tender, non-distended, normal BS EXTREMITIES: No edema Laboratory Results - last 24 hr 03/13/18 03/13/18 03/13/18 16:15 16:15 16:15 WBC 7.0 RBC 2.47 L Hgb 7.6 L Hct 22.2 L MCV 89.8 MCH 30.7 MCHC 34.2 RDW 14.4 Plt Count 257 MPV 6.9 L Total Counted Neutrophils % Neutrophils % (Manual) Band Neutrophils % Lymphocytes % Lymphocytes % (Manual) Monocytes % (Manual) Eosinophils % (Manual) Myelocytes % (Man) Metamyelocytes Retic Count Sodium Potassium Chloride Carbon Dioxide Anion Gap BUN Creatinine Creat Clearance w eGFR Random Glucose Calcium Phosphorus Magnesium Ferritin 1010.594 H Total Bilirubin AST ALT Alkaline Phosphatase LD Total Total Protein Albumin Vitamin B12 Serum Folate 8 Blood Type O POSITIVE Antibody Screen Positive H Antibody Identification Anti k Antigen Identification No Result Required. 03/13/18 03/13/18 03/14/18 16:15 16:15 07:59 WBC 4.8 D RBC 2.43 L Hgb 7.5 L Hct 22.0 L MCV 90.6 MCH 30.9 MCHC 34.1 RDW 14.2 Plt Count 257 MPV 6.8 L Total Counted 100 Neutrophils % No Result Required. Neutrophils % (Manual) 47.0 Band Neutrophils % 9.0 Lymphocytes % No Result Required. Lymphocytes % (Manual) 17.0 D Monocytes % (Manual) 11 H Eosinophils % (Manual) 11.0 H D Myelocytes % (Man) 1 Metamyelocytes 4 H D Retic Count 1.00 Sodium Potassium Chloride Carbon Dioxide Anion Gap BUN Creatinine Creat Clearance w eGFR Random Glucose Calcium Phosphorus Magnesium Ferritin Total Bilirubin AST ALT Alkaline Phosphatase LD Total 117 Total Protein Albumin Vitamin B12 1980 H Serum Folate Blood Type Antibody Screen Antibody Identification Antigen Identification 03/14/18 07:59 WBC RBC Hgb Hct MCV MCH MCHC RDW Plt Count MPV Total Counted Neutrophils % Neutrophils % (Manual) Band Neutrophils % Lymphocytes % Lymphocytes % (Manual) Monocytes % (Manual) Eosinophils % (Manual) Myelocytes % (Man) Metamyelocytes Retic Count Sodium 140 Potassium 3.6 Chloride 109 H Carbon Dioxide 24 Anion Gap 7 L BUN 4 L Creatinine 0.6 Creat Clearance w eGFR > 60 Random Glucose 102 Calcium 7.5 L Phosphorus 1.7 L Magnesium 1.5 L Ferritin Total Bilirubin 0.3 AST 9 L ALT < 6 L Alkaline Phosphatase 36 L LD Total Total Protein 5.1 L Albumin 2.4 L Vitamin B12 Serum Folate Blood Type Antibody Screen Antibody Identification Antigen Identification Current Medications Generic Name Dose Route Start Last Admin Trade Name Freq PRN Reason Stop Dose Admin Ezetimibe 10 mg 03/13/18 10:00 03/14/18 10:55 Zetia - PO 10 mg DAILY JETHRO Administration Heparin Sodium (Porcine) 5,000 unit 03/13/18 06:00 03/14/18 06:04 Heparin - SQ 5,000 unit TID JETHRO Administration Metronidazole 500 mg in 100 mls @ 100 mls/hr 03/13/18 05:00 03/14/18 09:56 Flagyl 500mg Premixed Ivpb - IVPB 100 mls/hr Q6H-IV [facility]ETHRO Administration Levofloxacin 250 mg in 50 mls @ 50 mls/hr 03/13/18 10:00 03/14/18 11:26 Levaquin 250 Mg Premixed Ivpb - IVPB 50 mls/hr DAILY JETHRO Administration Protocol Dextrose/Sodium Chloride 1,000 mls @ 42 mls/hr 03/13/18 21:15 03/13/18 22:10 D5-1/2ns - IV 42 mls/hr ASDIR JETHRO Administration Levothyroxine Sodium 25 mcg 03/13/18 07:00 03/14/18 06:04 Synthroid - PO 25 mcg ACBK JETHRO Administration Pantoprazole Sodium 40 mg 03/13/18 10:00 03/14/18 10:54 Protonix Iv IVPUSH 40 mg DAILY [facility]ETHRO Administration Prochlorperazine Edisylate 10 mg 03/12/18 23:53 Compazine Injection - IVPB Q8H PRN NAUSEA AND/OR VOMITING ASSESSMENT AND PLAN: This is a 77 year old woman with a history of cervical cancer, asthma, hypothyroidism, hyperlipidemia who presented to the ED with loss of appetite. 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 difficile Ag, negative for toxin - doubt C. difficile colitis - Plan for outpatient colonoscopy 2. Hypokalemia - Improved 3. Hypomagnesemia - Supplement magnesium 4. Hypophosphatemia - Supplement phosphorus 5. Anemia - Likely secondary to chronic illness, chemo - Ferritin is high 1010.594). Iron, TIBC, ferritin pending 6. Hypothyroidism - Continue Synthroid 7. Cervical cancer 8. Hyperlipidemia - Continue Zetia
--- NOTE | 2018-03-14 12:58 | DS ---
Physical Exam: SUBJECTIVE: Patient seen and examined - no overnight events; afebrile, VSS; no pain or complaints, no further episodes of diarrhea overnight; 2 BMs yesterday, normal appearance. Very hungry. urinating normally with no dysuria, hematuria or pyuria. Denies f/c/n/v/ d, MERCHANT, cough, cp, ab pain, back pain, dysuria, melena, LE edema OBJECTIVE: Vital Signs Intake & Output 03/11/18 03/12/18 03/13/18 03/14/18 23:59 23:59 23:59 23:59 Intake Total 2300 378 Output Total 600 Balance 1700 378 Weight 46.72 kg 48.223 kg 47.882 kg Period Temp Pulse Resp BP Sys/Rankin Pulse Ox Last 24 Hr 98.2 F-99 F 81-109 18-20 90-114/55-61 97 PHYSICAL EXAM GENERAL: Elderly woman, NAD, A&Ox3 HEAD: NCAT EYES: PERRL, extraocular movements intact, sclera anicteric, conjunctiva clear. No ptosis. ENT: Ears normal, nares patent, oropharynx clear without exudates, moist mucous membranes. NECK: Trachea midline, full range of motion, supple. LUNGS: Breath sounds equal, clear to auscultation bilaterally, no wheezes, no crackles, no accessory muscle use. HEART: RRR, S1, S2 without murmur, rub or gallop. ABDOMEN: Soft, nontender, normoactive bowel sounds, no guarding, no rebound, no hepatosplenomegaly, no masses. EXTREMITIES: 2+ PT/DP pulses, warm, well-perfused, no edema. NEUROLOGICAL: Cranial nerves II through XII grossly intact. Normal speech, gait not observed. PSYCH: Normal mood, normal affect. Interactive, pleasant Laboratory Results - last 24 hr CBC, BMP 03/14/18 07:59 03/14/18 07:59 03/13/18 03/13/18 03/13/18 16:15 16:15 16:15 WBC 7.0 RBC 2.47 L Hgb 7.6 L Hct 22.2 L MCV 89.8 MCH 30.7 MCHC 34.2 RDW 14.4 Plt Count 257 MPV 6.9 L Total Counted Neutrophils % Neutrophils % (Manual) Band Neutrophils % Lymphocytes % Lymphocytes % (Manual) Monocytes % (Manual) Eosinophils % (Manual) Myelocytes % (Man) Metamyelocytes Retic Count Sodium Potassium Chloride Carbon Dioxide Anion Gap BUN Creatinine Creat Clearance w eGFR Random Glucose Calcium Phosphorus Magnesium Ferritin 1010.594 H Total Bilirubin AST ALT Alkaline Phosphatase LD Total Total Protein Albumin Vitamin B12 Serum Folate 8 Blood Type O POSITIVE Antibody Screen Positive H Antibody Identification Anti k Antigen Identification No Result Required. 03/13/18 03/13/18 03/14/18 16:15 16:15 07:59 WBC 4.8 D RBC 2.43 L Hgb 7.5 L Hct 22.0 L MCV 90.6 MCH 30.9 MCHC 34.1 RDW 14.2 Plt Count 257 MPV 6.8 L Total Counted 100 Neutrophils % No Result Required. Neutrophils % (Manual) 47.0 Band Neutrophils % 9.0 Lymphocytes % No Result Required. Lymphocytes % (Manual) 17.0 D Monocytes % (Manual) 11 H Eosinophils % (Manual) 11.0 H D Myelocytes % (Man) 1 Metamyelocytes 4 H D Retic Count 1.00 Sodium Potassium Chloride Carbon Dioxide Anion Gap BUN Creatinine Creat Clearance w eGFR Random Glucose Calcium Phosphorus Magnesium Ferritin Total Bilirubin AST ALT Alkaline Phosphatase LD Total 117 Total Protein Albumin Vitamin B12 1980 H Serum Folate Blood Type Antibody Screen Antibody Identification Antigen Identification 03/14/18 07:59 WBC RBC Hgb Hct MCV MCH MCHC RDW Plt Count MPV Total Counted Neutrophils % Neutrophils % (Manual) Band Neutrophils % Lymphocytes % Lymphocytes % (Manual) Monocytes % (Manual) Eosinophils % (Manual) Myelocytes % (Man) Metamyelocytes Retic Count Sodium 140 Potassium 3.6 Chloride 109 H Carbon Dioxide 24 Anion Gap 7 L BUN 4 L Creatinine 0.6 Creat Clearance w eGFR > 60 Random Glucose 102 Calcium 7.5 L Phosphorus 1.7 L Magnesium 1.5 L Ferritin Total Bilirubin 0.3 AST 9 L ALT < 6 L Alkaline Phosphatase 36 L LD Total Total Protein 5.1 L Albumin 2.4 L Vitamin B12 Serum Folate Blood Type Antibody Screen Antibody Identification Antigen Identification Microbiology 03/12/18 09:00 Urine - Urine Clean Catch Urine Culture - Preliminary Group D Strep Or Entero Coccus 03/12/18 22:37 Blood - Peripheral Venous Blood Culture - Preliminary NO GROWTH OBTAINED AFTER 24 HOURS, INCUBATION TO CONTINUE FOR 4 DAYS. 03/12/18 22:37 Blood - Peripheral Venous Blood Culture - Preliminary NO GROWTH OBTAINED AFTER 24 HOURS, INCUBATION TO CONTINUE FOR 4 DAYS. 03/13/18 09:00 Stool Clostridium difficile Antigen (LISA) - Final 03/13/18 09:00 Stool Clostridium difficile Toxin Assay - Final CXR 03/12 - Impression : No acute pathology. Weak inspiratory effort. Right port removed. Ab XR 03/12 - Imaging reveals scoliosis with degenerative changes, clear lung bases, normal heart and no sign of free air. There are 3 right renal calcifications well demonstrated on CT from 02/22/2018. There are pelvic phleboliths and fibroid calcifications. There is calcification by the right hip. There is retained stool. There is no sign of a gross obstruction. Correlation recommended. Ab/pelvis CT 03/12 - No bowel obstruction is identified. As on a previous CT study of 02/22/2018 concentric wall edema is noted involving the rectum, sigmoid and descending colon with associated mild pericolonic/perirectal soft tissue stranding consistent with edema or hyperemia - ? radiation proctocolitis and/or inflammatory/infectious proctocolitis. There is possible mild concentric wall thickening involving the remainder of the colon and terminal ileum - ? inflammatory/infectious colitis. This appearance is better appreciated on the current study performed with intravenous contrast. Sigmoid diverticulosis is seen. As noted in the previous CT report the described findings could be on the basis of superimposed acute diverticulitis. Fluid accumulation is again noted within the uterine canal possibly secondary to known cervical neoplastic disease. Bilateral nonobstructing renal calculi. Cholelithiasis. Small stable left adrenal adenoma. Small stable tubular density adjacent to the right lateral border of the uterus possibly representing a mildly dilated fallopian tube Consults: Heme/Onc - Dr. Rodriguez GI - Dr. Mcgovern ID - Dr. Contreras [facility] COURSE: prehospital: Patient is a 77 yo F with a PMhx of Cervical Ca (recently off chemo ), Asthma, thryoid disease, HLD, presented to the ED because of poor oral intake and decreased appetite over the last 5 days. Patient denies nausea but said she had 1 episode of vomiting when trying to swallow a pill. She denies abdominal pain and diarrhea. She reports having a BM daily but with minimal passage. She was recently admitted for diverticulitis and says she is not experiencing the same symptoms as her last admission. She said she felt warm at home but did not record her temperature. Patient also says she feels really dry and dehydrated. Patient reports being treated for UTI 2 weeks ago and says she still has burning while urinating. She says she is concerned because of her loss of appetite. She denies dysphagia, odynophagia, abdominal pain, melena, hematochezia, dizziness, lightheadedness. ER course was notable for: (1) CT ABD/PELVIS: No bowel Obstruction, radiation protcolitis, diverticulitis (2) Hypokalemia 2.9, repleted with K 40meq (3) Flagyl/Levaquin Hospital: Vitals notable for tachy to 127 on admission. labs notable for Hgb 10.2, K 2.9 - > repleted with correction to 3.2. Ua 1+ leuk esterase, minimal WBC. pt complaining of chronic dysuria for past two months. CT A/P notable for radiation proctocolitis, diverticulitis. Started on levaquin/flagyl. GI consulted, Onc consulted, ID consulted. NPO, started on IVFs. Mg 1.2 on admission as well, repleted. Initial plan for flex sigmoidoscopy, however given recent RT-induced protocolitis, plan to forego due to risk of perf/bleed. Hgb with drop from 10.2 to 7.6 after IVFs overnight. repeat Hgb stable, no bleeding source identified. C diff Ag +, toxin neg. Per ID, continued on levaquin/ flagyl. Pt with two non-bloody BMs on Day 2, no further diarrhea, tolerating PO feeds, much improved symptomatically. Discharged on PO levaquin/flagyl for 7 day course with outpt f/u with Dr. Mcgovern in two weeks for colonoscopy. Pt also discharged with Mag Oxide due to low Mg levels during admission. Date of Admission:03/12/18 Date of Discharge: 03/14/18 Pt is medically stable and cleared for discharge home with outpt f/u with Dr. Mcgovern in two weeks for possible colonoscopy. 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 You were seen by our GI and Infectious disease doctors and received imaging of your abdomen with showed inflammation of your rectum and colon. We determine the source to likely be a combination of the radiation therapy you received for your cervical cancer and a possible bacterial infection. You have since improved with no further symptoms and are being discharged home with outpatient colonoscopy with Dr. Mcgovern in two weeks. Medications: The following medications were added to your home regimen. Please take them as specified below: Levaquin 250mg, take one pill by mouth once a day, for the next five days (03/15-). Then stop taking this medication as you will have finished your antibiotic course. Flagyl 500mg, take two pills by mouth, three times a day for the next five days (03/15-03/19). Then stop taking this medication as you will have finished your antibiotic course. Magnesium oxalate 400mg, take one pill once a day Please take colace three times a day by mouth if you experience constipation. This medication is available over the counter Please continue to take all other home medications as previously directed. Follow-ups: Please follow-up with your primary care physician in one week for further management of your medications. Please call their office to schedule an appointment. Please call within one week to schedule an appointment. If you require a new primary care provider, a referral has been included to the resident clinic. Please call within one week to schedule an appointment. The contact information has been provided in this packet. Please follow-up with our category development manager, Dr. Mcgovern, in two week for your outpatient colonoscopy. It is highly important that you received this test, as it will give a definitive assessment of your colon. His contact number has been provided in this packet. Please call his office to make the appointment Please follow-up with our lean consultant/oncologist, Dr. Rodriguez, in two week for continuation of your outpatient heme/onc care. Her contact number has been provided in this packet. Please call her office to make the appointment Diet/Exercise: Please abide by a low residue diet provided in your packet for the next week and then transition to the high fiber diet included. You have no restrictions on exercise. Please return to the hospital if you experience any of the following symptoms: - Persistent nausea, vomiting, inability to eat or drink - Any bloody or dark stools - Worsening diarrhea and/or constipation for >4 days - Persistent fever/chills >3 days - Any new or concerning symptoms Referrals: Reji Jacobson MD [Staff Physician] - 1 Week Marin Mcgovern MD [Staff Physician] - 2 Weeks Renetta Soto MD [Staff Physician] - 2 Weeks Disposition: HOME - Home Medications Comprehensive Discharge Medication List: Ambulatory Orders Ezetimibe [Zetia] 10 mg PO DAILY 05/24/13 Levothyroxine [Synthroid -] 25 mcg PO DAILY 05/24/13 Omeprazole Magnesium [Prilosec Otc] 20 mg PO DAILY #30 tablet. 02/24/18 Phenazopyridine HCl [Pyridium -] 100 mg PO TID 03/12/18 Prochlorperazine Maleate [Compazine] 10 mg PO Q8H PRN 03/12/18 Magnesium Oxide [Mag-Ox -] 400 mg PO DAILY #30 tablet 03/14/18 levoFLOXacin [Levaquin -] 250 mg PO DAILY #5 tablet 03/14/18 metroNIDAZOLE [Flagyl -] 500 mg PO TID #32 tablet 03/14/18 This patient is new to me today: No Emergency Visit: Yes ED Registration Date: 03/12/18 Care time: The patient presented to the Emergency Department on the above date and was hospitalized for further evaluation of their emergent condition. Critical Care patient: No - Discharge Referral Referred to [facility] No
[2018-03-14] MEDS ORDERED: metroNIDAZOLE 250 MG TABLET PO SCH (14:00)
[2018-03-14 14:32] VITALS: BP 122/61; PULSE 96
[2018-03-15 08:06] LABS: SERUM IRON SATURATION 24 % (15-55); TOTAL IRON BINDING CAPACITY 139 ug/dL (250-450); UIBC 105 ug/dL (118-369)
== END 2018-03-14 16:39 | disposition home or self-care (01) | DRG 372 ==
LOC: JER 16:36 → JERBED 22:00 → J6S 03-13 00:43
PROVIDERS: ADMIT Internal Medicine; ATTEND Internal Medicine
DX: A04.9 Bacterial intestinal infection, unspecified (principal); K57.92 Diverticulitis of intestine, part unspecified, without perforation or abscess without bleeding; K52.0 Gastroenteritis and colitis due to radiation; E87.6 Hypokalemia; E03.9 Hypothyroidism, unspecified; E78.5 Hyperlipidemia, unspecified; R10.32 Left lower quadrant pain; C53.9 Malignant neoplasm of cervix uteri, unspecified; K59.00 Constipation, unspecified; E83.42 Hypomagnesemia; E83.39 Other disorders of phosphorus metabolism; R50.9 Fever, unspecified; D64.81 Anemia due to antineoplastic chemotherapy; R30.0 Dysuria; K21.9 Gastro-esophageal reflux disease without esophagitis
CPT/HCPCS: 36415; 71045-TC-FY; 74019-TC-FY; 74177-TC; 80053; 81003; 81015; 82550; 82607; 82728; 82746; 82962; 83540; 83550; 83605; 83615; 83735; 84100; 84132; 84443; 84484; 85025; 85027; 85044; 86850; 86870; 86900; 86901; 86902; 87040; 87086; 87186; 87324; 87449; 93005; 93010; 99283-25; J1644; J7030

== ENCOUNTER 2018-03-22 07:52 | Day surgery (SDC) | payer OTHER ==
[2018-03-22 09:22] LABS: HEMOGLOBIN 9.5 GM/dL (10.7-15.3); MCH 30.9 pg (25.7-33.7); MCHC 33.8 g/dl (32.0-36.0); MEAN CELL VOLUME 91.3 fl (80-96); MEAN PLT VOLUME 6.8 fl (7.5-11.1); PLATELET COUNT 391 K/MM3 (134-434); RBC 3.07 M/mm3 (3.60-5.2); RDW 14.4 % (11.6-15.6); WHITE BLOOD COUNT 3.6 K/mm3 (4.0-10.0)
--- NOTE | 2018-03-22 16:48 | HP ---
Satellite PMH - Chief Complaint History of Present Illness: h/o locally advanced cervical ca, s/p chemo/RT , completed. now here for elective PRBCs. Pt seen and examined. c/o fatigue and weakness History Source: Patient, Medical Record - Past Medical History Allergies/Adverse Reactions: Allergies Allergy/AdvReac Type Severity Reaction Status Date / Time No Known Allergies Allergy Verified 03/12/18 16:37 Cardiovascular: Yes: HTN, Other (tachycardia and feelings of pounding heart beat were decribed) Pulmonary: Yes: Asthma, Other (non productive cough) Gastrointestinal: Yes: Constipation, Diverticulitis, Diverticulosis, GERD Renal/: Yes: Renal Calculi Heme/Onc: Yes: Cancer (cervical cancer) Endocrine: Yes: Hypothyroidism Dermatology: Yes: Other (cervical cancer) - Current Medications Current Medications: Home Medications Medication Instructions Recorded Ezetimibe [Zetia] 10 mg PO DAILY 05/24/13 Levothyroxine [Synthroid -] 25 mcg PO DAILY 05/24/13 Omeprazole Magnesium [Prilosec Otc] 20 mg PO DAILY #30 tablet. 02/24/18 Phenazopyridine HCl [Pyridium -] 100 mg PO TID 03/12/18 Prochlorperazine Maleate 10 mg PO Q8H PRN 03/12/18 [Compazine] Magnesium Oxide [Mag-Ox -] 400 mg PO DAILY #30 tablet 03/14/18 levoFLOXacin [Levaquin -] 250 mg PO DAILY #5 tablet 03/14/18 metroNIDAZOLE [Flagyl -] 500 mg PO TID #32 tablet 03/14/18 Satellite Physical Exam - Physical Examination Vital Signs: Vital Signs Period Temp Pulse Resp BP Sys/Rankin Pulse Ox Last 24 Hr 98.0 F-98.2 F 80-87 16-20 90-103/58-59 General Appearance: Well Nourished, Alert & Oriented x3 Lung: Clear to auscultation Heart: Regular rate & rhythm Abdomen: Soft, No tenderness Neurological: Alert Satellite Impression/Plan - Impression/Plan Impression: for PRBCs. always have anti-K +. tolerated well. post transfusion CBC to be checked.
[2018-03-22 16:55] LABS: HEMATOCRIT 28.7 % (32.4-45.2); HEMOGLOBIN 9.8 GM/dL (10.7-15.3); MCHC 34.1 g/dl (32.0-36.0); MEAN CELL VOLUME 90.9 fl (80-96); MEAN PLT VOLUME 6.5 fl (7.5-11.1); PLATELET COUNT 310 K/MM3 (134-434); RBC 3.15 M/mm3 (3.60-5.2); RDW 14.1 % (11.6-15.6); WHITE BLOOD COUNT 2.9 K/mm3 (4.0-10.0)
[2018-03-22 17:29] VITALS: BP 114/64; PULSE 83
[2018-03-22 17:47] VITALS: TEMP 98.5
== END 2018-03-22 17:45 | disposition home or self-care (01) ==
LOC: JONCBLOOD 07:52 → J7W 07:52 → JONCBLOOD 17:45
PROVIDERS: ATTEND Internal Medicine Hematology & Oncology
PROC: 30233N1 Transfusion of Nonautologous Red Blood Cells into Peripheral Vein, Percutaneous Approach (ICD-10-PCS; principal; 2018-03-22)
DX: C53.9 Malignant neoplasm of cervix uteri, unspecified (principal); I10 Essential (primary) hypertension; J45.909 Unspecified asthma, uncomplicated; K21.9 Gastro-esophageal reflux disease without esophagitis; E03.9 Hypothyroidism, unspecified; Z92.21 Personal history of antineoplastic chemotherapy; E78.5 Hyperlipidemia, unspecified; E87.6 Hypokalemia
CPT/HCPCS: 36415; 36430; 85027; 86850; 86870; 86900; 86901; 86902; 86922; P9038; P9058

== ENCOUNTER 2018-04-01 17:20 | Inpatient (IN) | payer OTHER ==
--- NOTE | 2018-04-01 18:11 | PDOC ---
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 Patient reports 3-4 days of abdominal discomfort, nausea with non bilious,non bloody emesis, and decreased PO intake. Multiple episodes of loose watery stools. Sx. aggravated with PO intake. Has not been able to tolerate medication intake x 2 days. Last BM 2-3 days ago, with absent BPR. Denies F/C, CP, SOB, abdominal pain, constipation, urinary complaints, weakness , lightheadedness, sensory changes. Recent [facility] inpt. for abdominal pain (03/12-03/13) with with + C.dif antigen but negative toxin identified ( C.Dif colitis unlikely). CT SCAN AP (03/12) uterine cervcal mass with involvement of abdominal wall and radiation proctocolitis vs.infectious/inflammatory proctocoilits treated with 5 day course of rocephin, flagyl, augmentin, and then treated with flagyl and levaquin (03/13). PMHx: as noted above. GI physician Dr. Marin Mcgovern ([phone]) ROS: as noted above SHx: Denies recent travel, hiking, camping, or sick contacts. Denies Etoh, tobacco, or IVDA. Past History - Past Medical History Allergies/Adverse Reactions: Allergies Allergy/AdvReac Type Severity Reaction Status Date / Time No Known Allergies Allergy Verified 04/01/18 17:25 Home Medications: Ambulatory Orders Ezetimibe [Zetia] 10 mg PO DAILY 05/24/13 Levothyroxine [Synthroid -] 25 mcg PO DAILY 05/24/13 Prochlorperazine Maleate [Compazine] 10 mg PO Q8H PRN 03/12/18 Magnesium Oxide [Mag-Ox -] 400 mg PO DAILY #30 tablet 03/14/18 Alendronate Na [Fosamax (Weekly)] 70 mg PO Q7D 04/01/18 Calcium Carbonate/Vitamin D3 [Calcium 600 + Vit D 400 Softgl] 1 each PO DAILY Multivitamins [Multivit ([facility] Formulary)] 1 tab PO DAILY tab 04/05/18 Nut.tx.impaired Digest Fxn [Ensure Clear] 200 ml PO BID #60 liquid 04/05/18 Phenazopyridine HCl [Pyridium -] 100 mg PO TID tablet 04/05/18 Cholestyramine/Aspartame [Questran Light Packet -] 4 gm PO DAILY #14 packet Vancomycin Oral Solution See Taper PO ASDIR #630 capsule 04/07/18 Anemia: No Asthma: Yes Cancer: Yes (CERVICAL) Cardiac Disorders: No CVA: No COPD: No CHF: No DVT: No Dementia: No Diabetes: No GI Disorders: Yes (ULCERS) Disorders: Yes (KIDNEY STONES - STENT AND REMOVAL) HTN: No Hypercholesterolemia: Yes Liver Disease: No Seizures: No Thyroid Disease: Yes - Surgical History Abdominal Surgery: No Appendectomy: No Cardiac Surgery: No Cholecystectomy: No Lung Surgery: No Neurologic Surgery: No Orthopedic Surgery: No - Immunization History Immunization Up to Date: Yes - Suicide/Smoking/Psychosocial Hx Smoking Status: No Smoking History: Never smoked Have you smoked in the past 12 months: No Number of Cigarettes Smoked Daily: 0 Information on smoking cessation initiated: No Hx Alcohol Use: No Drug/Substance Use Hx: No Substance Use Type: None Hx Substance Use Treatment: No Review of Systems - Review of Systems Comments:: 04/01/18 18:06 GENERAL/CONSTITUTIONAL: No fever or chills. No weakness. HEAD, EYES, EARS, NOSE AND THROAT: No change in vision. No ear pain or discharge. No sore throat. CARDIOVASCULAR: No chest pain or shortness of breath RESPIRATORY: No cough, wheezing, or hemoptysis. GASTROINTESTINAL: + Abdominal discomfort, nausea, vomiting,and diarrhea.No constipation. GENITOURINARY: No dysuria, frequency, or change in urination. MUSCULOSKELETAL: No joint or muscle swelling or pain. No neck or back pain. SKIN: No rash NEUROLOGIC: No headache, vertigo, loss of consciousness, or change in strength/ sensation. ENDOCRINE: No increased thirst. No abnormal weight change HEMATOLOGIC/LYMPHATIC: No anemia, easy bleeding, or history of blood clots. ALLERGIC/IMMUNOLOGIC: No hives or skin allergy. *Physical Exam - Vital Signs Last Vital Signs Temp Pulse Resp BP Pulse Ox 98.6 F 118 H 20 120/68 99 04/01/18 17:22 04/01/18 17:22 04/01/18 17:22 04/01/18 17:22 04/01/18 17:22 - Physical Exam Comments: 04/01/18 18:06 GENERAL: Awake, alert, and fully oriented, in no acute distress HEAD: No signs of trauma, normocephalic, atraumatic EYES: PERRLA, EOMI, sclera anicteric, conjunctiva clear ENT: Dry mucous membranes. Hearing grossly normal, nares patent, oropharynx clear without exudates. NECK: Normal ROM, supple, no lymphadenopathy, JVD, or masses LUNGS: No distress, speaks full sentences, clear to auscultation bilaterally HEART: Regular rate and rhythm, normal S1 and S2, no murmurs, rubs or gallops, peripheral pulses normal and equal bilaterally. ABDOMEN: Soft, nontender, normoactive bowel sounds. No guarding, no rebound. No masses. Neg CVA ttp. EXTREMITIES : Normal inspection, Normal range of motion, no edema. No clubbing or cyanosis. 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 HR~118, AF, A&OX3. Unremarkable abdominal exam. R/o SBO. Possible colitis, vs. gastroenteritis, constipation. Will consider cystitis. Low suspicion of AAA, Ao dissection, or other concerning abdominal pathology. Will assess for electrolyte abnml, toxic or metabolic derangements,acid-base disturbances, or underlying infection. ED Course: NS 1 L 04/01/18 19:18 Trop: Neg CK: 51 K+ 3.1 04/01/18 19:18 WBC: 4.5 04/01/18 21:30 ABDOMINAL RADL: Preilminary ED read is unremarkable with no evidence of SBO, or perforation. Per Dr. Marin Mcgovern patient should be observed, and does not warrant CT AP at this time. Martin evaluate in AM. Consult placed. *DC/Admit/Observation/Transfer Diagnosis at time of Disposition: Intractable vomiting with nausea Qualifiers: Vomiting type: unspecified Qualified Code(s): R11.2 - Nausea with vomiting, unspecified - Discharge Dispostion Disposition: HOME Condition at time of disposition: Improved - Prescriptions - Referrals - Patient Instructions - Post Discharge Activity - Attestations Physician Attestion: 04/01/18 18:06 I attest to the information provided in this note.
[2018-04-01 18:44] LABS: BASO % 0.3 % (0-2.0); EOS % 6.9 % (0-4.5); HEMATOCRIT 33.1 % (32.4-45.2); HEMOGLOBIN 10.9 GM/dL (10.7-15.3); LYMPH % 10.5 % (8-40); MCH 29.8 pg (25.7-33.7); MEAN CELL VOLUME 90.4 fl (80-96); MEAN PLT VOLUME 6.4 fl (7.5-11.1); MONO % 17.6 % (3.8-10.2); NEUT % 64.7 % (42.8-82.8); PLATELET COUNT 253 K/MM3 (134-434); RBC 3.66 M/mm3 (3.60-5.2); RDW 13.9 % (11.6-15.6); WHITE BLOOD COUNT 4.5 K/mm3 (4.0-10.0)
[2018-04-01 18:57] LABS: INR 1.12 (0.82-1.09); PROTHROMBIN TIME (PATIENT) 12.7 SEC (9.7-13.0)
[2018-04-01] MEDS ORDERED: SODIUM CHLORIDE 1,000 ML IV STA (18:59)
--- NOTE | 2018-04-01 19:02 | PDOC ---
Attending Attestation - Resident Resident Name: Indio Koehler - ED Attending Attestation I have performed the following: I have examined & evaluated the patient, The case was reviewed & discussed with the resident, I agree w/resident's findings & plan, Exceptions are as noted - HPI HPI: 04/01/18 18:59 77-year-old female has a complex history of radiation therapy for locally advanced uterine and cervical cancer -patient has a history of raidation protocolitis and is followed Dr Mcgovern gastrologist - Physicial Exam PE: 04/01/18 22:50 PE abd no rebound,no guarding - Medical Decision Making 04/01/18 22:50 spoke with GI, Dr Mcgovern will see pt in am pt admitted to med/surg 04/01/18 22:51 labs reviewed, K=3.1 and will be supplemented cbc wnl
[2018-04-01 19:08] LABS: ALBUMIN 3.1 g/dl (3.4-5.0); ALK PHOS 36 U/L (45-117); ANION GAP 9 (8-16); BILIRUBIN,TOTAL 0.6 mg/dL (0.2-1.0); BLOOD UREA NITROGEN 15 mg/dL (7-18); CALCIUM 8.3 mg/dL (8.5-10.1); CHLORIDE 103 mmol/L (98-107); CO2 24 mmol/L (21-32); CREATININE 0.9 mg/dL (0.55-1.02); GLUCOSE,RANDOM 99 mg/dL (74-106); SGPT/ALT 15 U/L (12-78); SODIUM 136 mmol/L (136-145); TOT PROT 6.4 g/dl (6.4-8.2)
[2018-04-01 19:09] LABS: POTASSIUM 3.1 mmol/L (3.5-5.1); SGOT/AST 19 U/L (15-37)
[2018-04-01 20:04] LABS: URINE APPEARANCE CLEAR; URINE BILIRUBIN NEGATIVE (<2.0 mg/dL); URINE COLOR COLORLESS; URINE GLUCOSE (UA) NEGATIVE (NEGATIVE); URINE KETONE TRACE (NEGATIVE); URINE LEUK ESTERASE NEGATIVE (NEGATIVE); URINE NITRITE NEGATIVE (NEGATIVE); URINE PROTEIN NEGATIVE (NEGATIVE); URINE UROBILINOGEN NEGATIVE mg/dL (0.2-1.0)
[2018-04-01 20:07] LABS: URINE HYALINE CAST 1 /lpf
[2018-04-01] MEDS ORDERED: POTASSIUM CHLORIDE TABS 20 MEQ TABLET.ER (FP) PO ONE ×2 (20:11→20:25)
--- NOTE | 2018-04-01 22:41 | HP ---
CHIEF COMPLAINT: weakness, diarrhea, LLQ pain PCP: Dr. Rivera Onc: Dr. Sandhu HISTORY OF PRESENT ILLNESS: 77 yo F with a PMhx of Cervical Ca (s/p chemo in Dec 2017 and radiation January 2018 ), Asthma, hypothyroidism, HLD, presented to the ED because of poor oral intake, decreased appetite and loose bowel movements. Has been occurring since the end of her radiation, recent ED visits for similar complaint. Feels the urgency for BM frequently, often unable to make it to the bathroom. Anything she eats she has to use the bathroom right away. When she has a BM it is loose, watery/mucus-like and brown, only a little comes out each time. as per family, pt had declined colonoscopy during last visit. Last episode of vomiting is 2 weeks ago. denies hematochezia, melena, abdominal cramping, nausea, fevers, chest pain, sob. ER course was notable for: (1)abd xray (2) ED discussed with Dr. mcgovern to keep in the hospital for further monitoring/ eval (3) Recent Travel: none PAST MEDICAL HISTORY: Cervical ca Asthma hypothyroidism HLD Gastric ulcer nephrolithiasis PAST SURGICAL HISTORY: hx of renal stones s/p stent placement and removal Social History: Smoking: denies Alcohol:denies Drugs: denies Family History:[place] Allergies No Known Allergies Allergy (Verified 04/01/18 17:25) HOME MEDICATIONS: Home Medications Medication Instructions Recorded Ezetimibe [Zetia] 10 mg PO DAILY 05/24/13 Levothyroxine [Synthroid -] 25 mcg PO DAILY 05/24/13 Omeprazole Magnesium [Prilosec Otc] 20 mg PO DAILY #30 tablet. 02/24/18 Phenazopyridine HCl [Pyridium -] 100 mg PO TID 03/12/18 Prochlorperazine Maleate 10 mg PO Q8H PRN 03/12/18 [Compazine] Magnesium Oxide [Mag-Ox -] 400 mg PO DAILY #30 tablet 03/14/18 Alendronate Na [Fosamax] 70 mg PO Q7D 04/01/18 Calcium Carbonate/Vitamin D3 1 each PO DAILY 04/01/18 [Calcium 600 + D3 Softgel] REVIEW OF SYSTEMS CONSTITUTIONAL: Present:weight change, loss of appetite, generalized weakness, Absent: fever, chills, diaphoresis, malaise, HEENT: Absent: rhinorrhea, nasal congestion, throat pain, throat swelling, difficulty swallowing, mouth swelling, visual changes CARDIOVASCULAR: Absent: chest pain, syncope, palpitations, irregular heart rate, lightheadedness , peripheral edema RESPIRATORY: Absent: cough, shortness of breath, dyspnea with exertion, orthopnea, wheezing, stridor, hemoptysis GASTROINTESTINAL: Absent: abdominal pain, abdominal distension, nausea, vomiting, diarrhea, constipation, melena, hematochezia GENITOURINARY: Absent: dysuria, frequency, urgency, hesitancy, hematuria, flank pain, genital pain MUSCULOSKELETAL: Absent: myalgia, arthralgia, joint swelling, back pain, neck pain SKIN: Absent: rash, itching, pallor HEMATOLOGIC/IMMUNOLOGIC: Absent: easy bleeding, easy bruising, lymphadenopathy, frequent infections ENDOCRINE: Absent: unexplained weight gain, unexplained weight loss, heat intolerance, cold intolerance NEUROLOGIC: Absent: headache, focal weakness or paresthesias, dizziness, unsteady gait, seizure, mental status changes, bladder or bowel incontinence PHYSICAL EXAMINATION Vital Signs - 24 hr 04/01/18 04/01/18 17:22 18:51 Temperature 98.6 F Pulse Rate 118 H Respiratory 20 Rate Blood Pressure 120/68 O2 Sat by Pulse 99 98 Oximetry (%) GENERAL: Awake, alert, and fully oriented, in no acute distress. HEAD: Normal with no signs of trauma. EYES: Pupils equal, round and reactive to light, extraocular movements intact, sclera anicteric, conjunctiva clear. No lid lag. EARS, NOSE, THROAT: oropharynx clear without exudates. Moist mucous membranes. dentures in place NECK: Normal range of motion, supple without lymphadenopathy, JVD, or masses. LUNGS: Breath sounds equal, clear to auscultation bilaterally. No wheezes, and no crackles. No accessory muscle use. HEART: Regular rate and rhythm, normal S1 and S2 without murmur, rub or gallop. ABDOMEN: Soft, not distended, normoactive bowel sounds in all four quadrants, no guarding, no rebound, no masses. No hepatomegaly or splenomegaly. mild tenderness with deep palpation in LLQ. MUSCULOSKELETAL: Normal range of motion at all joints. No bony deformities or tenderness. No CVA tenderness. UPPER EXTREMITIES: 2+ radial pulses, warm, well-perfused. No cyanosis. No clubbing. No peripheral edema. LOWER EXTREMITIES: 2+ dp pulses, warm, well-perfused. No calf tenderness. No peripheral edema. NEUROLOGICAL: Cranial nerves II-XII intact. Normal speech. 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 PSYCHIATRIC: Cooperative. Good eye contact. Appropriate mood and affect. SKIN: Warm, dry, normal turgor, no rashes or lesions noted, normal capillary refill. Laboratory Results - last 24 hr 04/01/18 04/01/18 04/01/18 18:26 18:30 18:30 WBC 4.5 D RBC 3.66 Hgb 10.9 Hct 33.1 MCV 90.4 MCH 29.8 MCHC 33.0 RDW 13.9 Plt Count 253 MPV 6.4 L Neutrophils % 64.7 Lymphocytes % 10.5 D Monocytes % 17.6 H Eosinophils % 6.9 H Basophils % 0.3 PT with INR 12.70 INR 1.12 Sodium Potassium Chloride Carbon Dioxide Anion Gap BUN Creatinine Creat Clearance w eGFR Random Glucose Calcium Total Bilirubin AST ALT Alkaline Phosphatase Creatine Kinase 51 Troponin I < 0.02 Total Protein Albumin Urine Color Urine Appearance Urine pH Ur Specific [place] Urine Protein Urine Glucose (UA) Urine Ketones Urine Blood Urine Nitrite Urine Bilirubin Urine Urobilinogen Ur Leukocyte Esterase Urine WBC (Auto) Urine RBC (Auto) Hyaline Casts 04/01/18 04/01/18 18:30 19:53 WBC RBC Hgb Hct MCV MCH MCHC RDW Plt Count MPV Neutrophils % Lymphocytes % Monocytes % Eosinophils % Basophils % PT with INR INR Sodium 136 Potassium 3.1 L Chloride 103 Carbon Dioxide 24 Anion Gap 9 BUN 15 Creatinine 0.9 Creat Clearance w eGFR > 60 Random Glucose 99 Calcium 8.3 L Total Bilirubin 0.6 AST 19 ALT 15 Alkaline Phosphatase 36 L Creatine Kinase Troponin I Total Protein 6.4 Albumin 3.1 L Urine Color Colorless Urine Appearance Clear Urine pH 6.0 Ur Specific [place] 1.003 Urine Protein Negative Urine Glucose (UA) Negative Urine Ketones Trace H Urine Blood 2+ H Urine Nitrite Negative Urine Bilirubin Negative Urine Urobilinogen Negative Ur Leukocyte Esterase Negative Urine WBC (Auto) 2 Urine RBC (Auto) 2 Hyaline Casts 1 Active Medications Ezetimibe (Zetia -) 10 mg PO DAILY [facility] Heparin Sodium (Porcine) (Heparin -) 5,000 unit SQ TID [facility] Levothyroxine Sodium (Synthroid -) 25 mcg PO DAILY [facility] Magnesium Oxide (Mag-Ox -) 400 mg PO DAILY [facility] Non-Formulary Medication (Calcium Carbonate/Vitamin D3 [Calcium 600 + Vit D 400 Softgl]) 1 each PO DAILY [facility] Non-Formulary Medication (Omeprazole Magnesium [Prilosec Otc]) 20 mg PO DAILY [facility] Non-Formulary Medication (Prochlorperazine Maleate [Compazine]) 10 mg PO Q8H PRN PRN Reason: NAUSEA Phenazopyridine HCl (Pyridium -) 100 mg PO TID [facility] ASSESSMENT/PLAN: 77 yr old woman with lose BM's, abdominal pain admitted for further evaluation. #Abdominal pain ddx include colitis, diverticulitis, proctocolitis from radiation. without fever/wbc count low suspicion for infectious cause, last admission, pt was negative for c.dif - keep npo incase of GI intervention in the morning - consult dr. Mcgovern - hypokalemia likely due to GI loss, repleted in ED, repeat in the AM for further need for repletion - check Mg/phos for any other electrolyte abnormalities and replete #HLD - zetia 10mg po HS #hypothyroid - levothyroxine 25mch po daily #GERD - prilosec DVT: heparin subq tid Diet: NPO Visit type - Emergency Visit Emergency Visit: Yes ED Registration Date: 04/01/18 Care time: The patient presented to the Emergency Department on the above date and was hospitalized for further evaluation of their emergent condition. - New Patient This patient is new to me today: Yes Date on this admission: 04/01/18 - Critical Care Critical Care patient: No Hospitalist Screening - Colonoscopy Questionnaire Colonoscopy Questionnaire: Colonoscopy Questionnaire - Patient: 50 - 75 years old and never had a screening colonoscopy: Unknown History of colon or rectal polyps, or CA: Unknown History of IBD, Crohn's disease or UC: Unknown History of abdominal radiation therapy as a child: Unknown - Relative: 1 with colon or rectal CA, or polyps at age 60 or younger: Unknown Colon or rectal CA diagnosed at age 45 or younger: Unknown Multiple relatives with colon or rectal CA: Unknown - Outcome: Screening Result: Negative Screen
[2018-04-02] MEDS ORDERED: PROCHLORPERAZINE MALEATE 5 MG TABLET PO PRN (00:24)
--- NOTE | 2018-04-02 00:32 | PN ---
Teaching Attending Note Name of Resident: Shiraz Harley ATTENDING PHYSICIAN STATEMENT I saw and evaluated the patient. I reviewed the resident's note and discussed the case with the resident. I agree with the resident's findings and plan as documented. SUBJECTIVE: Patient is a 77 year old woman wich chief complaint of "frequent bowel movement "/"frequent urges to move her bowel". When she has a BM it is very scanty, loose , watery/mucus-like and brown. Other times she has the "urge" for BM but nothing comes out. She has a history of Cervical Ca (s/p chemo in Dec 2017 and radiation January 2018 ), Asthma, hypothyroidism, and HLD. Has also had poor oral intake, decreased appetite and vomited last 2 weeks ago. Has had radiation therapy for cancer of the cervix and recently got transfusion. Hospitalized twice for same symptoms, but refused colonoscopy during her last visit. loose bowel movements. OBJECTIVE: Alert, frail and cachectic but in no acute distress. Vital Signs Period Temp Pulse Resp BP Sys/Rankin Pulse Ox Last 24 Hr 98.6 F 118 20 120/68 98-99 HEENT: No Jaundice, eye redness or discharge, PERRLA, EOMI. External ears are normal and hearing is grossly intact. No nasal discharge. Neck: Supple, nontender. No palpable adenopathy or thyromegaly. No JVD Chest: Good effort. Clear to auscultation and percussion. Heart: Regular. No S3, rub or murmur Abdomen: Not distended, soft, nontender and no HSM Ext: Peripheral pulses intact. No leg edema. Skin: Warm and dry. No petechiae, rash or ecchymosis. Neuro: Alert. Oriented x3. CN 2-12 grossly intact. Sensation grossly intact in all four extremities and DTR are symmetric. Home Medications Medication Instructions Recorded Ezetimibe [Zetia] 10 mg PO DAILY 05/24/13 Levothyroxine [Synthroid -] 25 mcg PO DAILY 05/24/13 Omeprazole Magnesium [Prilosec Otc] 20 mg PO DAILY #30 tablet. 02/24/18 Phenazopyridine HCl [Pyridium -] 100 mg PO TID 03/12/18 Prochlorperazine Maleate 10 mg PO Q8H PRN 03/12/18 [Compazine] Magnesium Oxide [Mag-Ox -] 400 mg PO DAILY #30 tablet 03/14/18 Alendronate Na [Fosamax] 70 mg PO Q7D 04/01/18 Calcium Carbonate/Vitamin D3 1 each PO DAILY 04/01/18 [Calcium 600 + D3 Softgel] Laboratory Results - last 24 hr 04/01/18 04/01/18 04/01/18 18:26 18:30 18:30 WBC 4.5 D RBC 3.66 Hgb 10.9 Hct 33.1 MCV 90.4 MCH 29.8 MCHC 33.0 RDW 13.9 Plt Count 253 MPV 6.4 L Neutrophils % 64.7 Lymphocytes % 10.5 D Monocytes % 17.6 H Eosinophils % 6.9 H Basophils % 0.3 PT with INR 12.70 INR 1.12 Sodium Potassium Chloride Carbon Dioxide Anion Gap BUN Creatinine Creat Clearance w eGFR Random Glucose Calcium Total Bilirubin AST ALT Alkaline Phosphatase Creatine Kinase 51 Troponin I < 0.02 Total Protein Albumin Urine Color Urine Appearance Urine pH Ur Specific [place] Urine Protein Urine Glucose (UA) Urine Ketones Urine Blood Urine Nitrite Urine Bilirubin Urine Urobilinogen Ur Leukocyte Esterase Urine WBC (Auto) Urine RBC (Auto) Hyaline Casts 04/01/18 04/01/18 18:30 19:53 WBC RBC Hgb Hct MCV MCH MCHC RDW Plt Count MPV Neutrophils % Lymphocytes % Monocytes % Eosinophils % Basophils % PT with INR INR Sodium 136 Potassium 3.1 L Chloride 103 Carbon Dioxide 24 Anion Gap 9 BUN 15 Creatinine 0.9 Creat Clearance w eGFR > 60 Random Glucose 99 Calcium 8.3 L Total Bilirubin 0.6 AST 19 ALT 15 Alkaline Phosphatase 36 L Creatine Kinase Troponin I Total Protein 6.4 Albumin 3.1 L Urine Color Colorless Urine Appearance Clear Urine pH 6.0 Ur Specific [place] 1.003 Urine Protein Negative Urine Glucose (UA) Negative Urine Ketones Trace H Urine Blood 2+ H Urine Nitrite Negative Urine Bilirubin Negative Urine Urobilinogen Negative Ur Leukocyte Esterase Negative Urine WBC (Auto) 2 Urine RBC (Auto) 2 Hyaline Casts 1 ASSESSMENT AND PLAN: 1. Proctocolitis? - Patient is going to be admitted as an inpatient to permit full work up of her symptoms. Finding consistent with radiation-associated proctocolitis. Had CT abdomen in February 2018 and GI feels she does not need another one now. Will benefit from a colonoscopy and repeat stool for C. Diff toxin. Treat with probiotics for now. 2 Hypokalemia - Likely due to poor oral intake and ongoing stool losses. Will give IV KCL and check serum a magnesium. 3. Cancer of Cervix - has had radio and chemotherapy. 4. DVT prophylaxis - Heparin SQ 5000u tid and SCDs. 5. Advance directives - Full code.
[2018-04-02 00:52] LABS: PHOSPHOROUS 3.4 mg/dL (2.5-4.9)
[2018-04-02 00:56] LABS: MAGNESIUM 1.5 mg/dL (1.8-2.4)
[2018-04-02] MEDS ORDERED: LEVOTHYROXINE NA 25 MCG TABLET (FP) ONE (08:13)
[2018-04-02] MEDS ORDERED: HEPARIN NA (PORCINE) 5,000 UNITS/ML 1ML VIAL ONE ×2 (08:14→14:32)
[2018-04-02] MEDS: HEPARIN NA (PORCINE) 5,000 UNITS/ML 1ML VIAL SQ SCH ×3 (08:26→23:02)
[2018-04-02] MEDS: LEVOTHYROXINE NA 25 MCG TABLET (FP) PO SCH (08:26)
[2018-04-02] MEDS: PHENAZOPYRIDINE HCL 100 MG TABLET (FP) PO SCH ×4 (08:26→23:02)
[2018-04-02] MEDS ORDERED: MAGNESIUM OXIDE 400 MG TABLET (FP) PO ONE (10:00)
[2018-04-02 10:22] LABS: ALBUMIN 2.9 g/dl (3.4-5.0); CALCIUM 7.7 mg/dL (8.5-10.1); CHLORIDE 108 mmol/L (98-107); POTASSIUM 3.3 mmol/L (3.5-5.1); SODIUM 140 mmol/L (136-145)
[2018-04-02 10:26] LABS: BASO % 0.2 % (0-2.0); EOS % 7.6 % (0-4.5); HEMATOCRIT 30.3 % (32.4-45.2); HEMOGLOBIN 9.9 GM/dL (10.7-15.3); LYMPH % 13.5 % (8-40); MCH 29.7 pg (25.7-33.7); MCHC 32.7 g/dl (32.0-36.0); MEAN PLT VOLUME 7.4 fl (7.5-11.1); MONO % 13.4 % (3.8-10.2); NEUT % 65.3 % (42.8-82.8); PLATELET COUNT 237 K/MM3 (134-434); RBC 3.33 M/mm3 (3.60-5.2); RDW 13.5 % (11.6-15.6); WHITE BLOOD COUNT 4.9 K/mm3 (4.0-10.0)
[2018-04-02 10:28] LABS: ALK PHOS 34 U/L (45-117); ANION GAP 10 (8-16); BILIRUBIN,TOTAL 0.5 mg/dL (0.2-1.0); BLOOD UREA NITROGEN 10 mg/dL (7-18); CO2 22 mmol/L (21-32); CREATININE 0.7 mg/dL (0.55-1.02); GLUCOSE,RANDOM 78 mg/dL (74-106); SGOT/AST 11 U/L (15-37); SGPT/ALT 10 U/L (12-78); TOT PROT 5.8 g/dl (6.4-8.2)
[2018-04-02] MEDS: MAGNESIUM OXIDE 400 MG TABLET (FP) PO SCH (11:30)
[2018-04-02] MEDS: CALCIUM 500MG/VIT-D 200 UNITS COMBO TABLET (FP) PO SCH (11:30)
[2018-04-02] MEDS: PANTOPRAZOLE 20 MG TABLET (FP) PO SCH (11:31)
[2018-04-02] MEDS: EZETIMIBE 10 MG TABLET (FP) PO SCH (11:31)
[2018-04-02] MEDS ORDERED: KCL 10 MEQ IVPB 10 MEQ/100 ML INFUS.BAG IVPB SCH (11:45)
[2018-04-02] MEDS ORDERED: MAGNESIUM OXIDE 400 MG TABLET (FP) ONE (11:55)
[2018-04-02] MEDS ORDERED: POTASSIUM CHLORIDE 20 MEQ in SODIUM CHLORIDE 250 ML IVPB ONE (12:00)
--- NOTE | 2018-04-02 12:05 | CON.GI ---
Consult Consult Specialty:: GI Reason for Consultation:: diarrhea - History of Present Illness History of Present Illness: Chart reviewed. Know to GI service from 2 resent admissions for the same. As per current admission ED encouner: 77 yo F with a PMhx of Cervical Ca (s/p chemo in Dec 2017 and radiation January 2018 ), Asthma, hypothyroidism, HLD, presented to the ED because of poor oral intake, decreased appetite and loose bowel movements. Has been occurring since the end of her radiation, recent ED visits for similar complaint. Feels the urgency for BM frequently, often unable to make it to the bathroom. Anything she eats she has to use the bathroom right away. When she has a BM it is loose, watery/mucus-like and brown, only a little comes out each time. as per family, pt had declined colonoscopy during last visit. Last episode of vomiting is 2 weeks ago. Denies hematochezia, melena, abdominal cramping, nausea, fevers, chest pain, sob. C/o poor appetite, and chronic diarrhea. Had multiple CTs. 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 - History Source History Provided By: Patient, Medical Record - Past Medical History Cardio/Vascular: Yes: HTN, Other (tachycardia and feelings of pounding heart beat were decribed) Pulmonary: Yes: Asthma, Other (non productive cough) Gastrointestinal: Yes: Constipation, Diverticulitis, Diverticulosis, GERD Renal/: Yes: Renal Calculi Endocrine: Yes: Hypothyroidism Dermatology: Yes: Other (cervical cancer) - Alcohol/Substance Use Hx Alcohol Use: No - Smoking History Smoking history: Never smoked Have you smoked in the past 12 months: No Aproximately how many cigarettes per day: 0 - Social History ADL: Independent History of Recent Travel: No Home Medications - Allergies Allergies/Adverse Reactions: Allergies Allergy/AdvReac Type Severity Reaction Status Date / Time No Known Allergies Allergy Verified 04/01/18 17:25 - Home Medications Home Medications: Ambulatory Orders Ezetimibe [Zetia] 10 mg PO DAILY 05/24/13 Levothyroxine [Synthroid -] 25 mcg PO DAILY 05/24/13 Omeprazole Magnesium [Prilosec Otc] 20 mg PO DAILY #30 tablet. 02/24/18 Phenazopyridine HCl [Pyridium -] 100 mg PO TID 03/12/18 Prochlorperazine Maleate [Compazine] 10 mg PO Q8H PRN 03/12/18 Magnesium Oxide [Mag-Ox -] 400 mg PO DAILY #30 tablet 03/14/18 Alendronate Na [Fosamax] 70 mg PO Q7D 04/01/18 Calcium Carbonate/Vitamin D3 [Calcium 600 + D3 Softgel] 1 each PO DAILY Review of Systems Findings/Remarks: as per H&P and HPI Physical Exam-GI Vital Signs: Vital Signs Temperature 98.6 F 04/02/18 07:20 Pulse Rate 78 04/02/18 07:20 Respiratory Rate 18 04/02/18 07:20 Blood Pressure 117/67 04/02/18 07:20 O2 Sat by Pulse Oximetry (%) 98 04/02/18 10:08 Constitutional: Yes: No Distress, Calm, Cachectic, Pallor, Thin Eyes: Yes: Conjunctiva Clear HENT: Yes: Atraumatic Neck: Yes: Supple Cardiovascular: No: Bradycardia, Tachycardia Respiratory: Yes: Regular Gastrointestinal Inspection: No: Ascites, Distention ...Auscultate: Yes: Normoactive Bowel Sounds ...Palpate: Yes: Soft. No: Firm/Rigid, Guarding, Mass, Tenderness Neurological: Yes: Alert, Oriented Labs: CBC, BMP 04/02/18 09:35 04/02/18 09:35 INR, PTT INR 1.12 (0.82-1.09) 04/01/18 18:30 Home Medication List Medication Instructions Recorded Confirmed Type Ezetimibe [Zetia] 10 mg PO DAILY 05/24/13 04/01/18 History Levothyroxine [Synthroid -] 25 mcg PO DAILY 05/24/13 04/01/18 History Phenazopyridine HCl [Pyridium -] 100 mg PO TID 03/12/18 04/01/18 History Prochlorperazine Maleate 10 mg PO Q8H PRN 03/12/18 04/01/18 History [Compazine] Alendronate Na [Fosamax] 70 mg PO Q7D 04/01/18 04/01/18 History Calcium Carbonate/Vitamin D3 1 each PO DAILY 04/01/18 04/01/18 History [Calcium 600 + D3 Softgel] Active Medications Generic Name Dose Route Start Last Admin Trade Name Freq PRN Reason Stop Dose Admin Calcium Carbonate/Cholecalciferol 1 tab 04/02/18 10:00 04/02/18 11:30 Os-Venkatesh 500+D - PO 1 tab DAILY JETHRO Administration Ezetimibe 10 mg 04/02/18 10:00 04/02/18 11:31 Zetia - PO 10 mg DAILY JETHRO Administration Heparin Sodium (Porcine) 5,000 unit 04/02/18 06:00 04/02/18 08:26 Heparin - SQ 5,000 unit TID JETHRO Administration Potassium Chloride 20 meq/ 260 mls @ 130 mls/hr 04/02/18 12:00 Sodium Chloride IVPB 04/02/18 13:59 ONCE ONE Potassium Chloride 10 meq/ 105 mls @ 105 mls/hr 04/02/18 14:00 Sodium Chloride IVPB 04/02/18 14:59 ONCE ONE Levothyroxine Sodium 25 mcg 04/02/18 07:00 04/02/18 08:26 Synthroid - PO 25 mcg DAILY@0700 JETHRO Administration Magnesium Oxide 400 mg 04/02/18 10:00 04/02/18 11:30 Mag-Ox - PO 400 mg DAILY JETHRO Administration Pantoprazole Sodium 20 mg 04/02/18 10:00 04/02/18 11:31 Protonix - PO 20 mg DAILY JETHRO Administration Phenazopyridine HCl 100 mg 04/02/18 06:00 04/02/18 11:52 Pyridium - PO 100 mg TID JETHRO Administration Prochlorperazine Maleate 10 mg 04/02/18 00:24 Compazine - PO Q8H PRN NAUSEA Laboratory Last Values WBC 4.9 K/mm3 (4.0-10.0) 04/02/18 09:35 RBC 3.33 M/mm3 (3.60-5.2) L 04/02/18 09:35 Hgb 9.9 GM/dL (10.7-15.3) L 04/02/18 09:35 Hct 30.3 % (32.4-45.2) L 04/02/18 09:35 MCV 91.0 fl (80-96) 04/02/18 09:35 MCH 29.7 pg (25.7-33.7) 04/02/18 09:35 MCHC 32.7 g/dl (32.0-36.0) 04/02/18 09:35 RDW 13.5 % (11.6-15.6) 04/02/18 09:35 Plt Count 237 K/MM3 (134-434) 04/02/18 09:35 MPV 7.4 fl (7.5-11.1) L D 04/02/18 09:35 Neutrophils % 65.3 % (42.8-82.8) 04/02/18 09:35 Lymphocytes % 13.5 % (8-40) D 04/02/18 09:35 Monocytes % 13.4 % (3.8-10.2) H 04/02/18 09:35 Eosinophils % 7.6 % (0-4.5) H 04/02/18 09:35 Basophils % 0.2 % (0-2.0) 04/02/18 09:35 PT with INR 12.70 SEC (9.7-13.0) 04/01/18 18:30 INR 1.12 (0.82-1.09) 04/01/18 18:30 Sodium 140 mmol/L (136-145) 04/02/18 09:35 Potassium 3.3 mmol/L (3.5-5.1) L 04/02/18 09:35 Chloride 108 mmol/L (98-107) H 04/02/18 09:35 Carbon Dioxide 22 mmol/L (21-32) 04/02/18 09:35 Anion Gap 10 (8-16) 04/02/18 09:35 BUN 10 mg/dL (7-18) 04/02/18 09:35 Creatinine 0.7 mg/dL (0.55-1.02) 04/02/18 09:35 Creat Clearance w eGFR > 60 (>60) 04/02/18 09:35 Random Glucose 78 mg/dL (74-106) 04/02/18 09:35 Calcium 7.7 mg/dL (8.5-10.1) L 04/02/18 09:35 Phosphorus 3.4 mg/dL (2.5-4.9) 04/01/18 18:34 Magnesium 1.5 mg/dL (1.8-2.4) L 04/01/18 18:34 Total Bilirubin 0.5 mg/dL (0.2-1.0) 04/02/18 09:35 AST 11 U/L (15-37) L 04/02/18 09:35 ALT 10 U/L (12-78) L 04/02/18 09:35 Alkaline Phosphatase 34 U/L (45-117) L 04/02/18 09:35 Creatine Kinase 51 IU/L (26-192) 04/01/18 18:26 Troponin I < 0.02 ng/ml (0.00-0.05) 04/01/18 18:26 Total Protein 5.8 g/dl (6.4-8.2) L 04/02/18 09:35 Albumin 2.9 g/dl (3.4-5.0) L 04/02/18 09:35 Urine Color Colorless 04/01/18 19:53 Urine Appearance Clear 04/01/18 19:53 Urine pH 6.0 (5.0-8.0) 04/01/18 19:53 Ur Specific [place] 1.003 (1.001-1.035) 04/01/18 19:53 Urine Protein Negative (NEGATIVE) 04/01/18 19:53 Urine Glucose (UA) Negative (NEGATIVE) 04/01/18 19:53 Urine Ketones Trace (NEGATIVE) H 04/01/18 19:53 Urine Blood 2+ (NEGATIVE) H 04/01/18 19:53 Urine Nitrite Negative (NEGATIVE) 04/01/18 19:53 Urine Bilirubin Negative (<2.0 mg/dL) 04/01/18 19:53 Urine Urobilinogen Negative mg/dL (0.2-1.0) 04/01/18 19:53 Ur Leukocyte Esterase Negative (NEGATIVE) 04/01/18 19:53 Urine WBC (Auto) 2 /hpf (3-5) 04/01/18 19:53 Urine RBC (Auto) 2 /hpf (0-3) 04/01/18 19:53 Hyaline Casts 1 /lpf 04/01/18 19:53 Imaging - Results X-ray: Report Reviewed (?ileus) Problem List - Problems (1) Diarrhea Code(s): R19.7 - DIARRHEA, UNSPECIFIED (2) Cervical cancer Code(s): C53.9 - MALIGNANT NEOPLASM OF CERVIX UTERI, UNSPECIFIED (3) 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 Exclude infectious etiologies. ? radiation colopathy, ?chronic colitis, ?uper GI inflammatory states. BRAT diet, stool for infectious etiologies, cholestyramine, ?megase. Oncology follow up. EGD/Colonoscopy discussed with the patient.
[2018-04-02] MEDS ORDERED: CHOLESTYRAMINE/SUCROSE 4 GM PACKET PO SCH (12:30)
[2018-04-02] MEDS ORDERED: POTASSIUM CHLORIDE 10 MEQ in SODIUM CHLORIDE 100 ML IVPB ONE (14:00)
--- NOTE | 2018-04-02 15:12 | PN ---
Physical Exam: SUBJECTIVE: Patient seen and examined. still passing loose stool. No fevers or vomiting noted. No blood in stool. OBJECTIVE: Vital Signs Period Temp Pulse Resp BP Sys/Rankin Pulse Ox Last 24 Hr 98.6 F-98.6 F 78-118 18-20 117-141/67-89 95-100 GENERAL: The patient is awake, alert, and fully oriented, in no acute distress. ENT: moist mucous membranes. LUNGS: Breath sounds equal, clear to auscultation bilaterally, no wheezes, no crackles HEART: Regular rate and rhythm, S1, S2 without murmur ABDOMEN: Soft, nontender, nondistended, normoactive bowel sounds EXTREMITIES: 2+ pulses, warm, well-perfused, no edema. NEUROLOGICAL: AAox3 Laboratory Results - last 24 hr 04/01/18 04/01/18 04/01/18 18:26 18:30 18:30 WBC 4.5 D RBC 3.66 Hgb 10.9 Hct 33.1 MCV 90.4 MCH 29.8 MCHC 33.0 RDW 13.9 Plt Count 253 MPV 6.4 L Neutrophils % 64.7 Lymphocytes % 10.5 D Monocytes % 17.6 H Eosinophils % 6.9 H Basophils % 0.3 PT with INR 12.70 INR 1.12 Sodium Potassium Chloride Carbon Dioxide Anion Gap BUN Creatinine Creat Clearance w eGFR Random Glucose Calcium Phosphorus Magnesium Total Bilirubin AST ALT Alkaline Phosphatase Creatine Kinase 51 Troponin I < 0.02 Total Protein Albumin Urine Color Urine Appearance Urine pH Ur Specific [place] Urine Protein Urine Glucose (UA) Urine Ketones Urine Blood Urine Nitrite Urine Bilirubin Urine Urobilinogen Ur Leukocyte Esterase Urine WBC (Auto) Urine RBC (Auto) Hyaline Casts 04/01/18 04/01/18 04/01/18 18:30 18:34 19:53 WBC RBC Hgb Hct MCV MCH MCHC RDW Plt Count MPV Neutrophils % Lymphocytes % Monocytes % Eosinophils % Basophils % PT with INR INR Sodium 136 Potassium 3.1 L Chloride 103 Carbon Dioxide 24 Anion Gap 9 BUN 15 Creatinine 0.9 Creat Clearance w eGFR > 60 Random Glucose 99 Calcium 8.3 L Phosphorus 3.4 Magnesium 1.5 L Total Bilirubin 0.6 AST 19 ALT 15 Alkaline Phosphatase 36 L Creatine Kinase Troponin I Total Protein 6.4 Albumin 3.1 L Urine Color Colorless Urine Appearance Clear Urine pH 6.0 Ur Specific [place] 1.003 Urine Protein Negative Urine Glucose (UA) Negative Urine Ketones Trace H Urine Blood 2+ H Urine Nitrite Negative Urine Bilirubin Negative Urine Urobilinogen Negative Ur Leukocyte Esterase Negative Urine WBC (Auto) 2 Urine RBC (Auto) 2 Hyaline Casts 1 04/02/18 04/02/18 09:35 09:35 WBC 4.9 RBC 3.33 L Hgb 9.9 L Hct 30.3 L MCV 91.0 MCH 29.7 MCHC 32.7 RDW 13.5 Plt Count 237 MPV 7.4 L D Neutrophils % 65.3 Lymphocytes % 13.5 D Monocytes % 13.4 H Eosinophils % 7.6 H Basophils % 0.2 PT with INR INR Sodium 140 Potassium 3.3 L Chloride 108 H Carbon Dioxide 22 Anion Gap 10 BUN 10 Creatinine 0.7 Creat Clearance w eGFR > 60 Random Glucose 78 Calcium 7.7 L Phosphorus Magnesium Total Bilirubin 0.5 AST 11 L ALT 10 L Alkaline Phosphatase 34 L Creatine Kinase Troponin I Total Protein 5.8 L Albumin 2.9 L Urine Color Urine Appearance Urine pH Ur Specific [place] Urine Protein Urine Glucose (UA) Urine Ketones Urine Blood Urine Nitrite Urine Bilirubin Urine Urobilinogen Ur Leukocyte Esterase Urine WBC (Auto) Urine RBC (Auto) Hyaline Casts Active Medications Generic Name Dose Route Start Last Admin Trade Name Freq PRN Reason Stop Dose Admin Calcium Carbonate/Cholecalciferol 1 tab 04/02/18 10:00 04/02/18 11:30 Os-Venkatesh 500+D - PO 1 tab DAILY JETHRO Administration Cholestyramine Resin 4 gm 04/02/18 12:30 04/02/18 14:55 Questran Packet - PO Not Given DAILY [facility] Ezetimibe 10 mg 04/02/18 10:00 04/02/18 11:31 Zetia - PO 10 mg DAILY JETHRO Administration Heparin Sodium (Porcine) 5,000 unit 04/02/18 06:00 04/02/18 14:48 Heparin - SQ 5,000 unit TID JETHRO Administration Levothyroxine Sodium 25 mcg 04/02/18 07:00 04/02/18 08:26 Synthroid - PO 25 mcg DAILY@0700 JETHRO Administration Magnesium Oxide 400 mg 04/02/18 10:00 04/02/18 11:30 Mag-Ox - PO 400 mg DAILY JETHRO Administration Pantoprazole Sodium 20 mg 04/02/18 10:00 04/02/18 11:31 Protonix - PO 20 mg DAILY JETHRO Administration Phenazopyridine HCl 100 mg 04/02/18 06:00 04/02/18 14:49 Pyridium - PO Not Given TID JETHRO Prochlorperazine Maleate 10 mg 04/02/18 00:24 Compazine - PO Q8H PRN NAUSEA ASSESSMENT/PLAN: 77 yr old woman recently discharged on treatment for 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 #Abdominal pain R/O colitis, diverticulitis, proctocolitis from radiation. pt without fever/wbc count but may not mount adequate immune response per cancer hx last admission, pt was negative for c.dif, repeat Was npo prior to GI eval, now on BRAT diet consult dr. Mcgovern On cholestyramine as stool binder per GI -#hypokalemia likely due to GI loss, Replete as needed check Mg/phos #HLD zetia 10mg po HS #hypothyroid levothyroxine 25mch po daily #GERD - prilosec #FEN No ivf at this time Follow lytes BRATS diet DVT: heparin subq tid #Dispo: Med surg Visit type - Emergency Visit Emergency Visit: Yes ED Registration Date: 04/01/18 Care time: The patient presented to the Emergency Department on the above date and was hospitalized for further evaluation of their emergent condition. - New Patient This patient is new to me today: Yes Date on this admission: 04/02/18 - Critical Care Critical Care patient: No - Discharge Referral Referred to [facility] Med P.C.: No
--- NOTE | 2018-04-02 15:38 | PN ---
Teaching Attending Note Name of Resident: Pura Graf ATTENDING PHYSICIAN STATEMENT I saw and evaluated the patient. I reviewed the resident's note and discussed the case with the resident. I agree with the resident's findings and plan as documented. SUBJECTIVE:c/o 7-8 watery BM today. no assoc abdominal pain but sensation of incomplete evacuation of bowels. has had poor po appetite since dx of cancer in November. was recently hospitalized with protcocolitis and states she completed abx treatment. refused to have colonoscopy at that time but is more agreeable now. denies CP, SOB, fever, chills, abdominal pain, N/V/C, BRBPR or melena OBJECTIVE: Last Vital Signs Temp Pulse Resp BP Pulse Ox 98.6 F 98 H 20 141/89 100 04/02/18 07:20 04/02/18 12:37 04/02/18 12:37 04/02/18 12:37 04/02/18 12:37 General NAD CV S1 S2 RRR no murmrur/rub/gallop Lungs CTA B/L no wheezing/rales/rhonchi Abdomen soft NT/ND ASSESSMENT AND PLAN: 77yo F wtih PMH asthma, hypothyroid, and cervical ca s/p chemo and currently undergoing Rtx with recent treatment for proctocolitis presented to the ER with persistent diarrhea 1. Persistent diarrhea- refused repeat imaging studies. could likely be due radiation therapy vs infectious etiology although less likely infectious. no fever or leukocytosis. will try advancing diet at this time and evaluate if able to tolerate. start cholestyramine. cont IVF until tolerating diet. check for cdiff although low suspicion. would benefit from colonoscopy on this admission. GI consulted 2. hypokalemia- Kcl 40meq 3. Normocytic anemia- likely dilutional. hgb near baseline. no indication for transfusion at this time 4. Hypothyroid- Lt4 5. Cervical ca s/p chemo on Rtx- outpatient follow up 6. DVT ppx- hep sq 7. spoke with present at bedside. all questions answered. verbalized understanding and agreement iwth plan
[2018-04-02 17:58] VITALS: BMI 25.7
--- NOTE | 2018-04-02 23:49 | EKG ---
Test Reason : Blood Pressure : / mmHG Vent. Rate : 102 BPM Atrial Rate : 102 BPM P-R Int : 130 ms QRS Dur : 068 ms QT Int : 306 ms P-R-T Axes : 042 002 077 degrees QTc Int : 398 ms SINUS TACHYCARDIA NONSPECIFIC T WAVE ABNORMALITY ABNORMAL ECG WHEN COMPARED WITH ECG OF 12-MAR-2018 18:42, T WAVE VARIATION QT HAS SHORTENED Confirmed by YARON TRINIDAD MD ([id number]) on 04/02/2018 11:48:39 PM Referred By: Confirmed By:YARON TRINIDAD MD
[2018-04-03] MEDS: PHENAZOPYRIDINE HCL 100 MG TABLET (FP) PO SCH ×2 (05:46→13:15)
[2018-04-03] MEDS: HEPARIN NA (PORCINE) 5,000 UNITS/ML 1ML VIAL SQ SCH ×2 (06:28→13:16)
[2018-04-03] MEDS: LEVOTHYROXINE NA 25 MCG TABLET (FP) PO SCH (06:28)
[2018-04-03 08:19] LABS: BASO % 0.5 % (0-2.0); EOS % 8.7 % (0-4.5); HEMATOCRIT 29.5 % (32.4-45.2); HEMOGLOBIN 9.9 GM/dL (10.7-15.3); LYMPH % 16.3 % (8-40); MCH 30.4 pg (25.7-33.7); MCHC 33.4 g/dl (32.0-36.0); MEAN CELL VOLUME 90.8 fl (80-96); MEAN PLT VOLUME 7.1 fl (7.5-11.1); MONO % 12.3 % (3.8-10.2); NEUT % 62.2 % (42.8-82.8); PLATELET COUNT 217 K/MM3 (134-434); RBC 3.24 M/mm3 (3.60-5.2); RDW 13.9 % (11.6-15.6); WHITE BLOOD COUNT 4.5 K/mm3 (4.0-10.0)
[2018-04-03 08:20] LABS: INR 1.17 (0.82-1.09); PROTHROMBIN TIME (PATIENT) 13.2 SEC (9.7-13.0)
[2018-04-03 08:40] LABS: CHLORIDE 106 mmol/L (98-107); POTASSIUM 3.3 mmol/L (3.5-5.1); SODIUM 140 mmol/L (136-145)
[2018-04-03 09:40] LABS: ALBUMIN 2.8 g/dl (3.4-5.0); ALK PHOS 35 U/L (45-117); ANION GAP 12 (8-16); BILIRUBIN,TOTAL 0.5 mg/dL (0.2-1.0); BLOOD UREA NITROGEN 6 mg/dL (7-18); CALCIUM 8.1 mg/dL (8.5-10.1); CO2 22 mmol/L (21-32); CREATININE 0.6 mg/dL (0.55-1.02); GLUCOSE,RANDOM 73 mg/dL (74-106); MAGNESIUM 1.4 mg/dL (1.8-2.4); PHOSPHOROUS 3.1 mg/dL (2.5-4.9); SGOT/AST 9 U/L (15-37); SGPT/ALT 8 U/L (12-78); TOT PROT 5.5 g/dl (6.4-8.2)
[2018-04-03] MEDS ORDERED: POTASSIUM CHLORIDE TABS 20 MEQ TABLET.ER (FP) PO ONE (09:45)
[2018-04-03] MEDS: CHOLESTYRAMINE/ASPARTAME 4 GM PACKET PO SCH (10:40)
[2018-04-03] MEDS: EZETIMIBE 10 MG TABLET (FP) PO SCH (10:40)
[2018-04-03] MEDS: MULTIVITAMINS (DAILY MVI) TABLET (FP) PO SCH (10:40)
[2018-04-03] MEDS: MAGNESIUM OXIDE 400 MG TABLET (FP) PO SCH (10:41)
[2018-04-03] MEDS: PANTOPRAZOLE 20 MG TABLET (FP) PO SCH (10:41)
[2018-04-03] MEDS: CALCIUM 500MG/VIT-D 200 UNITS COMBO TABLET (FP) PO SCH (10:41)
[2018-04-03 11:53] LABS: ACANTHOCYTES 0; ANISOCYTOSIS 0; HELMET CELLS 0; HOWELL-JOLLY BODIES 0; MACROCYTOSIS 0; OVALOCYTE 0; PLATELET ESTIMATE NORMAL; ROULEAU 0; SICKELED CELLS 0; TARGET CELLS 0; TEAR DROP CELLS 0; TOXIC GRANULATION 0
[2018-04-03] MEDS ORDERED: BISACODYL 5 MG TABLET.DR (FP) PO ONE (12:15)
--- NOTE | 2018-04-03 12:28 | PN ---
Progress Note (short form) - Note Progress Note: is admitted for recurrent diarrhea. poor po intake +fatigue and weakness O/E: general: NAD HEENT: NCAT Cor:RRR Lungs: CTA b/l Abd: soft NT Extremities: No CCE Last Vital Signs Temp Pulse Resp BP Pulse Ox 98.1 F 89 18 119/75 98 04/03/18 10:00 04/03/18 10:00 04/03/18 10:00 04/03/18 10:00 04/02/18 18:04 CBC, BMP 04/03/18 06:30 04/03/18 06:30 Current Medications Generic Name Dose Route Start Last Admin Trade Name Freq PRN Reason Stop Dose Admin Calcium Carbonate/Cholecalciferol 1 tab 04/02/18 10:00 04/03/18 10:41 Os-Venkatesh 500+D - PO 1 tab DAILY JETHRO Administration Cholestyramine Resin 4 gm 04/03/18 10:00 04/03/18 10:40 Questran Light Packet - PO 4 gm DAILY JETHRO Administration Ezetimibe 10 mg 04/02/18 10:00 04/03/18 10:40 Zetia - PO 10 mg DAILY JETHRO Administration Heparin Sodium (Porcine) 5,000 unit 04/02/18 06:00 04/03/18 06:28 Heparin - SQ 5,000 unit TID JETHRO Administration Levothyroxine Sodium 25 mcg 04/02/18 07:00 04/03/18 06:28 Synthroid - PO 25 mcg DAILY@0700 JETHRO Administration Magnesium Oxide 400 mg 04/02/18 10:00 04/03/18 10:41 Mag-Ox - PO 400 mg DAILY JETHRO Administration Multivitamins/Minerals/Vitamin C 1 tab 04/03/18 10:00 04/03/18 10:40 Tab-A-Vit - PO 1 tab DAILY JETHRO Administration Pantoprazole Sodium 20 mg 04/02/18 10:00 04/03/18 10:41 Protonix - PO 20 mg DAILY JETHRO Administration Phenazopyridine HCl 100 mg 04/02/18 06:00 04/03/18 05:46 Pyridium - PO Not Given TID JETHRO Polyethylene Glycol/Electrolytes 4,000 ml 04/03/18 18:00 Golytely Solution - PO 04/03/18 18:01 ONCE ONE Prochlorperazine Maleate 10 mg 04/02/18 00:24 Compazine - PO Q8H PRN NAUSEA h/o Cervical Ca- s/p chemo RT Anemia recurrent Diarrhea. HypoMag HypoK -for GI w/u- -for stool studies -monitor cr -replete lytes
[2018-04-03] MEDS ORDERED: MAGNESIUM 2GM/50ML STERILE WATER IVPB IVPB ONE (13:00)
[2018-04-03] MEDS ORDERED: PT OWN MED DRAWER 7, Y5N ONE ×3 (13:10→18:26)
--- NOTE | 2018-04-03 16:49 | PN ---
Progress Note, Physician History of Present Illness: No acute events overnight. Comfortable. - Current Medication List Current Medications: Active Medications Calcium Carbonate/Cholecalciferol (Os-Venkatesh 500+D -) 1 tab PO DAILY [facility] Last Admin: 04/03/18 10:41 Dose: 1 tab Cholestyramine Resin (Questran Light Packet -) 4 gm PO DAILY [facility] Last Admin: 04/03/18 10:40 Dose: 4 gm Ezetimibe (Zetia -) 10 mg PO DAILY [facility] Last Admin: 04/03/18 10:40 Dose: 10 mg Heparin Sodium (Porcine) (Heparin -) 5,000 unit SQ TID [facility] Last Admin: 04/03/18 13:16 Dose: 5,000 unit Levothyroxine Sodium (Synthroid -) 25 mcg PO DAILY@0700 [facility] Last Admin: 04/03/18 06:28 Dose: 25 mcg Magnesium Oxide (Mag-Ox -) 400 mg PO DAILY [facility] Last Admin: 04/03/18 10:41 Dose: 400 mg Multivitamins/Minerals/Vitamin C (Tab-A-Vit -) 1 tab PO DAILY [facility] Last Admin: 04/03/18 10:40 Dose: 1 tab Pantoprazole Sodium (Protonix -) 20 mg PO DAILY [facility] Last Admin: 04/03/18 10:41 Dose: 20 mg Phenazopyridine HCl (Pyridium -) 100 mg PO TID [facility] Last Admin: 04/03/18 13:15 Dose: 100 mg Polyethylene Glycol/Electrolytes (Golytely Solution -) 4,000 ml PO ONCE ONE Stop: 04/03/18 18:01 Prochlorperazine Maleate (Compazine -) 10 mg PO Q8H PRN PRN Reason: NAUSEA - Objective Vital Signs: Vital Signs Temperature 98.2 F 04/03/18 14:46 Pulse Rate 70 04/03/18 14:46 Respiratory Rate 18 04/03/18 14:46 Blood Pressure 120/70 04/03/18 14:46 O2 Sat by Pulse Oximetry (%) 98 04/02/18 18:04 Constitutional: Yes: Cachectic, Thin Gastrointestinal: Yes: Normal Bowel Sounds, Soft. No: Rectal Bleeding, Tenderness, Vomiting Labs: CBC, BMP 04/03/18 06:30 04/03/18 06:30 INR, PTT INR 1.17 (0.82-1.09) H 04/03/18 07:00 Laboratory Last Values WBC 4.5 K/mm3 (4.0-10.0) 04/03/18 06:30 RBC 3.24 M/mm3 (3.60-5.2) L 04/03/18 06:30 Hgb 9.9 GM/dL (10.7-15.3) L 04/03/18 06:30 Hct 29.5 % (32.4-45.2) L 04/03/18 06:30 MCV 90.8 fl (80-96) 04/03/18 06:30 MCH 30.4 pg (25.7-33.7) 04/03/18 06:30 MCHC 33.4 g/dl (32.0-36.0) 04/03/18 06:30 RDW 13.9 % (11.6-15.6) 04/03/18 06:30 Plt Count 217 K/MM3 (134-434) 04/03/18 06:30 MPV 7.1 fl (7.5-11.1) L 04/03/18 06:30 Neutrophils % 62.2 % (42.8-82.8) 04/03/18 06:30 Neutrophils % (Manual) 60.8 % (42.8-82.8) D 04/03/18 06:30 Band Neutrophils % 0.0 % 04/03/18 06:30 Lymphocytes % 16.3 % (8-40) D 04/03/18 06:30 Lymphocytes % (Manual) 16.5 % (8-40) 04/03/18 06:30 Monocytes % 12.3 % (3.8-10.2) H 04/03/18 06:30 Monocytes % (Manual) 9 % (3.8-10.2) 04/03/18 06:30 Eosinophils % 8.7 % (0-4.5) H 04/03/18 06:30 Eosinophils % (Manual) 12.4 % (0-4.5) H 04/03/18 06:30 Basophils % 0.5 % (0-2.0) 04/03/18 06:30 Basophils % (Manual) 0.0 % (0-2.0) 04/03/18 06:30 Myelocytes % (Man) 1 % (0-2) 05/22/18 06:30 Promyelocytes % (Man) 0 % (0-2) 04/03/18 06:30 Blast Cells % (Manual) 0 % (0-0) 04/03/18 06:30 Nucleated RBC % 0 % (0-0) 04/03/18 06:30 Metamyelocytes 0 % (0-2) D 04/03/18 06:30 Hypochromia 0 04/03/18 06:30 Toxic Granulation 0 04/03/18 06:30 Dohle Bodies 0 04/03/18 06:30 Platelet Estimate Normal 04/03/18 06:30 Polychromasia 0 04/03/18 06:30 Poikilocytosis 0 04/03/18 06:30 Basophilic Stippling 0 04/03/18 06:30 Anisocytosis 0 04/03/18 06:30 Microcytosis 0 04/03/18 06:30 Macrocytosis 0 04/03/18 06:30 Spherocytes 0 04/03/18 06:30 Sickle Cells 0 04/03/18 06:30 Target Cells 0 04/03/18 06:30 Tear Drop Cells 0 04/03/18 06:30 Ovalocytes 0 04/03/18 06:30 Stomatocytes 0 04/03/18 06:30 Helmet Cells 0 04/03/18 06:30 [place] Bodies 0 04/03/18 06:30 [place] Rings 0 04/03/18 06:30 [place] Cells 0 04/03/18 06:30 Acanthocytes (Spur) 0 04/03/18 06:30 Rouleaux 0 04/03/18 06:30 Fragmented RBCs 0 04/03/18 06:30 Schistocytes 0 04/03/18 06:30 PT with INR 13.20 SEC (9.7-13.0) H 04/03/18 07:00 INR 1.17 (0.82-1.09) H 04/03/18 07:00 PTT (Actin FS) 41.3 SECONDS (26.9-34.4) H D 04/02/18 19:30 Sodium 140 mmol/L (136-145) 04/03/18 06:30 Potassium 3.3 mmol/L (3.5-5.1) L 04/03/18 06:30 Chloride 106 mmol/L (98-107) 04/03/18 06:30 Carbon Dioxide 22 mmol/L (21-32) 04/03/18 06:30 Anion Gap 12 (8-16) 04/03/18 06:30 BUN 6 mg/dL (7-18) L 04/03/18 06:30 Creatinine 0.6 mg/dL (0.55-1.02) 04/03/18 06:30 Creat Clearance w eGFR > 60 (>60) 04/03/18 06:30 Random Glucose 73 mg/dL (74-106) L 04/03/18 06:30 Calcium 8.1 mg/dL (8.5-10.1) L 04/03/18 06:30 Phosphorus 3.1 mg/dL (2.5-4.9) 04/03/18 06:30 Magnesium 1.4 mg/dL (1.8-2.4) L 04/03/18 06:30 Total Bilirubin 0.5 mg/dL (0.2-1.0) 04/03/18 06:30 AST 9 U/L (15-37) L 04/03/18 06:30 ALT 8 U/L (12-78) L 04/03/18 06:30 Alkaline Phosphatase 35 U/L (45-117) L 04/03/18 06:30 Creatine Kinase 51 IU/L (26-192) 04/01/18 18:26 Troponin I < 0.02 ng/ml (0.00-0.05) 04/01/18 18:26 Total Protein 5.5 g/dl (6.4-8.2) L 04/03/18 06:30 Albumin 2.8 g/dl (3.4-5.0) L 04/03/18 06:30 Urine Color Colorless 04/01/18 19:53 Urine Appearance Clear 04/01/18 19:53 Urine pH 6.0 (5.0-8.0) 04/01/18 19:53 Ur Specific [place] 1.003 (1.001-1.035) 04/01/18 19:53 Urine Protein Negative (NEGATIVE) 04/01/18 19:53 Urine Glucose (UA) Negative (NEGATIVE) 04/01/18 19:53 Urine Ketones Trace (NEGATIVE) H 04/01/18 19:53 Urine Blood 2+ (NEGATIVE) H 04/01/18 19:53 Urine Nitrite Negative (NEGATIVE) 04/01/18 19:53 Urine Bilirubin Negative (<2.0 mg/dL) 04/01/18 19:53 Urine Urobilinogen Negative mg/dL (0.2-1.0) 04/01/18 19:53 Ur Leukocyte Esterase Negative (NEGATIVE) 04/01/18 19:53 Urine WBC (Auto) 2 /hpf (3-5) 04/01/18 19:53 Urine RBC (Auto) 2 /hpf (0-3) 04/01/18 19:53 Hyaline Casts 1 /lpf 04/01/18 19:53 Problem List - Problems (1) Diarrhea Code(s): R19.7 - DIARRHEA, UNSPECIFIED (2) Cervical cancer Code(s): C53.9 - MALIGNANT NEOPLASM OF CERVIX UTERI, UNSPECIFIED (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 She verbalizes understanding and agrees with the plan. clear liquid diet and bowel prep today. CBC, CMP, PT/ INR in a.m.
--- NOTE | 2018-04-03 17:07 | PN ---
Physical Exam: SUBJECTIVE: Patient seen and examined. Took a few bites of the BRAT diet, but does not like it much. Pt has 3 bowel movements overnight and 2 in the am. No fevers, no abdominal pain, no n/v. She just complains about not having an appetite OBJECTIVE: Vital Signs Period Temp Pulse Resp BP Sys/Rankin Pulse Ox Last 24 Hr 98.1 F-98.6 F 70-94 18-20 119-136/59-88 96-98 Vital Signs Temp 98.2 F 04/03/18 14:46 Pulse 70 04/03/18 14:46 Resp 18 04/03/18 14:46 BP 120/70 04/03/18 14:46 Pulse Ox 98 04/02/18 18:04 Intake & Output 04/02/18 04/03/18 04/03/18 23:59 11:59 23:59 Weight 44.906 kg 44.906 kg Other: Voiding Method Toilet Toilet Bowel Movement Yes Yes Yes # Bowel Movements 2 2 Height 1.32 m 1.32 m Body Mass Index (BMI) 25.7 25.7 Weight Measurement Method Built in [facility] GENERAL: The patient is awake, alert, and fully oriented, in no acute distress. LUNGS: Breath sounds equal, clear to auscultation bilaterally HEART: Regular rate and rhythm, S1, S2 ABDOMEN: Soft, nontender, nondistended, normoactive bowel sounds, EXTREMITIES: 2+ pulses, warm, well-perfused, no edema. NEUROLOGICAL: Cranial nerves II through XII grossly intact. Normal speech, gait not observed. PSYCH: Normal mood, normal affect. SKIN: Warm, dry, normal turgor, no rashes or lesions noted CBC, BMP 04/03/18 06:30 04/03/18 06:30 Laboratory Results - last 24 hr 04/02/18 04/03/18 04/03/18 19:30 06:30 06:30 WBC 4.5 RBC 3.24 L Hgb 9.9 L Hct 29.5 L MCV 90.8 MCH 30.4 MCHC 33.4 RDW 13.9 Plt Count 217 MPV 7.1 L Neutrophils % 62.2 Neutrophils % (Manual) 60.8 D Band Neutrophils % 0.0 Lymphocytes % 16.3 D Lymphocytes % (Manual) 16.5 Monocytes % 12.3 H Monocytes % (Manual) 9 Eosinophils % 8.7 H Eosinophils % (Manual) 12.4 H Basophils % 0.5 Basophils % (Manual) 0.0 Myelocytes % (Man) 1 Promyelocytes % (Man) 0 Blast Cells % (Manual) 0 Nucleated RBC % 0 Metamyelocytes 0 D Hypochromia 0 Toxic Granulation 0 Dohle Bodies 0 Platelet Estimate Normal Polychromasia 0 Poikilocytosis 0 Basophilic Stippling 0 Anisocytosis 0 Microcytosis 0 Macrocytosis 0 Spherocytes 0 Sickle Cells 0 Target Cells 0 Tear Drop Cells 0 Ovalocytes 0 Stomatocytes 0 Helmet Cells 0 Avila-Seffner Bodies 0 [place] Rings 0 [place] Cells 0 Acanthocytes (Spur) 0 Rouleaux 0 Fragmented RBCs 0 Schistocytes 0 PT with INR INR PTT (Actin FS) 41.3 H D Sodium 140 Potassium 3.3 L Chloride 106 Carbon Dioxide 22 Anion Gap 12 BUN 6 L Creatinine 0.6 Creat Clearance w eGFR > 60 Random Glucose 73 L Calcium 8.1 L Phosphorus 3.1 Magnesium 1.4 L Total Bilirubin 0.5 AST 9 L ALT 8 L Alkaline Phosphatase 35 L Total Protein 5.5 L Albumin 2.8 L 04/03/18 07:00 WBC RBC Hgb Hct MCV MCH MCHC RDW Plt Count MPV Neutrophils % Neutrophils % (Manual) Band Neutrophils % Lymphocytes % Lymphocytes % (Manual) Monocytes % Monocytes % (Manual) Eosinophils % Eosinophils % (Manual) Basophils % Basophils % (Manual) Myelocytes % (Man) Promyelocytes % (Man) Blast Cells % (Manual) Nucleated RBC % Metamyelocytes Hypochromia Toxic Granulation Dohle Bodies Platelet Estimate Polychromasia Poikilocytosis Basophilic Stippling Anisocytosis Microcytosis Macrocytosis Spherocytes Sickle Cells Target Cells Tear Drop Cells Ovalocytes Stomatocytes Helmet Cells Avila-Seffner Bodies [place] Rings [place] Cells Acanthocytes (Spur) Rouleaux Fragmented RBCs Schistocytes PT with INR 13.20 H INR 1.17 H PTT (Actin FS) Sodium Potassium Chloride Carbon Dioxide Anion Gap BUN Creatinine Creat Clearance w eGFR Random Glucose Calcium Phosphorus Magnesium Total Bilirubin AST ALT Alkaline Phosphatase Total Protein Albumin Active Medications Generic Name Dose Route Start Last Admin Trade Name Freq PRN Reason Stop Dose Admin Calcium Carbonate/Cholecalciferol 1 tab 04/02/18 10:00 05/22/18 10:41 Os-Venkatesh 500+D - PO 1 tab DAILY JETHRO Administration Cholestyramine Resin 4 gm 04/03/18 10:00 04/03/18 10:40 Questran Light Packet - PO 4 gm DAILY JETHRO Administration Ezetimibe 10 mg 04/02/18 10:00 04/03/18 10:40 Zetia - PO 10 mg DAILY JETHRO Administration Heparin Sodium (Porcine) 5,000 unit 04/02/18 06:00 04/03/18 13:16 Heparin - SQ 5,000 unit TID JETHRO Administration Levothyroxine Sodium 25 mcg 04/02/18 07:00 04/03/18 06:28 Synthroid - PO 25 mcg DAILY@0700 JETHRO Administration Magnesium Oxide 400 mg 04/02/18 10:00 04/03/18 10:41 Mag-Ox - PO 400 mg DAILY JETHRO Administration Multivitamins/Minerals/Vitamin C 1 tab 04/03/18 10:00 04/03/18 10:40 Tab-A-Vit - PO 1 tab DAILY JETHRO Administration Pantoprazole Sodium 20 mg 04/02/18 10:00 04/03/18 10:41 Protonix - PO 20 mg DAILY JETHRO Administration Phenazopyridine HCl 100 mg 04/02/18 06:00 04/03/18 13:15 Pyridium - PO 100 mg TID JETHRO Administration Polyethylene Glycol/Electrolytes 4,000 ml 04/03/18 18:00 Golytely Solution - PO 04/03/18 18:01 ONCE ONE Prochlorperazine Maleate 10 mg 04/02/18 00:24 Compazine - PO Q8H PRN NAUSEA Ambulatory Orders Ezetimibe [Zetia] 10 mg PO DAILY 05/24/13 Levothyroxine [Synthroid -] 25 mcg PO DAILY 05/24/13 Prochlorperazine Maleate [Compazine] 10 mg PO Q8H PRN 03/12/18 Magnesium Oxide [Mag-Ox -] 400 mg PO DAILY #30 tablet 03/14/18 Alendronate Na [Fosamax] 70 mg PO Q7D 04/01/18 Calcium Carbonate/Vitamin D3 [Calcium 600 + D3 Softgel] 1 each PO DAILY Active Medications Calcium Carbonate/Cholecalciferol (Os-Venkatesh 500+D -) 1 tab PO DAILY [facility] Last Admin: 04/03/18 10:41 Dose: 1 tab Cholestyramine Resin (Questran Light Packet -) 4 gm PO DAILY [facility] Last Admin: 04/03/18 10:40 Dose: 4 gm Ezetimibe (Zetia -) 10 mg PO DAILY [facility] Last Admin: 04/03/18 10:40 Dose: 10 mg Heparin Sodium (Porcine) (Heparin -) 5,000 unit SQ TID [facility] Last Admin: 04/03/18 13:16 Dose: 5,000 unit Levothyroxine Sodium (Synthroid -) 25 mcg PO DAILY@0700 [facility] Last Admin: 04/03/18 06:28 Dose: 25 mcg Magnesium Oxide (Mag-Ox -) 400 mg PO DAILY [facility] Last Admin: 04/03/18 10:41 Dose: 400 mg Multivitamins/Minerals/Vitamin C (Tab-A-Vit -) 1 tab PO DAILY [facility] Last Admin: 04/03/18 10:40 Dose: 1 tab Pantoprazole Sodium (Protonix -) 20 mg PO DAILY [facility] Last Admin: 04/03/18 10:41 Dose: 20 mg Phenazopyridine HCl (Pyridium -) 100 mg PO TID [facility] Last Admin: 04/03/18 13:15 Dose: 100 mg Polyethylene Glycol/Electrolytes (Golytely Solution -) 4,000 ml PO ONCE ONE Stop: 04/03/18 18:01 Prochlorperazine Maleate (Compazine -) 10 mg PO Q8H PRN PRN Reason: NAUSEA ASSESSMENT/PLAN: 77 yo F with PMHx of hypothyroidism, HLD, Gerd, recently discharged on treatment for 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 #Abdominal pain R/O colitis, diverticulitis, proctocolitis from radiation. pt without fever/wbc count but may not mount adequate immune response per cancer hx last admission, pt was negative for c.dif, repeat- stool not adequate Was npo prior to GI eval, now on BRAT diet consult dr. Mcgovern- appreciate recs On cholestyramine as stool binder per GI Now NPO after midnight with bowel prep for endoscopy/colonoscopy with biopsy per Dr Mcgovern #Poor appetite Multivitamins daily -#hypokalemia likely due to GI loss, Replete as needed check Mg/phos #Hypomg Replete #HLD zetia 10mg po HS #hypothyroid levothyroxine 25mch po daily #GERD pantoprazole #PPx SQ heparin 5000 tid Dispo: For endo/colonoscopy tomorrow Visit type - Emergency Visit Emergency Visit: Yes ED Registration Date: 04/01/18 Care time: The patient presented to the Emergency Department on the above date and was hospitalized for further evaluation of their emergent condition. - New Patient This patient is new to me today: No - Critical Care Critical Care patient: No - Discharge Referral Referred to [facility] Med P.C.: No
--- NOTE | 2018-04-03 17:51 | PN ---
Teaching Attending Note Name of Resident: Pura Graf ATTENDING PHYSICIAN STATEMENT I saw and evaluated the patient. I reviewed the resident's note and discussed the case with the resident. I agree with the resident's findings and plan as documented with exceptions below. SUBJECTIVE: Patient seen and examined. still with poor appetite and mucoid watery stools every time drinks liquid. No nausea, vomiting, fevers or abdominal pain. OBJECTIVE: Vital Signs Period Temp Pulse Resp BP Sys/Rankin Pulse Ox Last 24 Hr 98.1 F-98.6 F 70-94 18-20 119-136/59-78 98 Intake & Output 03/31/18 04/01/18 04/02/18 04/03/18 23:59 23:59 23:59 23:59 Weight 98 lb 99 lb 99 lb General: lying in bed in no acute distress Abdomen: soft, NT throughout, ND, no voluntary or involuntary guarding or rigidity, positive bowel sounds Extremities: no edema Chest: CTAB, no rales or wheezing Home Medication List Medication Instructions Recorded Confirmed Type Ezetimibe [Zetia] 10 mg PO DAILY 05/24/13 04/01/18 History Levothyroxine [Synthroid -] 25 mcg PO DAILY 05/24/13 04/01/18 History Prochlorperazine Maleate 10 mg PO Q8H PRN 03/12/18 04/01/18 History [Compazine] Alendronate Na [Fosamax] 70 mg PO Q7D 04/01/18 04/02/18 History Calcium Carbonate/Vitamin D3 1 each PO DAILY 04/01/18 04/01/18 History [Calcium 600 + D3 Softgel] Active Medications Generic Name Dose Route Start Last Admin Trade Name Freq PRN Reason Stop Dose Admin Calcium Carbonate/Cholecalciferol 1 tab 04/02/18 10:00 04/03/18 10:41 Os-Venkatesh 500+D - PO 1 tab DAILY JETHRO Administration Cholestyramine Resin 4 gm 04/03/18 10:00 04/03/18 10:40 Questran Light Packet - PO 4 gm DAILY JETHRO Administration Ezetimibe 10 mg 04/02/18 10:00 04/03/18 10:40 Zetia - PO 10 mg DAILY JETHRO Administration Heparin Sodium (Porcine) 5,000 unit 04/02/18 06:00 04/03/18 13:16 Heparin - SQ 5,000 unit TID JETHRO Administration Levothyroxine Sodium 25 mcg 04/02/18 07:00 04/03/18 06:28 Synthroid - PO 25 mcg DAILY@0700 JETHRO Administration Magnesium Oxide 400 mg 04/02/18 10:00 04/03/18 10:41 Mag-Ox - PO 400 mg DAILY JETHRO Administration Multivitamins/Minerals/Vitamin C 1 tab 04/03/18 10:00 04/03/18 10:40 Tab-A-Vit - PO 1 tab DAILY JETHRO Administration Pantoprazole Sodium 20 mg 04/02/18 10:00 04/03/18 10:41 Protonix - PO 20 mg DAILY JETHRO Administration Phenazopyridine HCl 100 mg 04/02/18 06:00 04/03/18 13:15 Pyridium - PO 100 mg TID JETHRO Administration Polyethylene Glycol/Electrolytes 4,000 ml 04/03/18 18:00 Golytely Solution - PO 04/03/18 18:01 ONCE ONE Prochlorperazine Maleate 10 mg 04/02/18 00:24 Compazine - PO Q8H PRN NAUSEA Laboratory Results - last 24 hr 04/02/18 04/03/18 04/03/18 19:30 06:30 06:30 WBC 4.5 RBC 3.24 L Hgb 9.9 L Hct 29.5 L MCV 90.8 MCH 30.4 MCHC 33.4 RDW 13.9 Plt Count 217 MPV 7.1 L Neutrophils % 62.2 Neutrophils % (Manual) 60.8 D Band Neutrophils % 0.0 Lymphocytes % 16.3 D Lymphocytes % (Manual) 16.5 Monocytes % 12.3 H Monocytes % (Manual) 9 Eosinophils % 8.7 H Eosinophils % (Manual) 12.4 H Basophils % 0.5 Basophils % (Manual) 0.0 Myelocytes % (Man) 1 Promyelocytes % (Man) 0 Blast Cells % (Manual) 0 Nucleated RBC % 0 Metamyelocytes 0 D Hypochromia 0 Toxic Granulation 0 Dohle Bodies 0 Platelet Estimate Normal Polychromasia 0 Poikilocytosis 0 Basophilic Stippling 0 Anisocytosis 0 Microcytosis 0 Macrocytosis 0 Spherocytes 0 Sickle Cells 0 Target Cells 0 Tear Drop Cells 0 Ovalocytes 0 Stomatocytes 0 Helmet Cells 0 Avila-[place] Bodies 0 [place] Rings 0 [place] Cells 0 Acanthocytes (Spur) 0 Rouleaux 0 Fragmented RBCs 0 Schistocytes 0 PT with INR INR PTT (Actin FS) 41.3 H D Sodium 140 Potassium 3.3 L Chloride 106 Carbon Dioxide 22 Anion Gap 12 BUN 6 L Creatinine 0.6 Creat Clearance w eGFR > 60 Random Glucose 73 L Calcium 8.1 L Phosphorus 3.1 Magnesium 1.4 L Total Bilirubin 0.5 AST 9 L ALT 8 L Alkaline Phosphatase 35 L Total Protein 5.5 L Albumin 2.8 L 04/03/18 07:00 WBC RBC Hgb Hct MCV MCH MCHC RDW Plt Count MPV Neutrophils % Neutrophils % (Manual) Band Neutrophils % Lymphocytes % Lymphocytes % (Manual) Monocytes % Monocytes % (Manual) Eosinophils % Eosinophils % (Manual) Basophils % Basophils % (Manual) Myelocytes % (Man) Promyelocytes % (Man) Blast Cells % (Manual) Nucleated RBC % Metamyelocytes Hypochromia Toxic Granulation Dohle Bodies Platelet Estimate Polychromasia Poikilocytosis Basophilic Stippling Anisocytosis Microcytosis Macrocytosis Spherocytes Sickle Cells Target Cells Tear Drop Cells Ovalocytes Stomatocytes Helmet Cells Avila-[place] Bodies [place] Rings [place] Cells Acanthocytes (Spur) Rouleaux Fragmented RBCs Schistocytes PT with INR 13.20 H INR 1.17 H PTT (Actin FS) Sodium Potassium Chloride Carbon Dioxide Anion Gap BUN Creatinine Creat Clearance w eGFR Random Glucose Calcium Phosphorus Magnesium Total Bilirubin AST ALT Alkaline Phosphatase Total Protein Albumin Microbiology 04/01/18 19:53 Urine - Urine Clean Catch Urine Culture - Final NO GROWTH OBTAINED ASSESSMENT AND PLAN: 77yo F wtih PMH asthma, hypothyroid, and cervical ca s/p chemo-radiation, recently admitted with diarrhea re-admitted with similar symptoms with poor oral intake and ongoing diarrhea -Persistent diarrhea, ?radiation proctocolitis, r/o infectious/inflammatory etiology -Failure to thrive, ?Secondary to chemoradiation -Hypokalemia, due to above -Normocytic anemia -Hypothyroidism -Cervical Ca s/p chemoradaition Plan: GI input noted, for EGD/colonoscopy in AM. Stool studies. C defficile but low suspicion. Replete k prn. monitor h/h. Continue levothyroxine. Oncology input. Nutrition consult. DvTPPX Dispo pending above, in 48 hours if no concerns. Plan discussed with patient in detail, all questions answered.
[2018-04-03] MEDS ORDERED: PEG 3350/NA SULF BICARB CL/KCL 4000 ML SOLN.RECON PO ONE (18:00)
[2018-04-03] MEDS ORDERED: HEPARIN NA (PORCINE) 5,000 UNITS/ML 1ML VIAL SQ SCH (22:00)
--- NOTE | 2018-04-04 07:29 | PN ---
Physical Exam: SUBJECTIVE: Patient seen and examined. Was not able to tolerate much of the bowel prep. Had abdominal discomfort, but no nausea/vomiting and no pain. Feels weak. OBJECTIVE: Vital Signs Period Temp Pulse Resp BP Sys/Rankin Pulse Ox Last 24 Hr 98.1 F-98.9 F 70-106 18-20 119-146/68-79 Vital Signs Temp 98.4 F 04/04/18 15:34 Pulse 85 04/04/18 15:34 Resp 18 04/04/18 15:34 BP 121/57 04/04/18 15:34 Pulse Ox 100 04/04/18 14:03 Intake & Output 04/03/18 04/04/18 04/04/18 23:59 11:59 23:59 Intake Total 100 240 Balance 100 240 Weight 44.906 kg Intake: IV 240 IVPB 100 Oral 0 Other: Voiding Method Toilet Toilet Bowel Movement Yes Yes Height 1.32 m Body Mass Index (BMI) 25.7 GENERAL: The patient is awake, looks tired, AAOx 3 ENT: dry mucous membranes. LUNGS: Breath sounds equal, clear to auscultation bilaterally HEART: Regular rate and rhythm, S1, S2 without murmur ABDOMEN: Soft, nontender, nondistended, hypoactive bowel sounds EXTREMITIES: 2+ pulses, warm, well-perfused, no edema. NEUROLOGICAL: AAOx3, Laboratory Results - last 24 hr 04/03/18 04/03/18 04/03/18 06:30 06:30 07:00 WBC 4.5 RBC 3.24 L Hgb 9.9 L Hct 29.5 L MCV 90.8 MCH 30.4 MCHC 33.4 RDW 13.9 Plt Count 217 MPV 7.1 L Neutrophils % 62.2 Neutrophils % (Manual) 60.8 D Band Neutrophils % 0.0 Lymphocytes % 16.3 D Lymphocytes % (Manual) 16.5 Monocytes % 12.3 H Monocytes % (Manual) 9 Eosinophils % 8.7 H Eosinophils % (Manual) 12.4 H Basophils % 0.5 Basophils % (Manual) 0.0 Myelocytes % (Man) 1 Promyelocytes % (Man) 0 Blast Cells % (Manual) 0 Nucleated RBC % 0 Metamyelocytes 0 D Hypochromia 0 Toxic Granulation 0 Dohle Bodies 0 Platelet Estimate Normal Polychromasia 0 Poikilocytosis 0 Basophilic Stippling 0 Anisocytosis 0 Microcytosis 0 Macrocytosis 0 Spherocytes 0 Sickle Cells 0 Target Cells 0 Tear Drop Cells 0 Ovalocytes 0 Stomatocytes 0 Helmet Cells 0 Avila-[place]ston Bodies 0 [place] Rings 0 [place] Cells 0 Acanthocytes (Spur) 0 Rouleaux 0 Fragmented RBCs 0 Schistocytes 0 PT with INR 13.20 H INR 1.17 H Sodium 140 Potassium 3.3 L Chloride 106 Carbon Dioxide 22 Anion Gap 12 BUN 6 L Creatinine 0.6 Creat Clearance w eGFR > 60 Random Glucose 73 L Calcium 8.1 L Phosphorus 3.1 Magnesium 1.4 L Total Bilirubin 0.5 AST 9 L ALT 8 L Alkaline Phosphatase 35 L Total Protein 5.5 L Albumin 2.8 L Active Medications Generic Name Dose Route Start Last Admin Trade Name Freq PRN Reason Stop Dose Admin Calcium Carbonate/Cholecalciferol 1 tab 04/02/18 10:00 04/03/18 10:41 Os-Venkatesh 500+D - PO 1 tab DAILY JETHRO Administration Cholestyramine Resin 4 gm 04/03/18 10:00 04/03/18 10:40 Questran Light Packet - PO 4 gm DAILY JETHRO Administration Ezetimibe 10 mg 04/02/18 10:00 04/03/18 10:40 Zetia - PO 10 mg DAILY JETHRO Administration Levothyroxine Sodium 25 mcg 04/02/18 07:00 04/03/18 06:28 Synthroid - PO 25 mcg DAILY@0700 JETHRO Administration Magnesium Oxide 400 mg 04/02/18 10:00 04/03/18 10:41 Mag-Ox - PO 400 mg DAILY JETHRO Administration Multivitamins/Minerals/Vitamin C 1 tab 04/03/18 10:00 04/03/18 10:40 Tab-A-Vit - PO 1 tab DAILY JETHRO Administration Pantoprazole Sodium 20 mg 04/02/18 10:00 04/03/18 10:41 Protonix - PO 20 mg DAILY JETHRO Administration Prochlorperazine Maleate 10 mg 04/02/18 00:24 Compazine - PO Q8H PRN NAUSEA Current Medications Calcium Carbonate/Cholecalciferol (Os-Venkatesh 500+D -) 1 tab PO DAILY JETHRO Last Admin: 04/03/18 10:41 Dose: 1 tab Cholestyramine Resin (Questran Light Packet -) 4 gm PO DAILY JETHRO Last Admin: 04/03/18 10:40 Dose: 4 gm Ezetimibe (Zetia -) 10 mg PO DAILY [facility] Last Admin: 04/03/18 10:40 Dose: 10 mg Levothyroxine Sodium (Synthroid -) 25 mcg PO DAILY@0700 [facility] Last Admin: 04/03/18 06:28 Dose: 25 mcg Magnesium Oxide (Mag-Ox -) 400 mg PO DAILY [facility] Last Admin: 04/03/18 10:41 Dose: 400 mg Multivitamins/Minerals/Vitamin C (Tab-A-Vit -) 1 tab PO DAILY [facility] Last Admin: 04/03/18 10:40 Dose: 1 tab Pantoprazole Sodium (Protonix -) 20 mg PO DAILY [facility] Last Admin: 04/03/18 10:41 Dose: 20 mg Prochlorperazine Maleate (Compazine -) 10 mg PO Q8H PRN PRN Reason: NAUSEA Microbiology 04/03/18 13:00 Stool Clostridium difficile Antigen (LISA) - Final 04/03/18 13:00 Stool Clostridium difficile Toxin Assay - Final 04/03/18 13:00 Stool Salmonella/Shigella Culture - Preliminary NO ENTERIC PATHOGENS, 24 HOURS, ON PRIMARY PLATES 04/03/18 13:00 Stool Yersinia Culture - Preliminary NO ENTERIC PATHOGENS, 24 HOURS, ON PRIMARY PLATES 04/03/18 13:00 Stool Vibrio Culture - Final NO GROWTH OF VIBRIO SPECIES OBTAINED 04/03/18 13:00 Stool Escherichia coli 0157 Culture - Final NO GROWTH OF E COLI 0157 OBTAINED Endoscopy /colonoscopy 04/04/18: Small hiatal hernia, otherwise normal EGD, biposies teken. Edematous colon throughout w/o obvious erythema, hemorrhage, or ulcerations. "C.diff colitis" appearance. Normal TI. 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 C diff samples taken- now positive for both antigens and toxins A and B Multivitamins daily Per Dr Mcgovern-await biopsy results post colonsocopy Start Vanco PO 125 qid, continue cholestyramine. Low fat, dairy-free, low residual diet -#hypokalemia likely due to GI loss, Replete as needed- D5 with 20meq Kcl check Mg/phos - 2g Mg #Hypomg Replete as needed #HLD zetia 10mg po HS #hypothyroid levothyroxine 25mch po daily #GERD pantoprazole #PPx SQ heparin 5000 tid - Visit type - Emergency Visit Emergency Visit: Yes ED Registration Date: 04/01/18 Care time: The patient presented to the Emergency Department on the above date and was hospitalized for further evaluation of their emergent condition. - New Patient This patient is new to me today: No - Critical Care Critical Care patient: No - Discharge Referral Referred to [facility] Med P.C.: No
[2018-04-04] MEDS ORDERED: LACTATED RINGERS SOLUTION 1,000 ML/1,000 ML INFUS.BAG IV SCH ×2 (08:00→08:08)
[2018-04-04] MEDS ORDERED: SODIUM CHLORIDE 500 ML IV STA (08:01)
[2018-04-04 08:03] LABS: BASO % 0.1 % (0-2.0); HEMATOCRIT 31.5 % (32.4-45.2); HEMOGLOBIN 10.5 GM/dL (10.7-15.3); LYMPH % 7.2 % (8-40); MCH 30.2 pg (25.7-33.7); MCHC 33.5 g/dl (32.0-36.0); MEAN CELL VOLUME 90.2 fl (80-96); MEAN PLT VOLUME 7.1 fl (7.5-11.1); MONO % 11.1 % (3.8-10.2); NEUT % 79.6 % (42.8-82.8); PLATELET COUNT 272 K/MM3 (134-434); RBC 3.49 M/mm3 (3.60-5.2); RDW 13.8 % (11.6-15.6); WHITE BLOOD COUNT 8.8 K/mm3 (4.0-10.0)
[2018-04-04 08:13] LABS: INR 1.12 (0.82-1.09); PROTHROMBIN TIME (PATIENT) 12.6 SEC (9.7-13.0)
[2018-04-04] MEDS ORDERED: SODIUM CHLORIDE 1,000 ML IV SCH (08:15)
--- NOTE | 2018-04-04 08:16 | PN ---
Progress Note, Physician Chief Complaint: ID Full note dictated and discussed with housestaff - Current Medication List Current Medications: Active Medications Calcium Carbonate/Cholecalciferol (Os-Venkatesh 500+D -) 1 tab PO DAILY [facility] Last Admin: 04/03/18 10:41 Dose: 1 tab Cholestyramine Resin (Questran Light Packet -) 4 gm PO DAILY [facility] Last Admin: 04/03/18 10:40 Dose: 4 gm Ezetimibe (Zetia -) 10 mg PO DAILY [facility] Last Admin: 04/03/18 10:40 Dose: 10 mg Sodium Chloride (Normal Saline -) 500 mls @ 500 mls/hr IV ASDIR STA Stop: 04/04/18 09:00 Sodium Chloride (Normal Saline -) 1,000 mls @ 100 mls/hr IV ASDIR JETHRO Lactated Ringer's (Lactated Ringers Solution) 1,000 ml in 1,000 mls @ 75 mls/ hr IV ASDIR JETHRO Levothyroxine Sodium (Synthroid -) 25 mcg PO DAILY@0700 [facility] Last Admin: 04/03/18 06:28 Dose: 25 mcg Magnesium Oxide (Mag-Ox -) 400 mg PO DAILY [facility] Last Admin: 04/03/18 10:41 Dose: 400 mg Multivitamins/Minerals/Vitamin C (Tab-A-Vit -) 1 tab PO DAILY [facility] Last Admin: 04/03/18 10:40 Dose: 1 tab Pantoprazole Sodium (Protonix -) 20 mg PO DAILY [facility] Last Admin: 04/03/18 10:41 Dose: 20 mg Prochlorperazine Maleate (Compazine -) 10 mg PO Q8H PRN PRN Reason: NAUSEA - Objective Vital Signs: Vital Signs Temperature 98.9 F 04/04/18 07:20 Pulse Rate 106 H 04/04/18 07:20 Respiratory Rate 20 04/04/18 07:20 Blood Pressure 122/68 04/04/18 07:20 O2 Sat by Pulse Oximetry (%) 98 04/02/18 18:04 Labs: CBC, BMP 04/04/18 07:00 INR, PTT INR 1.17 (0.82-1.09) H 04/03/18 07:00 Problem List - Problems (1) Cervical cancer Code(s): C53.9 - MALIGNANT NEOPLASM OF CERVIX UTERI, UNSPECIFIED (2) 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
[2018-04-04 08:33] LABS: ALBUMIN 2.8 g/dl (3.4-5.0); ANION GAP 16 (8-16); BLOOD UREA NITROGEN 7 mg/dL (7-18); CALCIUM 8.1 mg/dL (8.5-10.1); CHLORIDE 103 mmol/L (98-107); CO2 20 mmol/L (21-32); GLUCOSE,RANDOM 74 mg/dL (74-106); MAGNESIUM 1.4 mg/dL (1.8-2.4); POTASSIUM 3.1 mmol/L (3.5-5.1); SODIUM 139 mmol/L (136-145)
[2018-04-04] MEDS: LEVOTHYROXINE NA 25 MCG TABLET (FP) PO SCH (08:34)
[2018-04-04 08:38] LABS: ALK PHOS 38 U/L (45-117); BILIRUBIN,TOTAL 0.8 mg/dL (0.2-1.0); CREATININE 0.8 mg/dL (0.55-1.02); PHOSPHOROUS 3.8 mg/dL (2.5-4.9); SGOT/AST 9 U/L (15-37); SGPT/ALT 10 U/L (12-78)
--- NOTE | 2018-04-04 09:13 | CONS ---
DATE OF CONSULTATION: DATE OF DICTATION: 04/04/2018 This is a 77-year-old female with known history of cervical cancer, who was admitted with poor oral intake, loss of appetite, weight loss, and chronic intermittent diarrheal stools. The patient has had recent admissions for the same symptoms and has undergone chemotherapy this December as well as radiation therapy in January of 2018. She had been seen by Dr. Contreras in consultation for these symptoms on March 13. Reviewing his note indicates a history of sigmoid diverticulitis, and the patient was then treated with levofloxacin and metronidazole before being sent home on oral antibiotics on March 14. She has been seen now by the GI service. She is afebrile, is currently n.p.o., and denies any abdominal pain. She is very weak and has no history of recent travel. Previous stool cultures were done which were no growth, and a stool C. difficile was positive for antigen, but toxin negative. She grew VREF from 2 urine cultures February 23 and March 12. Her discharge packet on March 14 included levofloxacin and metronidazole. PAST MEDICAL HISTORY: As noted above. CURRENT MEDICATIONS: Include magnesium oxide, Questran, Zetia, Protonix, calcium, levothyroxine. ALLERGIES: None known. SOCIAL HISTORY: Born in [place], raised in [place]. Nonsmoker. No history of alcohol, substance abuse. FAMILY HISTORY: Noncontributory. REVIEW OF SYSTEMS: Respiratory: No cough, shortness of breath. Cardiac: No chest pain, palpitations. Gastrointestinal: Denies abdominal pain, vomiting. Positive diarrhea, nonbloody. No blood per rectum. Genitourinary: No dysuria, hematuria. PHYSICAL EXAMINATION: General: Physical exam revealed a thin-appearing woman in no acute distress. Vital Signs: The temperature 98.9, pulse 106, blood pressure 122/68, respirations 20. HEENT: The pharynx without thrush. Neck: Supple, no adenopathy. Lungs: Clear to P&A. Heart: S1, S2, regular rhythm without murmur. Abdomen: Soft, nontender, without hepatosplenomegaly. Extremities: Without clubbing, cyanosis, or edema. LABORATORY: The white count is 8.8, hemoglobin 10.5, platelets of 272. BUN 6, creatinine 0.6. Liver enzymes within normal limit. Urinalysis with 2 WBCs, 2 RBCs. ASSESSMENT: A 77-year-old female with a history of cervical cancer status post chemotherapy and radiation therapy, has had chronic intermittent loose bowel movements now going on for several months. Apparently she has declined a colonoscopy. She also was found to have a Clostridium difficile antigen positive, which could represent colonization of the bowel with Clostridium difficile. Given the absence of abdominal pain, cramping, fever, and sepsis, colitis with Clostridium difficile would seem less likely. At this point a colonoscopy definitely seems reasonable and should be discussed again with the patient. Additionally, stool has been sent for Clostridium difficile, but if negative, I would send a PCR for further evaluation of possible Clostridium difficile infection. Cytomegalovirus colitis in the differential diagnosis. 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 She is on contact isolation for resistant organisms including vancomycin-resistant enterococcus faecalis and Clostridium difficile. The case will be discussed with Dr. Mcgovern. EMELINA PAGE M.D. [id number]
[2018-04-04] MEDS: CHOLESTYRAMINE/ASPARTAME 4 GM PACKET PO SCH (10:41)
[2018-04-04] MEDS: CALCIUM 500MG/VIT-D 200 UNITS COMBO TABLET (FP) PO SCH (10:41)
[2018-04-04] MEDS: MAGNESIUM OXIDE 400 MG TABLET (FP) PO SCH (10:41)
[2018-04-04] MEDS: PANTOPRAZOLE 20 MG TABLET (FP) PO SCH (10:41)
[2018-04-04] MEDS: MULTIVITAMINS (DAILY MVI) TABLET (FP) PO SCH (10:41)
[2018-04-04] MEDS: EZETIMIBE 10 MG TABLET (FP) PO SCH (10:42)
[2018-04-04] MEDS ORDERED: MAGNESIUM SULFATE IN WATER 2 GM/50 ML IVPB IVPB ONE (11:35)
[2018-04-04] MEDS: D5-NS + 40 MEQ KCL - 40 MEQ/1,000 ML INFUS.BAG IV SCH (12:09)
[2018-04-04] MEDS ORDERED: PROPOFOL 20 ML ONE ×2 (12:23)
--- NOTE | 2018-04-04 13:41 | PROC ---
Endoscopy Procedure Endoscopy procedure completed. Please see scanned procedure report. Small hiatal hernia, otherwise normal EGD, biposies teken. Edematous colon throughout w/o obvious erythema, hemorrhage, or ulcerations. "C.diff colitis" appearance. Normal TI. Random, cold forceps biopsies taken - await results. Start Vanco PO 125 qid, continue cholestyramine. Low fat, dairy- free, low residual diet
--- NOTE | 2018-04-04 13:55 | PN ---
Progress Note (short form) - Note Progress Note: pt seen and examined. c diff ag and toxin positive s/p GI procedures O/E: general: NAD HEENT: NCAT Cor:RRR Lungs: CTA b/l Abd: soft NT Extremities: No CCE Last Vital Signs Temp Pulse Resp BP Pulse Ox 97.6 F 89 18 135/65 100 04/04/18 13:22 04/04/18 13:36 04/04/18 13:36 04/04/18 13:36 04/04/18 13:36 CBC, BMP 04/04/18 07:00 04/04/18 07:00 Current Medications Generic Name Dose Route Start Last Admin Trade Name Freq PRN Reason Stop Dose Admin Calcium Carbonate/Cholecalciferol 1 tab 04/02/18 10:00 04/04/18 10:41 Os-Venkatesh 500+D - PO Not Given DAILY JETHRO Cholestyramine Resin 4 gm 04/03/18 10:00 04/04/18 10:41 Questran Light Packet - PO Not Given DAILY JETHRO Ezetimibe 10 mg 04/02/18 10:00 04/04/18 10:42 Zetia - PO Not Given DAILY JETHRO Dextrose/Sodium Chloride 40 meq in 1,000 mls @ 100 mls/hr 04/04/18 11:45 12:09 Dextrose 5%-Normal Saline+40 Meq Kcl - IV 100 mls/hr ASDIR JETHRO Administration Levothyroxine Sodium 25 mcg 04/02/18 07:00 04/04/18 08:34 Synthroid - PO Not Given DAILY@0700 JETHRO Magnesium Oxide 400 mg 04/02/18 10:00 04/04/18 10:41 Mag-Ox - PO Not Given DAILY JETHRO Multivitamins/Minerals/Vitamin C 1 tab 04/03/18 10:00 04/04/18 10:41 Tab-A-Vit - PO Not Given DAILY JETHRO Pantoprazole Sodium 20 mg 04/02/18 10:00 04/04/18 10:41 Protonix - PO Not Given DAILY JETHRO Prochlorperazine Maleate 10 mg 04/02/18 00:24 Compazine - PO Q8H PRN NAUSEA Vancomycin HCl 125 mg 04/04/18 18:00 Vancomycin Oral Solution PO Q6HPO JETHRO h/o Cervical Ca- s/p chemo RT Anemia recurrent Diarrhea. - c diff (ag and toxin positive) HypoMag HypoK -on vanc now -ID/GI f/u
[2018-04-04] MEDS: VANCOMYCIN 250 MG/5 ML ORAL SOLUTION PO SCH ×2 (18:03→23:29)
--- NOTE | 2018-04-04 18:41 | PN ---
Teaching Attending Note Name of Resident: Pura Graf ATTENDING PHYSICIAN STATEMENT I saw and evaluated the patient. I reviewed the resident's note and discussed the case with the resident. I agree with the resident's findings and plan as documented with exceptions below. SUBJECTIVE: Patient seen and examined. still weak, poor appetite, still with loose stools. NO new complaints. OBJECTIVE: Vital Signs Period Temp Pulse Resp BP Sys/Rankin Pulse Ox Last 24 Hr 97.6 F-98.9 F 72-106 16-20 121-142/57-79 100-100 Intake & Output 04/01/18 04/02/18 04/03/18 04/04/18 23:59 23:59 23:59 23:59 Intake Total 100 340 Balance 100 340 Weight 98 lb 99 lb 99 lb General: lying in stretcher in no acute distress Abdomen:soft, NT throughout, ND Extremities: no edema Home Medication List Medication Instructions Recorded Confirmed Type Ezetimibe [Zetia] 10 mg PO DAILY 05/24/13 04/01/18 History Levothyroxine [Synthroid -] 25 mcg PO DAILY 05/24/13 04/01/18 History Prochlorperazine Maleate 10 mg PO Q8H PRN 03/12/18 04/01/18 History [Compazine] Alendronate Na [Fosamax] 70 mg PO Q7D 04/01/18 04/02/18 History Calcium Carbonate/Vitamin D3 1 each PO DAILY 04/01/18 04/01/18 History [Calcium 600 + D3 Softgel] Active Medications Generic Name Dose Route Start Last Admin Trade Name Freq PRN Reason Stop Dose Admin Calcium Carbonate/Cholecalciferol 1 tab 04/02/18 10:00 04/04/18 10:41 Os-Venkatesh 500+D - PO Not Given DAILY JETHRO Cholestyramine Resin 4 gm 04/03/18 10:00 04/04/18 10:41 Questran Light Packet - PO Not Given DAILY JETHRO Ezetimibe 10 mg 04/02/18 10:00 04/04/18 10:42 Zetia - PO Not Given DAILY JETHRO Dextrose/Sodium Chloride 40 meq in 1,000 mls @ 100 mls/hr 04/04/18 11:45 12:09 Dextrose 5%-Normal Saline+40 Meq Kcl - IV 100 mls/hr ASDIR JEHTRO Administration Levothyroxine Sodium 25 mcg 04/02/18 07:00 04/04/18 08:34 Synthroid - PO Not Given DAILY@0700 [facility] Magnesium Oxide 400 mg 04/02/18 10:00 04/04/18 10:41 Mag-Ox - PO Not Given DAILY [facility] Multivitamins/Minerals/Vitamin C 1 tab 04/03/18 10:00 04/04/18 10:41 Tab-A-Vit - PO Not Given DAILY [facility] Pantoprazole Sodium 20 mg 04/02/18 10:00 04/04/18 10:41 Protonix - PO Not Given DAILY [facility] Prochlorperazine Maleate 10 mg 04/02/18 00:24 Compazine - PO Q8H PRN NAUSEA Vancomycin HCl 125 mg 04/04/18 18:00 04/04/18 18:03 Vancomycin Oral Solution PO 125 mg Q6HPO [facility] Administration Laboratory Results - last 24 hr 04/04/18 04/04/18 04/04/18 07:00 07:00 07:00 WBC 8.8 D RBC 3.49 L Hgb 10.5 L Hct 31.5 L MCV 90.2 MCH 30.2 MCHC 33.5 RDW 13.8 Plt Count 272 D MPV 7.1 L Neutrophils % 79.6 D Lymphocytes % 7.2 L D Monocytes % 11.1 H Eosinophils % 2.0 Basophils % 0.1 Nucleated RBC % 0 PT with INR 12.60 INR 1.12 Sodium 139 Potassium 3.1 L Chloride 103 Carbon Dioxide 20 L Anion Gap 16 BUN 7 Creatinine 0.8 Creat Clearance w eGFR > 60 POC Glucometer Random Glucose 74 Calcium 8.1 L Phosphorus 3.8 Magnesium 1.4 L Total Bilirubin 0.8 D AST 9 L ALT 10 L Alkaline Phosphatase 38 L Total Protein 6.0 L Albumin 2.8 L 04/04/18 17:46 WBC RBC Hgb Hct MCV MCH MCHC RDW Plt Count MPV Neutrophils % Lymphocytes % Monocytes % Eosinophils % Basophils % Nucleated RBC % PT with INR INR Sodium Potassium Chloride Carbon Dioxide Anion Gap BUN Creatinine Creat Clearance w eGFR POC Glucometer 380 Random Glucose Calcium Phosphorus Magnesium Total Bilirubin AST ALT Alkaline Phosphatase Total Protein Albumin Microbiology 04/03/18 13:00 Stool Clostridium difficile Antigen (LISA) - Final 04/03/18 13:00 Stool Clostridium difficile Toxin Assay - Final 04/03/18 13:00 Stool Salmonella/Shigella Culture - Preliminary NO ENTERIC PATHOGENS, 24 HOURS, ON PRIMARY PLATES 04/03/18 13:00 Stool Yersinia Culture - Preliminary NO ENTERIC PATHOGENS, 24 HOURS, ON PRIMARY PLATES 04/03/18 13:00 Stool Vibrio Culture - Final NO GROWTH OF VIBRIO SPECIES OBTAINED 04/03/18 13:00 Stool Escherichia coli 0157 Culture - Final NO GROWTH OF E COLI 0157 OBTAINED 04/01/18 19:53 Urine - Urine Clean Catch Urine Culture - Final NO GROWTH OBTAINED ASSESSMENT AND PLAN: 77yo F wtih PMH asthma, hypothyroid, and cervical ca s/p chemo-radiation, recently admitted with diarrhea re-admitted with similar symptoms with poor oral intake and ongoing diarrhea -Acute C difficile pancolitis -Failure to thrive, ?Secondary to chemoradiation -Hypokalemia, due to above -Hypomagnesemia -Normocytic anemia -Hypothyroidism -Cervical Ca s/p chemoradaition Plan: GI input noted, EGD/colonoscopy noted. Start vancomycin. PO as tolerated. Nutritional supplements. Replete k prn. monitor h/h. Continue levothyroxine. Oncology input. Nutrition consult noted. DvTPPX Dispo planning in 2-3 days if diarrhea improved and better po intake. Plan discussed with patient in detail, all questions answered.
[2018-04-04 18:52] LABS: HEMATOCRIT 29.2 % (32.4-45.2); HEMOGLOBIN 9.8 GM/dL (10.7-15.3); MCH 30.4 pg (25.7-33.7); MCHC 33.5 g/dl (32.0-36.0); MEAN CELL VOLUME 90.9 fl (80-96); MEAN PLT VOLUME 7.2 fl (7.5-11.1); PLATELET COUNT 261 K/MM3 (134-434); RBC 3.21 M/mm3 (3.60-5.2); RDW 13.8 % (11.6-15.6); WHITE BLOOD COUNT 6.6 K/mm3 (4.0-10.0)
[2018-04-05] MEDS: D5-NS + 40 MEQ KCL - 40 MEQ/1,000 ML INFUS.BAG IV SCH (00:12)
[2018-04-05] MEDS: VANCOMYCIN 250 MG/5 ML ORAL SOLUTION PO SCH ×3 (05:45→17:02)
[2018-04-05] MEDS: LEVOTHYROXINE NA 25 MCG TABLET (FP) PO SCH (06:23)
--- NOTE | 2018-04-05 08:05 | PN ---
Teaching Attending Note Name of Resident: Pura Graf ATTENDING PHYSICIAN STATEMENT I saw and evaluated the patient. I reviewed the resident's note and discussed the case with the resident. I agree with the resident's findings and plan as documented with exceptions below. SUBJECTIVE: Patient seen and examined. appetite better, diarrhea resolved, no new complaints. OBJECTIVE: Vital Signs Period Temp Pulse Resp BP Sys/Rankin Pulse Ox Last 24 Hr 97.6 F-98.7 F 72-90 16-20 104-142/55-68 95-100 Intake & Output 04/02/18 04/03/18 04/04/18 04/05/18 23:59 23:59 23:59 23:59 Intake Total 100 1940 900 Balance 100 1940 900 Weight 99 lb 99 lb General: lying in bed in no acute distress Abdomen: soft, NT throughout, ND, positive bowel sounds Home Medication List Medication Instructions Recorded Confirmed Type Ezetimibe [Zetia] 10 mg PO DAILY 05/24/13 04/01/18 History Levothyroxine [Synthroid -] 25 mcg PO DAILY 05/24/13 04/01/18 History Prochlorperazine Maleate 10 mg PO Q8H PRN 03/12/18 04/01/18 History [Compazine] Alendronate Na [Fosamax] 70 mg PO Q7D 04/01/18 04/02/18 History Calcium Carbonate/Vitamin D3 1 each PO DAILY 04/01/18 04/01/18 History [Calcium 600 + D3 Softgel] Active Medications Generic Name Dose Route Start Last Admin Trade Name Freq PRN Reason Stop Dose Admin Calcium Carbonate/Cholecalciferol 1 tab 04/02/18 10:00 04/04/18 10:41 Os-Venkatesh 500+D - PO Not Given DAILY JETHRO Cholestyramine Resin 4 gm 04/03/18 10:00 04/04/18 10:41 Questran Light Packet - PO Not Given DAILY JETHRO Ezetimibe 10 mg 04/02/18 10:04/04/18 10:42 Zetia - PO Not Given DAILY JETHRO Dextrose/Sodium Chloride 40 meq in 1,000 mls @ 100 mls/hr 04/04/18 11:45 00:12 Dextrose 5%-Normal Saline+40 Meq Kcl - IV 100 mls/hr ASDIR JETHRO Administration Levothyroxine Sodium 25 mcg 04/02/18 07:00 04/05/18 06:23 Synthroid - PO 25 mcg DAILY@0700 [facility] Administration Magnesium Oxide 400 mg 04/02/18 10:00 04/04/18 10:41 Mag-Ox - PO Not Given DAILY [facility] Multivitamins/Minerals/Vitamin C 1 tab 04/03/18 10:00 04/04/18 10:41 Tab-A-Vit - PO Not Given DAILY [facility] Pantoprazole Sodium 20 mg 04/02/18 10:00 04/04/18 10:41 Protonix - PO Not Given DAILY [facility] Prochlorperazine Maleate 10 mg 04/02/18 00:24 Compazine - PO Q8H PRN NAUSEA Vancomycin HCl 125 mg 04/04/18 18:00 04/05/18 05:45 Vancomycin Oral Solution PO 125 mg Q6HPO JETHRO Administration Microbiology 04/03/18 13:00 Stool Clostridium difficile Antigen (LISA) - Final 04/03/18 13:00 Stool Clostridium difficile Toxin Assay - Final 04/03/18 13:00 Stool Salmonella/Shigella Culture - Preliminary NO ENTERIC PATHOGENS, 24 HOURS, ON PRIMARY PLATES 04/03/18 13:00 Stool Yersinia Culture - Preliminary NO ENTERIC PATHOGENS, 24 HOURS, ON PRIMARY PLATES 04/03/18 13:00 Stool Vibrio Culture - Final NO GROWTH OF VIBRIO SPECIES OBTAINED 04/03/18 13:00 Stool Escherichia coli 0157 Culture - Final NO GROWTH OF E COLI 0157 OBTAINED 04/01/18 19:53 Urine - Urine Clean Catch Urine Culture - Final NO GROWTH OBTAINED ASSESSMENT AND PLAN: 77yo F wtih PMH asthma, hypothyroid, and cervical ca s/p chemo-radiation, recently admitted with diarrhea re-admitted with similar symptoms with poor oral intake and ongoing diarrhea -Acute C difficile pancolitis -Failure to thrive, ?Secondary to chemoradiation vs above -Hypokalemia, due to above -Hypomagnesemia -Normocytic anemia -Hypothyroidism -Cervical Ca s/p chemoradaition Plan: GI input noted, EGD/colonoscopy noted. Vancomycin day 1/14 PO as tolerated. Nutritional supplements. Replete k/Mg prn. H/h stable. Continue levothyroxine. Oncology input noted. Nutrition consult noted. DvTPPX Patient ambulating inhouse, does not feel need for home services. D/c later today if no concerns. Plan discussed with patient in detail, all questions answered.
--- NOTE | 2018-04-05 08:29 | PN ---
Physical Exam: SUBJECTIVE: Patient seen and examined. Pt feels much better this am. Has an appetite, wants to eat. Started PO vanco yesterday. OBJECTIVE: Vital Signs Period Temp Pulse Resp BP Sys/Rankin Pulse Ox Last 24 Hr 97.6 F-98.7 F 72-90 16-20 104-142/55-68 95-100 Vital Signs Temp 98.7 F 04/05/18 07:17 Pulse 89 04/05/18 07:17 Resp 20 04/05/18 07:17 BP 104/55 04/05/18 07:17 Pulse Ox 95 04/04/18 21:00 Intake & Output 04/04/18 04/04/18 04/05/18 11:59 23:59 11:59 Intake Total 194 900 Balance 1939 900 Intake: IV 1740 900 DEXTROSE 5%-NORMAL SALINE 1500 900 +40 MEQ KCL - 40 meq In 1 ,000 ml @ 100 mls/hr IV ASDIR JETHRO Rx#:[id number] IVPB 200 Oral 0 Other: Voiding Method Toilet Toilet # Unmeasured Voids Void 1 2 Bowel Movement No No Intake & Output 04/02/18 04/03/18 04/04/18 04/05/18 23:59 23:59 23:59 23:59 Intake Total 100 194 900 Balance 100 1939 900 Weight 44.906 kg 44.906 kg GENERAL: The patient is awake, alert, and fully oriented, in no acute distress. HEAD: Normal with no signs of trauma. EYES: PERRL, extraocular movements intact, sclera anicteric, conjunctiva clear. No ptosis. ENT: Ears normal, nares patent, oropharynx clear without exudates, moist mucous membranes. NECK: Trachea midline, full range of motion, supple. LUNGS: Breath sounds equal, clear to auscultation bilaterally, no wheezes, no crackles, no accessory muscle use. HEART: Regular rate and rhythm, S1, S2 without murmur, rub or gallop. ABDOMEN: Soft, nontender, nondistended, normoactive bowel sounds, no guarding, no rebound, no hepatosplenomegaly, no masses. EXTREMITIES: 2+ pulses, warm, well-perfused, no edema. NEUROLOGICAL: Cranial nerves II through XII grossly intact. Normal speech, gait not observed. PSYCH: Normal mood, normal affect. SKIN: Warm, dry, normal turgor, no rashes or lesions noted Laboratory Results - last 24 hr 04/04/18 04/04/18 04/04/18 07:00 16:45 17:46 WBC 6.6 RBC 3.21 L Hgb 9.8 L Hct 29.2 L MCV 90.9 MCH 30.4 MCHC 33.5 RDW 13.8 Plt Count 261 MPV 7.2 L Sodium 139 Potassium 3.1 L Chloride 103 Carbon Dioxide 20 L Anion Gap 16 BUN 7 Creatinine 0.8 Creat Clearance w eGFR > 60 POC Glucometer 380 Random Glucose 74 Calcium 8.1 L Phosphorus 3.8 Magnesium 1.4 L Total Bilirubin 0.8 D AST 9 L ALT 10 L Alkaline Phosphatase 38 L Total Protein 6.0 L Albumin 2.8 L Active Medications Generic Name Dose Route Start Last Admin Trade Name Freq PRN Reason Stop Dose Admin Calcium Carbonate/Cholecalciferol 1 tab 04/02/18 10:00 04/04/18 10:41 Os-Venkatesh 500+D - PO Not Given DAILY [facility] Cholestyramine Resin 4 gm 04/03/18 10:00 04/04/18 10:41 Questran Light Packet - PO Not Given DAILY [facility] Ezetimibe 10 mg 04/02/18 10:00 04/04/18 10:42 Zetia - PO Not Given DAILY [facility] Dextrose/Sodium Chloride 40 meq in 1,000 mls @ 100 mls/hr 04/04/18 11:45 00:12 Dextrose 5%-Normal Saline+40 Meq Kcl - IV 100 mls/hr ASDIR JETHRO Administration Levothyroxine Sodium 25 mcg 04/02/18 07:00 04/05/18 06:23 Synthroid - PO 25 mcg DAILY@0700 JETHRO Administration Magnesium Oxide 400 mg 04/02/18 10:00 04/04/18 10:41 Mag-Ox - PO Not Given DAILY [facility] Multivitamins/Minerals/Vitamin C 1 tab 04/03/18 10:00 04/04/18 10:41 Tab-A-Vit - PO Not Given DAILY [facility] Pantoprazole Sodium 20 mg 04/02/18 10:00 04/04/18 10:41 Protonix - PO Not Given DAILY [facility] Prochlorperazine Maleate 10 mg 04/02/18 00:24 Compazine - PO Q8H PRN NAUSEA Vancomycin HCl 125 mg 04/04/18 18:00 04/05/18 05:45 Vancomycin Oral Solution PO 125 mg Q6HPO JETHRO Administration ASSESSMENT/PLAN:
[2018-04-05 08:32] LABS: BASO % 0.3 % (0-2.0); EOS % 7.3 % (0-4.5); HEMATOCRIT 27.3 % (32.4-45.2); HEMOGLOBIN 9.1 GM/dL (10.7-15.3); LYMPH % 9.9 % (8-40); MCHC 33.5 g/dl (32.0-36.0); MEAN CELL VOLUME 89.7 fl (80-96); MEAN PLT VOLUME 6.9 fl (7.5-11.1); MONO % 8.5 % (3.8-10.2); PLATELET COUNT 249 K/MM3 (134-434); RBC 3.04 M/mm3 (3.60-5.2); RDW 13.8 % (11.6-15.6); WHITE BLOOD COUNT 4.8 K/mm3 (4.0-10.0)
[2018-04-05 08:54] LABS: CHLORIDE 114 mmol/L (98-107); POTASSIUM 3.7 mmol/L (3.5-5.1); SODIUM 143 mmol/L (136-145)
[2018-04-05 09:14] LABS: ALBUMIN 2.4 g/dl (3.4-5.0); ALK PHOS 36 U/L (45-117); ANION GAP 8 (8-16); BILIRUBIN,TOTAL 0.3 mg/dL (0.2-1.0); BLOOD UREA NITROGEN 4 mg/dL (7-18); CALCIUM 7.7 mg/dL (8.5-10.1); CO2 21 mmol/L (21-32); CREATININE 0.6 mg/dL (0.55-1.02); GLUCOSE,RANDOM 104 mg/dL (74-106); MAGNESIUM 1.8 mg/dL (1.8-2.4); SGOT/AST 9 U/L (15-37); SGPT/ALT 9 U/L (12-78); TOT PROT 5.1 g/dl (6.4-8.2)
[2018-04-05] MEDS: CHOLESTYRAMINE/ASPARTAME 4 GM PACKET PO SCH (09:23)
[2018-04-05] MEDS: PANTOPRAZOLE 20 MG TABLET (FP) PO SCH (09:23)
[2018-04-05] MEDS: EZETIMIBE 10 MG TABLET (FP) PO SCH (09:23)
[2018-04-05] MEDS: CALCIUM 500MG/VIT-D 200 UNITS COMBO TABLET (FP) PO SCH (09:23)
[2018-04-05] MEDS: MAGNESIUM OXIDE 400 MG TABLET (FP) PO SCH (09:23)
[2018-04-05] MEDS: MULTIVITAMINS (DAILY MVI) TABLET (FP) PO SCH (09:23)
--- NOTE | 2018-04-05 09:34 | PN ---
Progress Note (short form) - Note Progress Note: ID Discussed with GI yesterday re finding of pancolitis for which oral vancomycin given Selected Entries 04/05/18 07:17 Temperature 98.7 F Pulse Rate 89 Respiratory 20 Rate Blood Pressure 104/55 Abd Soft nontender Microbiology 04/03/18 13:00 Stool Escherichia coli 0157 Culture - Final NO GROWTH OF VIBRIO SPECIES OBTAINED NO GROWTH OF E COLI 0157 OBTAINED 04/03/18 13:00 Stool Clostridium difficile Antigen (LISA) - Final 04/03/18 13:00 Stool Clostridium difficile Toxin Assay - Final 04/01/18 19:53 Urine - Urine Clean Catch Urine Culture - Final NO GROWTH OBTAINED 04/03/18 13:00 Stool Salmonella/Shigella Culture - Preliminary 04/03/18 13:00 Stool Yersinia Culture - Preliminary NO ENTERIC PATHOGENS, 24 HOURS, ON PRIMARY PLATES NO ENTERIC PATHOGENS, 24 HOURS, ON PRIMARY PLATES Laboratory Tests 04/05/18 04/05/18 07:00 07:05 WBC 4.8 RBC 3.04 L Hct 27.3 L Plt Count 249 BUN 4 L Creatinine 0.6 Assessment Pancolitis C diff positive Plan Oral vancomycin 10-14 days Federico CHONG- Problem List - Problems (1) Cervical cancer Code(s): C53.9 - MALIGNANT NEOPLASM OF CERVIX UTERI, UNSPECIFIED (2) 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
[2018-04-05] MEDS: NAPH,MB-DB/K PH,MBDB POWDER PACKET PO SCH ×2 (11:30→22:08)
[2018-04-05 13:21] LABS: ACANTHOCYTES 0; ANISOCYTOSIS 0; HELMET CELLS 0; HOWELL-JOLLY BODIES 0; MACROCYTOSIS 0; OVALOCYTE 0; PLATELET ESTIMATE NORMAL; ROULEAU 0; SICKELED CELLS 0; TARGET CELLS 0; TEAR DROP CELLS 0; TOXIC GRANULATION 0
--- NOTE | 2018-04-05 13:37 | DS ---
Physical Exam: SUBJECTIVE: Patient seen and examined.Pt feels much better this am. Has an appetite, wants to eat. Started PO vanco yesterday. OBJECTIVE: Vital Signs Period Temp Pulse Resp BP Sys/Rankin Pulse Ox Last 24 Hr 97.6 F-98.7 F 72-90 16-20 104-142/50-68 95-100 Vital Signs Temp 98.1 F 04/05/18 13:07 Pulse 87 04/05/18 13:07 Resp 20 04/05/18 13:07 BP 125/50 04/05/18 13:07 Pulse Ox 95 04/05/18 09:00 Intake & Output 04/04/18 04/05/18 04/05/18 23:59 11:59 23:59 Intake Total 1940 1020 Balance 194 1020 Intake: IV 1740 900 DEXTROSE 5%-NORMAL SALINE 1500 900 +40 MEQ KCL - 40 meq In 1 ,000 ml @ 100 mls/hr IV ASDIR JETHRO Rx#:[id number] IVPB 200 Oral 0 120 Other: Voiding Method Toilet Toilet # Unmeasured Voids Void 1 2 Bowel Movement No No Intake & Output 04/02/18 04/03/18 04/04/18 04/05/18 23:59 23:59 23:59 23:59 Intake Total 100 1940 1020 Balance 100 194 1020 Weight 44.906 kg 44.906 kg PHYSICAL EXAM GENERAL: The patient is awake, alert, and fully oriented, in no acute painful distress. ENT: moist mucous membranes. NECK: supple. LUNGS: Breath sounds equal, clear to auscultation bilaterally HEART: Regular rate and rhythm, S1, S2 ABDOMEN: Soft, nontender, nondistended, normoactive bowel sounds EXTREMITIES: 2+ pulses, warm, well-perfused, no edema. NEUROLOGICAL: AAOx 3. Normal speech, normal gait. LABS Laboratory Results - last 24 hr 04/04/18 04/04/18 04/05/18 16:45 17:46 07:00 WBC 6.6 4.8 RBC 3.21 L 3.04 L Hgb 9.8 L 9.1 L Hct 29.2 L 27.3 L MCV 90.9 89.7 MCH 30.4 30.0 MCHC 33.5 33.5 RDW 13.8 13.8 Plt Count 261 249 MPV 7.2 L 6.9 L Neutrophils % 74.0 Lymphocytes % 9.9 D Monocytes % 8.5 Eosinophils % 7.3 H D Basophils % 0.3 Nucleated RBC % 0 Sodium Potassium Chloride Carbon Dioxide Anion Gap BUN Creatinine Creat Clearance w eGFR POC Glucometer 380 Random Glucose Calcium Phosphorus Magnesium Total Bilirubin AST ALT Alkaline Phosphatase Total Protein Albumin 04/05/18 07:05 WBC RBC Hgb Hct MCV MCH MCHC RDW Plt Count MPV Neutrophils % Lymphocytes % Monocytes % Eosinophils % Basophils % Nucleated RBC % Sodium 143 Potassium 3.7 Chloride 114 H Carbon Dioxide 21 Anion Gap 8 BUN 4 L Creatinine 0.6 Creat Clearance w eGFR > 60 POC Glucometer Random Glucose 104 Calcium 7.7 L Phosphorus 2.0 L Magnesium 1.8 Total Bilirubin 0.3 D AST 9 L ALT 9 L Alkaline Phosphatase 36 L Total Protein 5.1 L Albumin 2.4 L Calcium Carbonate/Cholecalciferol (Os-Venkatesh 500+D -) 1 tab PO DAILY [facility] Last Admin: 04/03/18 10:41 Dose: 1 tab Cholestyramine Resin (Questran Light Packet -) 4 gm PO DAILY [facility] Last Admin: 04/03/18 10:40 Dose: 4 gm Ezetimibe (Zetia -) 10 mg PO DAILY [facility] Last Admin: 04/03/18 10:40 Dose: 10 mg Levothyroxine Sodium (Synthroid -) 25 mcg PO DAILY@0700 [facility] Last Admin: 04/03/18 06:28 Dose: 25 mcg Magnesium Oxide (Mag-Ox -) 400 mg PO DAILY [facility] Last Admin: 04/03/18 10:41 Dose: 400 mg Multivitamins/Minerals/Vitamin C (Tab-A-Vit -) 1 tab PO DAILY [facility] Last Admin: 04/03/18 10:40 Dose: 1 tab Pantoprazole Sodium (Protonix -) 20 mg PO DAILY [facility] Last Admin: 04/03/18 10:41 Dose: 20 mg Prochlorperazine Maleate (Compazine -) 10 mg PO Q8H PRN PRN Reason: NAUSEA Microbiology 04/03/18 13:00 Stool Clostridium difficile Antigen (LISA) - Final 04/03/18 13:00 Stool Clostridium difficile Toxin Assay - Final 04/03/18 13:00 Stool Salmonella/Shigella Culture - Preliminary NO ENTERIC PATHOGENS, 24 HOURS, ON PRIMARY PLATES 04/03/18 13:00 Stool Yersinia Culture - Preliminary NO ENTERIC PATHOGENS, 24 HOURS, ON PRIMARY PLATES 04/03/18 13:00 Stool Vibrio Culture - Final NO GROWTH OF VIBRIO SPECIES OBTAINED 04/03/18 13:00 Stool Escherichia coli 0157 Culture - Final NO GROWTH OF E COLI 0157 OBTAINED Endoscopy /colonoscopy 04/04/18: Small hiatal hernia, otherwise normal EGD, biopsies teken. Edematous colon throughout w/o obvious erythema, hemorrhage, or ulcerations. "C.diff colitis" appearance. Normal TI. 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 She was unable to tolerate the BRAT diet. C diff samples taken- positive for both antigens and toxins A and B. Colonoscopy also showed features of C diff, now pending biopsy report. Pt started Vanco PO 125 q6H, and will continue for the next 14 days. She has had no more loose stools and has had her appetite return. She will continue the cholestyramine 4g daily. She may eat regular diet with ensure clear twice a day for the next month. She had electrolyte imbalances that were corrected. She will go home on Na phosp for 2 days. She will continue levothyroxine 25mch po daily and follow up with her oncologist , GI and ID doctor. Minutes to complete discharge: 37 Discharge Summary Reason For Visit: INTRACTABLE VOMITING WITH NAUSEA Current Active Problems Clostridium difficile enterocolitis (Acute) Diarrhea (Acute) Condition: Improved - Instructions Diet, Activity, Other Instructions: You came in with loss of appetite and diarrhea You were found to have an infection known as C difficile We are treating you with Vancomycin 125mg every 6 hours for 14 days Please take it as prescribed Follow up with the stomach doctor in one week Follow up with the infectious disease doctor in one week Follow up with your oncologist (cancer doctor) in one week Wash your hands before food and after using the toilet Everyone around you should also make sure to wash their hands before food and after using the toilet Continue to eat as much as you can. We are adding a nutritional supplement - Ensure to help you regain your strength If you feel your symptoms are getting worse, or you have fever, nausea and vomiting worsening diarrhea or prolonged constipation, please return to the emergency room Please return to the emergency department with any new or worsening symptoms or concerns. Please follow up with your primary care physician within 72 hours. Referrals: Chauncey Caballero MD [Staff Physician] - 1 Week Marin Mcgovern MD [Staff Physician] - 1 Week Phoebe Toribio MD [Staff Physician] - 1 Week Disposition: HOME - Home Medications Comprehensive Discharge Medication List: Ambulatory Orders Ezetimibe [Zetia] 10 mg PO DAILY 05/24/13 Levothyroxine [Synthroid -] 25 mcg PO DAILY 05/24/13 Prochlorperazine Maleate [Compazine] 10 mg PO Q8H PRN 03/12/18 Magnesium Oxide [Mag-Ox -] 400 mg PO DAILY #30 tablet 03/14/18 Alendronate Na [Fosamax] 70 mg PO Q7D 04/01/18 Calcium Carbonate/Vitamin D3 [Calcium 600 + Vit D 400 Softgl] 1 each PO DAILY Cholestyramine/Aspartame [Questran Light Packet -] 4 gm PO DAILY 14 Days packet 04/05/18 Multivitamins [Multivit ([facility] Formulary)] 1 tab PO DAILY tab 04/05/18 Naph,Mb-Db/K pH,Mbdb [PHOS-NaK PACKET -] 2 packet PO BID 2 Days pow 04/05/18 Nut.tx.impaired Digest Fxn [Ensure Clear] 200 ml PO BID #60 liquid 04/05/18 Phenazopyridine HCl [Pyridium -] 100 mg PO TID tablet 04/05/18 Vancomycin Oral Solution 125 mg PO Q6HPO 14 Days ml 04/05/18 This patient is new to me today: No Emergency Visit: Yes ED Registration Date: 04/01/18 Care time: The patient presented to the Emergency Department on the above date and was hospitalized for further evaluation of their emergent condition. Critical Care patient: No - Discharge Referral Referred to [facility] Med P.C.: No
--- NOTE | 2018-04-05 13:47 | PATH ---
Surgical Pathology Report Patient Name: RAYMUNDO PENA Med. Rec. #: [id number] /Age/Gender: 1940 (Age: 77) / F Account: [id number] Location: [facility] MED/SURG Taken: 04/04/2018 Received: 04/04/2018 Reported: 04/05/2018 Physicians: Kali Peter M.D. Specimen(s) Received A: BX SECOND PORTION DUODENUM B: BX ANTRUM AND BODY C: BX TERMINAL ILEUM D: BX ASCENDING COLON E: BX TRANSVERSE COLON F: BX DESCENDING COLON G: BX SIGMOID H: BX RECTUM Clinical History This Chronic diarrhea Postoperative diagnosis: Diarrhea, pancolitis Final Diagnosis A. DUODENUM, SECOND PORTION, BIOPSY: DUODENAL MUCOSA WITHOUT SIGNIFICANT PATHOLOGIC FINDINGS. B. STOMACH, ANTRUM AND BODY, BIOPSY: GASTRIC ANTRAL AND BODY MUCOSA WITH MILD CHRONIC GASTRITIS AND FOCAL INTESTINAL METAPLASIA. IMMUNOHISTOCHEMICAL STAIN FOR H. PYLORI IS NEGATIVE. C. TERMINAL ILEUM, BIOPSY: SMALL BOWEL MUCOSA WITH ACUTE ILEITIS. SEE COMMENT. D. ASCENDING COLON, BIOPSY: COLONIC MUCOSA WITH ACUTE COLITIS. E. TRANSVERSE COLON, BIOPSY: COLONIC MUCOSA WITH ACUTE COLITIS. SEE COMMENT. F. DESCENDING COLON, BIOPSY: COLONIC MUCOSA WITH ACUTE COLITIS. SEE COMMENT. G. SIGMOID COLON, BIOPSY: COLONIC MUCOSA WITH ACUTE COLITIS. SEE COMMENT. H. RECTUM, BIOPSY: COLONIC MUCOSA WITH ACUTE PROCTITIS. SEE COMMENT. Comment: No granuloma and dysplasia identified. Findings are non-specific. Differential diagnosis includes non-specific colitis, medication, infection, and radiation. Suggest clinical/endoscopic and microbiology studies correlation. History of cervical cancer s/p radiation is noted. Electronically Signed Jennifer Vanegas M.D. Gross Description A. Received in formalin, labeled "biopsy second portion of duodenum" are 2 hernández, irregular portions of soft tissue measuring 0.2 and 0.4 cm. in greatest dimension. The specimens are submitted in toto in one cassette. B. Received in formalin, labeled "biopsy antrum and body" are 2 hernández, irregular portions of soft tissue averaging 0.3 cm. in greatest dimension. The specimens are submitted in toto in one cassette. C. Received in formalin, labeled "biopsy terminal ileum" are 2 hernández, irregular portions of soft tissue averaging 0.2 cm. in greatest dimension. The specimens are submitted in toto in one cassette. D. Received in formalin, labeled "biopsy ascending colon" are 2 hernández, irregular portions of soft tissue measuring 0.2 and 0.4 cm. in greatest dimension. The specimens are submitted in toto in one cassette. E. Received in formalin, labeled "biopsy transverse colon" are 3 hernández, irregular portions of soft tissue ranging from 0.2-0.3 cm. in greatest dimension. The specimens are submitted in toto in one cassette. F. Received in formalin, labeled "biopsy descending colon" are 3 hernández, irregular portions of soft tissue ranging from 0.3-0.4 cm. in greatest dimension. The specimens are submitted in toto in one cassette. G. Received in formalin, labeled "biopsy sigmoid" are 2 hernández, irregular portions of soft tissue measuring 0.2 and 0.3 cm. in greatest dimension. The specimens are submitted in toto in one cassette. H. Received in formalin, labeled "biopsy rectum" are 3 hernández, irregular portions of soft tissue ranging from 0.2-0.5 cm. in greatest dimension. The specimens are submitted in toto in one cassette. 04/05/2018 [facility]04/05/2018
[2018-04-05] MEDS ORDERED: NAPH,MB-DB/K PH,MBDB POWDER PACKET PO SCH (14:00)
--- NOTE | 2018-04-05 15:02 | PN ---
Progress Note, Physician History of Present Illness: No acute events overnight. Comfortable. Findings on colonoscopy discussed with the patient and her . - Current Medication List Current Medications: Active Medications Calcium Carbonate/Cholecalciferol (Os-Venkatesh 500+D -) 1 tab PO DAILY [facility] Last Admin: 04/05/18 09:23 Dose: 1 tab Cholestyramine Resin (Questran Light Packet -) 4 gm PO DAILY [facility] Last Admin: 04/05/18 09:23 Dose: 4 gm Ezetimibe (Zetia -) 10 mg PO DAILY [facility] Last Admin: 04/05/18 09:23 Dose: 10 mg Levothyroxine Sodium (Synthroid -) 25 mcg PO DAILY@0700 [facility]PL[facility]ED [facility] Last Admin: 04/05/18 06:23 Dose: 25 mcg Magnesium Oxide (Mag-Ox -) 400 mg PO DAILY [facility]PL[facility] Last Admin: 04/05/18 09:23 Dose: 400 mg Multivitamins/Minerals/Vitamin C (Tab-A-Vit -) 1 tab PO DAILY [facility] Last Admin: 04/05/18 09:23 Dose: 1 tab Pantoprazole Sodium (Protonix -) 20 mg PO DAILY [facility]PL[facility] Last Admin: 04/05/18 09:23 Dose: 20 mg Potassium Phos/Sodium Phos (Phos-Nak Packet -) 2 packet PO BID REPLACED BY [facility] Stop: 04/06/18 22:01 Last Admin: 04/05/18 11:30 Dose: 2 packet Prochlorperazine Maleate (Compazine -) 10 mg PO Q8H PRN PRN Reason: NAUSEA Vancomycin HCl (Vancomycin Oral Solution) 125 mg PO Q6HPO REPLACED BY [facility] Last Admin: 04/05/18 12:01 Dose: 125 mg - Objective Vital Signs: Vital Signs Temperature 98.0 F 04/05/18 13:53 Pulse Rate 103 H 04/05/18 13:53 Respiratory Rate 16 04/05/18 13:53 Blood Pressure 143/77 04/05/18 13:53 O2 Sat by Pulse Oximetry (%) 95 04/05/18 09:00 Labs: CBC, BMP 04/05/18 07:00 04/05/18 07:05 INR, PTT INR 1.12 (0.82-1.09) 04/04/18 07:00 Problem List - Problems (1) Diarrhea Code(s): R19.7 - DIARRHEA, UNSPECIFIED (2) Cervical cancer Code(s): C53.9 - MALIGNANT NEOPLASM OF CERVIX UTERI, UNSPECIFIED (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 Continue and then taper oral vancomycin at home. Consider probiotic.
[2018-04-05 16:14] LABS: HEMATOCRIT 29.2 % (32.4-45.2); HEMOGLOBIN 9.7 GM/dL (10.7-15.3); MCH 29.9 pg (25.7-33.7); MCHC 33.2 g/dl (32.0-36.0); MEAN CELL VOLUME 90.2 fl (80-96); MEAN PLT VOLUME 7.8 fl (7.5-11.1); PLATELET COUNT 269 K/MM3 (134-434); RBC 3.23 M/mm3 (3.60-5.2); RDW 13.8 % (11.6-15.6); WHITE BLOOD COUNT 5.3 K/mm3 (4.0-10.0)
--- NOTE | 2018-04-05 16:26 | PN ---
Progress Note (short form) - Note Progress Note: pt seen and examined. chart reviewed pt c/o multiple "runs" as per her and abd pain. Only started in ther afternoon after she ate a pie. She refusing adb imaging. She feels she has O/E: general: NAD HEENT: NCAT Cor:RRR Lungs: CTA b/l Abd: no tenderness Extremities: No CCE Last Vital Signs Temp Pulse Resp BP Pulse Ox 97.6 F 89 18 135/65 100 04/04/18 13:22 04/04/18 13:36 04/04/18 13:36 04/04/18 13:36 04/04/18 13:36 CBC, BMP 04/04/18 07:00 04/04/18 07:00 Current Medications Generic Name Dose Route Start Last Admin Trade Name Freq PRN Reason Stop Dose Admin Calcium Carbonate/Cholecalciferol 1 tab 04/02/18 10:00 04/04/18 10:41 Os-Venkatesh 500+D - PO Not Given DAILY JETHRO Cholestyramine Resin 4 gm 04/03/18 10:00 04/04/18 10:41 Questran Light Packet - PO Not Given DAILY JETHRO Ezetimibe 10 mg 04/02/18 10:00 04/04/18 10:42 Zetia - PO Not Given DAILY JETHRO Dextrose/Sodium Chloride 40 meq in 1,000 mls @ 100 mls/hr 04/04/18 11:45 12:09 Dextrose 5%-Normal Saline+40 Meq Kcl - IV 100 mls/hr ASDIR JETHRO Administration Levothyroxine Sodium 25 mcg 04/02/18 07:00 04/04/18 08:34 Synthroid - PO Not Given DAILY@0700 JETHRO Magnesium Oxide 400 mg 04/02/18 10:00 04/04/18 10:41 Mag-Ox - PO Not Given DAILY JETHRO Multivitamins/Minerals/Vitamin C 1 tab 04/03/18 10:00 04/04/18 10:41 Tab-A-Vit - PO Not Given DAILY JETHRO Pantoprazole Sodium 20 mg 04/02/18 10:00 04/04/18 10:41 Protonix - PO Not Given DAILY JETHRO Prochlorperazine Maleate 10 mg 04/02/18 00:24 Compazine - PO Q8H PRN NAUSEA Vancomycin HCl 125 mg 04/04/18 18:00 Vancomycin Oral Solution PO Q6HPO JETHRO h/o Cervical Ca- s/p chemo RT Anemia c diff souza colitis-- on vanc po Lyte repletion This pm with abd pain and diarrhea-- ?diet related vs ongoing infection
[2018-04-05] MEDS: DEXTROSE 5%-NORMAL SALINE 1,000 ML IV SCH (22:39)
[2018-04-06] MEDS: VANCOMYCIN 250 MG/5 ML ORAL SOLUTION PO SCH ×4 (00:07→17:33)
[2018-04-06] MEDS: LEVOTHYROXINE NA 25 MCG TABLET (FP) PO SCH (06:03)
--- NOTE | 2018-04-06 07:25 | PN ---
Physical Exam: SUBJECTIVE: Patient seen and examined. Was unable to go home yesterday because she had multiple episodes of diarrhea after eating an apple pie. She was placed on iv fluids. This am, pt feels better. Says she had 2 episodes of loose stool in the am, no n/v, no fever. Has an appetite and wants to eat. She had abdominal pains yesterday, but none today. OBJECTIVE: Vital Signs Period Temp Pulse Resp BP Sys/Rankin Pulse Ox Last 24 Hr 98.0 F-98.3 F 75-103 16-20 121-143/50-77 95-95 Vital Signs Temp 98.3 F 04/06/18 04:00 Pulse 90 04/06/18 04:00 Resp 18 04/06/18 04:00 BP 121/71 04/06/18 04:00 Pulse Ox 95 04/05/18 21:00 Intake & Output 04/05/18 04/05/18 04/06/18 11:59 23:59 11:59 Intake Total 1020 1240 500 Balance 1020 1240 500 Intake: IV 900 900 500 D5-Ns - 1,000 ml @ 75 mls 500 /hr IV ASDIR JETHRO Rx#: [id number] DEXTROSE 5%-NORMAL SALINE 900 900 +40 MEQ KCL - 40 meq In 1 ,000 ml @ 100 mls/hr IV ASDIR JETHRO Rx#:[id number] IVPB 100 Oral 120 240 Other: Voiding Method Toilet Toilet # Unmeasured Voids Void 2 1 2 Bowel Movement No No No # Bowel Movements 6 GENERAL: The patient is awake, alert, and fully oriented, in no acute distress. ENT: moist mucous membranes. LUNGS: Breath sounds equal, clear to auscultation bilaterally HEART: Regular rate and rhythm, S1, S2 ABDOMEN: Soft, nontender, nondistended, normoactive bowel sounds EXTREMITIES: 2+ pulses, warm, well-perfused, no edema. NEUROLOGICAL: Cranial nerves II through XII grossly intact. Normal speech CBC, BMP 04/06/18 07:10 04/06/18 07:10 Laboratory Results - last 24 hr 04/05/18 04/05/18 04/05/18 07:00 07:05 15:00 WBC 4.8 5.3 RBC 3.04 L 3.23 L Hgb 9.1 L 9.7 L Hct 27.3 L 29.2 L MCV 89.7 90.2 MCH 30.0 29.9 MCHC 33.5 33.2 RDW 13.8 13.8 Plt Count 249 269 MPV 6.9 L 7.8 D Neutrophils % 74.0 Neutrophils % (Manual) 76.3 D Band Neutrophils % 0.0 Lymphocytes % 9.9 D Lymphocytes % (Manual) 7.2 L D Monocytes % 8.5 Monocytes % (Manual) 4 Eosinophils % 7.3 H D Eosinophils % (Manual) 9.3 H Basophils % 0.3 Basophils % (Manual) 1.1 D Myelocytes % (Man) 0 D Promyelocytes % (Man) 0 Blast Cells % (Manual) 0 Nucleated RBC % 0 Metamyelocytes 1 D Hypochromia 0 Toxic Granulation 0 Dohle Bodies 0 Platelet Estimate Normal Platelet Comment No clumping noted Polychromasia 0 Poikilocytosis 0 Basophilic Stippling 0 Anisocytosis 0 Microcytosis 0 Macrocytosis 0 Spherocytes 0 Sickle Cells 0 Target Cells 0 Tear Drop Cells 0 Ovalocytes 0 Stomatocytes 0 Helmet Cells 0 Avila-Acme Bodies 0 [place] Rings 0 [place] Cells 0 Acanthocytes (Spur) 0 Rouleaux 0 Fragmented RBCs 0 Schistocytes 0 Sodium 143 Potassium 3.7 Chloride 114 H Carbon Dioxide 21 Anion Gap 8 BUN 4 L Creatinine 0.6 Creat Clearance w eGFR > 60 Random Glucose 104 Calcium 7.7 L Phosphorus 2.0 L Magnesium 1.8 Total Bilirubin 0.3 D AST 9 L ALT 9 L Alkaline Phosphatase 36 L Total Protein 5.1 L Albumin 2.4 L Active Medications Generic Name Dose Route Start Last Admin Trade Name Galindo PRN Reason Stop Dose Admin Calcium Carbonate/Cholecalciferol 1 tab 04/02/18 10:00 04/05/18 09:23 Os-Venkatesh 500+D - PO 1 tab DAILY JETHRO Administration Cholestyramine Resin 4 gm 04/03/18 10:00 04/05/18 09:23 Questran Light Packet - PO 4 gm DAILY JETHRO Administration Ezetimibe 10 mg 04/02/18 10:00 04/05/18 09:23 Zetia - PO 10 mg DAILY JETHRO Administration Dextrose/Sodium Chloride 1,000 mls @ 75 mls/hr 04/05/18 16:30 04/05/18 22:39 D5-Ns - IV 75 mls/hr ASDIR JETHRO Administration Levothyroxine Sodium 25 mcg 04/02/18 07:00 04/06/18 06:03 Synthroid - PO 25 mcg DAILY@0700 [facility] Administration Magnesium Oxide 400 mg 04/02/18 10:00 04/05/18 09:23 Mag-Ox - PO 400 mg DAILY JETHRO Administration Multivitamins/Minerals/Vitamin C 1 tab 04/03/18 10:00 04/05/18 09:23 Tab-A-Vit - PO 1 tab DAILY JETHRO Administration Pantoprazole Sodium 20 mg 04/02/18 10:00 04/05/18 09:23 Protonix - PO 20 mg DAILY JETHRO Administration Potassium Phos/Sodium Phos 2 packet 04/05/18 10:00 04/05/18 22:08 Phos-Nak Packet - PO 04/06/18 22:01 2 packet BID JETHRO Administration Prochlorperazine Maleate 10 mg 04/02/18 00:24 Compazine - PO Q8H PRN NAUSEA Vancomycin HCl 125 mg 04/04/18 18:00 04/06/18 05:21 Vancomycin Oral Solution PO 125 mg Q6HPO JETHRO Administration Current Medications Calcium Carbonate/Cholecalciferol (Os-Venkatesh 500+D -) 1 tab PO DAILY [facility] Last Admin: 04/06/18 10:44 Dose: 1 tab Cholestyramine Resin (Questran Light Packet -) 4 gm PO DAILY [facility] Last Admin: 04/06/18 10:44 Dose: 4 gm Ezetimibe (Zetia -) 10 mg PO DAILY [facility] Last Admin: 04/06/18 10:43 Dose: 10 mg Dextrose/Sodium Chloride (D5-Ns -) 1,000 mls @ 75 mls/hr IV ASDIR [facility] Last Admin: 04/05/18 22:39 Dose: 75 mls/hr Magnesium Sulfate/Dextrose 2 (gm/ Miscellaneous) 200 mls @ 100 mls/hr IVPB ONCE ONE Stop: 04/06/18 17:13 Levothyroxine Sodium (Synthroid -) 25 mcg PO DAILY@0700 [facility] Last Admin: 04/06/18 06:03 Dose: 25 mcg Magnesium Oxide (Mag-Ox -) 400 mg PO DAILY [facility] Last Admin: 04/06/18 10:44 Dose: 400 mg Multivitamins/Minerals/Vitamin C (Tab-A-Vit -) 1 tab PO DAILY [facility] Last Admin: 04/06/18 10:44 Dose: 1 tab Pantoprazole Sodium (Protonix -) 20 mg PO DAILY [facility] Last Admin: 04/06/18 10:44 Dose: 20 mg Potassium Phos/Sodium Phos (Phos-Nak Packet -) 2 packet PO BID [facility] Stop: 04/06/18 22:01 Last Admin: 04/06/18 10:44 Dose: 2 packet Prochlorperazine Maleate (Compazine -) 10 mg PO Q8H PRN PRN Reason: NAUSEA Vancomycin HCl (Vancomycin Oral Solution) 125 mg PO Q6HPO [facility] Last Admin: 04/06/18 12:13 Dose: 125 mg Microbiology 04/03/18 13:00 Stool Clostridium difficile Antigen (LISA) - Final 04/03/18 13:00 Stool Clostridium difficile Toxin Assay - Final 04/03/18 13:00 Stool Salmonella/Shigella Culture - Preliminary NO ENTERIC PATHOGENS, 24 HOURS, ON PRIMARY PLATES 04/03/18 13:00 Stool Yersinia Culture - Preliminary NO ENTERIC PATHOGENS, 24 HOURS, ON PRIMARY PLATES 04/03/18 13:00 Stool Vibrio Culture - Final NO GROWTH OF VIBRIO SPECIES OBTAINED 04/03/18 13:00 Stool Escherichia coli 0157 Culture - Final NO GROWTH OF E COLI 0157 OBTAINED Endoscopy /colonoscopy 04/04/18: Small hiatal hernia, otherwise normal EGD, biopsies taken. Edematous colon throughout w/o obvious erythema, hemorrhage, or ulcerations. "C.diff colitis" appearance. Normal TI. 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 Low fat, dairy-free, low residual diet Ensure clear supplement Continue and then taper oral vancomycin at home. Consider probiotic. D/W Dr Sandhu, she called vancomycin tapered dose as: Vancomycin pulsed-tapered regimen: * 125 mg orally four times daily for 10 to 14 days, then * 125 mg orally twice daily for 7 days, then * 125 mg orally once daily for 7 days, then * 125 mg orally every 2 or 3 days for 2 to 8 weeks, To [facility] -#hypokalemia likely due to GI loss, Replete as needed- D5 with 20meq Kcl check Mg/phos - 2g Mg #Hypomg Replete as needed #HLD zetia 10mg po HS #hypothyroid levothyroxine 25mch po daily #GERD pantoprazole #PPx SQ heparin 5000 tid Dispo: Med surg for likely dc tomorrow Visit type - Emergency Visit Emergency Visit: Yes ED Registration Date: 04/01/18 Care time: The patient presented to the Emergency Department on the above date and was hospitalized for further evaluation of their emergent condition. - New Patient This patient is new to me today: No - Critical Care Critical Care patient: No - Discharge Referral Referred to [facility] Med P[facility] No
[2018-04-06 08:57] LABS: BASO % 0.5 % (0-2.0); EOS % 7.3 % (0-4.5); HEMATOCRIT 30.7 % (32.4-45.2); HEMOGLOBIN 10.4 GM/dL (10.7-15.3); LYMPH % 18.7 % (8-40); MCH 30.5 pg (25.7-33.7); MCHC 33.8 g/dl (32.0-36.0); MEAN CELL VOLUME 90.2 fl (80-96); MONO % 10.9 % (3.8-10.2); NEUT % 62.6 % (42.8-82.8); PLATELET COUNT 288 K/MM3 (134-434); RBC 3.41 M/mm3 (3.60-5.2); RDW 13.8 % (11.6-15.6)
[2018-04-06 09:27] LABS: CHLORIDE 108 mmol/L (98-107); POTASSIUM 3.6 mmol/L (3.5-5.1); SODIUM 142 mmol/L (136-145)
[2018-04-06 09:35] LABS: ALBUMIN 2.7 g/dl (3.4-5.0); ALK PHOS 41 U/L (45-117); ANION GAP 10 (8-16); BILIRUBIN,TOTAL 0.4 mg/dL (0.2-1.0); CALCIUM 8.2 mg/dL (8.5-10.1); CO2 24 mmol/L (21-32); CREATININE 0.6 mg/dL (0.55-1.02); GLUCOSE,RANDOM 82 mg/dL (74-106); MAGNESIUM 1.6 mg/dL (1.8-2.4); PHOSPHOROUS 3.7 mg/dL (2.5-4.9); SGOT/AST 11 U/L (15-37); SGPT/ALT 10 U/L (12-78); TOT PROT 5.6 g/dl (6.4-8.2)
[2018-04-06 09:38] LABS: BLOOD UREA NITROGEN 2 mg/dL (7-18)
[2018-04-06] MEDS: EZETIMIBE 10 MG TABLET (FP) PO SCH (10:43)
[2018-04-06] MEDS: PANTOPRAZOLE 20 MG TABLET (FP) PO SCH (10:44)
[2018-04-06] MEDS: CHOLESTYRAMINE/ASPARTAME 4 GM PACKET PO SCH (10:44)
[2018-04-06] MEDS: CALCIUM 500MG/VIT-D 200 UNITS COMBO TABLET (FP) PO SCH (10:44)
[2018-04-06] MEDS: MAGNESIUM OXIDE 400 MG TABLET (FP) PO SCH (10:44)
[2018-04-06] MEDS: NAPH,MB-DB/K PH,MBDB POWDER PACKET PO SCH ×2 (10:44→21:31)
[2018-04-06] MEDS: MULTIVITAMINS (DAILY MVI) TABLET (FP) PO SCH (10:44)
--- NOTE | 2018-04-06 11:41 | PN ---
Progress Note, Physician History of Present Illness: Had loose stools. Reports no abdominal pain, nausea, vomiting. - Current Medication List Current Medications: Active Medications Calcium Carbonate/Cholecalciferol (Os-Venkatesh 500+D -) 1 tab PO DAILY [facility] Last Admin: 04/06/18 10:44 Dose: 1 tab Cholestyramine Resin (Questran Light Packet -) 4 gm PO DAILY [facility] Last Admin: 04/06/18 10:44 Dose: 4 gm Ezetimibe (Zetia -) 10 mg PO DAILY [facility] Last Admin: 04/06/18 10:43 Dose: 10 mg Dextrose/Sodium Chloride (D5-Ns -) 1,000 mls @ 75 mls/hr IV ASDIR [facility] Last Admin: 04/05/18 22:39 Dose: 75 mls/hr Levothyroxine Sodium (Synthroid -) 25 mcg PO DAILY@0700 [facility] Last Admin: 04/06/18 06:03 Dose: 25 mcg Magnesium Oxide (Mag-Ox -) 400 mg PO DAILY [facility] Last Admin: 04/06/18 10:44 Dose: 400 mg Multivitamins/Minerals/Vitamin C (Tab-A-Vit -) 1 tab PO DAILY [facility] Last Admin: 04/06/18 10:44 Dose: 1 tab Pantoprazole Sodium (Protonix -) 20 mg PO DAILY [facility] Last Admin: 04/06/18 10:44 Dose: 20 mg Potassium Phos/Sodium Phos (Phos-Nak Packet -) 2 packet PO BID [facility] Stop: 04/06/18 22:01 Last Admin: 04/06/18 10:44 Dose: 2 packet Prochlorperazine Maleate (Compazine -) 10 mg PO Q8H PRN PRN Reason: NAUSEA Vancomycin HCl (Vancomycin Oral Solution) 125 mg PO Q6HPO [facility] Last Admin: 04/06/18 05:21 Dose: 125 mg - Objective Vital Signs: Vital Signs Temperature 98 F 04/06/18 08:58 Pulse Rate 70 04/06/18 08:58 Respiratory Rate 18 04/06/18 08:58 Blood Pressure 115/70 04/06/18 08:58 O2 Sat by Pulse Oximetry (%) 95 04/05/18 21:00 Constitutional: Yes: Calm, Thin Gastrointestinal: Yes: Normal Bowel Sounds, Soft, Distention. No: Tenderness, Tenderness, Rebound Neurological: Yes: Alert, Oriented Labs: CBC, BMP 05/25/18 07:10 04/06/18 07:10 INR, PTT INR 1.12 (0.82-1.09) 04/04/18 07:00 Laboratory Last Values WBC 4.0 K/mm3 (4.0-10.0) 04/06/18 07:10 RBC 3.41 M/mm3 (3.60-5.2) L 04/06/18 07:10 Hgb 10.4 GM/dL (10.7-15.3) L 04/06/18 07:10 Hct 30.7 % (32.4-45.2) L 04/06/18 07:10 MCV 90.2 fl (80-96) 04/06/18 07:10 MCH 30.5 pg (25.7-33.7) 04/06/18 07:10 MCHC 33.8 g/dl (32.0-36.0) 04/06/18 07:10 RDW 13.8 % (11.6-15.6) 04/06/18 07:10 Plt Count 288 K/MM3 (134-434) 04/06/18 07:10 MPV 7.0 fl (7.5-11.1) L D 04/06/18 07:10 Neutrophils % 62.6 % (42.8-82.8) 04/06/18 07:10 Neutrophils % (Manual) 76.3 % (42.8-82.8) D 04/05/18 07:00 Band Neutrophils % 0.0 % 04/05/18 07:00 Lymphocytes % 18.7 % (8-40) D 04/06/18 07:10 Lymphocytes % (Manual) 7.2 % (8-40) L D 04/05/18 07:00 Monocytes % 10.9 % (3.8-10.2) H 04/06/18 07:10 Monocytes % (Manual) 4 % (3.8-10.2) 04/05/18 07:00 Eosinophils % 7.3 % (0-4.5) H 04/06/18 07:10 Eosinophils % (Manual) 9.3 % (0-4.5) H 04/05/18 07:00 Basophils % 0.5 % (0-2.0) 04/06/18 07:10 Basophils % (Manual) 1.1 % (0-2.0) D 04/05/18 07:00 Myelocytes % (Man) 0 % (0-2) D 04/05/18 07:00 Promyelocytes % (Man) 0 % (0-2) 04/05/18 07:00 Blast Cells % (Manual) 0 % (0-0) 04/05/18 07:00 Nucleated RBC % 0 % (0-0) 04/06/18 07:10 Metamyelocytes 1 % (0-2) D 04/05/18 07:00 Hypochromia 0 04/05/18 07:00 Toxic Granulation 0 04/05/18 07:00 Dohle Bodies 0 04/05/18 07:00 Platelet Estimate Normal 04/05/18 07:00 Platelet Comment No clumping noted 04/05/18 15:00 Polychromasia 0 04/05/18 07:00 Poikilocytosis 0 04/05/18 07:00 Basophilic Stippling 0 04/05/18 07:00 Anisocytosis 0 04/05/18 07:00 Microcytosis 0 04/05/18 07:00 Macrocytosis 0 04/05/18 07:00 Spherocytes 0 04/05/18 07:00 Sickle Cells 0 04/05/18 07:00 Target Cells 0 04/05/18 07:00 Tear Drop Cells 0 04/05/18 07:00 Ovalocytes 0 04/05/18 07:00 Stomatocytes 0 04/05/18 07:00 Helmet Cells 0 04/05/18 07:00 [place] Bodies 0 04/05/18 07:00 [place] Rings 0 04/05/18 07:00 [place] Cells 0 04/05/18 07:00 Acanthocytes (Spur) 0 04/05/18 07:00 Rouleaux 0 04/05/18 07:00 Fragmented RBCs 0 04/05/18 07:00 Schistocytes 0 04/05/18 07:00 PT with INR 12.60 SEC (9.7-13.0) 04/04/18 07:00 INR 1.12 (0.82-1.09) 04/04/18 07:00 PTT (Actin FS) 41.3 SECONDS (26.9-34.4) H D 04/02/18 19:30 Sodium 142 mmol/L (136-145) 04/06/18 07:10 Potassium 3.6 mmol/L (3.5-5.1) 04/06/18 07:10 Chloride 108 mmol/L (98-107) H 04/06/18 07:10 Carbon Dioxide 24 mmol/L (21-32) 04/06/18 07:10 Anion Gap 10 (8-16) 04/06/18 07:10 BUN 2 mg/dL (7-18) L* 04/06/18 07:10 Creatinine 0.6 mg/dL (0.55-1.02) 04/06/18 07:10 Creat Clearance w eGFR > 60 (>60) 04/06/18 07:10 POC Glucometer 380 UNITS (80-120) 04/04/18 17:46 Random Glucose 82 mg/dL (74-106) 04/06/18 07:10 Calcium 8.2 mg/dL (8.5-10.1) L 04/06/18 07:10 Phosphorus 3.7 mg/dL (2.5-4.9) 04/06/18 07:10 Magnesium 1.6 mg/dL (1.8-2.4) L 04/06/18 07:10 Total Bilirubin 0.4 mg/dL (0.2-1.0) D 04/06/18 07:10 AST 11 U/L (15-37) L 04/06/18 07:10 ALT 10 U/L (12-78) L 04/06/18 07:10 Alkaline Phosphatase 41 U/L (45-117) L 04/06/18 07:10 Creatine Kinase 51 IU/L (26-192) 04/01/18 18:26 Troponin I < 0.02 ng/ml (0.00-0.05) 04/01/18 18:26 Total Protein 5.6 g/dl (6.4-8.2) L 04/06/18 07:10 Albumin 2.7 g/dl (3.4-5.0) L 04/06/18 07:10 Urine Color Colorless 04/01/18 19:53 Urine Appearance Clear 04/01/18 19:53 Urine pH 6.0 (5.0-8.0) 04/01/18 19:53 Ur Specific [place] 1.003 (1.001-1.035) 04/01/18 19:53 Urine Protein Negative (NEGATIVE) 04/01/18 19:53 Urine Glucose (UA) Negative (NEGATIVE) 04/01/18 19:53 Urine Ketones Trace (NEGATIVE) H 04/01/18 19:53 Urine Blood 2+ (NEGATIVE) H 04/01/18 19:53 Urine Nitrite Negative (NEGATIVE) 04/01/18 19:53 Urine Bilirubin Negative (<2.0 mg/dL) 04/01/18 19:53 Urine Urobilinogen Negative mg/dL (0.2-1.0) 04/01/18 19:53 Ur Leukocyte Esterase Negative (NEGATIVE) 04/01/18 19:53 Urine WBC (Auto) 2 /hpf (3-5) 04/01/18 19:53 Urine RBC (Auto) 2 /hpf (0-3) 04/01/18 19:53 Hyaline Casts 1 /lpf 04/01/18 19:53 Problem List - Problems (1) Diarrhea Code(s): R19.7 - DIARRHEA, UNSPECIFIED (2) Cervical cancer Code(s): C53.9 - MALIGNANT NEOPLASM OF CERVIX UTERI, UNSPECIFIED (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 Continue and then taper oral vancomycin at home. Consider probiotic. Vancomycin 125 mg by mouth twice a day for 7 days. 125 mg once a day for 7 days. 125 mg once every 2 days for 14 days
[2018-04-06] MEDS ORDERED: MAGNESIUM SULFATE IN WATER 2 GM/50 ML IVPB IVPB ONE (15:14)
--- NOTE | 2018-04-06 15:25 | PN ---
Physical Exam: SUBJECTIVE: Patient seen and examined. Pt feels much better this am. Has an appetite, wants to eat. Started PO vanco yesterday. OBJECTIVE: Vital Signs Period Temp Pulse Resp BP Sys/Rankin Pulse Ox Last 24 Hr 97.6 F-98.7 F 72-90 16-20 104-142/50-68 95-100 Vital Signs Temp 98.1 F 04/05/18 13:07 Pulse 87 04/05/18 13:07 Resp 20 04/05/18 13:07 BP 125/50 04/05/18 13:07 Pulse Ox 95 04/05/18 09:00 Intake & Output 04/04/18 04/05/18 04/05/18 23:59 11:59 23:59 Intake Total 194 1020 Balance 194 1020 Intake: IV 1740 900 DEXTROSE 5%-NORMAL SALINE 1500 900 +40 MEQ KCL - 40 meq In 1 ,000 ml @ 100 mls/hr IV ASDIR JETHRO Rx#:[id number] IVPB 200 Oral 0 120 Other: Voiding Method Toilet Toilet # Unmeasured Voids Void 1 2 Bowel Movement No No Intake & Output 04/02/18 04/03/18 04/04/18 04/05/18 23:59 23:59 23:59 23:59 Intake Total 100 1940 1020 Balance 100 194 1020 Weight 44.906 kg 44.906 kg GENERAL: The patient is awake, alert, and fully oriented, in no acute painful distress. ENT: moist mucous membranes. NECK: supple. LUNGS: Breath sounds equal, clear to auscultation bilaterally HEART: Regular rate and rhythm, S1, S2 ABDOMEN: Soft, nontender, nondistended, normoactive bowel sounds EXTREMITIES: 2+ pulses, warm, well-perfused, no edema. NEUROLOGICAL: AAOx 3. Normal speech, normal gait. Laboratory Results - last 24 hr 04/04/18 04/04/18 04/05/18 16:45 17:46 07:00 WBC 6.6 4.8 RBC 3.21 L 3.04 L Hgb 9.8 L 9.1 L Hct 29.2 L 27.3 L MCV 90.9 89.7 MCH 30.4 30.0 MCHC 33.5 33.5 RDW 13.8 13.8 Plt Count 261 249 MPV 7.2 L 6.9 L Neutrophils % 74.0 Lymphocytes % 9.9 D Monocytes % 8.5 Eosinophils % 7.3 H D Basophils % 0.3 Nucleated RBC % 0 Sodium Potassium Chloride Carbon Dioxide Anion Gap BUN Creatinine Creat Clearance w eGFR POC Glucometer 380 Random Glucose Calcium Phosphorus Magnesium Total Bilirubin AST ALT Alkaline Phosphatase Total Protein Albumin 04/05/18 07:05 WBC RBC Hgb Hct MCV MCH MCHC RDW Plt Count MPV Neutrophils % Lymphocytes % Monocytes % Eosinophils % Basophils % Nucleated RBC % Sodium 143 Potassium 3.7 Chloride 114 H Carbon Dioxide 21 Anion Gap 8 BUN 4 L Creatinine 0.6 Creat Clearance w eGFR > 60 POC Glucometer Random Glucose 104 Calcium 7.7 L Phosphorus 2.0 L Magnesium 1.8 Total Bilirubin 0.3 D AST 9 L ALT 9 L Alkaline Phosphatase 36 L Total Protein 5.1 L Albumin 2.4 L Active Medications Calcium Carbonate/Cholecalciferol (Os-Venkatesh 500+D -) 1 tab PO DAILY [facility] Last Admin: 04/03/18 10:41 Dose: 1 tab Cholestyramine Resin (Questran Light Packet -) 4 gm PO DAILY [facility] Last Admin: 04/03/18 10:40 Dose: 4 gm Ezetimibe (Zetia -) 10 mg PO DAILY [facility] Last Admin: 04/03/18 10:40 Dose: 10 mg Levothyroxine Sodium (Synthroid -) 25 mcg PO DAILY@0700 [facility] Last Admin: 04/03/18 06:28 Dose: 25 mcg Magnesium Oxide (Mag-Ox -) 400 mg PO DAILY [facility] Last Admin: 04/03/18 10:41 Dose: 400 mg Multivitamins/Minerals/Vitamin C (Tab-A-Vit -) 1 tab PO DAILY [facility] Last Admin: 04/03/18 10:40 Dose: 1 tab Pantoprazole Sodium (Protonix -) 20 mg PO DAILY [facility] Last Admin: 04/03/18 10:41 Dose: 20 mg Prochlorperazine Maleate (Compazine -) 10 mg PO Q8H PRN PRN Reason: NAUSEA ASSESSMENT/PLAN: 77 yo F with PMHx of hypothyroidism, HLD, Gerd, recently discharged on treatment for 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 Low fat, dairy-free, low residual diet Ensure clear supplement -#hypokalemia likely due to GI loss, Replete as needed- D5 with 20meq Kcl check Mg/phos - 2g Mg #Hypomg Replete as needed #HLD zetia 10mg po HS #hypothyroid levothyroxine 25mch po daily #GERD pantoprazole #PPx SQ heparin 5000 tid Dispo: Med surg for likely dc Visit type - Emergency Visit Emergency Visit: Yes ED Registration Date: 04/01/18 Care time: The patient presented to the Emergency Department on the above date and was hospitalized for further evaluation of their emergent condition. - New Patient This patient is new to me today: No - Critical Care Critical Care patient: No - Discharge Referral Referred to [facility] Med P.C.: No
--- NOTE | 2018-04-06 15:34 | PN ---
Teaching Attending Note Name of Resident: Pura Graf ATTENDING PHYSICIAN STATEMENT I saw and evaluated the patient. I reviewed the resident's note and discussed the case with the resident. I agree with the resident's findings and plan as documented with exceptions below. SUBJECTIVE: Patient seen and examined. 1 episode of loose stool today. No abdominal. Tolerated some breakfast. OBJECTIVE: Vital Signs Period Temp Pulse Resp BP Sys/Rankin Pulse Ox Last 24 Hr 98 F-98.7 F 70-90 18-18 106-125/62-71 95-95 Intake & Output 04/03/18 04/04/18 04/05/18 04/06/18 23:59 23:59 23:59 23:59 Intake Total 100 1940 2260 960 Balance 100 1940 2260 960 Weight 99 lb General: lying in bed in no acute distress Abdomen:soft, NT throughout, ND, positive bowel sounds Home Medication List Medication Instructions Recorded Confirmed Type Ezetimibe [Zetia] 10 mg PO DAILY 05/24/13 04/01/18 History Levothyroxine [Synthroid -] 25 mcg PO DAILY 05/24/13 04/01/18 History Prochlorperazine Maleate 10 mg PO Q8H PRN 03/12/18 04/01/18 History [Compazine] Alendronate Na [Fosamax] 70 mg PO Q7D 04/01/18 04/02/18 History Calcium Carbonate/Vitamin D3 1 each PO DAILY 04/01/18 04/01/18 History [Calcium 600 + Vit D 400 Softgl] Active Medications Generic Name Dose Route Start Last Admin Trade Name Freq PRN Reason Stop Dose Admin Calcium Carbonate/Cholecalciferol 1 tab 04/02/18 10:04/06/18 10:44 Os-Venkatesh 500+D - PO 1 tab DAILY JETHRO Administration Cholestyramine Resin 4 gm 04/03/18 10:00 04/06/18 10:44 Questran Light Packet - PO 4 gm DAILY JETHRO Administration Ezetimibe 10 mg 04/02/18 10:04/06/18 10:43 Zetia - PO 10 mg DAILY JETHRO Administration Dextrose/Sodium Chloride 1,000 mls @ 75 mls/hr 04/05/18 16:30 04/05/18 22:39 D5-Ns - IV 75 mls/hr ASDIR JETHRO Administration Magnesium Sulfate/Dextrose 2 200 mls @ 100 mls/hr 04/06/18 15:14 gm/ Miscellaneous IVPB 04/06/18 17:13 ONCE ONE Levothyroxine Sodium 25 mcg 04/02/18 07:00 04/06/18 06:03 Synthroid - PO 25 mcg DAILY@0700 JETHRO Administration Magnesium Oxide 400 mg 04/02/18 10:00 04/06/18 10:44 Mag-Ox - PO 400 mg DAILY JETHRO Administration Multivitamins/Minerals/Vitamin C 1 tab 04/03/18 10:00 04/06/18 10:44 Tab-A-Vit - PO 1 tab DAILY JETHRO Administration Pantoprazole Sodium 20 mg 04/02/18 10:00 04/06/18 10:44 Protonix - PO 20 mg DAILY JETHRO Administration Potassium Phos/Sodium Phos 2 packet 04/05/18 10:00 04/06/18 10:44 Phos-Nak Packet - PO 04/06/18 22:01 2 packet BID JETHRO Administration Prochlorperazine Maleate 10 mg 04/02/18 00:24 Compazine - PO Q8H PRN NAUSEA Vancomycin HCl 125 mg 04/04/18 18:00 04/06/18 12:13 Vancomycin Oral Solution PO 125 mg Q6HPO JETHRO Administration Laboratory Results - last 24 hr 04/02/18 04/05/18 04/06/18 13:00 15:00 07:10 WBC 5.3 4.0 RBC 3.23 L 3.41 L Hgb 9.7 L 10.4 L Hct 29.2 L 30.7 L MCV 90.2 90.2 MCH 29.9 30.5 MCHC 33.2 33.8 RDW 13.8 13.8 Plt Count 269 288 MPV 7.8 D 7.0 L D Neutrophils % 62.6 Lymphocytes % 18.7 D Monocytes % 10.9 H Eosinophils % 7.3 H Basophils % 0.5 Nucleated RBC % 0 Platelet Comment No clumping noted Sodium Potassium Chloride Carbon Dioxide Anion Gap BUN Creatinine Creat Clearance w eGFR Random Glucose Calcium Phosphorus Magnesium Total Bilirubin AST ALT Alkaline Phosphatase Total Protein Albumin Stool O & P Wet [place] P Permanent Slide Final report 04/06/18 07:10 WBC RBC Hgb Hct MCV MCH MCHC RDW Plt Count MPV Neutrophils % Lymphocytes % Monocytes % Eosinophils % Basophils % Nucleated RBC % Platelet Comment Sodium 142 Potassium 3.6 Chloride 108 H Carbon Dioxide 24 Anion Gap 10 BUN 2 L* Creatinine 0.6 Creat Clearance w eGFR > 60 Random Glucose 82 Calcium 8.2 L Phosphorus 3.7 Magnesium 1.6 L Total Bilirubin 0.4 D AST 11 L ALT 10 L Alkaline Phosphatase 41 L Total Protein 5.6 L Albumin 2.7 L Stool O & P Wet [place] & P Permanent Slide Microbiology 04/03/18 13:00 Stool Salmonella/Shigella Culture - Final NO GROWTH OF SALMONELLA OR SHIGELLA SPECIES OBTAINED 04/03/18 13:00 Stool Campylobacter Culture - Final NO GROWTH OF CAMPYLOBACTER SPECIES OBTAINED 04/03/18 13:00 Stool Yersinia Culture - Final NO GROWTH OF YERSINIA SPECIES OBTAINED 04/03/18 13:00 Stool Vibrio Culture - Final NO GROWTH OF VIBRIO SPECIES OBTAINED 04/03/18 13:00 Stool Escherichia coli 0157 Culture - Final NO GROWTH OF E COLI 0157 OBTAINED 04/03/18 13:00 Stool Clostridium difficile Antigen (LISA) - Final 04/03/18 13:00 Stool Clostridium difficile Toxin Assay - Final 04/01/18 19:53 Urine - Urine Clean Catch Urine Culture - Final NO GROWTH OBTAINED ASSESSMENT AND PLAN: 77yo F wtih PMH asthma, hypothyroid, and cervical ca s/p chemo-radiation, recently admitted with diarrhea re-admitted with similar symptoms with poor oral intake and ongoing diarrhea -Acute C difficile pancolitis -Failure to thrive, ?Secondary to chemoradiation vs above -Hypokalemia, due to above -Hypomagnesemia -Normocytic anemia -Hypothyroidism -Cervical Ca s/p chemoradaition Plan: GI input noted, EGD/colonoscopy noted. Vancomycin day 2, followed by slow taper. PO as tolerated. Nutritional supplements. Replete k/Mg prn. H/h stable. Continue levothyroxine. Oncology input noted. Nutrition consult noted. DvTPPX Patient ambulating inhouse, does not feel need for home services. D/c in 1-2 days if PO and diarrhea improved and no concerns. Plan discussed with patient in detail, all questions answered.
--- NOTE | 2018-04-06 17:25 | PN ---
Progress Note (short form) - Note Progress Note: Patient seen and examined Had 1 episode of diarrhea today No abdominal pain/cramping Last Vital Signs Temp Pulse Resp BP Pulse Ox 98.7 F 90 18 106/66 95 04/06/18 13:54 04/06/18 13:54 04/06/18 13:54 04/06/18 13:54 04/06/18 09:00 Cor: RSR, No murmurs, No gallops Lungs: Clear to P&A Abd: Soft, Normal bowel sounds, No organomegaly ext. --no c/c/e Abnormal Lab Results 04/06/18 04/06/18 07:10 07:10 RBC 3.41 L Hgb 10.4 L Hct 30.7 L MPV 7.0 L D Monocytes % 10.9 H Eosinophils % 7.3 H Chloride 108 H BUN 2 L* Calcium 8.2 L Magnesium 1.6 L AST 11 L ALT 10 L Alkaline Phosphatase 41 L Total Protein 5.6 L Albumin 2.7 L Active Medications Generic Name Dose Route Start Last Admin Trade Name [place] PRN Reason Stop Dose Admin Calcium Carbonate/Cholecalciferol 1 tab 04/02/18 10:00 04/06/18 10:44 Os-Venkatesh 500+D - PO 1 tab DAILY JETHRO Administration Cholestyramine Resin 4 gm 04/03/18 10:00 04/06/18 10:44 Questran Light Packet - PO 4 gm DAILY JETHRO Administration Ezetimibe 10 mg 04/02/18 10:00 04/06/18 10:43 Zetia - PO 10 mg DAILY JETHRO Administration Dextrose/Sodium Chloride 1,000 mls @ 75 mls/hr 04/05/18 16:30 04/05/18 22:39 D5-Ns - IV 75 mls/hr ASDIR JETHRO Administration Levothyroxine Sodium 25 mcg 04/02/18 07:00 04/06/18 06:03 Synthroid - PO 25 mcg DAILY@0700 JETHRO Administration Magnesium Oxide 400 mg 04/02/18 10:00 04/06/18 10:44 Mag-Ox - PO 400 mg DAILY JETHRO Administration Multivitamins/Minerals/Vitamin C 1 tab 04/03/18 10:00 04/06/18 10:44 Tab-A-Vit - PO 1 tab DAILY JETHRO Administration Pantoprazole Sodium 20 mg 04/02/18 10:00 04/06/18 10:44 Protonix - PO 20 mg DAILY JETHRO Administration Potassium Phos/Sodium Phos 2 packet 04/05/18 10:00 04/06/18 10:44 Phos-Nak Packet - PO 04/06/18 22:01 2 packet BID JETHRO Administration Prochlorperazine Maleate 10 mg 04/02/18 00:24 Compazine - PO Q8H PRN NAUSEA Vancomycin HCl 125 mg 04/04/18 18:00 04/06/18 12:13 Vancomycin Oral Solution PO 125 mg Q6HPO JETHRO Administration A/P 77 y/o female with h/o Cervical Ca-stage III-- s/p chemo RT, recurrent diarrhea ( c.diff . ag and toxin +) On PO vancomycin liquid 125mg PO Q 6hrs. --called it in to [facility]--liquid formulation --[phone] patel To f/u closely in the office
[2018-04-06] MEDS: DEXTROSE 5%-NORMAL SALINE 1,000 ML IV SCH (21:35)
[2018-04-07] MEDS: VANCOMYCIN 250 MG/5 ML ORAL SOLUTION PO SCH ×3 (00:33→11:55)
[2018-04-07] MEDS: DEXTROSE 5%-NORMAL SALINE 1,000 ML IV SCH (02:01)
[2018-04-07] MEDS: LEVOTHYROXINE NA 25 MCG TABLET (FP) PO SCH (06:03)
[2018-04-07 07:42] LABS: BASO % 0.6 % (0-2.0); EOS % 6.3 % (0-4.5); HEMATOCRIT 27.7 % (32.4-45.2); HEMOGLOBIN 9.2 GM/dL (10.7-15.3); MCH 30.1 pg (25.7-33.7); MCHC 33.3 g/dl (32.0-36.0); MEAN CELL VOLUME 90.3 fl (80-96); MEAN PLT VOLUME 6.9 fl (7.5-11.1); MONO % 11.8 % (3.8-10.2); NEUT % 60.3 % (42.8-82.8); PLATELET COUNT 271 K/MM3 (134-434); RBC 3.06 M/mm3 (3.60-5.2); RDW 14.1 % (11.6-15.6); WHITE BLOOD COUNT 3.3 K/mm3 (4.0-10.0)
[2018-04-07 08:22] LABS: CHLORIDE 109 mmol/L (98-107); POTASSIUM 4.1 mmol/L (3.5-5.1); SODIUM 142 mmol/L (136-145)
[2018-04-07 08:33] LABS: ALBUMIN 2.3 g/dl (3.4-5.0); ALK PHOS 40 U/L (45-117); ANION GAP 6 (8-16); BILIRUBIN,TOTAL 0.4 mg/dL (0.2-1.0); BLOOD UREA NITROGEN 4 mg/dL (7-18); CALCIUM 7.9 mg/dL (8.5-10.1); CO2 27 mmol/L (21-32); CREATININE 0.6 mg/dL (0.55-1.02); GLUCOSE,RANDOM 89 mg/dL (74-106); MAGNESIUM 2.1 mg/dL (1.8-2.4); PHOSPHOROUS 4.1 mg/dL (2.5-4.9); SGOT/AST 9 U/L (15-37); SGPT/ALT 8 U/L (12-78)
[2018-04-07 09:31] VITALS: BP 128/60; PULSE 94; TEMP 98.6
[2018-04-07] MEDS: MULTIVITAMINS (DAILY MVI) TABLET (FP) PO SCH (09:38)
[2018-04-07] MEDS: CALCIUM 500MG/VIT-D 200 UNITS COMBO TABLET (FP) PO SCH (09:38)
[2018-04-07] MEDS: CHOLESTYRAMINE/ASPARTAME 4 GM PACKET PO SCH (09:38)
[2018-04-07] MEDS: PANTOPRAZOLE 20 MG TABLET (FP) PO SCH (09:38)
[2018-04-07] MEDS: MAGNESIUM OXIDE 400 MG TABLET (FP) PO SCH (09:38)
[2018-04-07] MEDS: EZETIMIBE 10 MG TABLET (FP) PO SCH (09:38)
--- NOTE | 2018-04-07 09:44 | PN ---
Teaching Attending Note Name of Resident: Pura Graf ATTENDING PHYSICIAN STATEMENT I saw and evaluated the patient. I reviewed the resident's note and discussed the case with the resident. I agree with the resident's findings and plan as documented with exceptions below. SUBJECTIVE: Patient seen and examined. diarrhea improved. no new abdominal pain. tolerating po better. OBJECTIVE: Vital Signs Period Temp Pulse Resp BP Sys/Rankin Pulse Ox Last 24 Hr 98.5 F-98.7 F 85-94 18-20 106-128/60-66 95 Intake & Output 04/04/18 04/05/18 04/06/18 04/07/18 23:59 23:59 23:59 23:59 Intake Total 1940 2260 2110 900 Balance 1940 2260 2110 900 General: lying in bed in no acute distress Abdomen:soft, NT throughout, ND, positive bowel sounds Extremities: no edema Home Medication List Medication Instructions Recorded Confirmed Type Ezetimibe [Zetia] 10 mg PO DAILY 05/24/13 04/01/18 History Levothyroxine [Synthroid -] 25 mcg PO DAILY 05/24/13 04/01/18 History Prochlorperazine Maleate 10 mg PO Q8H PRN 03/12/18 04/01/18 History [Compazine] Alendronate Na [Fosamax] 70 mg PO Q7D 04/01/18 04/02/18 History Calcium Carbonate/Vitamin D3 1 each PO DAILY 04/01/18 04/01/18 History [Calcium 600 + Vit D 400 Softgl] Active Medications Generic Name Dose Route Start Last Admin Trade Name Freq PRN Reason Stop Dose Admin Calcium Carbonate/Cholecalciferol 1 tab 04/02/18 10:00 04/07/18 09:38 Os-Venkatesh 500+D - PO 1 tab DAILY JETHRO Administration Cholestyramine Resin 4 gm 04/03/18 10:00 04/07/18 09:38 Questran Light Packet - PO 4 gm DAILY JETHRO Administration Ezetimibe 10 mg 04/02/18 10:04/07/18 09:38 Zetia - PO 10 mg DAILY JETHRO Administration Dextrose/Sodium Chloride 1,000 mls @ 75 mls/hr 04/05/18 16:30 04/07/18 02:01 D5-Ns - IV 75 mls/hr ASDIR JETHRO Administration Levothyroxine Sodium 25 mcg 04/02/18 07:00 04/07/18 06:03 Synthroid - PO 25 mcg DAILY@0700 JETHRO Administration Magnesium Oxide 400 mg 04/02/18 10:00 04/07/18 09:38 Mag-Ox - PO 400 mg DAILY JETHRO Administration Multivitamins/Minerals/Vitamin C 1 tab 04/03/18 10:00 04/07/18 09:38 Tab-A-Vit - PO 1 tab DAILY JETHRO Administration Pantoprazole Sodium 20 mg 04/02/18 10:00 04/07/18 09:38 Protonix - PO 20 mg DAILY JETHRO Administration Prochlorperazine Maleate 10 mg 04/02/18 00:24 Compazine - PO Q8H PRN NAUSEA Vancomycin HCl 125 mg 04/04/18 18:00 04/07/18 05:37 Vancomycin Oral Solution PO 125 mg Q6HPO JETHRO Administration Laboratory Results - last 24 hr 04/02/18 04/07/18 04/07/18 13:00 07:00 07:00 WBC 3.3 L RBC 3.06 L Hgb 9.2 L D Hct 27.7 L MCV 90.3 MCH 30.1 MCHC 33.3 RDW 14.1 Plt Count 271 MPV 6.9 L Neutrophils % 60.3 Lymphocytes % 21.0 Monocytes % 11.8 H Eosinophils % 6.3 H Basophils % 0.6 Nucleated RBC % 0 Sodium 142 Potassium 4.1 Chloride 109 H Carbon Dioxide 27 Anion Gap 6 L BUN 4 L Creatinine 0.6 Creat Clearance w eGFR > 60 Random Glucose 89 Calcium 7.9 L Phosphorus 4.1 Magnesium 2.1 Total Bilirubin 0.4 AST 9 L ALT 8 L Alkaline Phosphatase 40 L Total Protein 5.0 L Albumin 2.3 L Stool O & P Wet [place] & P Permanent Slide Final report Microbiology 04/03/18 13:00 Stool Salmonella/Shigella Culture - Final NO GROWTH OF SALMONELLA OR SHIGELLA SPECIES OBTAINED 04/03/18 13:00 Stool Campylobacter Culture - Final NO GROWTH OF CAMPYLOBACTER SPECIES OBTAINED 04/03/18 13:00 Stool Yersinia Culture - Final NO GROWTH OF YERSINIA SPECIES OBTAINED 04/03/18 13:00 Stool Vibrio Culture - Final NO GROWTH OF VIBRIO SPECIES OBTAINED 04/03/18 13:00 Stool Escherichia coli 0157 Culture - Final NO GROWTH OF E COLI 0157 OBTAINED 05/22/18 13:00 Stool Clostridium difficile Antigen (LISA) - Final 04/03/18 13:00 Stool Clostridium difficile Toxin Assay - Final 04/01/18 19:53 Urine - Urine Clean Catch Urine Culture - Final NO GROWTH OBTAINED ASSESSMENT AND PLAN: 77yo F wtih PMH asthma, hypothyroid, and cervical ca s/p chemo-radiation, recently admitted with diarrhea re-admitted with similar symptoms with poor oral intake and ongoing diarrhea -Acute C difficile pancolitis -Failure to thrive, ?Secondary to chemoradiation vs above -Hypokalemia, due to above -Hypomagnesemia -Normocytic anemia -Hypothyroidism -Cervical Ca s/p chemoradaition Plan: GI input noted, EGD/colonoscopy noted. Vancomycin slow taper. Clinically improved. Tolerating po better. Electrolytes stable. Nutritional supplements. Replete k/Mg prn. H/h stable. Continue levothyroxine. Oncology input noted. Nutrition consult noted. [id number] d/c home today on extended vancomycin taper and outpatient GI and oncology follow up. Plan discussed with patient in detail, all questions answered.
--- NOTE | 2018-04-07 11:00 | DS ---
Physical Exam: SUBJECTIVE: Patient seen and examined. Had one loose bowel movement yesterday am , then 2 normal formed bowel movements later in the day. Was able to tolerate food, no N/V and no diarrhea this am. Passed formed stool and also tolerated food in the am. No abdominal pain, no fevers. OBJECTIVE: Vital Signs Period Temp Pulse Resp BP Sys/Rankin Pulse Ox Last 24 Hr 98.5 F-98.7 F 85-94 18-20 106-128/60-66 95 Vital Signs Temp 98.6 F 04/07/18 09:30 Pulse 94 H 04/07/18 09:30 Resp 20 04/07/18 09:30 BP 128/60 04/07/18 09:30 Pulse Ox 95 04/06/18 21:00 Intake & Output 04/06/18 04/06/18 04/07/18 11:59 23:59 11:59 Intake Total 700 1410 900 Balance 700 1410 900 Intake: IV 500 850 900 D5-Ns - 1,000 ml @ 75 mls 500 850 900 /hr IV ASDIR JETHRO Rx#: [id number] IVPB 50 Oral 200 510 Other: Voiding Method Toilet Toilet Toilet # Unmeasured Voids Void 2 1 1 Bowel Movement No Yes # Bowel Movements 2 PHYSICAL EXAM GENERAL: The patient is awake, alert, and fully oriented, in no acute distress. Looks comfortable. ENT: moist mucous membranes. LUNGS: Breath sounds equal, clear to auscultation bilaterally HEART: Regular rate and rhythm, S1, S2 without murmur, rub or gallop. ABDOMEN: Soft, nontender, nondistended, normoactive bowel sounds EXTREMITIES: 2+ pulses, warm, well-perfused, no edema. NEUROLOGICAL: Cranial nerves II through XII grossly intact. Normal speech LABS Laboratory Results - last 24 hr 04/02/18 04/07/18 04/07/18 13:00 07:00 07:00 WBC 3.3 L RBC 3.06 L Hgb 9.2 L D Hct 27.7 L MCV 90.3 MCH 30.1 MCHC 33.3 RDW 14.1 Plt Count 271 MPV 6.9 L Neutrophils % 60.3 Lymphocytes % 21.0 Monocytes % 11.8 H Eosinophils % 6.3 H Basophils % 0.6 Nucleated RBC % 0 Sodium 142 Potassium 4.1 Chloride 109 H Carbon Dioxide 27 Anion Gap 6 L BUN 4 L Creatinine 0.6 Creat Clearance w eGFR > 60 Random Glucose 89 Calcium 7.9 L Phosphorus 4.1 Magnesium 2.1 Total Bilirubin 0.4 AST 9 L ALT 8 L Alkaline Phosphatase 40 L Total Protein 5.0 L Albumin 2.3 L Stool O & P Wet [place] & P Permanent Slide Final report Ambulatory Orders Ezetimibe [Zetia] 10 mg PO DAILY 05/24/13 Levothyroxine [Synthroid -] 25 mcg PO DAILY 05/24/13 Prochlorperazine Maleate [Compazine] 10 mg PO Q8H PRN 03/12/18 Magnesium Oxide [Mag-Ox -] 400 mg PO DAILY #30 tablet 03/14/18 Alendronate Na [Fosamax (Weekly)] 70 mg PO Q7D 04/01/18 Calcium Carbonate/Vitamin D3 [Calcium 600 + Vit D 400 Softgl] 1 each PO DAILY Multivitamins [Multivit ([facility] Formulary)] 1 tab PO DAILY tab 04/05/18 Nut.tx.impaired Digest Fxn [Ensure Clear] 200 ml PO BID #60 liquid 04/05/18 Phenazopyridine HCl [Pyridium -] 100 mg PO TID tablet 04/05/18 Cholestyramine/Aspartame [Questran Light Packet -] 4 gm PO DAILY #14 packet Vancomycin Oral Solution See Taper PO ASDIR #630 capsule 04/07/18 Current Medications Calcium Carbonate/Cholecalciferol (Os-Venkatesh 500+D -) 1 tab PO DAILY [facility] Last Admin: 04/07/18 09:38 Dose: 1 tab Cholestyramine Resin (Questran Light Packet -) 4 gm PO DAILY [facility] Last Admin: 04/07/18 09:38 Dose: 4 gm Ezetimibe (Zetia -) 10 mg PO DAILY [facility] Last Admin: 04/07/18 09:38 Dose: 10 mg Dextrose/Sodium Chloride (D5-Ns -) 1,000 mls @ 75 mls/hr IV ASDIR [facility] Last Admin: 04/07/18 02:01 Dose: 75 mls/hr Levothyroxine Sodium (Synthroid -) 25 mcg PO DAILY@0700 [facility] Last Admin: 04/07/18 06:03 Dose: 25 mcg Magnesium Oxide (Mag-Ox -) 400 mg PO DAILY [facility] Last Admin: 04/07/18 09:38 Dose: 400 mg Multivitamins/Minerals/Vitamin C (Tab-A-Vit -) 1 tab PO DAILY [facility] Last Admin: 04/07/18 09:38 Dose: 1 tab Pantoprazole Sodium (Protonix -) 20 mg PO DAILY [facility] Last Admin: 04/07/18 09:38 Dose: 20 mg Prochlorperazine Maleate (Compazine -) 10 mg PO Q8H PRN PRN Reason: NAUSEA Vancomycin HCl (Vancomycin Oral Solution) 125 mg PO Q6HPO [facility] Last Admin: 04/07/18 05:37 Dose: 125 mg Microbiology 04/03/18 13:00 Stool Clostridium difficile Antigen (LISA) - Final 04/03/18 13:00 Stool Clostridium difficile Toxin Assay - Final 04/03/18 13:00 Stool Salmonella/Shigella Culture - Preliminary NO ENTERIC PATHOGENS, 24 HOURS, ON PRIMARY PLATES 04/03/18 13:00 Stool Yersinia Culture - Preliminary NO ENTERIC PATHOGENS, 24 HOURS, ON PRIMARY PLATES 04/03/18 13:00 Stool Vibrio Culture - Final NO GROWTH OF VIBRIO SPECIES OBTAINED 04/03/18 13:00 Stool Escherichia coli 0157 Culture - Final NO GROWTH OF E COLI 0157 OBTAINED Endoscopy /colonoscopy 04/04/18: Small hiatal hernia, otherwise normal EGD, biopsies teken. Edematous colon throughout w/o obvious erythema, hemorrhage, or ulcerations. "C.diff colitis" appearance. Normal TI. 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 She was unable to tolerate the BRAT diet. C diff samples taken- positive for both antigens and toxins A and B. Colonoscopy also showed features of C diff, now pending biopsy report. Pt started Vanco PO 125 q6H, and will continue vancomycin capsule taper see below. Vancomycin pulsed-tapered regimen: * 125 mg by mouth four times daily for 10 days, then * 125 mg by mouth twice daily for 7 days, then * 125 mg by mouth once daily for 7 days, then * 125 mg by mouth every 2 or 3 days for 14 days * She has had no more loose stools and has had her appetite return. She will continue the cholestyramine 4g daily, 2 hours before or after other medications. She may eat regular diet with ensure clear twice a day for the next month. She had electrolyte imbalances that were corrected. She will continue all he other home medications and follow up with her oncologist, GI (for biopsy results) and ID doctor. Minutes to complete discharge: 42 Discharge Summary Reason For Visit: INTRACTABLE VOMITING WITH NAUSEA Current Active Problems Clostridium difficile enterocolitis (Acute) Diarrhea (Acute) Condition: Improved - Instructions Diet, Activity, Other Instructions: You came in with loss of appetite and diarrhea You were found to have an infection known as C difficile We are treating you with Vancomycin Vancomycin pulsed-tapered regimen: * 125 mg by mouth four times daily for 10 days, then * 125 mg by mouth twice daily for 7 days, then * 125 mg by mouth once daily for 7 days, then * 125 mg by mouth every 2 or 3 days for 14 days, Please take it as prescribed Take cholestyramine 2 hours before, or after all other medications. Follow up with the stomach doctor in one week, to discuss your biopsy. Follow up with the infectious disease doctor in one week Follow up with your oncologist (cancer doctor) in one week Follow up with your primary care doctor, or you can follow up with Dr Pura Graf at [address] [place] [address] Call [phone] to make an appointment for afternoons to see Dr Graf Wash your hands before food and after using the toilet Everyone around you should also make sure to wash their hands before food and after using the toilet Continue to eat as much as you can. We are adding a nutritional supplement - Ensure to help you regain your strength You had biopsy done of your colon during colonoscopy, follow up with your GI doctor- Dr Mcgovern for the results of the biopsy in one week's time If you feel your symptoms are getting worse, or you have fever, nausea and vomiting worsening diarrhea or prolonged constipation, please return to the emergency room Please return to the emergency department with any new or worsening symptoms or concerns. Please follow up with your primary care physician within 72 hours. Referrals: Pura Graf I, NATALIA [Resident] - 1 Week Reji Jacobson MD [Staff Physician] - 1 Week Chauncey Caballero MD [Staff Physician] - 1 Week Marin Mcgovern MD [Staff Physician] - 1 Week Phoebe Toribio MD [Staff Physician] - 1 Week Disposition: HOME - Home Medications Comprehensive Discharge Medication List: Ambulatory Orders Ezetimibe [Zetia] 10 mg PO DAILY 05/24/13 Levothyroxine [Synthroid -] 25 mcg PO DAILY 05/24/13 Prochlorperazine Maleate [Compazine] 10 mg PO Q8H PRN 03/12/18 Magnesium Oxide [Mag-Ox -] 400 mg PO DAILY #30 tablet 03/14/18 Alendronate Na [Fosamax (Weekly)] 70 mg PO Q7D 04/01/18 Calcium Carbonate/Vitamin D3 [Calcium 600 + Vit D 400 Softgl] 1 each PO DAILY Multivitamins [Multivit ([facility] Formulary)] 1 tab PO DAILY tab 04/05/18 Nut.tx.impaired Digest Fxn [Ensure Clear] 200 ml PO BID #60 liquid 04/05/18 Phenazopyridine HCl [Pyridium -] 100 mg PO TID tablet 04/05/18 Cholestyramine/Aspartame [Questran Light Packet -] 4 gm PO DAILY #14 packet Vancomycin Oral Solution See Taper PO ASDIR #630 capsule 04/07/18 This patient is new to me today: No Emergency Visit: Yes ED Registration Date: 04/01/18 Care time: The patient presented to the Emergency Department on the above date and was hospitalized for further evaluation of their emergent condition. Critical Care patient: No - Discharge Referral Referred to [facility] No
== END 2018-04-07 14:16 | disposition home or self-care (01) | DRG 372 ==
LOC: JER 17:20 → JERBED 21:57 → OBSVTOIN 22:35 → JERBED 04-02 08:36 → J8W 04-02 17:38
PROVIDERS: ADMIT Internal Medicine; ATTEND Hospitalist
PROC: 0DB98ZX Excision of Duodenum, Via Natural or Artificial Opening Endoscopic, Diagnostic (ICD-10-PCS; 2018-04-04)
PROC: 0DB68ZX Excision of Stomach, Via Natural or Artificial Opening Endoscopic, Diagnostic (ICD-10-PCS; 2018-04-04)
PROC: 0DBE8ZX Excision of Large Intestine, Via Natural or Artificial Opening Endoscopic, Diagnostic (ICD-10-PCS; principal; 2018-04-04 14:30)
DX: A04.72 Enterocolitis due to Clostridium difficile, not specified as recurrent (principal); R64 Cachexia; K51.019 Ulcerative (chronic) pancolitis with unspecified complications; E87.6 Hypokalemia; E83.42 Hypomagnesemia; J45.909 Unspecified asthma, uncomplicated; E03.9 Hypothyroidism, unspecified; E78.5 Hyperlipidemia, unspecified; C53.9 Malignant neoplasm of cervix uteri, unspecified; K21.9 Gastro-esophageal reflux disease without esophagitis; D64.9 Anemia, unspecified; K44.9 Diaphragmatic hernia without obstruction or gangrene; R62.7 Adult failure to thrive; Y84.2 Radiological procedure and radiotherapy as the cause of abnormal reaction of the patient, or of later complication, without mention of misadventure at the time of the procedure
CPT/HCPCS: 36415; 74018-TC-FY; 74019-TC-FY; 80048; 80053; 81003; 81015; 82550; 82962; 83735; 84100; 84484; 85025; 85027; 85610; 85730; 87045; 87046; 87086; 87177; 87209; 87324; 87449; 88305-TC; 93005; 93010; 97116-GP; 97161-GP; 99284-25; G0378; J1644; J7030

== ENCOUNTER 2018-05-16 10:11 | Day surgery (SDC) | payer OTHER ==
[~2018-05-16 10:11] MED LIST: SODIUM CHLORIDE 1,000 ML IV ONE
[2018-05-16 12:04] LABS: ANION GAP 13 (8-16); BLOOD UREA NITROGEN 30 mg/dL (7-18); CALCIUM 8.7 mg/dL (8.5-10.1); CHLORIDE 101 mmol/L (98-107); CO2 24 mmol/L (21-32); CREATININE 1.1 mg/dL (0.55-1.02); GLUCOSE,RANDOM 101 mg/dL (74-106); MAGNESIUM 1.7 mg/dL (1.8-2.4); SODIUM 138 mmol/L (136-145)
[2018-05-16 12:07] LABS: POTASSIUM 2.9 mmol/L (3.5-5.1)
[2018-05-16] MEDS: POTASSIUM CHLORIDE 10 MEQ in SODIUM CHLORIDE 100 ML IVPB SCH ×2 (13:00→15:00)
[2018-05-16] MEDS ORDERED: MAGNESIUM 1GM/D5W - 1 GM/100 ML IVPB IVPB ONE (13:00)
--- NOTE | 2018-05-16 15:02 | HP ---
Admitting History and Physical - Admission Chief Complaint: dehydration History Source: Patient Limitations to Obtaining History: No Limitations - Past Medical History Cardiovascular: Yes: HTN, Other (tachycardia and feelings of pounding heart beat were decribed) Pulmonary: Yes: Asthma, Other (non productive cough) Gastrointestinal: Yes: Constipation, Diverticulitis, Diverticulosis, GERD Renal/: Yes: Renal Calculi Reproductive: Yes: Other (cervical ca - s/p RT/cis [place]) Heme/Onc: Yes: Cancer (cervical cancer) Endocrine: Yes: Hypothyroidism Dermatology: Yes: Other (cervical cancer) - Smoking History Smoking history: Never smoked Have you smoked in the past 12 months: No Aproximately how many cigarettes per day: 0 - Alcohol/Substance Use Hx Alcohol Use: No - Social History ADL: Independent History of Recent Travel: No Home Medications - Allergies Allergies/Adverse Reactions: Allergies Allergy/AdvReac Type Severity Reaction Status Date / Time No Known Allergies Allergy Verified 04/01/18 17:25 - Home Medications Home Medications: Ambulatory Orders Ezetimibe [Zetia] 10 mg PO DAILY 05/24/13 Levothyroxine [Synthroid -] 25 mcg PO DAILY 05/24/13 Prochlorperazine Maleate [Compazine] 10 mg PO Q8H PRN 03/12/18 Magnesium Oxide [Mag-Ox -] 400 mg PO DAILY #30 tablet 03/14/18 Alendronate Na [Fosamax (Weekly)] 70 mg PO Q7D 04/01/18 Calcium Carbonate/Vitamin D3 [Calcium 600 + Vit D 400 Softgl] 1 each PO DAILY Multivitamins [Multivit ([facility] Formulary)] 1 tab PO DAILY tab 04/05/18 Nut.tx.impaired Digest Fxn [Ensure Clear] 200 ml PO BID #60 liquid 04/05/18 Phenazopyridine HCl [Pyridium -] 100 mg PO TID tablet 04/05/18 Cholestyramine/Aspartame [Questran Light Packet -] 4 gm PO DAILY #14 packet Vancomycin Oral Solution See Taper PO ASDIR #630 capsule 04/07/18 Review of Systems - Review of Systems Constitutional: reports: Weakness Eyes: denies: Blind Spots, Blurred Vision, Double Vision HENT: denies: Difficult Swallowing Neck: denies: Swollen Glands, Tenderness Cardiovascular: denies: Chest Pain, Shortness of Breath Respiratory: denies: SOB, SOB on Exertion Gastrointestinal: reports: Diarrhea Genitourinary: denies: Discharge, Dysuria, Flank Pain Breasts: reports: No Symptoms Reported Musculoskeletal: reports: Muscle Weakness Integumentary: reports: No Symptoms Neurological: reports: No Symptoms Endocrine: reports: No Symptoms Hematology/Lymphatic: reports: No Symptoms Psychiatric: reports: No Symptoms Physical Examination Constitutional: Yes: Cachectic, Thin Eyes: Yes: PERRL. No: Diplopia, Ptosis, Sclera Icterus HENT: Yes: Atraumatic, Normocephalic. No: Epistaxis, Tonsillar Exudate Neck: Yes: Supple, Trachea Midline. 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 difficile Code(s): R19.7 - DIARRHEA, UNSPECIFIED (5) Hypokalemia Assessment/Plan: to replete Code(s): E87.6 - HYPOKALEMIA
[2018-05-16] MEDS ORDERED: POTASSIUM CHLORIDE ORAL LIQUID 20 MEQ/15 ML PO STA (15:21)
[2018-05-16] MEDS ORDERED: POTASSIUM CHLORIDE ORAL LIQUID 20 MEQ/15 ML PO ONE (16:23)
[2018-05-16 18:39] VITALS: BP 103/51; PULSE 91; TEMP 99.1
[2018-05-16] MEDS ORDERED: POTASSIUM CHLORIDE ORAL LIQUID 20 MEQ/15 ML PO SCH (22:00)
== END 2018-05-16 18:30 | disposition home or self-care (01) ==
LOC: JONCNONCHE 10:11 → J7W 10:12 → JONCNONCHE 18:30
PROVIDERS: ATTEND Internal Medicine Hematology & Oncology
PROC: 3E0337Z Introduction of Electrolytic and Water Balance Substance into Peripheral Vein, Percutaneous Approach (ICD-10-PCS; principal; 2018-05-16)
DX: E86.0 Dehydration (principal); C53.9 Malignant neoplasm of cervix uteri, unspecified; I10 Essential (primary) hypertension; J45.909 Unspecified asthma, uncomplicated; E03.9 Hypothyroidism, unspecified
CPT/HCPCS: 36415; 80048; 83735; 96360; 96361; J7030